=== PATIENT | male | born 1955 | race Hispanic/Latino ===

== ENCOUNTER 2018-09-09 11:41 | Emergency (ER) | payer OTHER ==
--- OUTSIDE RECORDS SUMMARY | 2018-09-09 11:53 | XMS REPORT | Summary of Care ---
:01/09/1990 Author Encounter JOCE Muniz(DARRIAN) [id number] Date(s): 01/11/14 - 01/11/14 [facility] [id number] Discharge Disposition: Non-Emergent Physician Attending: Bro Hammer MD Reason for Visit LEG PAIN Vital Signs Most recent to oldest [Reference Range]: 1 Height 165.1 cm (01/11/14 8:03 PM) Temperature Oral [96.4-99.1 DegF] 98.4 DegF (01/11/14 8:03 PM) Systolic Blood Pressure [90-140 mmHg] 144 mmHg *HI* (01/11/14 8:03 PM) Diastolic Blood Pressure [60-90 mmHg] 90 mmHg (01/11/14 8:03 PM) Respiratory Rate [14-20 BRMIN] 22 BRMIN *HI* (01/11/14 8:03 PM) Peripheral Pulse Rate [60-100 bpm] 102 bpm *HI* (01/11/14 8:03 PM) Weight 68.182 kg (01/11/14 8:03 PM) Body Mass Index 25.01 m2 (01/11/14 8:03 PM) Problem List No data available for this section Allergies, Adverse Reactions, Alerts Substance Reaction Severity Status NKDA Active Medications Sodium Chloride 0.9% (Bolus) IV 1,000 mL, 1,000 ml/hr, Infuse Over: 1 hr, Route: IV, ONCE, Priority: STAT, Dosing Weight 68.182 kg, Start date: 01/11/14 21:18:00, Duration: 1 doses or times, Stop date: 01/11/14 21:18:00 Start Date: 01/11/14 Stop Date: 01/11/14 Status: Discontinued Medications Administered During Your Visit No data available for this section Immunizations No data available for this section Procedures Procedure Type Body Site Date of Procedure Related Diagnosis section Social History Social History Type Response Alcohol Use: Current, Type: Liquor, Frequency: 1-2 times per month, Previous treatment: None, Has alcohol use interfered with work or home life? No, Do you ever drink more than intended? No, Has anyone been hurt or at risk by your drinking? No, Ready to change: No, Concerns about alcohol use in household: No
--- OUTSIDE RECORDS SUMMARY | 2018-09-09 11:53 | XMS REPORT | Summary of Care ---
:01/09/1990 Author Organization [facility] Address [address] [place] [id number]- Encounter HQ Oneilr_alejandro(FIN) [id number] Date(s): 10/15/17 - 10/25/[address] Professional Services provided by [facility] [place] [address]- Discharge Disposition: Home or Self Care Attending Physician: Leonid Bowman MD Admitting Physician: Leonid Bowman MD Vital Signs Most recent to oldest 1 2 3 [Reference Range]: Height 165.1 cm 165.1 cm (10/15/17 9:53 PM) (10/15/17 7:03 AM) Current Weight 103.273 kg 104.227 kg 103.955 kg (10/24/17 7:25 AM) (10/23/17 7:06 AM) (10/20/17 6:01 AM) Temperature Oral [96.4-99.1 97.6 DegF 97.4 DegF 97.7 DegF DegF] (10/25/17 3:38 PM) (10/25/17 11:44 AM) (10/25/17 7:17 AM) Blood Pressure [90-140/60-90 132/88 mmHg 148/105 mmHg 139/99 mmHg mmHg] (10/25/17 3:38 PM) *HI* (10/25/17 7:17 AM) (10/25/17 11:44 AM) Respiratory Rate [14-20 BRMIN] 20 BRMIN 20 BRMIN 20 BRMIN (10/25/17 3:38 PM) (10/25/17 11:44 AM) (10/25/17 7:17 AM) Peripheral Pulse Rate [60-100 109 bpm 79 bpm 107 bpm bpm] *HI* (10/25/17 11:44 AM) *HI* (10/25/17 3:38 PM) (10/25/17 7:17 AM) Weight 108.636 kg 127.273 kg (10/15/17 9:53 PM) (10/15/17 7:03 AM) Body Mass Index 39.85 m2 46.69 m2 (10/15/17 9:53 PM) (10/15/17 7:03 AM) Problem List Condition Effective Dates Status Health Status Informant Diabetes(Confirmed)1 Resolved Hypertension(Confirmed)2 Resolved 1untreated, diagnosed at [place] 1 month ago per [id number], diagnosed at [place] 1 month ago per pt Allergies, Adverse Reactions, Alerts Substance Reaction Severity Status NKDA Active Medications acetaminophen 325 mg, 1 tab, Route: PO, Drug form: TAB, Q4H, Dosing Weight 108.636, kg, PRN Pain 4-6/Temp > 100.4 F, Start date: 10/22/17 19:18:00 CDT, Duration: 30 day , Stop date: 11/21/17 19:17:00 CDT Notes: Do not exceed 4 gm/day. (Same as: Tylenol) Start Date: 10/22/17 Stop Date: 10/25/17 Status: Discontinuedalbuterol-ipratropium 2.5-0.5 mg inhalation solution 3 mL, INHALATION, QID, # 90 mL, 0 Refill(s) Start Date: 10/22/17 Status: Orderedalbuterol-ipratropium 2.5-0.5 mg inhalation solution 3 ml, INHALATION, QID, # 30 ea, 0 Refill(s) Start Date: 10/15/17 Stop Date: 10/22/17 Status: DiscontinuedAtivan 1 mg, 1 tab, Route: PO, Drug form: TAB, ONCE, Dosing Weight 108.636, kg, PRN Anxiety, Start date: 10/24/17 1:32:00 CDT Notes: (Same as: Ativan) Start Date: 10/24/17 Stop Date: 10/24/17 Status: CompletedAtivan 1 mg, 0.5 mL, Route: IVP, Drug form: INJ, ONCE, Dosing Weight 108.636, kg, PRN Anxiety, Start date: 10/24/17 0:52:00 CDT Notes: (Same as: Ativan) Start Date: 10/24/17 Stop Date: 10/24/17 Status: Discontinuedcalcium carbonate 500 mg, 1 tab, Route: PO, Drug form: CHEWTAB, Before Meals & Bedtime, Dosing Weight 108.636, kg,Start date: 10/17/17 16:30:00 CDT, Duration: 30 day, Stop date: 11/16/17 11:30:00 CDT Notes: (Same As: Tums)Calcium Carbonate 500 km=650 mg elemental calcium Dose=_ mg calcium carbonate ( mg elemental calcium) Start Date: 10/17/17 Stop Date: 10/25/17 Status: Discontinuedcalcium carbonate 500 mg, Route: PO, Drug form: CHEWTAB, Before Meals & Bedtime, Dosing Weight 108.636, kg, Start date: 10/17/17 16:30:00 CDT, Duration: 30 day, Stop date: 11/16/17 11:30:00 CDT Start Date: 10/17/17 Stop Date: 10/17/17 Status: Canceledcalcium carbonate 1,000 mg, 2 tab, Route: PO, Drug form: CHEWTAB, ONCE, Dosing Weight 108.636, kg , Start date: 10/18/17 17:46:00 CDT, Stop date: 10/18/17 17:46:00 CDT Start Date: 10/18/17 Stop Date: 10/18/17 Status: Completedcalcium gluconate 1,000 mg, 2 tab, Route: PO, Drug form: TAB, ONCE, Dosing Weight 108.636, kg, Start date: 10/18/17 16:18:00 CDT, Stop date: 10/18/17 16:18:00 CDT Start Date: 10/18/17 Stop Date: 10/18/17 Status: Discontinuedcarvedilol 3.125 mg oral tablet 3.125 mg=1 tab, PO, BID, # 60 tab, 0 Refill(s) Start Date: 10/22/17 Stop Date: 10/25/17 Status: Discontinuedcefepime 1 gm, Route: IVPB, Drug form: INJ, ONCE, Dosing Weight 127.273, kg, Priority: STAT, Start date: 10/15/17 7:24:00 CDT, Stop date: 10/15/17 7:24:00 CDT, ABX Indication: Pneumonia Notes: (Same As: Maxipime) MEDICATION WASTE Product Size: 1000 mgProduct Wasted: ___ mg Start Date: 10/15/17 Stop Date: 10/15/17 Status: Completedcefepime 1 gm, Route: IVP, Drug form: INJ, ABXQ8H, Dosing Weight 127.273, kg, (CrCl >/ =50 ml/min), Start date: 10/15/17 16:23:00 CDT, Duration: 2 day, Stop date: 08/01 8:23:00 CDT, ABX Indication: Pneumonia Notes: (Same As: Maxipime) MEDICATION WASTE Product Size: 1000 mgProduct Wasted: ___ mg Start Date: 10/15/17 Stop Date: 10/16/17 Status: DiscontinuedDextrose 50% Syringe 25 gm, 50 mL, Route: IVP, Drug Form: INJ, Dosing Weight 127.273, kg, PRN, PRN Blood Glucose Results,Start date: 10/15/17 19:33:00 CDT, Duration: 30 day, Stop date: 11/14/17 19:32:00 CDT Start Date: 10/15/17 Stop Date: 10/25/17 Status: DiscontinuedDextrose 50% Syringe 12.5 gm, 25 mL, Route: IVP, Drug Form: INJ, Dosing Weight 127.273, kg, PRN, PRN Blood Glucose Results, Start date: 10/15/17 19:33:00 CDT, Duration: 30 day, Stop date: 11/14/17 19:32:00 CDT Start Date: 10/15/17 Stop Date: 10/25/17 Status: DiscontinuedDilaudid 1 mg, 0.5 mL, Route: IVP, Drug form: INJ, ONCE, Dosing Weight 108.636, kg, Priority: STAT, Start date: 10/21/17 23:01:00 CDT, Stop date: 10/21/17 23:01:00 CDT Notes: Same as Dilaudid Start Date: 10/21/17 Stop Date: 10/21/17 Status: CompletedDuoNeb inhalation solution 3 ml, Route: NEB, Drug Form: SOLN, Dosing Weight 127.273, kg, Q5Min, PRN Wheezing, Start date: 10/15/17 7:11:00 CDT, Duration: 3 doses or times, Stop date: 10/16/17 0:00:00 CDT Notes: (Same as: Duoneb) Start Date: 10/15/17 Stop Date: 10/15/17 Status: CompletedDuoNeb inhalation solution 3 ml, Route: NEB, Drug Form: SOLN, Dosing Weight 127.273, kg, RQ6H, PRN Respiratory Pathway, Start date: 10/15/17 17:32:00 CDT, Duration: 30 day, Stop date: 11/14/17 17:31:00 CDT Notes: (Same as: Duoneb) Start Date: 10/15/17 Stop Date: 10/17/17 Status: DiscontinuedDuoNeb inhalation solution 3 ml, Route: NEB, Drug Form: SOLN, Dosing Weight 108.636, kg, RQ4H, Start date: 10/17/17 13:32:00 CDT, Duration: 30 day, Stop date: 11/16/17 11:00:00 CDT Notes: (Same as: Duoneb) Start Date: 10/17/17 Stop Date: 10/25/17 Status: DiscontinuedDuoNeb inhalation solution 3 ml, Route: NEB, Drug Form: SOLN, Dosing Weight 127.273, kg, RQ6H, PRN Respiratory Pathway, Start date: 10/15/17 13:34:00 CDT, Duration: 30 day, Stop date: 11/14/17 13:33:00 CDT Start Date: 10/15/17 Stop Date: 10/15/17 Status: Discontinuedglucagon 1 mg, Route: IM, Drug form: PDR/INJ, PRN, Dosing Weight 127.273, kg, PRN Blood Glucose Results, Start date: 10/15/17 19:33:00 CDT, Duration: 30 day, Stop date : 11/14/17 19:32:00 CDT Start Date: 10/15/17 Stop Date: 10/25/17 Status: Discontinuedheparin 7,500 unit, Route: SUB-Q, Q8H, Dosing Weight 127.273, kg, Start date: 10/15/17 16:00:00 CDT, Duration: 30 day, Stop date: 11/14/17 8:00:00 CDT Start Date: 10/15/17 Stop Date: 10/15/17 Status: Canceledheparin 5000 units/mL injectable solution 7,500 unit, 1.5 mL, Route: SUB-Q, Drug form: INJ, Q8H, Dosing Weight 127.273, kg , Start date: 10/15/17 16:00:00 CDT, Duration: 30 day, Stop date: 11/14/17 8:00: 00 CDT Start Date: 10/15/17 Stop Date: 10/25/17 Status: Discontinuedheparin 5000 units/mL injectable solution Route: INJ, TID, Dosing Weight 127.273, kg, Start date: 10/15/17 17:00:00 CDT, Duration: 30 day, Stop date: 11/14/17 13:00:00 CDT Start Date: 10/15/17 Stop Date: 10/15/17 Status: CanceledInsulin regular 5 unit, 0.05 mL, Route: SUB-Q, Drug form: SOLN, TID-Before Meals, Dosing Weight 127.273, kg, PRN Blood Glucose Results, Start date: 10/15/17 19:33:00 CDT, Duration: 30 day, Stop date: 11/14/17 19:32:00CDT Notes: (Same as: Humulin R) Roll in palms of hands gently; Do not shake vigorously. "single patientuse only"(Restricted to patients requiring a dose &gt ; 60 units)WASTE: F/P - Black; E - Municipal Trash Bin Stable for 28 days at room temperatureExpires in days from Date Start Date: 10/15/17 Stop Date: 10/25/17 Status: DiscontinuedInsulin regular 3 unit, 0.03 mL, Route: SUB-Q, Drug form: SOLN, TID-Before Meals, Dosing Weight 127.273, kg, PRN Blood Glucose Results, Start date: 10/15/17 19:33:00 CDT, Duration: 30 day, Stop date: 11/14/17 19:32:00CDT Notes: (Same as: Humulin R) Roll in palms of hands gently; Do not shake vigorously. "single patientuse only"(Restricted to patients requiring a dose &gt ; 60 units)WASTE: F/P - Black; E - Municipal Trash Bin Stable for 28 days at room temperatureExpires in days from Date Start Date: 10/15/17 Stop Date: 10/25/17 Status: DiscontinuedInsulin regular 4 unit, 0.04 mL, Route: SUB-Q, Drug form: SOLN, TID-Before Meals, Dosing Weight 127.273, kg, PRN Blood Glucose Results, Start date: 10/15/17 19:33:00 CDT, Duration: 30 day, Stop date: 11/14/17 19:32:00CDT Notes: (Same as: Humulin R) Roll in palms of hands gently; Do not shake vigorously. "single patientuse only"(Restricted to patients requiring a dose &gt ; 60 units)WASTE: F/P - Black; E - Municipal Trash Bin Stable for 28 days at room temperatureExpires in days from Date Start Date: 10/15/17 Stop Date: 10/25/17 Status: DiscontinuedInsulin regular 1 unit, 0.01 mL, Route: SUB-Q, Drug form: SOLN, TID-Before Meals, Dosing Weight 127.273, kg, PRN Blood Glucose Results, Start date: 10/15/17 19:33:00 CDT, Duration: 30 day, Stop date: 11/14/17 19:32:00CDT Notes: (Same as: Humulin R) Roll in palms of hands gently; Do not shake vigorously. "single patientuse only"(Restricted to patients requiring a dose &gt ; 60 units)WASTE: F/P - Black; E - Municipal Trash Bin Stable for 28 days at room temperatureExpires in days from Date Start Date: 10/15/17 Stop Date: 10/25/17 Status: DiscontinuedInsulin regular 2 unit, 0.02 mL, Route: SUB-Q, Drug form: SOLN, TID-Before Meals, Dosing Weight 127.273, kg, PRN Blood Glucose Results, Start date: 10/15/17 19:33:00 CDT, Duration: 30 day, Stop date: 11/14/17 19:32:00CDT Notes: (Same as: Humulin R) Roll in palms of hands gently; Do not shake vigorously. "single patientuse only"(Restricted to patients requiring a dose &gt ; 60 units)WASTE: F/P - Black; E - Municipal Trash Bin Stable for 28 days at room temperatureExpires in days from Date Start Date: 10/15/17 Stop Date: 10/25/17 Status: DiscontinuedLactated Ringers (Bolus) IV 250 mL, 250 ml/hr, Infuse Over: 1 hr, Route: IV, 250, Drug form: INJ, ONCE, Priority: STAT, Dosing Weight 108.636 kg, Start date: 10/16/17 0:33:00 CDT, Stop date: 10/16/17 0:33:00 CDT Start Date: 10/16/17 Stop Date: 10/16/17 Status: DeletedLactated Ringers (Bolus) IV 250 mL, 250 ml/hr, Infuse Over: 1 hr, Route: IV, 250, Drug form: INJ, ONCE, Priority: STAT, Dosing Weight 108.636 kg, Start date: 10/16/17 1:10:00 CDT, Stop date: 10/16/17 1:10:00 CDT Start Date: 10/16/17 Stop Date: 10/16/17 Status: CompletedLasix 40 mg, Route: IVP, Drug form: INJ, Daily, Dosing Weight 108.636, kg, Start date : 10/19/17 12:30:00 CDT, Duration: 30 day, Stop date: 11/18/17 9:00:00 CDT Start Date: 10/19/17 Stop Date: 10/19/17 Status: DeletedLasix 40 mg, 4 mL, Route: IVP, Drug form: INJ, BID Diuretic, Dosing Weight 108.636, kg , Start date: 10/17/17 19:00:00 CDT, Duration: 30 day, Stop date: 11/16/17 14:00 :00 CDT Notes: (Same as: Lasix) MEDICATION WASTE Product Size: 40 mgProduct Wasted: ___ mg Start Date: 10/17/17 Stop Date: 10/21/17 Status: DiscontinuedLasix 20 mg, 2 mL, Route: IV, Drug form: INJ, ONCE, Dosing Weight 108.636, kg, Start date: 10/17/17 12:16:00 CDT, Stop date: 10/17/17 12:16:00 CDT Notes: (Same as: Lasix) Start Date: 10/17/17 Stop Date: 10/17/17 Status: CompletedLasix 20 mg, 2 mL, Route: IVP, Drug form: INJ, ONCE, Dosing Weight 127.273, kg, Priority: STAT, Start date: 10/15/17 8:01:00 CDT, Stop date: 10/15/17 8:01:00 CDT Notes: (Same as: Lasix) Start Date: 10/15/17 Stop Date: 10/15/17 Status: CompletedLasix 40 mg, Route: PO, Drug form: TAB, BID Diuretic, Dosing Weight 108.636, kg, Start date: 10/17/17 6:00:00 CDT, Duration: 30 day, Stop date: 11/15/17 14:00: 00 CDT Start Date: 10/17/17 Stop Date: 10/16/17 Status: CanceledLasix 40 mg, 1 tab, Route: PO, Drug form: TAB, BID Diuretic, Dosing Weight 108.636, kg , Start date: 10/16/17 15:05:00 CDT, Duration: 30 day, Stop date: 11/15/17 14:00 :00 CDT Notes: (Same as: Lasix) May cause GI upset. Give with food or milk. Start Date: 10/16/17 Stop Date: 10/17/17 Status: DiscontinuedLasix 40 mg oral tablet 40 mg=1 tab, PO, BID, # 30 tab, 0 Refill(s) Start Date: 10/22/17 Status: OrderedLasix 40 mg oral tablet 40 mg, 1 tab, Route: PO, Drug form: TAB, BID Diuretic, Dosing Weight 108.636, kg , Start date: 10/20/17 14:00:00 CDT, Duration: 30 day, Stop date: 11/19/17 6:00: 00 CDT Notes: (Same as: Lasix) May cause GI upset. Give with food or milk. Start Date: 10/20/17 Stop Date: 10/25/17 Status: DiscontinuedLevaquin 750 mg, 1 tab, Route: PO, Drug form: TAB, [id number], Dosing Weight 108.636, kg, Start date: 10/21/17 13:00:00 CDT, Duration: 7 day, Stop date: 10/27/17 13:00: 00 CDT, ABX Indication: Pneumonia Notes: Do not give w/antacids, dairy pdt & mineralsTake 1 hr before or 2 hr after dairy products Start Date: 10/21/17 Stop Date: 10/22/17 Status: Discontinuedlidocaine 1% 5 mL, Route: INTRADERM, Drug Form: INJ, Dosing Weight 108.636, kg, ONCALL, Start date: 10/18/17 11:00:00 CDT, Duration: 30 day, Stop date: 11/17/17 10:59: 00 CDT Notes: Preservative free. (Same as: Xylocaine MPF) Start Date: 10/18/17 Stop Date: 10/25/17 Status: Discontinuedlisinopril 20 mg, 1 tab, Route: PO, Drug form: TAB, Daily, Dosing Weight 108.636, kg, Start date: 10/19/17 8:26:00 CDT, Duration: 30 day, Stop date: 11/17/17 9:00:00 CDT Notes: (Same as: Prinivil, Zestril) Start Date: 10/19/17 Stop Date: 10/25/17 Status: Discontinuedlisinopril 2.5 mg, Route: PO, Drug form: TAB, Daily, Dosing Weight 108.636, kg, Start date : 10/17/17 9:00:00 CDT, Duration: 30 day, Stop date: 11/15/17 9:00:00 CDT Start Date: 10/17/17 Stop Date: 10/16/17 Status: Canceledlisinopril 2.5 mg, 1 tab, Route: PO, Drug form: TAB, Daily, Dosing Weight 108.636, kg, Start date: 10/16/17 15:06:00 CDT, Duration: 30 day, Stop date: 11/15/17 9:00: 00 CDT Notes: (Same as: ivil) Start Date: 10/16/17 Stop Date: 10/17/17 Status: Discontinuedlisinopril 5 mg, 1 tab, Route: PO, Drug form: TAB, ONCE, Dosing Weight 108.636, kg, Start date: 10/17/17 12:19:00 CDT, Stop date: 10/17/17 12:19:00 CDT Notes: (Same as: Bennett Kamarastril) Start Date: 10/17/17 Stop Date: 10/17/17 Status: Completedlisinopril 10 mg, 1 tab, Route: PO, Drug form: TAB, Daily, Dosing Weight 108.636, kg, Start date: 10/18/17 9:00:00 CDT, Duration: 30 day, Stop date: 11/16/17 9:00:00 CDT Notes: (Same as: Bennett Kamarastril) Start Date: 10/18/17 Stop Date: 10/19/17 Status: Discontinuedlisinopril 20 mg oral tablet 20 mg=1 tab, PO, Daily, # 30 tab, 1 Refill(s) Start Date: 10/22/17 Status: OrderedLopressor 25 mg, 1 tab, Route: PO, Drug form: TAB, ONCE, Start date: 10/24/17 21:00:00 CDT , Stop date: 10/24/17 21:00:00 CDT Notes: (Same as: Lopressor) Start Date: 10/24/17 Stop Date: 10/24/17 Status: Completedmagnesium sulfate 2 gm, Route: IVPB, Drug form: INJ, ONCE, Dosing Weight 127.273, kg, Total dose= 2 gm, Start date: 10/15/17 16:29:00 CDT, Stop date: 10/15/17 16:29:00 CDT Start Date: 10/15/17 Stop Date: 10/15/17 Status: Completedmagnesium sulfate 2 gm in Water 50 ml 2 gm, 50 mL, Route: IVPB, Drug form: INJ, ONCE, Dosing Weight 108.636, kg, Start date: 10/17/17 10:30:00 CDT, Stop date: 10/17/17 10:30:00 CDT Notes: WASTE: F/P - Sink; E - Municipal Trash Bin Start Date: 10/17/17 Stop Date: 10/17/17 Status: Completedmagnesium sulfate 2 gm in Water 50 ml 2 gm, 50 mL, Route: IVPB, Drug form: INJ, ONCE, Dosing Weight 108.636, kg, Start date: 10/18/17 8:24:00 CDT, Stop date: 10/18/17 8:24:00 CDT Notes: WASTE: F/P - Sink; E - Municipal Trash Bin Start Date: 10/18/17 Stop Date: 10/18/17 Status: Completedmeropenem 1,000 mg, Route: IVPB, Drug form: PDR/INJ, ABXQ8H, Dosing Weight 108.636, kg, CrCL >=50ml/min, Extended infusion, infuse over 3 hours, Start date: 19:00:00 CDT, Duration: 10 day, Stop date:10/26/17 11:00:00 CDT, ABX Indication: Bacteremia Start Date: 10/16/17 Stop Date: 10/16/17 Status: Deletedmeropenem 500 mg, Route: IVPB, Drug form: PDR/INJ, ABXQ6H, Start date: 10/16/17 20:00:00 CDT, Duration: 10 day, Stop date: 10/26/17 14:00:00 CDT, ABX Indication: Bacteremia Notes: Same as Merrem MEDICATION WASTE Product Size: 500 mgProduct Wasted: ___ mg Start Date: 10/16/17 Stop Date: 10/21/17 Status: DiscontinuedmetFORMIN 500 mg oral tablet 500 mg=1 tab, PO, BID, # 60 tab, 1 Refill(s) Start Date: 10/22/17 Stop Date: 10/25/17 Status: DiscontinuedmetFORMIN 500 mg oral tablet 500 mg=1 tab, PO, BID, # 60 tab, 1 Refill(s) Start Date: 10/25/17 Stop Date: 10/25/17 Status: Discontinuedmetoprolol 50 mg, 1 tab, Route: PO, Drug form: ERTAB, Daily, Start date: 10/25/17 9:00:00 CDT, Duration: 30 day, Stop date: 11/23/17 9:00:00 CDT Notes: (Same as: Toprol XL) May split tab, but do not crush. Start Date: 10/25/17 Stop Date: 10/25/17 Status: Discontinuedmetoprolol 50 mg oral tablet, extended release 50 mg=1 tab, PO, Daily, # 30 tab, 2 Refill(s) Start Date: 10/25/17 Status: Orderedmetoprolol tartrate 50 mg, Route: PO, Drug form: TAB, Daily, Dosing Weight 108.636, kg, Start date: 10/25/17 9:00:00 CDT, Duration: 30 day, Stop date: 11/23/17 9:00:00 CDT Start Date: 10/25/17 Stop Date: 10/24/17 Status: Deletedmetoprolol tartrate 12.5 mg, 0.5 tab, Route: PO, Drug form: TAB, Q12H, Dosing Weight 108.636, kg, Start date: 10/23/17 9:00:00 CDT, Duration: 30 day, Stop date: 11/21/17 21:00: 00 CDT Notes: (Same as: Lopressor) 12.5 mg=1/2 X 25 mg TAB Start Date: 10/23/17 Stop Date: 10/24/17 Status: Discontinuedmetoprolol tartrate See Instructions, BID, 0 Refill(s) Start Date: 10/15/17 Stop Date: 10/22/17 Status: DiscontinuedMiraLax 17 gm, 1 pkt, Route: PO, Drug form: PWDR, BID, Dosing Weight 108.636, kg, Start date: 10/17/17 9:50:00 CDT, Duration: 30 day, Stop date: 11/16/17 9:00:00 CDT Notes: Dissolve in 8 oz of water or juice.(Same as: Miralax) Start Date: 10/17/17 Stop Date: 10/25/17 Status: DiscontinuedNIFEdipine 30 mg oral tablet, extended release 30 mg, 1 tab, Route: PO, Drug form: ERTAB, Daily, Dosing Weight 127.273, kg, Start date: 10/15/17 15:36:00 CDT, Duration: 30 day, Stop date: 11/14/17 9:00: 00 CDT Start Date: 10/15/17 Stop Date: 10/16/17 Status: Discontinuednitroglycerin 100 mg in D5W 250 mL (Titrate.) IV 100 mg 100 mg, 250 mL, Rate: Titrate, Start Dose: 0.25 microgram/kg/min, Titration: 0.2 microgram/kg/min every 5 minutes, Goal(s): Chest pain and SBP between 100 - 150 mmHg, Max Dose: 3 microgram/kg/min, Route: IV, Dosing Weight 127.273 kg, Total Volume: 250... Notes: (Same as:Tridil) Final conc=0.4 mg/ml. Premix bottle. Start Date: 10/15/17 Stop Date: 10/15/17 Status: DiscontinuedNorco 10/325 oral tablet 1 tab, Route: PO, Drug Form: TAB, Dosing Weight 108.636, kg, Q6H, PRN Pain Score 7-10, Start date: 10/16/17 11:23:00 CDT, Stop date: 11/15/17 11:22:00 CDT , Q6H Notes: Do not exceed 4gm/day of acetaminophen. (Same as: [place] 325/10) Start Date: 10/16/17 Stop Date: 10/25/17 Status: DiscontinuedNS (Bolus) IV 2,000 mL, 1000 ml/hr, Infuse Over: 2 hr, Route: IV, 2,000, Drug form: INJ, ONCE , Priority: STAT, Dosing Weight 127.273 kg, Start date: 10/15/17 7:28:00 CDT, Stop date: 10/15/17 7:28:00 CDT Start Date: 10/15/17 Stop Date: 10/15/17 Status: Completedpotassium chloride 40 mEq, 2 tab, Route: PO, Drug form: ERTAB, ONCE, Dosing Weight 127.273, kg, Start date: 10/15/17 16:01:00 CDT, Stop date: 10/15/17 16:01:00 CDT Notes: (Same as: K-Dur 20)"Do Not Crush"For patients unable to swallow tablet, dissolve in one half glass of water. Allow about 2 minutes for the tablets to disintegrate. Stir before giving to prepare slurry and administer.Please exclude Patients with feeding tube less than 14 [place] (Dobhoff, J-tube etc) and pediatric and patients. With food and full glass of water Start Date: 10/15/17 Stop Date: 10/15/17 Status: Completedpotassium chloride 20 mEq oral tablet, extended release 40 mEq, 2 tab, Route: PO, Drug form: ERTAB, ONCE, Dosing Weight 108.636, kg, Start date: 10/19/17 6:25:00 CDT, Stop date: 10/19/17 6:25:00 CDT Notes: (Same as: K-Dur 20)"Do Not Crush"For patients unable to swallow tablet, dissolve in one half glass of water. Allow about 2 minutes for the tablets to disintegrate. Stir before giving to prepare slurry and administer.Please exclude Patients with feeding tube less than 14 [place] (Dobhoff, J-tube etc) and pediatric and patients. With food and full glass of water Start Date: 10/19/17 Stop Date: 10/19/17 Status: Completedpotassium chloride 20 mEq oral tablet, extended release 40 mEq, 2 tab, Route: PO, Drug form: ERTAB, ONCE, Dosing Weight 108.636, kg, Start date: 10/20/17 6:25:00 CDT, Stop date: 10/20/17 6:25:00 CDT Notes: (Same as: K-Dur 20)"Do Not Crush"For patients unable to swallow tablet, dissolve in one half glass of water. Allow about 2 minutes for the tablets to disintegrate. Stir before giving to prepare slurry and administer.Please exclude Patients with feeding tube less than 14 [place] (Dobhoff, J-tube etc) and pediatric and patients. With food and full glass of water Start Date: 10/20/17 Stop Date: 10/20/17 Status: Completedpotassium chloride 20 mEq oral tablet, extended release 40 mEq, 2 tab, Route: PO, Drug form: ERTAB, ONCE, Dosing Weight 108.636, kg, Start date: 10/16/17 10:42:00 CDT, Stop date: 10/16/17 10:42:00 CDT Notes: (Same as: K-Dur 20)"Do Not Crush"For patients unable to swallow tablet, dissolve in one half glass of water. Allow about 2 minutes for the tablets to disintegrate. Stir before giving to prepare slurry and administer.Please exclude Patients with feeding tube less than 14 [place] (Dobhoff, J-tube etc) and pediatric and patients. With food and full glass of water Start Date: 10/16/17 Stop Date: 10/16/17 Status: Completedpotassium chloride 20 mEq oral tablet, extended release 40 mEq, 2 tab, Route: PO, Drug form: ERTAB, ONCE, Dosing Weight 108.636, kg, Start date: 10/18/17 8:23:00 CDT, Stop date: 10/18/17 8:23:00 CDT Notes: (Same as: K-Dur 20)"Do Not Crush"For patients unable to swallow tablet, dissolve in one half glass of water. Allow about 2 minutes for the tablets to disintegrate. Stir before giving to prepare slurry and administer.Please exclude Patients with feeding tube less than 14 [place] (Dobhoff, J-tube etc) and pediatric and patients. With food and full glass of water Start Date: 10/18/17 Stop Date: 10/18/17 Status: CompletedpredniSONE 40 mg, 2 tab, Route: PO, Drug form: TAB, Daily, Dosing Weight 108.636, kg, Start date: 10/20/17 9:00:00 CDT, Duration: 5 day, Stop date: 10/24/17 9:00:00 CDT Notes: Take with food. Start Date: 10/20/17 Stop Date: 10/24/17 Status: CompletedpredniSONE 20 mg oral tablet 40 mg=2 tab, PO, Daily, # 2 tab, 0 Refill(s) Start Date: 10/22/17 Stop Date: 10/24/17 Status: CompletedSaline Flush 0.9% 10 mL, Route: IVP, Drug Form: INJ, Dosing Weight 108.636, kg, PRN, PRN Line Flush, Start date: 10/18/17 10:05:00 CDT, Duration: 30 day, Stop date: 11/17/17 10:04:00 CDT Notes: Same as: BD Posiflush Sterile Start Date: 10/18/17 Stop Date: 10/25/17 Status: DiscontinuedSaline Flush 0.9% 10 mL, Route: IVP, Drug Form: INJ, Dosing Weight 108.636, kg, Q8H, Start date: 10/18/17 16:00:00 CDT, Duration: 30 day, Stop date: 11/17/17 8:00:00 CDT Notes: Same as: BD Posiflush Sterile Start Date: 10/18/17 Stop Date: 10/25/17 Status: DiscontinuedSolu-MEDROL 125 mg, 2 mL, Route: IVP, Drug form: INJ, ONCE, Dosing Weight 127.273, kg, Priority: STAT, Start date: 10/15/17 7:11:00 CDT, Stop date: 10/15/17 7:11:00 CDT Notes: (Same as:Solu-MEDROL, A-Methapred) Start Date: 10/15/17 Stop Date: 10/15/17 Status: Completedspironolactone 12.5 mg, 0.5 tab, Route: PO, Drug form: TAB, Daily, Dosing Weight 108.636, kg, Start date: 10/23/17 10:55:00 CDT, Duration: 30 day, Stop date: 11/22/17 9:00: 00 CDT Notes: (Same as: Aldactone)12.5 mg=1/2 x 25 mg tab Start Date: 10/23/17 Stop Date: 10/25/17 Status: Discontinuedspironolactone 25 mg oral tablet 12.5 mg=0.5 tab, PO, Daily, # 30 tab, 2 Refill(s) Start Date: 10/25/17 Status: OrderedTessalon Perles 100 mg, 1 cap, Route: PO, Drug form: CAP, TID, Dosing Weight 108.636, kg, PRN Cough, Start date: 10/17/17 9:55:00 CDT, Duration: 30 day, Stop date: 11/16/17 9 :54:00 CDT Notes: (Same As: Tessalon Perles) Start Date: 10/17/17 Stop Date: 10/19/17 Status: DiscontinuedTessalon Perles 200 mg, 2 cap, Route: PO, Drug form: CAP, TID, Dosing Weight 108.636, kg, Start date: 10/19/17 13:00:00 CDT, Duration: 30 day, Stop date: 11/18/17 9:00:00 CDT Notes: (Same As: Tessalon Perles)"Do Not Crush" Start Date: 10/19/17 Stop Date: 10/25/17 Status: DiscontinuedTylenol 325 mg, 1 tab, Route: PO, Drug form: TAB, Q6H, Dosing Weight 108.636, kg, PRN Pain Score 1-3, Start date: 10/15/17 22:41:00 CDT, Duration: 30 day, Stop date: 11/14/17 22:40:00 CDT Notes: Do not exceed 4 gm/day. (Same as: Tylenol) Start Date: 10/15/17 Stop Date: 10/16/17 Status: DiscontinuedTylenol 1,000 mg, 2 tab, Route: PO, Drug form: TAB, ONCE, Dosing Weight 108.636, kg, Start date: 10/18/17 3:00:00 CDT, Stop date: 10/18/17 3:00:00 CDT Notes: Max acetaminophen 4000 mg/day (4 gm/day). (Same as: Tylenol Extra Strength) Start Date: 10/18/17 Stop Date: 10/18/17 Status: CompletedTylenol 1,000 mg, 2 tab, Route: PO, Drug form: TAB, Q6H, Dosing Weight 108.636, kg, PRN Pain 1-3/Temp > 100.4 F, Start date: 10/16/17 19:46:00 CDT, Duration: 30 day , Stop date: 11/15/17 19:45:00 CDT Start Date: 10/16/17 Stop Date: 10/17/17 Status: DiscontinuedTylenol 1,000 mg, Route: PO, Q6H, Dosing Weight 108.636, kg, Start date: 10/16/17 19:46: 00 CDT, Duration: 30day, Stop date: 11/15/17 18:00:00 CDT Start Date: 10/16/17 Stop Date: 10/16/17 Status: Discontinuedvancomycin + Sodium Chloride 0.9% IV 250 mL 1.5 gm, Route: IVPB, ABXQ8H, Start date: 10/18/17 22:00:00 CDT, Stop date: 11/17 14:00:00 CDT, ABX Indication: Pneumonia Notes: TIME CRITICAL MEDICATION(Same As: Vancocin)Infusion rate< 1000 mg: infuse over 1 [id number] - 1500 mg: infuse over 1.5 hoursVancomycin FOR IV SET [id number] - 2000 mg: infuse over 2 hours>2001 mg: infuse over 2.5 hoursFor adult patients only: Round to nearest 250 mg per Medical Staff approval MEDICATION WASTE Product Size: 1000 mgProduct Wasted: ___ mg Start Date: 10/18/17 Stop Date: 10/19/17 Status: Discontinuedvancomycin + Sodium Chloride 0.9% IV 250 mL 1.25 gm, Route: IV, ABXQ8H, Dosing Weight 108.636, kg, Start date: 10/20/17 6:00 :00 CDT, Duration: 30 day, Stop date: 11/18/17 22:00:00 CDT, ABX Indication: Other (specify in Comments) Notes: TIME CRITICAL MEDICATION(Same As: Vancocin)Infusion rate< 1000 mg: infuse over 1 [id number] - 1500 mg: infuse over 1.5 hoursVancomycin FOR IV SET ONLY1501 - 2000 mg: infuse over 2 hours>2001 mg: infuse over 2.5 hoursFor adult patients only: Round to nearest 250 mg per Medical Staff approval MEDICATION WASTE Product Size: 1000 mgProduct Wasted: ___ mg Start Date: 10/20/17 Stop Date: 10/21/17 Status: Discontinuedvancomycin + Sodium Chloride 0.9% IV 250 mL 1.75 gm, Route: IVPB, ABXQ8H, Dosing Weight 108.636, kg, Start date: 10/17/17 3: 00:00 CDT, Duration:30 day, Stop date: 11/15/17 22:00:00 CDT, ABX Indication: Bacteremia Notes: TIME CRITICAL MEDICATION(Same As: Vancocin)Infusion rate< 1000 mg: infuse over 1 [id number] - 1500 mg: infuse over 1.5 hoursVancomycin FOR IV SET ONLY1501 - 2000 mg: infuse over 2 hours>2001 mg: infuse over 2.5 hoursFor adult patients only: Round to nearest 250 mg per Medical Staff approval MEDICATION WASTE Product Size: 1000 mgProduct Wasted: ___ mg Start Date: 10/17/17 Stop Date: 10/18/17 Status: Discontinuedvancomycin + Sodium Chloride 0.9% IV 500 mL 2,000 mg, Route: IVPB, ABXQ8H, Dosing Weight 127.273, kg, Start date: 10/16/17 10:00:00 CDT, Duration: 2 day, Stop date: 10/18/17 2:00:00 CDT, ABX Indication: Pneumonia Notes: TIME CRITICAL MEDICATION(Same As: Vancocin)Infusion rate< 1000 mg: infuse over 1 [id number] - 1500 mg: infuse over 1.5 [id number] - 2000 mg: infuse over 2 hoursFor adult patients only: Round to nearest 250 mg per Medical Staff approval MEDICATION WASTE Product Size: 1000 mgProduct Wasted: ___ mg Start Date: 10/16/17 Stop Date: 10/16/17 Status: Discontinuedvancomycin + Sodium Chloride 0.9% IV 500 mL 2,000 mg, Route: IVPB, ABXQ8H, Dosing Weight 127.273, kg, Start date: 10/15/17 17:00:00 CDT, Duration: 2 day, Stop date: 10/17/17 17:00:00 CDT, ABX Indication : Pneumonia Notes: TIME CRITICAL MEDICATION(Same As: Vancocin)Infusion rate< 1000 mg: infuse over 1 [id number] - 1500 mg: infuse over 1.5 [id number] - 2000 mg: infuse over 2 hoursFor adult patients only: Round to nearest 250 mg per Medical Staff approval MEDICATION WASTE Product Size: 1000 mgProduct Wasted: ___ mg Start Date: 10/15/17 Stop Date: 10/16/17 Status: Discontinuedvancomycin + Sodium Chloride 0.9% IV 500 mL 2,000 mg, Route: IVPB, ONCE, Dosing Weight 127.273, kg, Priority: STAT, Start date: 10/15/17 7:24:00CDT, Stop date: 10/15/17 7:24:00 CDT, ABX Indication: Pneumonia Notes: TIME CRITICAL MEDICATION(Same As: Vancocin)Infusion rate< 1000 mg: infuse over 1 [id number] - 1500 mg: infuse over 1.5 hoursVancomycin FOR IV SET ONLY1501 - 2000 mg: infuse over 2 hours>2001 mg: infuse over 2.5 hoursFor adult patients only: Round to nearest 250 mg per Medical Staff approval MEDICATION WASTE Product Size: 1000 mgProduct Wasted: ___ mg Start Date: 10/15/17 Stop Date: 10/15/17 Status: CompletedVasotec 1.25 mg, 1 mL, Route: IV, Drug form: INJ, ONCE, Dosing Weight 127.273, kg, Start date: 10/15/17 10:27:00 CDT, Stop date: 10/15/17 10:27:00 CDT Notes: (Same as: Vasotec-IV) Start Date: 10/15/17 Stop Date: 10/15/17 Status: CompletedVisipaque 320mg/ml 100 mL, Route: IVP, Drug Form: SOLN, Dosing Weight 127.273, kg, ONCALL, STAT, Start date: 10/15/17 9:26:00 CDT, Duration: 1 doses or times, Dose=2.2ml/kg, Max [id number] -- "To be infused by RadiologyStaff ONLY" Start Date: 10/15/17 Stop Date: 10/15/17 Status: CompletedZosyn 3.375 gm, Route: IVPB, Drug form: PDR/INJ, ABXQ8H, Dosing Weight 108.636, kg, Start date: 10/16/17 18:00:00 CDT, Duration: 30 day, Stop date: 11/15/17 10:00: 00 CDT, ABX Indication: Other (specify in Comments) Notes: Dosing based on Piperacillin component MEDICATION WASTE Product Size: 3375 mgProductWasted: ___ mg Start Date: 10/16/17 Stop Date: 10/16/17 Status: Discontinued Results ELECTROLYTES Most recent to oldest 1 2 3 [Reference Range]: Sodium Lvl [135-145 mEq/L] 143 mEq/L 140 mEq/L 140 mEq/L (10/22/17 1:01 AM) (10/21/17 5:02 AM) (10/20/17 2:48 AM) Potassium Lvl [3.5-5.1 mEq/L] 4.0 mEq/L 4.7 mEq/L 3.5 mEq/L (10/22/17 1:01 AM) (10/21/17 5:02 AM) (10/20/17 2:48 AM) Chloride Lvl [95-109 mEq/L] 102 mEq/L 102 mEq/L 97 mEq/L (10/22/17 1:01 AM) (10/21/17 5:02 AM) (10/20/17 2:48 AM) CO2 [24-32 mEq/L] 30 mEq/L 30 mEq/L 33 mEq/L (10/22/17 1:01 AM) (10/21/17 5:02 AM) *HI* (10/20/17 2:48 AM) AGAP [10.0-20.0 mEq/L] 15.0 mEq/L 12.7 mEq/L 13.5 mEq/L (10/22/17 1:01 AM) (10/21/17 5:02 AM) (10/20/17 2:48 AM) CHEM PANEL Most recent to oldest 1 2 3 [Reference Range]: Creatinine Lvl [0.50-1.40 0.91 mg/dL 0.74 mg/dL 0.76 mg/dL mg/dL] (10/22/17 1:01 AM) (10/21/17 5:02 AM) (10/20/17 2:48 AM) eGFR 98 mL/min/1.73m2 1 126 mL/min/1.73m2 2 123 mL/min/1.73m2 3 *NA* *NA* *NA* (10/22/17 1:01 AM) (10/21/17 5:02 AM) (10/20/17 2:48 AM) BUN [7-22 mg/dL] 15 mg/dL 17 mg/dL 10 mg/dL (10/22/17 1:01 AM) (10/21/17 5:02 AM) (10/20/17 2:48 AM) B/C Ratio [6-25] 16 14 16 (10/22/17 1:01 AM) (10/19/17 1:35 AM) (10/18/17 5:44 AM) Glucose Lvl [70-99 mg/dL] 84 mg/dL 107 mg/dL 91 mg/dL (10/22/17 1:01 AM) *HI* (10/20/17 2:48 AM) (10/21/17 5:02 AM) Total Protein [6.4-8.4 g/dL] 6.4 g/dL 6.1 g/dL 6.2 g/dL (10/22/17 1:01 AM) *LOW* *LOW* (10/19/17 1:35 AM) (10/18/17 5:44 AM) Albumin Lvl [3.5-5.0 g/dL] 2.5 g/dL 2.3 g/dL 2.5 g/dL *LOW* *LOW* *LOW* (10/22/17 1:01 AM) (10/19/17 1:35 AM) (10/18/17 5:44 AM) Globulin [2.7-4.2 g/dL] 3.9 g/dL 3.8 g/dL 3.7 g/dL (10/22/17 1:01 AM) (10/19/17 1:35 AM) (10/18/17 5:44 AM) A/G Ratio [0.7-1.6] 0.6 0.6 0.7 *LOW* *LOW* (10/18/17 5:44 AM) (10/22/17 1:01 AM) (10/19/17 1:35 AM) Calcium Lvl [8.5-10.5 mg/dL] 9.2 mg/dL 9.0 mg/dL 8.8 mg/dL (10/22/17 1:01 AM) (10/21/17 5:02 AM) (10/20/17 2:48 AM) Phosphorus [2.5-4.5 mg/dL] 4.6 mg/dL 5.1 mg/dL 4.9 mg/dL *HI* *HI* *HI* (10/22/17 1:01 AM) (10/21/17 5:02 AM) (10/20/17 2:48 AM) Magnesium Lvl [1.8-2.4 mg/dL] 1.9 mg/dL 2.1 mg/dL 1.8 mg/dL (10/22/17 1:01 AM) (10/21/17 5:02 AM) (10/20/17 2:48 AM) ALT [0-65 unit/L] 26 unit/L 38 unit/L 50 unit/L (10/22/17 1:01 AM) (10/19/17 1:35 AM) (10/18/17 5:44 AM) AST [0-37 unit/L] 16 unit/L 19 unit/L 31 unit/L (10/22/17 1:01 AM) (10/19/17 1:35 AM) (10/18/17 5:44 AM) Alk Phos [39-136 unit/L] 50 unit/L 54 unit/L 53 unit/L (10/22/17 1:01 AM) (10/19/17 1:35 AM) (10/18/17 5:44 AM) Bili Total [0.2-1.3 mg/dL] 0.3 mg/dL 0.4 mg/dL 0.5 mg/dL (10/22/17 1:01 AM) (10/19/17 1:35 AM) (10/18/17 5:44 AM) Lactic Acid Lvl [0.5-2.2 0.9 mMol/L 0.8 mMol/L 1.7 mMol/L mMol/L] (10/19/17 1:35 AM) (10/18/17 5:44 AM) (10/17/17 8:22 AM) Lactic Acid WB [0.5-2.2 2.0 mmol/L mmol/L] (10/15/17 7:15 AM) Procalcitonin Lvl [0.00-0.10 0.10 ng/mL 0.15 ng/mL 0.34 ng/mL ng/mL] (10/22/17 1:01 AM) *HI* *HI* (10/21/17 11:05 AM) (10/18/17 5:44 AM) 1Result Comment: The eGFR is calculated using the CKD-EPI formula. In most young , healthy individualsthe eGFR will be >90 mL/min/1.73m2. The eGFR declines with age. An eGFR of 60-89 may be normal insome populations, particularly the elderly, for whom the CKD-EPI formula has not been extensively validated. Use of the eGFR is not recommended in the following populations: Individuals with unstable creatinine concentrations, including patients and those with serious co-morbid conditions. Patients with extremes in muscle mass or diet. The data above are obtained from the National Kidney Disease Education Program ( [employer]) which additionally recommends that when the eGFR is used in patients with extremes of body mass index for purposesof drug dosing, the eGFR should be multiplied by the estimated BMI.2Result Comment: The eGFR is calculated using the CKD-EPI formula. In most young, healthy individualsthe eGFR will be >90 mL/min/1.73m2. The eGFR declines with age. An eGFR of 60-89 may be normal insome populations, particularly the elderly, for whom the CKD-EPI formula has not been extensively validated. Use of the eGFR is not recommended in the following populations: Individuals with unstable creatinine concentrations, including patients and those with serious co-morbid conditions. Patients with extremes in muscle mass or diet. The data above are obtained from the National Kid[employer] Disease Education Program ( [employer]) which additionally recommends that when the eGFR is used in patients with extremes of body mass index for purposesof drug dosing, the eGFR should be multiplied by the estimated BMI.3Result Comment: The eGFR is calculated using the CKD-EPI formula. In most young, healthy individualsthe eGFR will be >90 mL/min/1.73m2. The eGFR declines with age. An eGFR of 60-89 may be normal insome populations, particularly the elderly, for whom the CKD-EPI formula has not been extensively validated. Use of the eGFR is not recommended in the following populations: Individuals with unstable creatinine concentrations, including patients and those with serious co-morbid conditions. Patients with extremes in muscle mass or diet. The data above are obtained from the National Kidney Disease Education Program ( [employer]) which additionally recommends that when the eGFR is used in patients with extremes of body mass index for purposesof drug dosing, the eGFR should be multiplied by the estimated BMI.CARDIAC ENZYMES Most recent to oldest 1 2 3 [Reference Range]: Total CK [12-191 unit/L] 340 unit/L 417 unit/L *HI* *HI* (10/15/17 8:17 PM) (10/15/17 2:45 PM) CK MB [0.5-3.6 ng/mL] 2.5 ng/mL 2.6 ng/mL (10/15/17 8:17 PM) (10/15/17 2:45 PM) CK MB Index [0.0-2.5] 0.7 0.6 (10/15/17 8:17 PM) (10/15/17 2:45 PM) Troponin-T [0.000-0.100 ng/mL] <0.010 ng/mL (10/15/17 8:17 PM) Troponin-I [0.00-0.40 ng/mL] 0.02 ng/mL 0.03 ng/mL 0.03 ng/mL (10/15/17 8:17 PM) (10/15/17 2:45 PM) (10/15/17 10:16 AM) BNP [<=100 pg/mL] 550 pg/mL *HI* (10/15/17 2:47 PM) proBNP [0-125 pg/mL] 4157 pg/mL *HI* (10/15/17 2:47 PM) LIPIDS Most recent to oldest [Reference Range]: 1 2 3 CHD Risk [3.90-5.80] 3.55 *LOW* (10/15/17 2:47 PM) Chol [<=199 mg/dL] 103 mg/dL (10/15/17 2:47 PM) Trig [<=149 mg/dL] 59 mg/dL (10/15/17 2:47 PM) HDL [>=61 mg/dL] 29 mg/dL *LOW* (10/15/17 2:47 PM) LDL (Calculated) [<=99 mg/dL] 62 mg/dL (10/15/17 2:47 PM) VLDL 12 *NA* (10/15/17 2:47 PM) SPECIAL CHEMISTRY Most recent to oldest [Reference Range]: 1 2 3 Hgb A1C [<=5.6 %] 6.5 % *HI* (10/15/17 2:47 PM) ANEMIA STUDY Most recent to oldest [Reference Range]: 1 2 3 Iron [30-160 ug/dl] 32 ug/dl (10/15/17 2:47 PM) Ferritin Lvl [5-204 ng/mL] 77 ng/mL (10/15/17 2:47 PM) % Satur Fe [12-57 %] 8 % *LOW* (10/15/17 2:47 PM) UIBC [110-370 ug/dl] 370 ug/dl (10/15/17 2:47 PM) TIBC [228-428 ug/dl] 402 ug/dl (10/15/17 2:47 PM) PARATHYROID PROFILE Most recent to oldest [Reference Range]: 1 2 3 Ca Ion WB [1.05-1.25 mMol/L] 0.94 mMol/L 0.94 mMol/L *LOW* *LOW* (10/18/17 5:44 AM) (10/17/17 4:22 AM) Ca Norm WB [1.05-1.25 mMol/L] 0.98 mMol/L 0.96 mMol/L *LOW* *LOW* (10/18/17 5:44 AM) (10/17/17 4:22 AM) TOXICOLOGY Most recent to oldest 1 2 3 [Reference Range]: Carlos Wall TND 0538 2130 0530 *NA* *NA* *NA* (10/21/17 5:02 AM) (10/19/17 9:41 PM) (10/18/17 5:43 AM) Collino Duke 14.1 ug/ml 23.3 ug/ml 23.5 ug/ml *NA* *NA* *NA* (10/21/17 5:02 AM) (10/19/17 9:41 PM) (10/18/17 5:43 AM) ENDOCRINOLOGY Most recent to oldest [Reference Range]: 1 2 3 hCG Tot <1 mIU/mL *NA* (10/15/17 7:50 AM) URINE CHEM Most recent to oldest [Reference Range]: 1 2 3 U Preg [Negative] Negative Negative (10/23/17 1:54 PM) (10/15/17 9:24 AM) URINE AND STOOL Most recent to oldest [Reference Range]: 1 2 3 UA Turbidity [Clear] Clear (10/15/17 2:47 PM) UA Color [Yellow] Light Yellow *NA* (10/15/17 2:47 PM) UA pH [5.0-8.0] 5.5 (10/15/17 2:47 PM) UA Spec Grav [<=1.030] 1.007 (10/15/17 2:47 PM) UA Glucose [Negative mg/dL] Negative mg/dL *NA* (10/15/17 2:47 PM) UA Blood [Negative] Negative (10/15/17 2:47 PM) UA Ketones [Negative mg/dL] Negative mg/dL *NA* (10/15/17 2:47 PM) UA Protein [Negative mg/dL] Negative mg/dL (10/15/17 2:47 PM) UA Urobilinogen [0.1-1.0 mg/dL] <=1.0 mg/dL *NA* (10/15/17 2:47 PM) UA Bili [Negative] Negative *NA* (10/15/17 2:47 PM) UA Leuk Est [Negative] Negative (10/15/17 2:47 PM) UA Nitrite [Negative] Negative (10/15/17 2:47 PM) UA WBC [0-5 /HPF] <1 /HPF (10/15/17 2:47 PM) UA Sq Epi [Few /LPF] Occasional /LPF *NA* (10/15/17 2:47 PM) UA Mucus [None Seen /LPF] Few /LPF *NA* (10/15/17 2:47 PM) Micro? Not Indicated *NA* (10/15/17 2:47 PM) IMMUNOLOGY Most recent to oldest [Reference Range]: 1 2 3 CDC HIV 4th GEN [Negative] Negative *NA* (10/15/17 8:41 AM) HEMATOLOGY Most recent to oldest 1 2 3 [Reference Range]: WBC [3.7-10.4 K/CMM] 11.3 K/CMM 10.6 K/CMM 9.7 K/CMM *HI* *HI* (10/20/17 2:48 AM) (10/22/17 1:01 AM) (10/21/17 5:02 AM) RBC [4.20-5.40 M/CMM] 3.67 M/CMM 3.78 M/CMM 3.73 M/CMM *LOW* *LOW* *LOW* (10/22/17 1:01 AM) (10/21/17 5:02 AM) (10/20/17 2:48 AM) Hgb [12.0-16.0 g/dL] 9.0 g/dL 9.4 g/dL 9.1 g/dL *LOW* *LOW* *LOW* (10/22/17 1:01 AM) (10/21/17 5:02 AM) (10/20/17 2:48 AM) Hct [36.0-48.0 %] 27.7 % 28.8 % 28.5 % *LOW* *LOW* *LOW* (10/22/17 1:01 AM) (10/21/17 5:02 AM) (10/20/17 2:48 AM) MCV [80.0-98.0 fL] 75.5 fL 76.2 fL 76.3 fL *LOW* *LOW* *LOW* (10/22/17 1:01 AM) (10/21/17 5:02 AM) (10/20/17 2:48 AM) MCH [27.0-31.0 pg] 24.4 pg 24.8 pg 24.5 pg *LOW* *LOW* *LOW* (10/22/17 1:01 AM) (10/21/17 5:02 AM) (10/20/17 2:48 AM) MCHC [32.0-36.0 g/dL] 32.3 g/dL 32.5 g/dL 32.1 g/dL (10/22/17 1:01 AM) (10/21/17 5:02 AM) (10/20/17 2:48 AM) RDW [11.5-14.5 %] 20.1 % 20.2 % 19.9 % *HI* *HI* *HI* (10/22/17 1:01 AM) (10/21/17 5:02 AM) (10/20/17 2:48 AM) MPV [7.4-10.4 fL] 8.8 fL 8.2 fL 8.4 fL (10/22/17 1:01 AM) (10/21/17 5:02 AM) (10/20/17 2:48 AM) Platelet [133-450 K/CMM] 509 K/CMM 535 K/CMM 493 K/CMM *HI* *HI* *HI* (10/22/17 1:01 AM) (10/21/17 5:02 AM) (10/20/17 2:48 AM) Segs [45.0-75.0 %] 79.4 % 83.3 % 69.9 % *HI* *HI* (10/20/17 2:48 AM) (10/22/17 1:01 AM) (10/21/17 5:02 AM) Lymphocytes [20.0-40.0 %] 12.3 % 10.0 % 17.6 % *LOW* *LOW* *LOW* (10/22/17 1:01 AM) (10/21/17 5:02 AM) (10/20/17 2:48 AM) Monocytes [2.0-12.0 %] 7.5 % 6.1 % 7.7 % (10/22/17 1:01 AM) (10/21/17 5:02 AM) (10/20/17 2:48 AM) Eosinophils [0.0-4.0 %] 0.3 % 0.2 % 4.1 % (10/22/17 1:01 AM) (10/21/17 5:02 AM) *HI* (10/20/17 2:48 AM) Basophils [0.0-1.0 %] 0.5 % 0.4 % 0.7 % (10/22/17 1:01 AM) (10/21/17 5:02 AM) (10/20/17 2:48 AM) Segs-Bands # [1.5-8.1 K/CMM] 8.9 K/CMM 8.8 K/CMM 6.8 K/CMM *HI* *HI* (10/20/17 2:48 AM) (10/22/17 1:01 AM) (10/21/17 5:02 AM) Lymphocytes # [1.0-5.5 K/CMM] 1.4 K/CMM 1.1 K/CMM 1.7 K/CMM (10/22/17 1:01 AM) (10/21/17 5:02 AM) (10/20/17 2:48 AM) Monocytes # [0.0-0.8 K/CMM] 0.8 K/CMM 0.6 K/CMM 0.8 K/CMM (10/22/17 1:01 AM) (10/21/17 5:02 AM) (10/20/17 2:48 AM) Eosinophils # [0.0-0.5 K/CMM] 0.4 K/CMM 0.3 K/CMM 0.2 K/CMM (10/20/17 2:48 AM) (10/19/17 1:35 AM) (10/18/17 5:44 AM) Basophils # [0.0-0.2 K/CMM] 0.1 K/CMM 0.1 K/CMM 0.1 K/CMM (10/22/17 1:01 AM) (10/20/17 2:48 AM) (10/18/17 5:44 AM) Microcyte [None Seen] 1+ 1+ 1+ *ABN* *ABN* *ABN* (10/22/17 1:01 AM) (10/21/17 5:02 AM) (10/20/17 2:48 AM) PT [12.0-14.7 seconds] 14.5 seconds (10/18/17 5:56 AM) INR [0.85-1.17] 1.13 (10/18/17 5:56 AM) MOLECULAR DIAGNOSTIC Most recent to oldest [Reference Range]: 1 2 3 Source Adenovirus PCR [employer] Swab (10/16/17 2:50 PM) Source Parainfluenza Virus PCR [employer] Swab (10/16/17 2:50 PM) Parainfluenza 1 PCR [Negative] Negative (10/16/17 2:50 PM) Parainfluenza 2 PCR [Negative] Negative (10/16/17 2:50 PM) Parainfluenza 3 PCR [Negative] Negative (10/16/17 2:50 PM) Source Respiratory Panel PCR [employer] Swab (10/16/17 2:50 PM) Influenza A PCR [Negative] Negative (10/16/17 2:50 PM) Influenza B PCR [Negative] Negative (10/16/17 2:50 PM) RSV PCR [Negative] Negative (10/16/17 2:50 PM) Adenovirus PCR [Negative] Negative (10/16/17 2:50 PM) Microbiology Reports TEST:Culture: Respiratory w/Gram Stain STATUS:Auth (Verified) BODY SITE: SOURCE:Sputum COLLECTED DATE/TIME:10/18/17 5:12 PMFINAL REPORTModerate Yeast Normal Respiratory Emelia IsolatedSTAIN REPORTGram Stain [facility]Culture: Urine STATUS:Auth (Verified) BODY SITE: SOURCE:Urine, Clean Catch COLLECTED DATE/TIME:10/15/17 2:47 PMFINAL REPORTNo Growth Immunizations No data available for this section Procedures Procedure Date Related Diagnosis Body Site Status section Completed Social History Social History Type Response Alcohol Current, Type Liquor. Frequency: 1-2 times per month. Previous treatment: None. Alcohol use interferes with work or home: No. Drinks more than intended: No. Others hurt by drinking: No. Ready to change: No. Household alcohol concerns: No. Smoking Status Never smoker; Exposure to Tobacco Smoke None; Cigarette Smoking Last 365 Days No; Reg Smoking Cessation Counseling No entered on: 10/15/17 Assessment and Plan Extracted from: Title: Hospital Course Author: Diana Goss Date: 10/25/17 Ms. Hernandez is a 27 yo F with PMH of HTN, DM, asthma, 'borderline CHF' and two recent admissions for pneumonia (06/2017, 09/2017) that presented with acute respiratory distress and sepsis, initially admit candie to [facility]. During previous admission for PNA, patient had been told she had ' borderline PNA.' At time of admission, unclear whether respiratory distress due to CHF exacerbation vs. infectious etiology given unclear PMH, lactic acid 3.0 and WBC 11.3. Initial CXR and CTA on 10/15 showed blt pulmonary airspace opacities (R>L) suggestive of blt pulmonary edema v. infectious process. TTE on 10/15 showed r EF 30-35%. Broad spectrum abx started 10/15, lasix initially held for concern of lactic acidosis, later started on 40 mg IV BID on 10/17. Worsened CXR on 10/18 suggestive of hospital acquired pneumonia. Abx course: cefepime & vanc 10/15 -10/16, escalated to meropenam & vancomycin for high fevers on 10/16-10/18, de-escalated to cefepime & vancomycin 10/19-10/20, then to levofloxacin on 10/21 for total abx course of 7 days. Blood cx negative, respiratory cx grew gram negative rods. Respiratory function improved with abx, scheduled duonebs, lasix, prednisone x 5 days. SUNDEEP on 10/17 showed rEF 20-25% and mitral annular dilatation. Nuclear stress test done on 10/22 by cardiology, followed by [facility] 10/23 which did not find CAD. Cardiac MRI attempted 10/24 but unable to complete due to patient's claustrophobia. Per cardiology recs, started on spironlactone 12.5 mg PO qd, metoprolol 12.5 po BID. Metoprolol increased to 50 mg PO BID for continuing hypertension. HbA1C noted to be 6.5% during admission. Patient discharged on lasix 40 mg PO BID, lisinopril 20 mg qd, metoprolol 50 mg BID, and spironolactone 12.5 mg qd. Discharged with life vest defibrillator. Follow up with cardiology in 2-3 wks for furt her workup and outpatient cardiac MRI. Follow up with PCP for management of T2DM. Extracted from: Title: Cardiology Consult Note Author: Jackie Pitt MD Date: 10/16/17 Ms. Hernandez is a 27yo female with a hx of DM, asthma and borderline CHF who presented with diffuse pressure-like chest pain, SOB, PURCELL, cough, and leg swelling and was found to be hypertensive (200/100s) , tachycardic,with O2 sat low 80s with correction to 100 on 4L NC.She was given Enalapril (1.25mg IV), started on nitro drip, given lasix 20mg IV, methylprednisone, Duonebs x3, Vancomycin and cefepime. #CHF exacerbation - Acute decompensation 2/2 to infection vs. alcohol vs. drugs vs. ischemia. - TTE shows EF 30-35%. LV inferior, inferolateral manriquez are hypokinetic. Mod to severe Mitral regurg. Mod tricuspid regurg, mild pulm HTN (38mmHg). Patient was told echo 1month ago showed borderline CHF in [place], [place]. - CXR- showing enlarge cardiac sillouhette and bilateral pulm infiltrates could suggest chronic HF. -Possibly from infectious etiology given WBC elevated at 11.9, lactic acid 2.1 (downtrending, peak 4.4), blood cx pending. - troponin series neg, EKGwith Sinus Tachand no ischemic changes. -Mitral regurgitation: Recommend SUNDEEP to help find cause of mod to severe mitral regurgitation in setting of acute decompensation - Recommend Starting ACEI, Lasix, and Aldactone for mgt of heart failure. Lactate trending down, would monitor potassium while on aldactone. - Would avoid beta bala at this time until patient is Euvolemic. - Recommend patient get a stress test after acute symptoms have been resolved to rule out ischemic etiology given patient'scomorbities, possibly aim for . # Hypertension - On admission BP elevated at 192/111. Has been stable throughout the day ( 100s-120s/60-80s), goal systolic < 130. - Was initially givenenalapril once, nitroglycerin drip, and nifedipine 30mg once. - Not currently on BP meds and BP is stable. - Continueto monitor. #Leukocytosis with left shift - WBC 11.9,patient is afebrile. - CXR show bilateral infiltrates that can possiblyindicate infection vs. pulmonary edema. - Blood cultures currently neg day1. #Lactic Acidosis - lactic acid 2.1 (downtrending from 4.4). - Continue to monitor. #Diabetes Melllitus Type 2 -as per primary team #Asthma -on nebs -as per primary team Addendum by Jackie Pitt MD on 10/16/2017 21:20 CDT Attending Attestation: I have seen and evaluated patient on 10/16/17. I have independently reviewed the history, imaging/diagnostic testings, lab results and examined the patient. I also have seen the patient in collaboration a nd discussed the management with the housestaff (Dr. Mackenzie). I agree with findings and plans outlined in the note by the resident/fellow with any exceptions noted in my note. #Shortness of breathy/hypoxia/pulmonary edema/ PNA #Acute decompensated systolic heart failure #Hypertension #Obesity #Type 2 diabetes mellitus #Asthma #Mitral regurgitation Patient's symptoms of shortness of breath/hypoxia/pulmonary edema could be multifactorial with DDx includes decompensated systolic heart failure/ significant mitral regurgitation/infection. TTE shows L VEF 30-35% with wall motion abnormalities, and at least moderate to severe mitral regurgitation. Patient does appear to volume overload with crackles on bilateral lung brantley on exam. Would recommend to start diurese with lasix, start acei/arb as BP tolerates. Once patient becomes more euvolemic and asthma is controlled, can consider to start bb if BP tolerates. Would avoid usingCCBs to treat HTN in patient since her EF is 30-35%. Additionally, it is unclear etiology of patient's MR--would recommend SUNDEEP to further visualize the mitral valve. Although patient isquite young to have CAD,it's difficult to ignorepatient's risk factors and presence of wall motion abnormalities on echo; hence, will need to further evaluate the etiology of systolic heart failure, including CAD, once patient's breathing status improvesif the SUNDEEP is unrevealing. Thank you for the opportunity to participate in the care of the patient. We will continue to follow patient with you. Please call us if any questions. Jackie Pitt MD Manager Strategic Marketing Division of Cardiovascular Medicine Department of Internal Medicine Extracted from: Title: History and Physical Author: Sandra Kingsley MD Date: 10/15/17 Ms. Jenny Hernandez is a 27 yo F with PMH of HTN, DM, asthma, possible CHF and two recent admissions for pneumonia (06/2017, 09/2017) presenting with SOB , PURCELL, nonproductive cough and chest pain. #Dyspnea #Pneumonia #Leukocytosis with left shift - CXR shows bilateral infiltrates that can not rule out infections - CTA shows no sign of PE, no assymetrical swelling of LE - Legionella and strep pneumo urine antigens - Duonebs q8H PRN - 10/15 - continue with cefepime and vancomycin - F/u cultures #CHF? (EF 30-35%) #Pulmonary Edema - BNP - 550 - TTE showed EF of 30-35%, recommended SUNDEEP for further evaluation of mitral regurgitation - Consult Cardiology in the AM - Pending lactic acidosis - start Lasix 20mg IV #Hypertension - BP to 190s/110s in ED, started on enalapril and nitroglycerin drip in ED with improvement in BP - nifedipine 30 mg qd - continue to monitor for subsequent hypertensive episodes - use hydralazine PRN #Lactic Acidosis - lactic acid 3.2 - send repeat lactic acid and monitor #Microcytic Anemia - likely 2/2 iron deficiency -Ferritin and Iron panel pending #Hyperglycemia #Diabetes Mellitus, Likely Type II - HbA1c 6.5 - Initiate SSI Code: Full DVT: SQH 7500 u Diet: Heart healthy Heparin 7500u TID Pending Addendum by Leonid Bowman MD on 10/17/2017 19:58 CDT I have personally seen and examined the patient on 10/15/2017, performed the yanez portions of the history and physical examination and was directly involved in the patient'scare. I reviewed the past medical records, nursing notes and resident's note and agree with the findings as documented in the resident's note.I also reviewed laboratory results, radiology results, radiolo gy images, EKG tracings and pathology results related to medical decision making for today's encounter. I discussed the case with the resident(s) and agree with the diagnoses and plan as documented in the resident's note, with the following addendums if applicable: Acuteon chronic systolic heart failure Pneumonia Lactic acidosis Hypertension Hyperglycemia due to type 2 DM Microcytic anemia Start diuresis Broad spectrum ABx Watch for cardiogenic shock Insulin for hyperglycemia Leonid Bowman MD Manager Strategic Marketing Internal Medicine [employer]
--- OUTSIDE RECORDS SUMMARY | 2018-09-09 11:53 | XMS REPORT | Summary of Care ---
:01/09/1990 Author Encounter JOCE Muniz(DARRIAN) [id number] Date(s): 10/01/14 - 10/01/14 [facility] [address] [place] [address]- Discharge Diagnosis: Facial swelling Discharge Diagnosis: Facial cellulitis Discharge Disposition: Home Physician Attending: Cathie Bernard MD Vital Signs Most recent to oldest 1 2 3 [Reference Range]: Temperature Oral [96.4-99.1 99 DegF 98.5 DegF DegF] (10/01/14 11:59 AM) (10/01/14 10:40 AM) Blood Pressure [90-140/60-90 156/93 mmHg 149/99 mmHg 150/113 mmHg mmHg] *HI* *HI* *HI* (10/01/14 1:02 PM) (10/01/14 11:59 AM) (10/01/14 10:40 AM) Respiratory Rate [14-20 18 BRMIN 18 BRMIN 16 BRMIN BRMIN] (10/01/14 1:02 PM) (10/01/14 11:59 AM) (10/01/14 10:40 AM) Peripheral Pulse Rate 108 bpm 103 bpm 119 bpm [60-100 bpm] *HI* *HI* *HI* (10/01/14 1:02 PM) (10/01/14 11:59 AM) (10/01/14 10:40 AM) Weight 90.909 kg (10/01/14 10:40 AM) Problem List No data available for this section Allergies, Adverse Reactions, Alerts Substance Reaction Severity Status NKDA Active Medications Bactrim DS 800 mg- 160 mg oral tablet 1 tab, PO, BID, X 10 day, # 20 tab, 0 Refill(s) Start Date: 10/01/14 Stop Date: 10/11/14 Status: OrderedKeflex 500 mg oral capsule 500 mg=1 cap, PO, QID, X 10 day, # 40 cap, 0 Refill(s) Start Date: 10/01/14 Stop Date: 10/11/14 Status: OrderedNS (Bolus) IV 1,000 mL, 1,000 ml/hr, Infuse Over: 1 hr, Route: IV, ONCE, Priority: STAT, Dosing Weight 90.909 kg, Start date: 10/01/14 10:53:00, Duration: 1 doses or times, Stop date: 10/01/14 10:53:00 Start Date: 10/01/14 Stop Date: 10/01/14 Status: CompletedUltram 50 mg oral tablet 50 mg=1 tab, PO, Q4H, PRN pain, X 5 day, # 30 tab, 0 Refill(s) Start Date: 10/01/14 Stop Date: 10/06/14 Status: Ordered Results ELECTROLYTES Most recent to oldest [Reference Range]: 1 Sodium Lvl [135-145 mEq/L] 139 mEq/L (10/01/14 11:22 AM) Potassium Lvl [3.5-5.1 mEq/L] 3.5 mEq/L (10/01/14 11:22 AM) Chloride Lvl [95-109 mEq/L] 102 mEq/L (10/01/14 11:22 AM) CO2 [24-32 mEq/L] 31 mEq/L (10/01/14 11:22 AM) AGAP [10.0-20.0 mEq/L] 9.5 mEq/L *LOW* (10/01/14 11:22 AM) CHEM PANEL Most recent to oldest [Reference Range]: 1 Creatinine Lvl [0.5-1.4 mg/dL] 1.0 mg/dL (10/01/14 11:22 AM) eGFR 90 mL/min/1.73m2 1 *NA* (10/01/14 11:22 AM) BUN [7-22 mg/dL] 10 mg/dL (10/01/14 11:22 AM) B/C Ratio [6-25] 10 (10/01/14 11:22 AM) Glucose Lvl [70-99 mg/dL] 122 mg/dL 2 *HI* (10/01/14 11:22 AM) Total Protein [6.4-8.4 g/dL] 7.7 g/dL (10/01/14 11:22 AM) Albumin Lvl [3.5-5.0 g/dL] 3.5 g/dL (10/01/14 11:22 AM) Globulin [2.0-4.0 g/dL] 4.2 g/dL *HI* (10/01/14 11: AM) A/G Ratio [0.7-1.6] 0.8 (10/01/14: AM) Calcium Lvl [8.5-10.5 mg/dL] 8.7 mg/dL (10/01/14 11:22 AM) ALT [0-65 unit/L] 51 unit/L (10/01/14 AM) AST [0-37 unit/L] 29 unit/L (10/01/14 11:22 AM) Alk Phos [39-136 unit/L] 72 unit/L (10/01/14: AM) Bili Total [0.2-1.3 mg/dL] 0.2 mg/dL (10/01/14 11:22 AM) Lactic Acid Lvl [0.5-2.2 mMol/L] 1.4 mMol/L (10/01/14 11:22 AM) 1Result Comment: The eGFR is calculated using the CKD-EPI formula. In most young , healthy individualsthe eGFR will be >90 mL/min/1.73m2. The eGFR declines with age. An eGFR of 60-89 may be normal in some populations, particularly the elderly, for whom the [...] eGFR should be multiplied by the estimated BMI.2Interpretive Data: Adult reference range values reflect the clinical guidelines of the [place] [employer].URINE CHEM Most recent to oldest [Reference Range]: 1 U Preg [Negative] Negative (10/01/14 11:22 AM) URINE AND STOOL Most recent to oldest [Reference Range]: 1 UA Turbidity [Clear] Slight *ABN* (10/01/14 AM) UA Color Ltyellow *NA* (10/01/14 AM) UA pH [5.0-8.0] 6.0 (10/01/14 AM) UA Spec Grav [<=1.030] 1.010 (10/01/14 AM) UA Glucose [Negative mg/dL] Negative mg/dL *NA* (10/01/14 AM) UA Blood [Negative] Negative (10/01/14 AM) UA Ketones [Negative mg/dL] Negative mg/dL *NA* (10/01/14 AM) UA Protein [Negative mg/dL] Negative mg/dL (10/01/14 AM) UA Urobilinogen [0.1-1.0 mg/dL] <=1.0 mg/dL *NA* (10/01/14 AM) UA Bili [Negative] Negative *NA* (10/01/14 AM) UA Leuk Est [Negative] Trace *ABN* (10/01/14 AM) UA Nitrite [Negative] Negative (10/01/14 AM) UA WBC [0-5 /HPF] 4 /HPF (10/01/14 AM) UA RBC [0-2 /HPF] 2 /HPF (10/01/14 AM) UA Sq Epi [Few /LPF] Many /LPF *ABN* (10/01/14 AM) HEMATOLOGY Most recent to oldest [Reference Range]: 1 WBC [3.7-10.4 K/CMM] 7.1 K/CMM (10/01/14:22 AM) RBC [4.20-5.40 M/CMM] 4.21 M/CMM (10/01/14: AM) Hgb [12.0-16.0 g/dL] 12.4 g/dL (10/01/14: AM) Hct [36.0-48.0 %] 36.3 % (10/01/14: AM) MCV [80.0-98.0 fL] 86.2 fL (10/01/14:22 AM) MCH [27.0-31.0 pg] 29.5 pg (10/01/14 AM) MCHC [32.0-36.0 g/dL] 34.2 g/dL (10/01/14 AM) RDW [11.5-14.5 %] 14.7 % *HI* (10/01/14 AM) Platelet [133-450 K/CMM] 283 K/CMM (10/01/14:22 AM) MPV [7.4-10.4 fL] 9.2 fL (10/01/14: AM) Segs [45.0-75.0 %] 62.6 % (10/01/14: AM) Lymphocytes [20.0-40.0 %] 26.7 % (10/01/14: AM) Monocytes [2.0-12.0 %] 6.4 % (10/01/14: AM) Eosinophils [0.0-4.0 %] 2.9 % (10/01/14 11: AM) Basophils [0.0-1.0 %] 1.4 % *HI* (10/01/14 AM) Segs-Bands # [1.5-8.1 K/CMM] 4.5 K/CMM (10/01/14 11:22 AM) Lymphocytes # [1.0-5.5 K/CMM] 1.9 K/CMM (10/01/14: AM) Monocytes # [0.0-0.8 K/CMM] 0.5 K/CMM (10/01/14 11:22 AM) Eosinophils # [0.0-0.5 K/CMM] 0.2 K/CMM (10/01/14 11: AM) Basophils # [0.0-0.2 K/CMM] 0.1 K/CMM (10/01/14 11:22 AM) Immunizations No data available for this section Procedures Procedure Date Related Diagnosis Body Site section Social History Social History Type Response [...] Days No; Reg Smoking Cessation Counseling No Assessment and Plan No data available for this section
--- OUTSIDE RECORDS SUMMARY | 2018-09-09 11:53 | XMS REPORT | Summary of Care ---
:01/09/1990 Author Encounter JOCE Muniz(DARRIAN) [id number] Date(s): 01/12/14 - 01/13/[address] Discharge Diagnosis: Carpal tunnel syndrome Discharge Diagnosis: Lipoma Discharge Disposition: Home Physician Attending: Bita Guerra MD Reason for Visit ARMS NUMBESS/TROUBLE BREATHING Vital Signs Most recent to oldest [Reference Range]: 1 2 Height 165.1 cm (01/12/14 8:26 PM) Temperature Oral [96.4-99.1 DegF] 97.1 DegF 98.1 DegF (01/12/14 11:26 PM) (01/12/14 8:26 PM) Systolic Blood Pressure [90-140 mmHg] 121 mmHg 147 mmHg (01/12/14 11:26 PM) *HI* (01/12/14 8:26 PM) Diastolic Blood Pressure [60-90 mmHg] 72 mmHg 88 mmHg (01/12/14 11:26 PM) (01/12/14 8:26 PM) Respiratory Rate [14-20 BRMIN] 16 BRMIN 16 BRMIN (01/12/14 11:26 PM) (01/12/14 8:26 PM) Peripheral Pulse Rate [60-100 bpm] 69 bpm 96 bpm (01/12/14 11:26 PM) (01/12/14 8:26 PM) Weight 75 kg (01/12/14 8:26 PM) Body Mass Index 27.51 m2 (01/12/14 8:26 PM) Problem List No data available for this section Allergies, Adverse Reactions, Alerts Substance Reaction Severity Status NKDA Active Medications ketorolac 30 mg, 1 mL, Route: IVP, Drug form: INJ, ONCE, Dosing Weight 75, kg, Priority: STAT, Start date: 01/12/14 22:27:00, Stop date: 01/12/14 22:27:00 Notes: (Same as:Toradol) IV bolus must be given >15 seconds. Give IM administration slowly and deeply into the muscle. Not for use > 4 days Start Date: 01/12/14 Stop Date: 01/12/14 Status: Completednaproxen 500 mg oral tablet 500 mg=1 tab, PO, Q12H, Pain, # 20 tab, 0 Refill(s) Start Date: 01/13/14 Stop Date: 01/23/14 Status: Ordered Results ELECTROLYTES Most recent to oldest [Reference Range]: 1 2 Sodium Lvl [135-145 mEq/L] 139 mEq/L 139 mEq/L (01/12/14 10:27 PM) (01/12/14 10:27 PM) Potassium Lvl [3.5-5.1 mEq/L] 3.8 mEq/L 4.0 mEq/L (01/12/14 10:27 PM) (01/12/14 10:27 PM) Chloride Lvl [95-109 mEq/L] 106 mEq/L 106 mEq/L (01/12/14 10:27 PM) (01/12/14 10:27 PM) CO2 [24-32 mEq/L] 29 mEq/L 29 mEq/L (01/12/14 10:27 PM) (01/12/14 10:27 PM) AGAP [10.0-20.0 mEq/L] 7.8 mEq/L 8.0 mEq/L *LOW* *LOW* (01/12/14 10:27 PM) (01/12/14 10:27 PM) CHEM PANEL Most recent to oldest [Reference Range]: 1 2 Creatinine Lvl [0.5-1.4 mg/dL] 0.8 mg/dL 0.9 mg/dL (01/12/14 10:27 PM) (01/12/14 10:27 PM) eGFR 118 mL/min/1.73m2 1 102 mL/min/1.73m2 2 *NA* *NA* (01/12/14 10:27 PM) (01/12/14 10:27 PM) BUN [7-22 mg/dL] 11 mg/dL 11 mg/dL (01/12/14 10:27 PM) (01/12/14 10:27 PM) B/C Ratio [6-25] 14 (01/12/14 10:27 PM) Glucose Lvl [70-99 mg/dL] 112 mg/dL 3 111 mg/dL 4 *HI* *HI* (01/12/14 10:27 PM) (01/12/14 10:27 PM) Total Protein [6.4-8.4 g/dL] 7.1 g/dL (01/12/14 10:27 PM) Albumin Lvl [3.5-5.0 g/dL] 3.5 g/dL (01/12/14 10:27 PM) Globulin [2.0-4.0 g/dL] 3.6 g/dL (01/12/14 10:27 PM) A/G Ratio [0.7-1.6] 1.0 (01/12/14 10:27 PM) Calcium Lvl [8.5-10.5 mg/dL] 8.7 mg/dL 8.8 mg/dL (01/12/14 10:27 PM) (01/12/14 10:27 PM) Phosphorus [2.5-4.5 mg/dL] 3.0 mg/dL (01/12/14 10:27 PM) Magnesium Lvl [1.8-2.4 mg/dL] 1.5 mg/dL *LOW* (01/12/14 10:27 PM) ALT [0-65 unit/L] 57 unit/L (01/12/14 10:27 PM) AST [0-37 unit/L] 27 unit/L (01/12/14 10:27 PM) Alk Phos [39-136 unit/L] 65 unit/L (01/12/14 10:27 PM) Bili Total [0.2-1.3 mg/dL] 0.1 mg/dL *LOW* (01/12/14 10:27 PM) 1Result Comment: The eGFR is calculated using [...] young, healthy individualsthe eGFR will be >90 mL/ min/1.73m2. The eGFR declines with age. An eGFR [...] eGFR should be multiplied by the estimated BMI.3Interpretive Data: Adult reference range values reflect the clinical guidelines of the [place] [employer].4Interpretive Data: Adult reference range values reflect the clinical guidelines of the [place] [employer].CARDIAC ENZYMES Most recent to oldest [Reference Range]: 1 2 Total CK [12-191 unit/L] 520 unit/L 519 unit/L *HI* *HI* (01/12/14 10:27 PM) (01/12/14 10:27 PM) CK MB [0.5-3.6 ng/mL] 3.1 ng/mL (01/12/14 10:27 PM) CK MB Index [0.0-2.5] 0.6 (01/12/14 10:27 PM) Troponin-I [0.00-0.40 ng/mL] 0.03 ng/mL (01/12/14 10:27 PM) THYROID PANEL Most recent to oldest [Reference Range]: 1 2 TSH [0.360-3.740 uIU/mL] 1.810 uIU/mL (01/12/14 10:27 PM) URINE CHEM Most recent to oldest [Reference Range]: 1 2 U Preg [Negative] Negative (01/12/14 10:10 PM) URINE AND STOOL Most recent to oldest [Reference Range]: 1 2 UA Turbidity [Clear] Clear (01/12/14 10:10 PM) UA Color STRAW *NA* (01/12/14 10:10 PM) UA pH [5.0-8.0] 6.0 (01/12/14 10:10 PM) UA Spec Grav [<=1.030] 1.020 (01/12/14 10:10 PM) UA Glucose [Negative] Negative (01/12/14 10:10 PM) UA Blood [Negative] Trace *ABN* (01/12/14 10:10 PM) UA Ketones [Negative] Negative *NA* (01/12/14 10:10 PM) UA Protein [Negative] Negative (01/12/14 10:10 PM) UA Urobilinogen [0.1-1.0 EU/dL] 0.2 EU/dL (01/12/14 10:10 PM) UA Bili [Negative] Negative *NA* (01/12/14 10:10 PM) UA Leuk Est [Negative] Trace *ABN* (01/12/14 10:10 PM) UA Nitrite [Negative] Negative (01/12/14 10:10 PM) UA WBC [None Seen /HPF] 0-2 /HPF (01/12/14 10:10 PM) UA RBC [0-2 /HPF] 0-2 /HPF (01/12/14 10:10 PM) UA Bacteria [None Seen] None Seen (01/12/14 10:10 PM) UA Sq Epi [Few /LPF] Rare /LPF (01/12/14 10:10 PM) UA Mucus [None Seen] None Seen (01/12/14 10:10 PM) Micro? Performed (01/12/14 10:10 PM) HEMATOLOGY Most recent to oldest [Reference Range]: 1 2 WBC [3.7-10.4 K/CMM] 6.8 K/CMM (01/12/14 10:27 PM) RBC [4.20-5.40 M/CMM] 3.92 M/CMM *LOW* (01/12/14 10:27 PM) Hgb [12.0-16.0 g/dL] 11.5 g/dL *LOW* (01/12/14 10:27 PM) Hct [36.0-48.0 %] 34.3 % *LOW* (01/12/14 10:27 PM) MCV [80.0-98.0 fL] 87.4 fL (01/12/14 10:27 PM) MCH [27.0-31.0 pg] 29.4 pg (01/12/14 10:27 PM) MCHC [32.0-36.0 g/dL] 33.6 g/dL (01/12/14 10:27 PM) RDW [11.5-14.5 %] 14.9 % *HI* (01/12/14 10:27 PM) Platelet [133-450 K/CMM] 285 K/CMM (01/12/14 10:27 PM) MPV [7.4-10.4 fL] 9.2 fL (01/12/14 10:27 PM) Segs [45.0-75.0 %] 53.6 % (01/12/14 10:27 PM) Lymphocytes [20.0-40.0 %] 35.8 % (01/12/14 10:27 PM) Monocytes [2.0-12.0 %] 8.3 % (01/12/14 10:27 PM) Eosinophils [0.0-4.0 %] 1.9 % (01/12/14 10:27 PM) Basophils [0.0-1.0 %] 0.4 % (01/12/14 10:27 PM) Segs-Bands # [1.5-8.1 K/CMM] 3.6 K/CMM (01/12/14 10:27 PM) Lymphocytes # [1.0-5.5 K/CMM] 2.4 K/CMM (01/12/14 10:27 PM) Monocytes # [0.0-0.8 K/CMM] 0.6 K/CMM (01/12/14 10:27 PM) Eosinophils # [0.0-0.5 K/CMM] 0.1 K/CMM (01/12/14 10:27 PM) Basophils # [0.0-0.2 K/CMM] 0.0 K/CMM (01/12/14 10:27 PM) Medications Administered During Your Visit No data available for this section Immunizations No data available for this section Social History Social History Type Response [...]
--- OUTSIDE RECORDS SUMMARY | 2018-09-09 11:53 | XMS REPORT | Summary of Care ---
:01/09/1990 Author Organization [facility] Address [address] [place] [address]- Encounter HQ Cristy(DARRIAN) [id number] Date(s): 11/10/16 - 11/10/16 [facility] [address] [place] [address]- Discharge Diagnosis: Hypokalemia Discharge Diagnosis: Paresthesia of hand, bilateral Discharge Disposition: Home or Self Care Attending Physician: Regis Grimm DO Vital Signs Most recent to oldest 1 2 3 [Reference Range]: Height 165.1 cm (11/10/16 2:04 PM) Temperature Oral [96.4-99.1 97.5 DegF 97.9 DegF 97.8 DegF DegF] (11/10/16 8:05 PM) (11/10/16 5:48 PM) (11/10/16 2:04 PM) Blood Pressure [90-140/60-90 149/86 mmHg 159/111 mmHg mmHg] *HI* *HI* (11/10/16 8:05 PM) (11/10/16 2:04 PM) Systolic Blood Pressure [90-140 148 mmHg mmHg] *HI* (11/10/16 5:48 PM) Diastolic Blood Pressure [60-90 88 mmHg mmHg] (11/10/16 5:48 PM) Respiratory Rate [14-20 BRMIN] 18 BRMIN 18 BRMIN 20 BRMIN (11/10/16 8:05 PM) (11/10/16 5:48 PM) (11/10/16 2:04 PM) Peripheral Pulse Rate [60-100 86 bpm 80 bpm 103 bpm bpm] (11/10/16 8:05 PM) (11/10/16 5:48 PM) *HI* (11/10/16 2:04 PM) Weight 95.455 kg (11/10/16 2:04 PM) Body Mass Index 35.02 m2 (11/10/16 2:04 PM) Problem List Condition Effective Dates Status Health Status Informant Diabetes(Confirmed)1 Resolved Hypertension(Confirmed)2 Resolved 1untreated, diagnosed at [facility] 1 month ago per [id number], diagnosed at [facility] 1 month ago per pt Allergies, Adverse Reactions, Alerts Substance Reaction Severity Status NKDA Active Medications potassium chloride 20 mEq oral tablet, extended release 20 mEq=1 tab, PO, BID, # 10 tab, 0 Refill(s) Start Date: 11/10/16 Status: Orderedpotassium chloride 20 mEq oral tablet, extended release 40 mEq, 2 tab, Route: PO, Drug form: ERTAB, ONCE, Dosing Weight 95.455, kg, Priority: STAT, Start date: 11/10/16 19:26:00 CDT, Stop date: 11/10/16 19:26:00 CDT Notes: (Same as: K-Dur 20)"Do Not Crush" With food and full glass of water Start Date: 11/10/16 Stop Date: 11/10/16 Status: Completed Results ELECTROLYTES Most recent to oldest [Reference Range]: 1 Sodium Lvl [135-145 mEq/L] 138 mEq/L (11/10/16 6:16 PM) Potassium Lvl [3.5-5.1 mEq/L] 3.0 mEq/L 1 *CRIT* (11/10/16 6:16 PM) Chloride Lvl [95-109 mEq/L] 102 mEq/L (11/10/16 6:16 PM) CO2 [24-32 mEq/L] 32 mEq/L (11/10/16 6:16 PM) AGAP [10.0-20.0 mEq/L] 7.0 mEq/L *LOW* (11/10/16 6:16 PM) 1Result Comment: called ER...Kierra, charge nurse in a code..will call for critical after few mins Critical Result(s) called to Dominique Ruby at 11/10/2016 19:24 by sheryl. Read back OK.CHEM PANEL Most recent to oldest [Reference Range]: 1 Creatinine Lvl [0.50-1.40 mg/dL] 0.87 mg/dL (11/10/16 6:16 PM) eGFR 105 mL/min/1.73m2 1 *NA* (11/10/16 6:16 PM) BUN [7-22 mg/dL] 8 mg/dL (11/10/16 6:16 PM) B/C Ratio [6-25] 9 (11/10/16 6:16 PM) Glucose Lvl [70-99 mg/dL] 99 mg/dL (11/10/16 6:16 PM) Total Protein [6.4-8.4 g/dL] 7.5 g/dL (11/10/16 6:16 PM) Albumin Lvl [3.5-5.0 g/dL] 3.6 g/dL (11/10/16 6:16 PM) Globulin [2.7-4.2 g/dL] 3.9 g/dL (11/10/16 6:16 PM) A/G Ratio [0.7-1.6] 0.9 (11/10/16 6:16 PM) Calcium Lvl [8.5-10.5 mg/dL] 8.6 mg/dL (11/10/16 6:16 PM) Magnesium Lvl [1.8-2.4 mg/dL] 2.1 mg/dL (11/10/16 6:16 PM) ALT [0-65 unit/L] 26 unit/L (11/10/16 6:16 PM) AST [0-37 unit/L] 16 unit/L (11/10/16 6:16 PM) Alk Phos [39-136 unit/L] 52 unit/L (11/10/16 6:16 PM) Bili Total [0.2-1.3 mg/dL] 0.7 mg/dL (11/10/16 6:16 PM) 1Result Comment: The eGFR is calculated [...] eGFR should be multiplied by the estimated BMI.URINE CHEM Most recent to oldest [Reference Range]: 1 U Preg [Negative] Negative (11/10/16 5:53 PM) URINE AND STOOL Most recent to oldest [Reference Range]: 1 UA Turbidity [Clear] Clear (11/10/16 5:53 PM) UA Color [Yellow] Yellow *NA* (11/10/16 5:53 PM) UA pH [5.0-8.0] 6.0 (11/10/16 5:53 PM) UA Spec Grav [<=1.030] 1.016 (11/10/16 5:53 PM) UA Glucose [Negative mg/dL] Negative mg/dL *NA* (11/10/16 5:53 PM) UA Blood [Negative] Negative (11/10/16 5:53 PM) UA Ketones [Negative mg/dL] Negative mg/dL *NA* (11/10/16 5:53 PM) UA Protein [Negative mg/dL] Negative mg/dL (11/10/16 5:53 PM) UA Urobilinogen [0.1-1.0 mg/dL] <=1.0 mg/dL *NA* (11/10/16 5:53 PM) UA Bili [Negative] Negative *NA* (11/10/16 5:53 PM) UA Leuk Est [Negative] Moderate *ABN* (11/10/16 5:53 PM) UA Nitrite [Negative] Negative (11/10/16 5:53 PM) UA WBC [0-5 /HPF] 15 /HPF *HI* (11/10/16 5:53 PM) UA RBC [0-2 /HPF] 4 /HPF *HI* (11/10/16 5:53 PM) UA Sq Epi [Few /LPF] Few /LPF *NA* (11/10/16 5:53 PM) UA Mucus [None Seen /LPF] Few /LPF *NA* (11/10/16 5:53 PM) HEMATOLOGY Most recent to oldest [Reference Range]: 1 WBC [3.7-10.4 K/CMM] 8.5 K/CMM (11/10/16 6:16 PM) RBC [4.20-5.40 M/CMM] 4.14 M/CMM *LOW* (11/10/16 6:16 PM) Hgb [12.0-16.0 g/dL] 11.7 g/dL *LOW* (11/10/16 6:16 PM) Hct [36.0-48.0 %] 35.0 % *LOW* (11/10/16 6:16 PM) MCV [80.0-98.0 fL] 84.6 fL (11/10/16 6:16 PM) MCH [27.0-31.0 pg] 28.2 pg (11/10/16 6:16 PM) MCHC [32.0-36.0 g/dL] 33.4 g/dL (11/10/16 6:16 PM) RDW [11.5-14.5 %] 15.0 % *HI* (11/10/16 6:16 PM) Platelet [133-450 K/CMM] 284 K/CMM (11/10/16 6:16 PM) MPV [7.4-10.4 fL] 9.0 fL (11/10/16 6:16 PM) Segs [45.0-75.0 %] 62.3 % (11/10/16 6:16 PM) Lymphocytes [20.0-40.0 %] 28.6 % (11/10/16 6:16 PM) Monocytes [2.0-12.0 %] 6.2 % (11/10/16 6:16 PM) Eosinophils [0.0-4.0 %] 1.9 % (11/10/16 6:16 PM) Basophils [0.0-1.0 %] 1.0 % (11/10/16 6:16 PM) Segs-Bands # [1.5-8.1 K/CMM] 5.3 K/CMM (11/10/16 6:16 PM) Lymphocytes # [1.0-5.5 K/CMM] 2.4 K/CMM (11/10/16 6:16 PM) Monocytes # [0.0-0.8 K/CMM] 0.5 K/CMM (11/10/16 6:16 PM) Eosinophils # [0.0-0.5 K/CMM] 0.2 K/CMM (11/10/16 6:16 PM) Basophils # [0.0-0.2 K/CMM] 0.1 K/CMM (11/10/16 6:16 PM) Immunizations No data available for this section Procedures Procedure Date Related Diagnosis Body Site section Social History Social History Type Response Alcohol Current, Type Liquor. Frequency: 1-2 times per month. Previous treatment: None. Alcohol use interferes with work or home: No. Drinks more than intended: No. Others hurt by drinking: No. Ready to change: No. Household alcohol concerns: No. Smoking Status Never smoker; Type: Cigarettes; Exposure to Tobacco Smoke None; Cigarette Smoking Last 365 Days No; Reg Smoking Cessation Counseling No Assessment and Plan No data available for this section
--- OUTSIDE RECORDS SUMMARY | 2018-09-09 11:53 | XMS REPORT | Summary of Care ---
:[birth year]1988 Author Encounter JOCE Muniz(DARRIAN) [id number] Date(s): 07/31/14 - 07/31/14 [facility] [address] [employer] Services provided by [facility] [place] [address]- Discharge Diagnosis: No disease found Discharge Disposition: Home Physician Attending: Amy Suarez MD Vital Signs Most recent to oldest 1 2 3 [Reference Range]: Height 165.1 cm (07/31/14 1:24 PM) Temperature Oral [96.4-99.1 98.3 DegF 98.4 DegF 98.4 DegF DegF] (07/31/14 4:04 PM) (07/31/14 2:56 PM) (07/31/14 1:24 PM) Blood Pressure [90-140/60-90 147/95 mmHg 157/96 mmHg mmHg] *HI* *HI* (07/31/14 4:04 PM) (07/31/14 1:24 PM) Systolic Blood Pressure [90-140 150 mmHg mmHg] *HI* (07/31/14 2:56 PM) Diastolic Blood Pressure [60-90 94 mmHg mmHg] *HI* (07/31/14 2:56 PM) Respiratory Rate [14-20 BRMIN] 20 BRMIN 18 BRMIN 18 BRMIN (07/31/14 4:04 PM) (07/31/14 2:56 PM) (07/31/14 1:24 PM) Peripheral Pulse Rate [60-100 91 bpm 96 bpm 100 bpm bpm] (07/31/14 4:04 PM) (07/31/14 2:56 PM) (07/31/14 1:24 PM) Weight 110 kg (07/31/14 1:24 PM) Body Mass Index 40.36 m2 (07/31/14 1:24 PM) Problem List No data available for this section Allergies, Adverse Reactions, Alerts Substance Reaction Severity Status NKDA Active Medications No data available for this section Results URINE CHEM Most recent to oldest [Reference Range]: 1 U Preg [Negative] Negative (07/31/14 3:29 PM) URINE AND STOOL Most recent to oldest [Reference Range]: 1 UA Turbidity [Clear] Clear (07/31/14 3:29 PM) UA Color [Yellow] Yellow *NA* (07/31/14 3:29 PM) UA pH [5.0-8.0] 6.0 (07/31/14 3:29 PM) UA Spec Grav [<=1.030] 1.015 (07/31/14 3:29 PM) UA Glucose [Negative] Negative (07/31/14 3:29 PM) UA Blood [Negative] Negative (07/31/14 3:29 PM) UA Ketones [Negative] Negative *NA* (07/31/14 3:29 PM) UA Protein [Negative] Negative (07/31/14 3:29 PM) UA Urobilinogen [0.1-1.0 EU/dL] 0.2 EU/dL (07/31/14 3:29 PM) UA Bili [Negative] Negative *NA* (07/31/14 3:29 PM) UA Leuk Est [Negative] Small *ABN* (07/31/14 3:29 PM) UA Nitrite [Negative] Negative (07/31/14 3:29 PM) UA WBC [None Seen /HPF] 0-2 /HPF (07/31/14 3:29 PM) UA RBC [0-2] None Seen (07/31/14 3:29 PM) UA Bacteria [None Seen /HPF] Occasional /HPF (07/31/14 3:29 PM) UA Sq Epi [Few /LPF] Moderate /LPF *ABN* (07/31/14 3:29 PM) UA Mucus [None Seen /LPF] Few /LPF (07/31/14 3:29 PM) Immunizations No data available for this [...]
--- OUTSIDE RECORDS SUMMARY | 2018-09-09 11:54 | XMS REPORT | Summary of Care ---
:[birth year]1988 Author Organization [facility] Address [address] [place], [place] [address]- Encounter HQ Cristy(DARRIAN) [id number] Date(s): 06/11/16 - 06/11/16 [facility] [address] [place] [address]- Discharge Diagnosis: Cutaneous abscess of right foot Discharge Diagnosis: Cutaneous abscess of left lower extremity Discharge Disposition: Home or Self Care Attending Physician: Joshua Giron DO Vital Signs Most recent to oldest [Reference Range]: 1 2 Height 165.1 cm (06/11/16 2:47 PM) Temperature Oral [96.4-99.1 DegF] 98.2 DegF 98.2 DegF (06/11/16 3:35 PM) (06/11/16 2:47 PM) Blood Pressure [90-140/60-90 mmHg] 123/72 mmHg 118/70 mmHg (06/11/16 3:35 PM) (06/11/16 2:47 PM) Respiratory Rate [14-20 BRMIN] 18 BRMIN 20 BRMIN (06/11/16 3:35 PM) (06/11/16 2:47 PM) Peripheral Pulse Rate [60-100 bpm] 110 bpm 126 bpm *HI* *HI* (06/11/16 3:35 PM) (06/11/16 2:47 PM) Weight 100 kg (06/11/16 2:47 PM) Body Mass Index 36.69 m2 (06/11/16 2:47 PM) Problem List No data available for this section Allergies, Adverse Reactions, Alerts Substance Reaction Severity Status NKDA Active Medications Bactrim DS 800 mg- 160 mg oral tablet 1 tab, PO, BID, X 10 day, # 20 tab, 0 Refill(s) Start Date: 06/11/16 Stop Date: 06/21/16 Status: OrderedNorco 10/325 oral tablet 1 tab, Route: PO, Drug Form: TAB, Dosing Weight 100, kg, ONCE, STAT, Start date : 06/11/16 15:07:00 [employer], Stop date: 06/11/16 15:07:00 [employer] Notes: Do not exceed 4gm/day of acetaminophen. (Same as: [place] 325/10) Start Date: 06/11/16 Stop Date: 06/11/16 Status: CompletedUltram 50 mg oral tablet 50 mg=1 tab, PO, Q6H, PRN pain, No driving while under the influence of this medication, X 3 day, # 12 tab, 0 Refill(s) Start Date: 06/11/16 Stop Date: 06/14/16 Status: Ordered Results No data available for this section Immunizations [...]
--- OUTSIDE RECORDS SUMMARY | 2018-09-09 11:54 | XMS REPORT | Summary of Care ---
:[birth year]1988 Author Organization [facility] Address [address] [place], [place] [address]- Encounter HQ Cristy(DARRIAN) [id number] Date(s): 09/04/15 - 09/04/15 [facility] [address] [place] [address]- Discharge Diagnosis: Acute right otitis media Discharge Diagnosis: Acute upper respiratory infection Discharge Diagnosis: Acute pharyngitis Discharge Disposition: Home Attending Physician: Dereje Vizcaino MD Vital Signs Most recent to oldest [Reference Range]: 1 2 Height 165.1 cm (09/04/15 1:24 PM) Temperature Oral [96.4-99.1 DegF] 98.1 DegF 98.2 DegF (09/04/15 5:00 PM) (09/04/15 1:24 PM) Blood Pressure [90-140/60-90 mmHg] 144/53 mmHg 162/94 mmHg *HI* *HI* (09/04/15 5:00 PM) (09/04/15 1:24 PM) Respiratory Rate [14-20 BRMIN] 18 BRMIN 18 BRMIN (09/04/15 5:00 PM) (09/04/15 1:24 PM) Peripheral Pulse Rate [60-100 bpm] 83 bpm 88 bpm (09/04/15 5:00 PM) (09/04/15 1:24 PM) Weight 75 kg (09/04/15 1:24 PM) Body Mass Index 27.51 m2 (09/04/15 1:24 PM) Problem List No data available for this section Allergies, Adverse Reactions, Alerts Substance Reaction Severity Status NKDA Active Medications amoxicillin 500 mg oral tablet 500 mg=1 tab, PO, BID, X 10 day, # 20 tab, 0 Refill(s) Start Date: 09/04/15 Stop Date: 09/14/15 Status: OrderedMotrin 600 mg, 3 tab, Route: PO, Drug form: TAB, ONCE, Dosing Weight 75, kg, Priority: STAT, Start date: 09/04/15 15:59:00 CDT, Stop date: 09/04/15 15:59:00 CDT Notes: (Same as: Advil) Give with food. Start Date: 09/04/15 Stop Date: 09/04/15 Status: Completed Results VIRAL - SEROLOGY Most recent to oldest [Reference Range]: 1 Influ A [Negative] Negative (09/04/15 2:30 PM) Influ B [Negative] Negative (09/04/15 2:30 PM) Immunizations No data available for this [...]
--- OUTSIDE RECORDS SUMMARY | 2018-09-09 11:54 | XMS REPORT | Summary of Care ---
:01/[birth year]1988 Author Organization [facility] [place] Address [address] [place], [place] [address]- Encounter HQ Cristy(DARRIAN) [id number] Date(s): 06/21/15 - 06/21/15 [facility] [place] [address] [place] [address]- [phone] Discharge Diagnosis: Low back pain Discharge Diagnosis: Contusion of left shoulder, initial encounter Discharge Diagnosis: Strain of muscle, fascia and tendon at neck level, initial encounter Discharge Disposition: Home Attending Physician: Regis Grimm DO Vital Signs Most recent to oldest [Reference Range]: 1 2 Height 165.1 cm (06/21/15 12:24 PM) Temperature Oral [96.4-99.1 DegF] 98.2 DegF 98.2 DegF (06/21/15 4:56 PM) (06/21/15 12:24 PM) Blood Pressure [90-140/60-90 mmHg] 131/83 mmHg 162/109 mmHg (06/21/15 4:56 PM) *HI* (06/21/15 12:24 PM) Respiratory Rate [14-20 BRMIN] 18 BRMIN 17 BRMIN (06/21/15 4:56 PM) (06/21/15 12:24 PM) Peripheral Pulse Rate [60-100 bpm] 75 bpm 103 bpm (06/21/15 4:56 PM) *HI* (06/21/15 12:24 PM) Weight 100 kg (06/21/15 12:24 PM) Body Mass Index 36.69 m2 (06/21/15 12:24 PM) Problem List No data available for this section Allergies, Adverse Reactions, Alerts Substance Reaction Severity Status NKDA Active Medications Flexeril 10 mg oral tablet 10 mg, PO, TID, PRN Muscle Spasm, X 10 day, # 30 tab, 0 Refill(s) Start Date: 06/21/15 Stop Date: 07/01/15 Status: Orderedibuprofen 800 mg, Route: PO, Drug form: TAB, ONCE, Dosing Weight 100, kg, Priority: STAT, Start date: 06/20/1613:14:00, Stop date: 06/21/15 14:14:00 Start Date: 06/21/15 Stop Date: 06/21/15 Status: Completedibuprofen 800 mg oral tablet 800 mg=1 tab, PO, Q8H, PRN Fever or Pain, Take with food, # 30 tab, 0 Refill(s) Start Date: 06/21/15 Stop Date: 07/01/15 Status: OrderedValium 10 mg, Route: PO, ONCE, Dosing Weight 100, kg, Priority: STAT, Start date: 06/20 14:14:00, Stop date: 06/21/15 14:14:00 Start Date: 06/21/15 Stop Date: 06/21/15 Status: Completed Results URINE CHEM Most recent to oldest [Reference Range]: 1 U Preg [Negative] Negative (06/21/15 2:26 PM) Immunizations No data available for this [...]
[2018-09-09] MEDS ORDERED: LIDOCAINE 1% W/EPI 1:100,000 MDV 50 ML VIAL ONE (13:05)
--- NOTE | 2018-09-09 13:20 | EDPHYS ---
Physician Documentation [facility] Name: Blake Kemp Age: 63 yrs Sex: Male : 1955 Arrival Date: 09/09/2018 Time: 11:43 Bed 6 Private MD: Unknown, Unknown ED Physician Floyd Banks HPI: 09/09 13:16 This 63 yrs old Male presents to ER via Ambulatory with complaints of ma2 Laceration. 13:16 The complaints affect the left eye. Onset: The symptoms/episode began/occurred ma2 suddenly, 1 hour(s) ago. Associated signs and symptoms: Pertinent negatives: dazed, incontinence, nausea. Severity of symptoms: At their worst the symptoms were mild, in the emergency department the symptoms are unchanged. no vomiting or loc . Historical: - Allergies: :53 No Known Drug Allergies; sv - PMHx: :53 Diabetes - IDDM; Dialysis; Hyperlipidemia; Hypertension; Renal Disease; sv - PSHx: :53 cataract surgery; A/V shunt in left arm; sv - Immunization history:: Adult Immunizations up to date. - Social history:: Smoking status: Patient/guardian denies using tobacco, Patient/guardian denies using alcohol, street drugs, The patient lives with family. - Ebola Screening: : No symptoms or risks identified at this time. - Family history:: not pertinent. ROS: 13:16 Constitutional: Negative for fever, chills, and weight loss. ma2 13:16 All other systems are negative. Exam: 13:16 Constitutional: This is a well developed, well nourished patient who is awake, alert, ma2 and in no acute distress. Cardiovascular: Regular rate and rhythm with a normal S1 and S2. No gallops, murmurs, or rubs. Normal PMI, no JVD. No pulse deficits. Respiratory: Lungs have equal breath sounds bilaterally, clear to auscultation and percussion. No rales, rhonchi or wheezes noted. No increased work of breathing, no retractions or nasal flaring. MS/ Extremity: Pulses equal, no cyanosis. Neurovascular intact. Full, normal range of motion. Neuro: Awake and alert, GCS 15, oriented to person, place, time, and situation. Cranial nerves II-XII grossly intact. Motor strength 5/5 in all extremities. Sensory grossly intact. Cerebellar exam normal. Normal gait. 13:16 Head/Face: Normocephalic, atraumatic. Eyes: Pupils equal round and reactive to light, extra-ocular motions intact. Lids and lashes normal. Conjunctiva and sclera are non-icteric and not injected. Cornea within normal limits. Periorbital areas with no swelling, redness, or edema. ENT: Nares patent. No nasal discharge, no septal abnormalities noted. Tympanic membranes are normal and external auditory canals are clear. Oropharynx with no redness, swelling, or masses, exudates, or evidence of obstruction, uvula midline. Mucous membranes moist. Neck: Trachea midline, no thyromegaly or masses palpated, and no cervical lymphadenopathy. Supple, full range of motion without nuchal rigidity, or vertebral point tenderness. No Meningismus. Chest/axilla: Normal chest wall appearance and motion. Nontender with no deformity. No lesions are appreciated. 13:16 Skin: laceration left eye brow 1 cm . Vital Signs: 11:53 BP 117 / 64; Pulse 58; Resp 16; Temp 97; Pulse Ox 100% ; Weight 62.6 kg; Height 5 ft. 6 sv in. (167.64 cm); Pain 0/10; 13:00 BP 124 / 72; Pulse 60; Resp 15; Pulse Ox 99% on R/A; hb 11:53 Body Mass Index 22.27 (62.60 kg, 167.64 cm) sv Laceration: 13:17 Wound Repair of 1cm ( 0.4in ) subcutaneous laceration to face and left eye. Linear ma2 shaped.. Distal neuro/vascular/tendon intact. Anesthesia: Local anesthetic administered with 5 mls of 1% lidocaine. Wound prep: Simple cleansing. Skin closed with 2 6-0 Prolene using simple sutures and sterile technique. Dressed with Bacitracin. Patient tolerated well. MDM: 11:58 Patient medically screened. ma2 13:17 Differential diagnosis: Laceration of. Data reviewed: vital signs, nurses notes. ma2 Counseling: I had a detailed discussion with the patient and/or guardian regarding: the historical points, exam findings, and any diagnostic results supporting the discharge/admit diagnosis, the presence of at least one elevated blood pressure reading (>120/80) during this emergency department visit, the need for outpatient follow up. Response to treatment: the patient's symptoms have resolved after treatment. Administered Medications: No medications were administered Disposition: 09/09/18 13:20 Discharged to Home. Impression: Laceration without foreign body of other part of head - left eyebrow. - Condition is Stable. - Discharge Instructions: Facial Laceration. - Medication Reconciliation Form, Thank You Letter, Antibiotic Education, Prescription Opioid Use form. - Follow up: Private Physician; When: Tomorrow; Reason: Continuance of care. - Notes: remove sutures in 5 days Signatures: Jen Leroy RN RN sv Kierra Harrison RN RN Floyd Bansk MD MD ma2 Corrections: (The following items were deleted from the chart) 13:43 13:20 09/09/2018 13:20 Discharged to Home. Impression: Laceration without foreign body hb of other part of head - left eyebrow. Condition is Stable. Forms are Medication Reconciliation Form, Thank You Letter, Antibiotic Education, Prescription Opioid Use. Follow up: Private Physician; When: Tomorrow; Reason: Continuance of care. ma2
--- NOTE | 2018-09-09 13:20 | ER ---
Nurse's Notes [facility] Name: Blake Kemp Age: 63 yrs Sex: Male : 1955 Arrival Date: 09/09/2018 Time: 11:43 Bed 6 Private MD: Unknown, Unknown Diagnosis: Laceration without foreign body of other part of head-left eyebrow Presentation: 09/09 11:52 Presenting complaint: Patient states: left eye laceration after hitting the corner of something at his house. Cream placed on eye by pt. Transition of care: patient was not received from another setting of care. Complicating Factors: There are no complicating factors for this patient. Onset of symptoms was September 09, 2018. Initial Sepsis Screen: Does the patient meet any 2 criteria? No. Patient's initial sepsis screen is negative. Does the patient have a suspected source of infection? No. Patient's initial sepsis screen is negative. Care prior to arrival: None. 11:52 Method Of Arrival: Ambulatory sv 11:52 Acuity: BEATRIZ 3 sv Triage Assessment: 11:52 General: Appears in no apparent distress. comfortable, Behavior is calm, cooperative, sv appropriate for age. Pain: Denies pain. Neuro: Level of Consciousness is awake, alert, obeys commands, Oriented to person, place, time, situation, Gait is steady. Respiratory: Respiratory effort is even, unlabored, Respiratory pattern is regular, symmetrical. Injury Description: Laceration sustained to lateral canthus of left eye is 0.5 to 2.5 cm long, not bleeding, is bleeding no active bleeding noted. Historical: - Allergies: 11:53 No Known Drug Allergies; sv - PMHx: 11:53 Diabetes - IDDM; Dialysis; Hyperlipidemia; Hypertension; Renal Disease; sv - PSHx: 11:53 cataract surgery; A/V shunt in left arm; sv - Immunization history:: Adult Immunizations up to date. - Social history:: Smoking status: Patient/guardian denies using tobacco, Patient/guardian denies using alcohol, street drugs, The patient lives with family. - Ebola Screening: : No symptoms or risks identified at this time. - Family history:: not pertinent. Screenin:15 Abuse screen: Denies threats or abuse. Denies injuries from another. Nutritional hb screening: No deficits noted. Tuberculosis screening: No symptoms or risk factors identified. Fall Risk None identified. Assessment: 12:05 General: Appears in no apparent distress. Behavior is calm, cooperative. Pain: Denies hb pain. Neuro: Level of Consciousness is awake, alert, obeys commands, Oriented to person, place, time, situation. Cardiovascular: Capillary refill < 3 seconds Patient's skin is warm and dry. Respiratory: Airway is patent Respiratory effort is even, unlabored, Respiratory pattern is regular, symmetrical. GI: No signs and/or symptoms were reported involving the gastrointestinal system. : No signs and/or symptoms were reported regarding the genitourinary system. EENT: No signs and/or symptoms were reported regarding the EENT system. Derm: Skin is intact, is healthy with good turgor. Musculoskeletal: No signs and/or symptoms reported regarding the musculoskeletal system. Injury Description: Laceration sustained to lateral canthus of left eye is clean, jagged, 2.6 to 7.5 cm long, not bleeding, was sustained 30-60 minutes ago. 13:00 Reassessment: Patient appears in no apparent distress at this time. No changes from hb previously documented assessment. Patient and/or family updated on plan of care and expected duration. Pain level reassessed. Patient is alert, oriented x 3, equal unlabored respirations, skin warm/dry/pink. Vital Signs: 11:53 BP 117 / 64; Pulse 58; Resp 16; Temp 97; Pulse Ox 100% ; Weight 62.6 kg; Height 5 ft. 6 sv in. (167.64 cm); Pain 0/10; 13:00 BP 124 / 72; Pulse 60; Resp 15; Pulse Ox 99% on R/A; hb 11:53 Body Mass Index 22.27 (62.60 kg, 167.64 cm) sv ED Course: 11:43 Patient arrived in ED. ag5 11:44 Unknown, Unknown is Private Physician. ag5 11:53 Triage completed. sv 11:54 Arm band placed on. sv 11:58 Floyd Banks MD is Attending Physician. ma2 12:15 Patient has correct armband on for positive identification. Bed in low position. Call hb light in reach. Side rails up X 1. 13:08 Kierra Harrison, MICA is Primary Nurse. hb 13:42 No provider procedures requiring assistance completed. Patient did not have IV access hb during this emergency room visit. Administered Medications: No medications were administered Outcome: 13:20 Discharge ordered by . fouzia 13:42 Discharged to home ambulatory, with family. 13:42 Condition: stable 13:42 Discharge instructions given to patient, family, Instructed on discharge instructions, follow up and referral plans. medication usage, wound care, Demonstrated understanding of instructions, follow-up care, medications, wound care. 13:43 Patient left the ED. hb Signatures: Jen Leroy RN RN sv Baxter, Heather, RN RN hb Alzahri, Mohammad, MD MD ma2 Rodrick Varela ag5
[2018-09-09 14:26] VITALS: TEMP 97
[2018-09-09 14:27] VITALS: BP 124/72; O2SAT 99
== END 2018-09-09 13:43 | disposition home or self-care (01) ==
LOC: ER 11:41
PROC: 0JQ10ZZ Repair Face Subcutaneous Tissue and Fascia, Open Approach (ICD-10-PCS; principal; 2018-09-09)
DX: S01.112A Laceration without foreign body of left eyelid and periocular area, initial encounter (principal); I12.0 Hypertensive chronic kidney disease with stage 5 chronic kidney disease or end stage renal disease; E11.22 Type 2 diabetes mellitus with diabetic chronic kidney disease; N18.6 End stage renal disease; Z99.2 Dependence on renal dialysis
CPT/HCPCS: 99281

== ENCOUNTER 2019-08-15 11:46 | Emergency (ER) | payer OTHER ==
--- OUTSIDE RECORDS SUMMARY | 2019-08-15 11:49 | XMS REPORT | Summary of Care ---
:1955 Author Organization [facility] - [facility] Address [address] [place] [id number] Care Team Providers Name Role Phone Genaro Canchola MD Primary Care Provider Reason for Visit Reason Comments DIZZY today Nausea today Chills X 3 days Other patient passed out this morn ing Other kidney transplant X 2 year a go Dehydration HYPOTENSION Encounter Details Date Type Department Care Team Description 08/14/2019 Urgent Care [facility] Rony Canchola MD [address] [place] [address] [address] [place] [address] Diarrhea, unspecified type (Primary Dx); [place] [address], Acute Care Clinic Fever, unspecified fever cause; [address] [place] [address] Yadi ferguson Suspected Covid-19 Virus Inf ection; [place], [place] Chills; [id number] Exposure to SARS-associated coronavirus; [phone] Dizzy; Mild dehydratio n; Orthostatic hyp otension Allergies No Known Allergiesdocumented as of this encounter (statuses as of 08/14/2019) Medications Medication Sig Dispensed Refills Start Date End Date Status carvediloL 6.25 mg TAKE 1 TABLET BY 0 06/12/2019 Active tablet MOUTH TWICE DAILY FOR 30 DAYS cycloSPORINE 25 mg TAKE 5 CAPSULES 0 08/11/2019 Active capsule BY MOUTH EVERY MORNING and FOUR CAPSULES IN THE EVENING famotidine 20 mg tablet TAKE 1 TABLET BY 0 0 Active MOUTH TWICE DAILY FOR 30 DAYS LANTUS SOLOSTAR U-100 INJECT SUB 18 0 07/09/2019 Active INSULIN 100 unit/mL (3 UNITS EVERY DAY mL) injection escitalopram oxalate 10 TAKE 2 TABLETS BY 0 06/12/19 20 Active mg tablet MOUTH ONCE DAILY D3-2000 50 mcg (2,000 Take 1 capsule by 0 07/14/2019 Active unit) capsule mouth daily. losartan 25 mg tablet Take 25 mg by 0 07/14/2019 Active mouth every evening. pravastatin 40 mg TAKE 1 TABLET BY 0 06/12/2019 Active tablet MOUTH AT BEDTIME FOR 90 DAYS Bismuth Subsalicylate Take 1 tablet by 30 tablet 1 08/14/2019 Active (PEPTO-BISMOL) 262 mg mouth 4 (four) tabletIndications: times daily as Diarrhea, unspecified needed type (diarrhea). acetaminophen 650 mg CR Take 1 tablet by 20 tablet 0 0 Active tabletIndications: mouth every 8 Fever, unspecified (eight) hours as fever cause, Chills needed for Pain or Fever. documented as of this encounter (statuses as of 08/14/2019) Active Problems Problem Noted Date Exposure to SARS-associated coronavirus 08/14/2019 Chills 08/14/2019 Suspected Covid-19 Virus Infection 08/14/2019 Fever, unspecified fever cause 08/14/2019 Diarrhea, unspecified type 08/14/2019 Mild dehydration 08/14/2019 Dizzy 08/14/2019 Orthostatic hypotension 08/14/2019 documented as of this encounter (statuses as of 08/14/2019) Social History Tobacco Use Types Packs/Day Years Used Date Never Smoker Smokeless Tobacco: Current User Sex Assigned at Date Recorded Not on file Job Start Date Occupation Industry Not on file Not on file Not on file Travel History Travel Start Travel End No recent travel history available. documented as of this encounter Last Filed Vital Signs Vital Sign Reading Time Taken Comments Blood Pressure 96/61 08/14/2019 12:23 PM CDT Pulse 65 08/14/2019 12:23 PM CDT Temperature 36.6 C (97.9 F) 08/14/2019 12:23 PM CDT Respiratory Rate 18 08/14/2019 12:23 PM CDT Oxygen Saturation - - Inhaled Oxygen Concentration - - Weight 61.2 kg (135 lb) 08/14/2019 12:23 PM CDT Height 167.6 cm (5' 6") 08/14/2019 12:23 PM CDT Body Mass Index 21.79 08/14/2019 12:23 PM CDT documented in this encounter Patient Instructions Patient InstructionsGenaro Canchola MD - 08/14/2019 12:00 PM CDTSelf Care Guidelines pending COVID-19 Screen Result - Increase fluid intake - Self quarantine until otherwise instructed - Call clinic/911 or go to ER should symptoms worsen or fail to improve - Sipping on warm water with lemon juice is effective at helping clear post nasal drip from back of throat -Turn on hot shower water, close the bathroom door, sit down, and inhale the steam -Use a vaporizer/humidifier to increase humidity in rooms -Use Tylenol as directed on bottle for pain/fever. - Patricia [place] Day/Night Cold and Flu Severe is a good multi symptom cold medication, however do nottake extra Tylenol in addition to these. -Sipping hot water or warm drinks may be more soothing to the nasal passages than ice cold drinks. -Avoid extremely cool and dry air. -Nasal saline rinses may provide temporary relief of congestion and help remove post nasal drip fromback of throat (use distilled water only) -Drinking 8 or more 8-oz glasses of water, juice, or noncaffeinated beverages daily may help to thinmucous secretions and replace fluid losses. -Home-care measures to relieve throat symptoms include warm saline gargles, which may reduce associated edema; lozenges; popsicles; and cold and slushy beverages. -An upright or semiupright posture, such as sleeping with the head and shoulders raised, may decrease cough related to pharyngeal secretions. Patient Education Diarrea, Causa desconocida (adulto) La diarrea se produce cuando las heces son sueltas y acuosas. Puede deberse a lo siguiente: Infecciones virales Infecciones bacterianas Intoxicacin con alimentos Parsitos Sndrome del intestino irritable Enfermedades inflamatorias de los intestinos, tales thu la colitis ulcerosa, la enfermedad de Crohn y la enfermedad celaca Intolerancia a algunos alimentos, tales thu la lactosa, el azcar que se encuentra en la leche y otros productos lcteos Reaccin a algunos medicamentos, tales thu los antibiticos, los laxantes, los medicamentos usados para tratar el cncer y los anticidos Junto con la diarrea, tambin puede que tenga: Dolor y clicos abdominales Nuseas y vmito Prdida del control de los intestinos Fiebre y escalofros Heces con chidi En algunos casos, pueden usarse antibiticos para tratar la diarrea. Puede que le conner un anlisis de heces. [place] se hace para corbin cul es la causa de tubbs diarrea y si es necesario darle antibiticos para tratarla. Los resultados del anlisis de heces pueden tardar hasta dos rahman. Puede que el proveedor de atencin mdica no le d antibiticos hasta tanto no tenga los resultados del anlisis de heces. La diarrea puede deberse a la deshidratacin. [place] es la prdida de demasiada agua y minerales de tubbs cuerpo. Cuando esto sucede, se deben recuperar los lquidos del cuerpo. Para recuperarlos, puede sal soluciones de rehidratacin oral. Las soluciones de rehidratacin oral se venden en farmaciasy tiendas de comestibles, sin receta mdica. Cuidados en la casa Siga todas las instrucciones que le haya dado tubbs proveedor de atencin mdica. Descanse en tubbs casalas 24 horas siguientes o hasta que se sienta mejor. Evite la cafena, el alcohol y el tabaco. Estas cosas pueden empeorar la diarrea, los clicos y el dolor. Si mechelle medicamentos: No tome medicamentos de venta anders para las nuseas o la diarrea a menos que tubbs proveedor de atencin mdica le indique hacerlo. Puede usar acetaminofn o ibuprofeno para reducir el dolor y la fiebre. No use estos medicamentos si tiene estrada enfermedad crnica del hgado o los riones, o si alguna vez tuvo estrada lcera estomacal o sangrado gastrointestinal. Hable con tubbs proveedor de atencin mdica nunu. Si le recetaron antibiticos, asegrese de tomarlos hasta terminarlos. No deje de tomarlos, incluso aunque se sienta mejor. Debe tomarlos todos para que el tratamiento est completo. Utilization Reviewer prevenir la propagacin de la enfermedad? Recuerde que lavarse las ari con agua y jabn es la mejor manera de evitar que se propague la infeccin. Limpie el inodoro despus de cada uso. Lvese las ari antes de comer. Lvese las ari antes y despus de preparar la comida. Tenga en cuenta que las personas con diarrea o vmito no deberan prepararles comida a los dems. Lvese las ari despus de usar tablas de cortar, encimeras y cuchillos que hayan estado en contacto con alimentos crudos. Lave las frutas y los vegetales antes de pelarlos. Mantenga las carlos crudas alejadas de los alimentos cocidos y listos para comer. Use un termmetro para comida cuando cocine. Cocine el felicia al menos hasta los 165 F (74 C). Cocine la carne molida (de res o vacuna, de ternera, cerdo, pina) hasta los 160 F (71 C) thu mnimo. Cocine la carne fresca de res o vacuna, de ternera, cerdo, pina) hasta los 145 F (63 C) thu mnimo. No coma huevos crudos o poco cocidos (escalfados o huevos fritos con la yema algo cruda), ni carne de res o de ave cruda o poco cocida, ni leche o jugos si pasteurizar. Bebidas y alimentos El principal objetivo del tratamiento para el vmito o la diarrea es evitar la deshidratacin. [place] se hace tomando frecuentemente pequeas cantidades de lquidos. Tenga en cuenta que en shyann momento los lquidos son ms importantes que los alimentos. Rita solo pequeas cantidades de lquidos cada vez. No se fuerce a comer, especialmente si tiene dolor de estmago, clicos estomacales, vmito o diarrea.No coma grandes cantidades de comida cada vez, aunque tenga hambre. Si come, evite los alimentos grasos, aceitosos, muy condimentados o fritos. No rita leche ni coma productos lcteos si tiene diarrea, ya que pueden empeorarla. Raegan las primeras 24 horas, puede intentar con lo siguiente: Bebidas deportivas Bebidas gaseosas sin cafena Graciela keon Agua (regular o saborizada) T o caf descafeinados Consom y caldos (naturales o de cubos) transparentes Gelatina, helados de jugo o barras de jugo de frutas congeladas En las 24 horas siguientes, si se siente mejor, puede agregar: Cereales calientes, santiago jeanette solo, santiago, bolillos (pancitos) o galletas Fideos solos, arroz, pur de leana, sopa de felicia con fideos o sopa de arroz Frutas enlatadas sin endulzantes (que no sea soniya) Bananas (pltanos) A medida que vaya recuperndose: Limite el consumo de grasas a menos de 15 gramos al da. No coma margarina, mantequilla, aceites, mayonesa, salsas, jugos de carne, alimentos fritos, mantequilla de man (cacahuate), carne de res,carne de ave ni pescados. Coma poca fibra. No coma vegetales crudos o cocidos, frutas frescas excepto bananas ni cereales con salvado. Limite la cafena y el chocolate. No use especias ni aderezos, excepto oleksandr. Con el tiempo, vuelva a tubbs dieta normal, a medida que vaya sintindose mejor y donna sntomas se alivien. Si tiene sntomas otra vez, vuelva a seguir estrada dieta simple o lquidos transparentes. Visita de control Programe estrada visita de control con tubbs proveedor de atencin mdica o segn le hayan indicado. Si le tomaron estrada muestra de heces o le hicieron un cultivo, llame al proveedor de atencin mdica para conocer los resultados, segn le hayan indicado. Llame al 911 Llame al 911 si tiene cualquiera de estos sntomas: Dificultades para respirar Confusin Somnolencia (adormecimiento) extrema o dificultad para caminar Prdida del conocimiento (desmayo) Ritmo cardaco acelerado Katty rgido Convulsin Cundo debe buscar atencin mdica? Llame a tubbs proveedor de atencin mdica de inmediato si tiene cualquiera de los siguientes sntomas: Dolor abdominal que empeora Dolor dony en la parte inferior derecha del abdomen Vmito continuo y no puede mantener los lquidos en el estmago Diarrea ms de devin veces al da Chidi en el vmito o las heces Orina oscura o no de dios orinado en ocho horas. Boca y lengua secas, cansancio, debilidad o mareo Salpullido nuevo No se siente mejor en dos o osito rahman Fiebre de 101.4 F (38.5 C) o ms que no se reduce con los medicamentos [phone] [facility] [employer]. [address] [place] [address], [place] [address]. Todos los derechos reservados. Esta informacin no pretende sustituir la atencin mdica profesional. Slo tubbs mdico puede diagnosticar y tratar un problema de chapin. documented in this encounter Progress Notes Genaro Canchola MD - 08/14/2019 12:00 PM CDT Cc: Chief Complaint Patient presents with DIZZY today Nausea today Chills X 3 days Other patient passed out this morning Other kidney transplant X 2 year ago Dehydration HYPOTENSION Blake Metzger is a 63 year old male c/o diarrhea with chills and nausea x 1 day, has hx renal transplant, denies Sx rejection. Patient reports he felt fatigued this morning after coming back from his regular morning walk. Patient's BP is 91/61 on arrival, on losartan and coreg, denies loss or consciousness or falls. Patient's spouse was potentially exposed to a coworker who tested positive for COVID-19. Allergies Blake has No Known Allergies. Medications Outpatient Medications Prior to Visit Medication Sig Dispense Refill carvediloL 6.25 mg tablet TAKE 1 TABLET BY MOUTH TWICE DAILY FOR 30 DAYS cycloSPORINE 25 mg capsule TAKE 5 CAPSULES BY MOUTH EVERY MORNING and FOUR CAPSULES IN THE EVENING D3-2000 50 mcg (2,000 unit) capsule Take 1 capsule by mouth daily. escitalopram oxalate 10 mg tablet TAKE 2 TABLETS BY MOUTH ONCE DAILY famotidine 20 mg tablet TAKE 1 TABLET BY MOUTH TWICE DAILY FOR 30 DAYS LANTUS SOLOSTAR U-100 INSULIN 100 unit/mL (3 mL) injection INJECT SUB 18 UNITS EVERY DAY losartan 25 mg tablet Take 25 mg by mouth every evening. pravastatin 40 mg tablet TAKE 1 TABLET BY MOUTH AT BEDTIME FOR 90 DAYS No facility-administered medications prior to visit. Histories Past Medical History: Diagnosis Date Diabetes mellitus Past Surgical History: Procedure Laterality Date TRANSPLANT KIDNEY (SHX) 06/2017 Social History Socioeconomic History Marital status: Spouse name: Not on file Number of children: Not on file Years of education: Not on file Highest education level: Not on file Occupational History Not on file Social Needs Financial resource strain: Not on file Food insecurity: Worry: Not on file Inability: Not on file Transportation needs: Medical: Not on file Non-medical: Not on file Tobacco Use Smoking status: Never Smoker Smokeless tobacco: Current User Substance and Sexual Activity Alcohol use: Not on file Drug use: Not on file Sexual activity: Not on file Lifestyle Physical activity: Days per week: Not on file Minutes per session: Not on file Stress: Not on file Relationships Social connections: Talks on phone: Not on file Gets together: Not on file Attends jain service: Not on file Active member of club or organization: Not on file Attends meetings of clubs or organizations: Not on file Relationship status: Not on file Intimate partner violence: Fear of current or ex partner: Not on file Emotionally abused: Not on file Physically abused: Not on file Forced sexual activity: Not on file Other Topics Concern Not on file Social History Narrative Not on file History reviewed. No pertinent family history. Review of Systems Constitutional: Positive for chills and fatigue. Negative for fever and weight loss. Respiratory: Negative for chest tightness and shortness of breath. Gastrointestinal: Negative for diarrhea, nausea and vomiting. Musculoskeletal: Negative for arthralgias and myalgias. Neurological: Positive for dizziness and weakness. Negative for syncope. Endocrine: Negative for weight loss. Vital Signs BP 96/61 | Pulse 65 | Temp 36.6 C (97.9 F) (Oral) | Resp 18 | Ht 5' 6" (1.676 m) | Wt 135 lb (61.2 kg) | BMI 21.79 kg/m Physical Exam Constitutional: He is oriented to person, place, and time. He appears well- developed and well-nourished. No distress. HENT: Head: Normocephalic and atraumatic. Right Ear: External ear normal. Left Ear: External ear normal. Nose: Nose normal. Mouth/Throat: Oropharynx is clear and moist. No oropharyngeal exudate. Eyes: Pupils are equal, round, and reactive to light. EOM are normal. Neck: Normal range of motion. Neck supple. Cardiovascular: Normal rate and regular rhythm. Pulmonary/Chest: Effort normal and breath sounds normal. Abdominal: Soft. Bowel sounds are normal. He exhibits no distension. There is no tenderness. There is no guarding. Musculoskeletal: Normal range of motion. He exhibits no tenderness. Neurological: He is alert and oriented to person, place, and time. Skin: Skin is warm and dry. Capillary refill takes less than 2 seconds. Psychiatric: He has a normal mood and affect. His behavior is normal. Nursing note and vitals reviewed. Assessment/Plan Diarrhea, unspecified type - Conservative management. Encouraged to maintain good hydration. Anticipatory guidance discussed. - Bismuth Subsalicylate (PEPTO-BISMOL) 262 mg tablet; Take 1 tablet by mouth 4 (four) times daily asneeded (diarrhea). Dispense: 30 tablet; Refill: 1 Fever, unspecified fever cause - Patient also reports chills at home, possible exposure to COVID-19 - CORONAVIRUS COVID-19 TESTING; Future - CORONAVIRUS COVID-19 TESTING - acetaminophen 650 mg CR tablet; Take 1 tablet by mouth every 8 (eight) hours as needed for Pain orFever. Dispense: 20 tablet; Refill: 0 Exposure to SARS-associated coronavirus - Patient's had possible exposure to a coworker who tested positive for COVID-19 - CORONAVIRUS COVID-19 TESTING; Future - CORONAVIRUS COVID-19 TESTING Orthostatic hypotension - Patient is clinical stable and asymptomatic at this time. Complicated by diarrhea, mild dehydration and dizziness. Advised to hold coreg and losartan and monitor home BP, restart medications when BP stable. BP goal >110/60 and < 140/90. - Encouraged to maintain good hydration Preventive Care: Medication reconciliation, patient education and anticipatory guidance completed. All questions and concerns addressed. AVS given, handout on Diarrhea, and Self Care Guidelines pending COVID-19 Screen Result provided. Return if symptoms worsen or fail to improve. Genaro Canchola MD, MPH, [facility] Occupational [employer], Department of Family Medicine [facility] [address] [place] [address] [address] [place] [address] Office: 08/14/2019 1:02 PM documented in this encounter Plan of Treatment Name Type Priority Associated Diagnoses Date/Ti me CORONAVIRUS COVID-19 LAB Routine Fever, unspecified f ever 08/14/2019 12:10 PM TESTING cause CDT Suspected Covid-19 Virus Infection Name Type Priority Associated Diagnoses Order S chedule CORONAVIRUS COVID-19 LAB Routine Fever, unspecified f ever Expected: 08/14/2019, TESTING cause Expires: 08/13/2020 Suspected Covid-19 Virus Infection Health Maintenance Due Date Last Done Comments HEPATITIS C (HCV) SCREEN 1955 DTaP,Tdap,and Td Vaccines (1 - Tdap) 1966 COLONOSCOPY 08/29/2003 Zoster Recombinant Vaccine (SHINGRIX) (1 of 2) 08/29/2003 PNEUMOCOCCAL VACCINES 65+ (1 of 2 - PCV13) 2018 INFLUENZA VACCINE (#1) 2018 documented as of this encounter Results Not on filedocumented in this encounter Visit Diagnoses Diagnosis Diarrhea, unspecified type - Primary Fever, unspecified fever cause Suspected Covid-19 Virus Infection Chills Chills (without fever) Exposure to SARS-associated coronavirus Dizzy Dizziness and giddiness Mild dehydration Dehydration Orthostatic hypotension documented in this encounter Insurance Payer Benefit Plan Subscriber ID Effective Dates Phone Address Type / Group HUMANA - HUMANA CHOICE [id number] 2019-[facility] Medicare Adv MANAGED t PPO MEDICARE documented as of this encounter
--- OUTSIDE RECORDS SUMMARY | 2019-08-15 11:49 | XMS REPORT ---
:1955 Author Organization [facility] t Address [address] [place] [address] Care Team Providers Name Role Phone Unavailable Unavailable Unavailable Problems This patient has no known problems. Allergies, Adverse Reactions, Alerts This patient has no known allergies or adverse reactions. Medications This patient has no known medications. Encounters Start End Encounter Admission Attending Care Care Encounter Date/Time Date/Time Type Type Clinicians Facility Department ID 2019-04-14 Outpatient [facility] [id number] 07:56:24 2018-10-18 Inpatient [facility] MED [id number] 09:22:00 2019-04-03 2019-04-03 Outpatient [facility] [id number] 07:47:00 07:47:00 2019-01-09 2019-01-09 Outpatient [facility] [id number] 08:12:00 08:12:00 2019-01-09 2019-01-09 Outpatient [facility] [id number] 07:30:00 07:30:00 2018-10-24 2018-10-24 Outpatient [facility] [id number] 08:50:00 08:50:00 2018-10-24 2018-10-24 Outpatient [facility] [id number] 07:40:00 07:40:00 2018-10-09 2018-10-09 Outpatient [facility] [id number] 06:06:00 06:06:00 2018-09-23 2018-09-23 Outpatient [facility] [id number] 08:13:00 08:13:00 2018-09-23 2018-09-23 Outpatient [facility] [id number] 07:17:00 07:17:00
--- NOTE | 2019-08-15 12:59 | RAD REPORT ---
EXAM DESCRIPTION: RAD - Foot Left 3 View - 08/15/2019 12:50 pm CLINICAL HISTORY: injury Fall, trauma, pain COMPARISON: None FINDINGS: Left ankle and left foot- multiple projections are submitted Prominent vascular calcification is seen. Diffuse osteopenia is present. No evidence of acute fractur e or dislocation.
[2019-08-15] MEDS ORDERED: NA CHLORIDE 0.9% 500 ML ONE (14:39)
[2019-08-15 14:45] LABS: ALT/SGPT 31 U/L (12-78); AST/SGOT 18 U/L (15-37); Albumin 3.7 g/dL (3.4-5.0); Alkaline Phosphatase 136 U/L (45-117); BUN Blood Urea Nitrogen 57 mg/dL (7-18); Bicarbonate 24 mmol/L (21-32); Bilirubin Total 0.7 mg/dL (0.2-1.0); Glucose Level 242 mg/dL (74-106); Protein, Total 7.4 g/dL (6.4-8.2); Sodium Level 137 mmol/L (136-145); Troponin (Emerg Dept Use Only) < 0.02 ng/mL (0.0-0.045)
[2019-08-15 14:46] LABS: Absolute Lymphocytes (CBC) 1.3 K/uL (0.7-4.9); Basophils % 0.4 % (0-1.3); Hematocrit 34.8 % (39.6-49.0); Lymphocytes % 17.8 % (15.3-44.8); MPV 9.5 fL (7.6-11.3); RBC Red Blood Cell Count 3.78 M/uL (4.33-5.43)
--- NOTE | 2019-08-15 15:11 | EDPHYS ---
Physician Documentation [facility] Name: Blake Kemp Age: 63 yrs Sex: Male : 1955 Arrival Date: 08/15/2019 Time: 11:48 Bed 6 Private MD: Bishop Wade R ED Physician New Orell[place] HPI: 08/14 13:51 This 63 yrs old Male presents to ER via Wheelchair with complaints of jane Dizziness, Foot Injury - yest. 13:51 The patient presents with dizziness, feeling faint. Onset: The symptoms/episode jane began/occurred 1 day(s) ago. Context: occurred at home. Modifying factors: The symptoms are alleviated by nothing, the symptoms are aggravated by nothing. Associated signs and symptoms: The patient has no apparent associated signs or symptoms. Severity of symptoms: At their worst the symptoms were mild in the emergency department the symptoms are unchanged. Patient's baseline: Neuro: alert and fully oriented. The patient has not experienced similar symptoms in the past. Historical: - Allergies: 11:58 No Known Drug Allergies; sv - PMHx: 11:58 Diabetes - IDDM; Dialysis; Hyperlipidemia; Hypertension; Renal Disease; sv - PSHx: 11:58 cataract surgery; kidney transplant; sv 12:00 AV shunt in L arm-not currently on HD; sv - Immunization history:: Flu vaccine is up to date. - Social history:: Smoking status: Patient denies any tobacco usage or history of. - Family history:: not pertinent. ROS: 13:51 Constitutional: Negative for fever, chills, and weight loss, Eyes: Negative for injury, jane pain, redness, and discharge, ENT: Negative for injury, pain, and discharge, Neck: Negative for injury, pain, and swelling, Cardiovascular: Negative for chest pain, palpitations, and edema, Respiratory: Negative for shortness of breath, cough, wheezing, and pleuritic chest pain, Abdomen/GI: Negative for abdominal pain, nausea, vomiting, diarrhea, and constipation, : Negative for injury, bleeding, discharge, and swelling, Skin: Negative for injury, rash, and discoloration, Neuro: Negative for headache, weakness, numbness, tingling, and seizure, Psych: Negative for depression, anxiety, suicide ideation, homicidal ideation, and hallucinations, Allergy/Immunology: Negative for hives, rash, and allergies, Endocrine: Negative for neck swelling, polydipsia, polyuria, polyphagia, and marked weight changes, Hematologic/Lymphatic: Negative for swollen nodes, abnormal bleeding, and unusual bruising. 13:51 Back: Positive for pain at rest, of the left trapezius and right trapezius. 13:51 MS/extremity: Positive for decreased range of motion, pain, swelling, of the left foot. Exam: 13:51 Constitutional: This is a well developed, well nourished patient who is awake, alert, jane and in no acute distress. Head/Face: Normocephalic, atraumatic. Eyes: Pupils equal round and reactive to light, extra-ocular motions intact. Lids and lashes normal. Conjunctiva and sclera are non-icteric and not injected. Cornea within normal limits. Periorbital areas with no swelling, redness, or edema. ENT: Nares patent. No nasal discharge, no septal abnormalities noted. Tympanic membranes are normal and external auditory canals are clear. Oropharynx with no redness, swelling, or masses, exudates, or evidence of obstruction, uvula midline. Mucous membranes moist. Neck: Trachea midline, no thyromegaly or masses palpated, and no cervical lymphadenopathy. Supple, full range of motion without nuchal rigidity, or vertebral point tenderness. No Meningismus. Chest/axilla: Normal chest wall appearance and motion. Nontender with no deformity. No lesions are appreciated. Cardiovascular: Regular rate and rhythm with a normal S1 and S2. No gallops, murmurs, or rubs. Normal PMI, no JVD. No pulse deficits. Respiratory: Lungs have equal breath sounds bilaterally, clear to auscultation and percussion. No rales, rhonchi or wheezes noted. No increased work of breathing, no retractions or nasal flaring. Abdomen/GI: Soft, non-tender, with normal bowel sounds. No distension or tympany. No guarding or rebound. No evidence of tenderness throughout. Back: No spinal tenderness. No costovertebral tenderness. Full range of motion. Male : Normal genitalia with no discharge or lesions. Skin: Warm, dry with normal turgor. Normal color with no rashes, no lesions, and no evidence of cellulitis. Neuro: Awake and alert, GCS 15, oriented to person, place, time, and situation. Cranial nerves II-XII grossly intact. Motor strength 5/5 in all extremities. Sensory grossly intact. Cerebellar exam normal. Normal gait. Psych: Awake, alert, with orientation to person, place and time. Behavior, mood, and affect are within normal limits. 13:51 Musculoskeletal/extremity: Extremities: grossly normal except: noted in the dorsum of left foot: decreased ROM, pain. 14:50 ECG was reviewed by the Attending Physician. [facility] Vital Signs: 11:58 BP 143 / 59; Pulse 78; Resp 16; Temp 98; Pulse Ox 100% ; Weight 63.5 kg; Height 5 ft. 6 sv in. (167.64 cm); 14:10 BP 149 / 57 Supine; Pulse 65; em 14:10 BP 131 / 75 Sitting; Pulse 77; em 14:10 BP 106 / 60 Standing; Pulse 69; em 11:58 Body Mass Index 22.60 (63.50 kg, 167.64 cm) sv 14:10 denies dizziness em MDM: 13:28 Patient medically screened. [facility] 13:54 Data reviewed: vital signs, nurses notes, lab test result(s), radiologic studies, plain jane films. 14:12 Differential diagnosis: cardiac arrhythmia, generalized weakness, hypovolemia, jane idiopathic dizziness, near-syncope, vertigo. Data interpreted: head still operator: rate is 78 beats/min, Pulse oximetry: on room air is 100 %. Test interpretation: by ED physician or midlevel provider: ECG, plain radiologic studies. Counseling: I had a detailed discussion with the patient and/or guardian regarding: the historical points, exam findings, and any diagnostic results supporting the discharge/admit diagnosis, the presence of at least one elevated blood pressure reading (>120/80) during this emergency department visit, lab results, radiology results. 14:48 ED course: improved, fluids, foot sprain no fx. jane 15:07 Special discussion: [facility] transplant service at [place] 07/16/19 creat 2.41 bun 70. [facility] 08/14 13:50 Order name: CBC with Diff; Complete Time: 14:55 jane 08/14 13:50 Order name: Troponin (emerg Dept Use Only); Complete Time: 14:51 jane 08/14 12:03 Order name: Foot Left 3 View XRAY; Complete Time: 14:43 sv 08/14 12:03 Order name: Ankle Left 3 View XRAY 08/14 13:50 Order name: Comprehensive Metabolic Panel; Complete Time: 14:51 [facility] 08/14 13:50 Order name: EKG; Complete Time: 13:51 [facility] 08/14 13:50 Order name: EKG - Nurse/Tech; Complete Time: 14:20 [facility] 08/14 13:50 Order name: Orthostatics; Complete Time: 14:20 [facility] 08/14 13:50 Order name: Ice pack; Complete Time: 13:58 [facility] 08/14 14:43 Order name: Post-op shoe; Complete Time: 15:25 jane EC:50 Rate is 63 beats/min. Rhythm is regular. QRS Cucumber is Normal. SD interval is normal. QRS jane interval is normal. QT interval is normal. No Q waves. T waves are Normal. No ST changes noted. Clinical impression: NSR w/ Non-specific ST/T Changes. Interpreted by me. Reviewed by me. Administered Medications: 14:40 Drug: NS 0.9% 500 ml Route: IV; Rate: bolus; Site: right antecubital; em 15:33 Follow up: IV Status: Completed infusion; IV Intake: 500ml em 15:33 Not Given (Patient Refused): [place] (7.5 mg-325 mg) 1 tabs PO once; RASS on ADMIN: em Combtv4, Very Agttd3, Agttd2, Rstlss1, AlertClm0, Drwsy-1, Lt Sdtn-2, Mod Sdtn-3, Dp Sdtn-4, UnArsble-5 Disposition: 08/15/19 15:10 Discharged to Home. Impression: Sprain of foot, Syncope and collapse - near, Kidney transplant status, Volume depletion - mild, Dizziness and giddiness, Unspecified kidney failure - chronic renal failure. - Condition is Stable. - Discharge Instructions: Type 1 Diabetes Mellitus, Diagnosis, Adult, Near-Syncope, Syncope, Weakness, Near-Syncope, Jvxk-dp-Dndq, Syncope, Xiwx-fj-Auev, Weakness, Wkcl-ef-Yhyb, Chronic Kidney Disease, Adult, Hftw-kp-Jwts, Type 1 Diabetes Mellitus, Self Care, Adult, Type 1 Diabetes Mellitus, Diagnosis, Adult, Ykks-ai-Cuzy, Type 1 Diabetes Mellitus, Self Care, Adult, Eyxq-ta-Gslv. - Prescriptions for Tylenol- Codeine #3 300-30 mg Oral Tablet - take 2 tablets by ORAL route every 6 hours As needed; 20 tablet. - Medication Reconciliation Form, Thank You Letter, Antibiotic Education, Prescription Opioid Use form. - Follow up: Bishop Wade; When: 2 - 3 days; Reason: Recheck today's complaints, Continuance of care, Re-evaluation by your physician. Follow up: Caryl Branch; When: 2 - 3 days; Reason: Recheck today's complaints, Re-evaluation by your physician. Follow up: Jesús Anderson; When: 2 - 3 days; Reason: Recheck today's complaints, Re-evaluation by your physician. - Problem is new. - Symptoms have improved. Signatures: Dispatcher [employer] Jen Berkowitz, RN RN New [place] MD MD cha Munoz, Edgar, RN RN em Corrections: (The following items were deleted from the chart) 12:00 11:58 PSHx: A/V shunt in left arm-removed; sv sv 15:35 15:10 08/15/2019 15:10 Discharged to Home. Impression: Sprain of foot; Syncope and em collapse - near; Kidney transplant status; Volume depletion - mild; Dizziness and giddiness; Unspecified kidney failure - chronic renal failure. Condition is Stable. Discharge Instructions: Type 1 Diabetes Mellitus, Diagnosis, Adult, Near-Syncope, Syncope, Weakness, Near-Syncope, Hmot-ac-Nfgb, Syncope, Crus-xj-Gban, Weakness, Amrk-tk-Yqfm, Type 1 Diabetes Mellitus, Self Care, Adult, Type 1 Diabetes Mellitus, Diagnosis, Adult, Xhfo-ck-Ogvb, Type 1 Diabetes Mellitus, Self Care, Adult, Lngl-ns-Svgx. Prescriptions for Tylenol-Codeine #3 300-30 mg Oral Tablet - take 2 tablets by ORAL route every 6 hours As needed; 20 tablet. and Forms are Medication Reconciliation Form, Thank You Letter, Antibiotic Education, Prescription Opioid Use. Follow up: Bishop Wade; When: 2 - 3 days; Reason: Recheck today's complaints, Continuance of care, Re-evaluation by your physician. Follow up: Caryl Branch; When: 2 - 3 days; Reason: Recheck today's complaints, Re-evaluation by your physician. Follow up: Jesús Anderson; When: 2 - 3 days; Reason: Recheck today's complaints, Re-evaluation by your physician. Problem is new. Symptoms have improved. jane
--- NOTE | 2019-08-15 15:11 | ER ---
Nurse's Notes [facility] Name: Blake Kemp Age: 63 yrs Sex: Male : 1955 Arrival Date: 08/15/2019 Time: 11:48 Bed 6 Private MD: Bishop Wade R Diagnosis: Sprain of foot;Syncope and collapse-near;Kidney transplant status;Volume depletion-mild;Dizziness and giddiness;Unspecified kidney failure-chronic renal failure Presentation: 08/14 11:55 Chief complaint: Patient states: yesterday he thinks he passed out and injured his left sv ankle/foot. "I just need to get an xray of it." Reports he thinks his BP might have dropped. Coronavirus screen: Proceed with normal triage. Patient denies a cough. Patient denies shortness of breath or difficulty breathing. Patient denies measured and/or subjective temperature greater than 100.4F prior to today's visit. Patient denies travel on a cruise ship or to a country the [facility] currently lists as an affected area. Patient denies contact with known and/or suspected case of COVID-19. Ebola Screen: No symptoms or risks identified at this time. Risk Assessment: Do you want to hurt yourself or someone else? Patient reports no desire to harm self or others. Onset of symptoms was August 14, 2019. 11:55 Method Of Arrival: Wheelchair 11:55 Acuity: BEATRIZ 3 sv 11:58 Initial Sepsis Screen: Does the patient meet any 2 criteria? No. Patient's initial sv sepsis screen is negative. Does the patient have a suspected source of infection? No. Patient's initial sepsis screen is negative. Triage Assessment: 11:55 General: Appears in no apparent distress. comfortable, well developed, Behavior is sv calm, cooperative, appropriate for age. Pain: Denies pain. Neuro: Level of Consciousness is awake, alert, obeys commands, Oriented to person, place, time, situation, Moves all extremities. Respiratory: Respiratory effort is even, unlabored. Derm: Skin is normal. Musculoskeletal: Range of motion: intact in all extremities. Historical: - Allergies: 11:58 No Known Drug Allergies; sv - PMHx: 11:58 Diabetes - IDDM; Dialysis; Hyperlipidemia; Hypertension; Renal Disease; sv - PSHx: 11:58 cataract surgery; kidney transplant; sv 12:00 AV shunt in L arm-not currently on HD; sv - Immunization history:: Flu vaccine is up to date. - Social history:: Smoking status: Patient denies any tobacco usage or history of. - Family history:: not pertinent. Screenin:24 Abuse screen: Denies threats or abuse. Denies injuries from another. Nutritional sv screening: No deficits noted. Tuberculosis screening: No symptoms or risk factors identified. Fall Risk None identified. Assessment: 13:50 General: Appears in no apparent distress. comfortable, Behavior is calm, cooperative, em Denies fever. Pain: Complains of pain in left foot. Neuro: Level of Consciousness is awake, alert, obeys commands, Oriented to person, place, time, situation, Appropriate for age Denies weakness dizziness. Cardiovascular: Capillary refill < 3 seconds Patient's skin is warm and dry. Respiratory: Airway is patent Respiratory effort is even, unlabored, Respiratory pattern is regular, symmetrical. Derm: Skin is intact, is healthy with good turgor, Skin is pink, warm \\T\\ dry. Bruising that is red bruise noted to the left foot. Musculoskeletal: Capillary refill < 3 seconds, Range of motion: intact in all extremities. 14:10 Reassessment: currently does not want any medication at this time. em 15:00 Reassessment: Patient appears in no apparent distress at this time. Patient and/or em family updated on plan of care and expected duration. Pain level reassessed. Patient is alert, oriented x 3, equal unlabored respirations, skin warm/dry/pink. Patient denies pain at this time. Vital Signs: 11:58 BP 143 / 59; Pulse 78; Resp 16; Temp 98; Pulse Ox 100% ; Weight 63.5 kg; Height 5 ft. 6 sv in. (167.64 cm); 14:10 BP 149 / 57 Supine; Pulse 65; em 14:10 BP 131 / 75 Sitting; Pulse 77; em 14:10 BP 106 / 60 Standing; Pulse 69; em 11:58 Body Mass Index 22.60 (63.50 kg, 167.64 cm) sv 14:10 denies dizziness em ED Course: 11:48 Patient arrived in ED. as 11:49 Bishop Wade MD is Private Physician. as 11:57 Triage completed. sv 12:00 Arm band placed on. sv 12:50 Foot Left 3 View XRAY In Process Unspecified. EDMS 12:50 Ankle Left 3 View XRAY In Process Unspecified. EDMS 13:20 Viraj Beavers, RN is Primary Nurse. em 13:24 Patient has correct armband on for positive identification. Bed in low position. Call sv light in reach. Door closed. Head of bed elevated. 13:28 New Orellana MD is Attending Physician. jane 14:15 Initial lab(s) drawn, by ak, sent to lab. Inserted saline lock: 20 gauge in right 3 antecubital area, using aseptic technique. Blood collected. 15:09 Bishop Wade MD is Referral Physician. jane 15:09 Caryl Branch MD is Referral Physician. jane 15:09 Jesús Anderson MD is Referral Physician. jane 15:33 No provider procedures requiring assistance completed. IV discontinued, intact, em bleeding controlled, No redness/swelling at site. Pressure dressing applied. Administered Medications: 14:40 Drug: NS 0.9% 500 ml Route: IV; Rate: bolus; Site: right antecubital; em 15:33 Follow up: IV Status: Completed infusion; IV Intake: 500ml em 15:33 Not Given (Patient Refused): [place] (7.5 mg-325 mg) 1 tabs PO once; RASS on ADMIN: em Combtv4, Very Agttd3, Agttd2, Rstlss1, AlertClm0, Drwsy-1, Lt Sdtn-2, Mod Sdtn-3, Dp Sdtn-4, UnArsble-5 Intake: 15:33 IV: 500ml; Total: 500ml. em Outcome: 15:10 Discharge ordered by . jane 15:33 Discharged to home ambulatory. em 15:33 Condition: good 15:33 Discharge instructions given to patient, Instructed on discharge instructions, follow up and referral plans. medication usage, Demonstrated understanding of instructions, follow-up care, medications, Prescriptions given X 1. 15:35 Patient left the ED. em Signatures: Dispatcher [employer] Jen Berkowitz RN RN New Orellana MD MD cha Munoz, Edgar, RN RN Rosalind García Lori dh3 Corrections: (The following items were deleted from the chart) 12:00 11:58 PSHx: A/V shunt in left arm-removed; sv sv 12:01 11:58 Pulse 78bpm; Resp 16bpm; Pulse Ox 100%; Temp 98F; 63.5 kg; Height 5 ft. 6 in.; sv BMI: 22.6; sv 14:34 14:10 BP 106 / 60 Standing; Pulse 69bpm; em em
[2019-08-15 15:47] VITALS: TEMP 98; O2SAT 100
[2019-08-15 15:48] VITALS: BP 106/60
--- NOTE | 2019-08-17 10:56 | RAD REPORT ---
EXAM DESCRIPTION: RAD - Ankle Left 3 View - 08/15/2019 12:50 pm CLINICAL HISTORY: Injury Fall, trauma, pain COMPARISON: None FINDINGS: Left ankle and left foot- multiple projections are submitted Prominent vascular calcification is seen. Diffuse osteopenia is present. No evidence of acute fractur e or dislocation.
--- NOTE | 2019-08-17 13:13 | EKG ---
Test Date: 2019-08-15 Test Time: 14:18:20 Computer Systems Manager: MARTA MEASUREMENT RESULTS: Intervals: Rate: 63 AK: 184 QRSD: 84 QT: 406 QTc: 415 [place]: P: 37 AK: 184 QRS: 54 T: 66 INTERPRETIVE STATEMENTS: Sinus rhythm with premature atrial complexes Early repolarization Otherwise normal ECG Compared to ECG 07/20/2014 23:15:52 Atrial premature complex(es) now present Early repolarization now present Electronically Signed On 08-17-19 13:13:22 CDT by Giovanny Whalen
== END 2019-08-15 15:35 | disposition home or self-care (01) ==
LOC: ER 11:46
DX: S93.602A Unspecified sprain of left foot, initial encounter (principal); E86.9 Volume depletion, unspecified; E11.22 Type 2 diabetes mellitus with diabetic chronic kidney disease; I12.0 Hypertensive chronic kidney disease with stage 5 chronic kidney disease or end stage renal disease; N18.6 End stage renal disease; R55 Syncope and collapse; Z99.2 Dependence on renal dialysis; Z94.0 Kidney transplant status
CPT/HCPCS: 93005; 85025; 36415; 84484; 80053; 73630; 73610; 96360; 99284; J7040

== ENCOUNTER 2019-11-07 14:51 | Emergency (ER) | payer OTHER ==
--- OUTSIDE RECORDS SUMMARY | 2019-11-07 14:53 | XMS REPORT | Summary of Care ---
:1955 Author Organization [facility] Address [address] [place] [id number] Care Team Providers Name Role Phone Genaro Canchola MD Primary Care Provider Reason for Visit Reason Comments Results Encounter Details Date Type Department Care Team Description 08/15/2019 Telephone [facility] Genaro Barney MD Results - [address] [facility] [address] [place] [address] [address] [place] [address] [phone] Allergies No Known Allergiesdocumented as of this encounter (statuses as of 08/15/2019) Medications Medication Sig Dispensed Refills Start Date [...] as of this encounter (statuses as of 08/15/2019) Active Problems Problem Noted Date Exposure to SARS-associated coronavirus 08/14/2019 Chills 08/14/2019 Suspected Covid-19 Virus Infection 08/14/2019 Fever, unspecified fever cause 08/14/2019 Diarrhea, unspecified type 08/14/2019 Mild dehydration 08/14/2019 Dizzy 08/14/2019 Orthostatic hypotension 08/14/2019 documented as of this encounter (statuses as of 08/15/2019) Social History Tobacco Use Types Packs/Day Years Used Date Never Smoker Smokeless Tobacco: Current User Sex Assigned at Date Recorded Not on file Job Start Date Occupation Industry Not on file Not on file Not on file Travel History Travel Start Travel End No recent travel history available. documented as of this encounter Last Filed Vital Signs Not on filedocumented in this encounter Plan of Treatment Health Maintenance Due Date Last Done Comments HEPATITIS C (HCV) SCREEN 1955 DTaP,Tdap,and Td Vaccines (1 - Tdap) 1966 COLONOSCOPY 08/29/2003 Zoster Recombinant Vaccine (SHINGRIX) (1 of 2) 08/29/2003 PNEUMOCOCCAL VACCINES 65+ (1 of 2 - PCV13) 2018 INFLUENZA VACCINE (Season Ended) 2019 documented as of this encounter Results Not on filedocumented in this encounter Insurance Payer Benefit Plan Subscriber ID Effective Phone Address Typ e / Group Dates MEDICARE MEDICARE PART xxxxxxxxxxx 2019-Pre [phone] Medicare A & B sent [id number] JACQUELINE GAMA [id number] HUMANA - HUMANA CHOICE [id number] 2019-Pres Me dicare Adv MANAGED ent PPO MEDICARE documented as of this encounter
--- OUTSIDE RECORDS SUMMARY | 2019-11-07 14:53 | XMS REPORT | Continuity of Care Document ---
:1955 Author Organization [facility] t Address [address] [place] [address] Care Team Providers Name Role Phone ORGANTRANSPLANT Attending Clinician Unavailable DEIRDRE Attending Clinician Unavailable Jesika MORTENSEN Attending Clinician Pob[facility], [facility] Clinic Attending Clinician Unavailable MANAN Attending Clinician Unavailable Problems Condition Condition Condition Status Onset Resolution Last Treating Co mments Source Name Details Category Date Date Treatment Clinician Date History of History of Problem Resolve Univers essential essential d ity of hypertensi [place] Physici ans History of History of Problem Resolve Univers Postoperat Postoperat d it y of corn[place] cornell [place] examinatio examinatio Ph ysici n n ans 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 [place] Physici ans 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 y of is is [place] Phys[facility] ans 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 [place] stenosis stenosis Physic i ans Diabetes Diabetes Problem Active Unive rs mellitus mellitus ity of [place] Physici ans Other Other Problem Active Univers hyperlipid hyperlipid it y of emia emia [place] Physici ans End stage End stage Problem Active Uni vers renal renal ity of disease disease [place] [facility] ans 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 [place] fistula fistula Physici ans Rash Rash Problem Active Univers ity of [place] Physici ans Benign Benign Problem Active Univers prostatic prostatic ity of hyperplasi hyperplasi [place] a (BPH) a (BPH) Physici with with ans urinary urinary urgency urgency Urinary Urinary Problem Active Univers frequency frequency ity of [place] Physici ans Voiding Voiding Problem Active Univers dysfunctio dysfunctio it y of n n [place] Physici ans Device Device Problem Active Univers fitting or fitting or it y of adjustment adjustment [place] Phys[facility] ans Diabetic Diabetic Problem Active Unive rs neuropathy neuropathy it y of [place] Physici ans Foreign Foreign Problem Active Univers body body ity of tract tract [place] [facility] ans Kidney Kidney Problem Active Univers transplant transplant it y of status status [place] Phys[facility] ans Hypertensi Hypertensi Problem Active U nivers ve ve ity of nephroscle nephroscle [place] rosis rosis Physici ans HTN HTN Problem Active Univers (hypertens (hypertens it y of ion), ion), [place] benign benign Physici ans Erectile Erectile Problem Active Unive rs dysfunctio dysfunctio it y of n n [place] Physici ans BPH BPH Problem Active Univers (benign (benign ity of prostatic prostatic [place] hyperplasi hyperplasi Ph ysici a) a) ans Prostate Prostate Problem Active Unive rs cancer cancer ity of [place] Allergies, Adverse Reactions, Alerts This patient has no known allergies or adverse reactions. Family History Family Member Diagnosis Comments Start Date Stop Date Source Unknown Family Family history of Family History University of Member Lung Cancer [place] Physici ans Social History Smoking Status Start Date Stop Date Source Ex-smoker (finding) University o [facility] Physicians Medications Ordered Filled Start Stop Current Ordering Indication Dosage Frequency Signature Comments Components Source Medication Medication Date Date Medication? Clinician (SIG) Name Name Fluocinonid Fluocinonid Yes SUMAYA Q0.5D APPLY Univers e 0.05 % e 0.05 % 5-12 HASBUN SPARINGLY ity of External External 00:00: M.D. TO [place] Cream Cream 00 AFFECTED Physici AREA(S) ans TWICE DAILY Ketoconazol Ketoconazol Yes SUMAYA Q0.5D APPLY A Univers e 2 % e 2 % 5-12 HASBUN THIN LAYER ity o f External External 00:00: M.D. TO [place] Cream Cream 00 AFFECTED Physici AREA(S) ans TWICE DAILY. Isoniazid Isoniazid Yes EITAN 1 QD TAKE 1 Univers 300 MG Oral 300 MG Oral 09-15 ERICSSON TABLET ity of Tablet Tablet 00:00: M.D. DAILY [place] 00 Physici ans Stromectol Stromectol 2013- Yes EITAN 4 TAKE 4 Univers 3 MG Oral 3 MG Oral 6-02 ERICSSON TABLET ity of Tablet Tablet 00:00: M.D. Once Repeat Physici dose in 24 ans hours Pyridoxine Pyridoxine Yes EITAN 1 QD TAKE 1 Univers HCl - 50 MG HCl - 50 MG 6-02 ERICSSON TABLET ity of Oral Tablet Oral Tablet 00:00: M.D. DAILY 00 Physici ans Bystolic Bystolic Yes M.D. QD TAKE 2 Unive rs TABS TABS TABLETS ity of DAILY. [place] Physici ans Vitamin D2 Vitamin D2 Yes M.D. 1 QD TAKE 1 U nivers TABS TABS TABLET ity of DAILY [place] Physici ans cloNIDine cloNIDine Yes M.D. 1 QD TAKE 1 Uni vers HCl - 0.2 HCl - 0.2 TABLET ity of MG Oral MG Oral DAILY. [place] Tablet Tablet Physici ans Minoxidil Minoxidil Yes M.D. 1 QD TAKE 1 Uni vers 2.5 MG Oral 2.5 MG Oral TABLET ity of Tablet Tablet DAILY. [place] Physici ans Paxil 10 MG Paxil 10 MG Yes M.D. 1 QD TAKE 1 Univers Oral Tablet Oral Tablet TABLET ity of DAILY. [place] Physici ans Simvastatin Simvastatin Yes M.D. 1 QD TAKE 1 Univers 20 MG Oral 20 MG Oral TABLET i ty of Tablet Tablet DAILY. [place] Physici ans Procedures Procedure Date / Time Performing Clinician Source Performed [QL] CULTURE, FUNGUS, 2019-08-26 00:00:00 [facility] W/SMEAR HAIR, SKIN, NAIL Physici ans . [facility] 2019-08-26 00:00:00 [facility] Biopsy Physicians CPL - Culture, AFB w/ 2019-08-26 00:00:00 [facility] Smear Physicians History of Central IV With [facility] Catheters Through Two Physicians Tunneled Access Sites History of Direct [facility] Arteriovenous Anastomosis Physic ians History of SOLUTIONS SPECIALIST Venous [facility] Physicians History of Dialysis University o f [place] Physicians History of Kidney [facility] transplantation Physicians Plan of Care Planned Activity Planned Date Details Comments Source Future Appointment 2020-01-26 08:00:00 Josh MCCARTNEY, [facility] Physicians Encounters Start End Encounter Admission Attending Care Care Encounter Source Date/Time Date/Time Type Type Clinicians Facility Department ID 2019-04-14 Outpatient [facility] [id number] MH HH 07:56:24 2018-10-18 Inpatient [facility] MED [id number] MHH H 09:22:00 2019-10-16 2019-10-16 Emergency E [facility] [id number] [facility] 15:28:00 15:28:00 2019-09-11 2019-09-11 Outpatient [facility] [id number] [facility] 14:07:00 14:07:00 2019-09-11 2019-09-11 Appointmen ORGANTRANSP UTP UTP [id number] Univers 08:30:00 08:30:00 t; CROFT ity o f ORGANTRANS [place], OP Physic i ans 2019-08-26 2019-08-26 Appointmen KIAH GILMORE Multispecia [id number] Univers 11:40:00 11:40:00 t; SUMAYA GILMORE lty - it y camila SHELL M.D. [place] M.D. Physici ans 2019-08-15 2019-08-15 Telephone [place], [facility] [id number] 00:00:00 00:00:00 [facility] [id number] [place] [id number] Professio [phone] [place] [address] [address] 2019-08-14 2019-08-14 Urgent Pob1, Acute [facility] [id number] 12:07:22 13:05:37 [facility] [id number] [place] [id number] Professio [phone] nal [facility] Office [address] 2019-07-03 2019-07-03 Appointmen ORGANTRANSP UTP UTP [id number] Univers 08:30:00 08:30:00 t; Haley o f [facility]GANTRANS [place], OP Physic i ans 2019-04-03 2019-04-03 Appointmen KIAH HINKLE UTP [id number] Univers 13:00:00 13:00:00 t; Josh MARTINEZ [place] MISHA, Physici M.D. ans 2019-04-03 2019-04-03 Outpatient [facility] [id number] [facility] 07:47:00 07:47:00 2019-01-09 2019[facility] [id number] Univers 08:30:00 08:30:00 t; ILEANA, OP ity o f ORGANTRANS [place] PLANT, OP Physic i ans 2019-01-09 2019-01-09 Outpatient [facility] [id number] MH 08:12:00 08:12:00 2019-01-09 2019-01-09 Outpatient [facility] [id number] MH 07:30:00 07:30:00 2018-10-24 2018-10-24 Outpatient [facility] [id number] [facility] 08:50:00 08:50:00 2018-10-24 2018-10-24 Outpatient [facility] [id number] [facility] 07:40:00 07:40:00 2018-10-09 2018-10-09 Outpatient [facility] [id number] [facility] 06:06:00 06:06:00 2018-09-23 2018-09-23 Outpatient [facility] [id number] [facility] 08:13:00 08:13:00 2018-09-23 2018-09-23 Outpatient [facility] [id number] [facility] 07:17:00 07:17:00 Results Test Description Test Time Test Comments Results Result Comments Source [Q] CULTURE, MYCOBACTERIA W/FLUOROCHROME SMEAR 2019-10-09 16 :00:00 Test Item Value Reference Range Interpretation Comme nts SMEAR: (test code = SMEAR:) See Comment MYCOBACTERIA, CULTURE, WITH FLUOROCHROME SMEAR Micro Number: [id number] Test Status: Final Specimen Source: NOT G IVEN Specimen Quality: Adequate Smear : No acid fast bacilli seen. Result: No Mycobacterium s pecies isolated after 6 weeks incubation.NO COLLECTION DATE RECEIVED. WE HAVE USEDTHE DATE THE SPECIM EN WAS RECEIVED [facility] THE COLLECTION DATE. IF THISIS INCORREC T, PLEASE CONTACT CLIENT SERVICES.PHONE NUMBER: [phone] [facility] PhysiciansUT Pathology [id number] 00:00:00 Test Item Value Reference Range Interpretation Comments OPIC2 (test code = OPIC2) See Comment [facility] Physicians[QL] CULTURE, FUNGUS, W/SMEAR HAIR, SKIN, NAIL 2019-08-26 00:00:00 Test Item Value Reference Range Interpretation Comments SMEAR (test code See Comment CULTURE,FUN NANCY,SKIN,HAIR, = SMEAR) NAIL W/DIRECT F LUOR/CORRINA Micro Number: [id number] Test Status: Final Speci men Source: NOT G IVEN Specimen Qualit y: Adequate Smear : No fungal el ements seen. Result: No fungal growt h at 4 WeeksSPECIMEN R ECEIVED DATE AND TIME: [id number] [facility] Physicians
--- OUTSIDE RECORDS SUMMARY | 2019-11-07 14:54 | XMS REPORT | Summary of Care ---
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 Refills: 0 Active Vitamin D2 TABS TAKE 1 TABLET DAILY Refills: 0 Active cloNIDine HCl - 0.2 MG Oral Tablet TAKE 1 TABLET DAILY. Refills: 0 Active Minoxidil 2.5 MG Oral Tablet TAKE 1 TABLET DAILY. Refills: 0 Active Paxil 10 MG Oral Tablet TAKE 1 TABLET DAILY. Refills: 0 Active Simvastatin 20 MG Oral Tablet TAKE 1 TABLET DAILY. Refills: 0 Active Isoniazid 300 MG Oral Tablet TAKE 1 TABLET DAILY Quantity: 90 Refills: 1 EITAN NOLAN M.D. Start : 15-Sep-2013 Active Stromectol 3 MG Oral Tablet TAKE 4 TABLET Once Repeat dose in 24 hours Quantity: 8 Refills: 0 EITAN NOLAN M.D. Start : 15-Sep-2013 Active Pyridoxine HCl - 50 MG Oral Tablet TAKE 1 TABLET DAILY Quantity: 90 Refills: 1 EITAN NOLAN M.D. Start : 15-Sep-2013 Active Fluocinonide 0.05 % External Cream APPLY SPARINGLY TO AFFECTED AREA(S) TWICE DAILY Quantity: 60 Refills: 1 SUMAYA GILMORE M.D. Start : 26-Aug-2019 Active Ketoconazole 2 % External Cream APPLY A THIN LAYER TO AFFECTED AREA(S) TWICE DAILY. Quantity: 2 Refills: 2 SUMAYA GILMORE M.D. Start : 26-Aug-2019 Active 30 GM Tube Allergies and Adverse Reactions Name Dates Details No Known Drug Allergies (Allergy) Status : Active Past Medical History Name Dates Details History of essential hypertension (V12.59, Z86.79) Status: Resolved History of essential hypertension (V12.59, Z86.79) Status: Resolved History of Postoperative examination (V67.00, Z09) Status: Resolved History of Postoperative examination (V67.00, Z09) Status: Resolved Procedures Procedure Dates Details [QL] CULTURE, FUNGUS, W/SMEAR HAIR, SKIN, NAIL Date: 2019 . 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 Completed History of Dialysis Completed Immunization Name Dates Details Immunizations not documented Family History Name Dates Details Family history of Lung Cancer (V16.1) Co mments: Family History Status: Active Social History Name Dates Details - Status: Name Dates Details Ex-smoker (finding) Vital Signs Date Test Result Details No Known Vitals to report Results Date Description Value Details Results not documented Plan of Care Name Dates Details Planned Observations Planned Goals not documented Interventions Provided Medication ChangesFluocinonide 0.05 % External Cream - StartKetoconazole 2 % External Cream - StartLabs/Procedures/Imaging. 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 Hestates that the rash is itchy. Started about 1 yr ago on lower back and right hip and comes and goes. He has tried topical OTC [place] w some improvement. The rash could be psoriasis but also need tor/o infectious etiology in this immunosuppressed pt including fungal infections.DiagnosisSkin rash; ? psoriasis; r/o infections/p DDRT 06/2017Hx CMV colitis 10/2017Hx LTBI s/p treatment w INH 2013Hx Strongyloidiasis s/p treatment w ivermectin 2013 Recommendations:Punch biopsy of the skin was performed in the clinic and the specimen was sent for culture and [place] derm pathTrial of topical Lidex and ketoconazoleWill call the patient for f/u appointment once the result of path/culture is available.Discussed with Dr. Swetha Farris, PGY-6Transplant ID Fellow. Instructions Name Dates Details Instructions not documented Encounters Appointment; ORGANTRANSPLANT, OP On: 09-Jan-2019 8:30 Encounter Diagnosis: Problem not documented Appointment; MICHELLE HINKLE M.D. On: 03-Apr-2019 13: 00 Encounter Diagnosis: Problem not documented Appointment; ORGANTRANSPLANT, OP On: 03-Jul-2019 8:30 Encounter Diagnosis: Problem not documented Appointment; SUMAYA GILMORE M.D. On: 26-Aug-2019 11: 40 Encounter Diagnosis: Problem not documented
--- OUTSIDE RECORDS SUMMARY | 2019-11-07 14:54 | XMS REPORT | Summary of Care ---
:1955 Author Name ReynoldHarooninés Address Unavailable Unavailable , Care Team Providers Name Role Phone AN Moreno, EITAN Unavailable Unavailable ANKUSH Moreno, SUMAYA Unavailable Unavailable Clarice Flaherty Unavailable Unavailable MICHAEL MORTENSEN, SHILPA [place]ITE Unavailable Unavailable JD MORTENSEN [place], [place] Bae Unavailable Unavailable Ankush MORTENSEN, Sumaya Unavailable Unavailable EMIL MORTENSEN, SHERRILL Unavailable Unavailable MILLER MD, JOSE Madrigal Unavailable Unavailable Unavailable Unavailable Unavailable Functional Status [...] Status: Active Rash (782.1, R21) Status: Active Benign prostatic hyperplasia (BPH) with urinary urgency (600 .01, N40.1) Status: Active Urinary frequency (788.41, R35.0) Status : Active Voiding dysfunction (599.9, N39.8) Statu s: Active Device fitting or adjustment (V53.90, Z46.9) Status: Active Diabetic neuropathy (250.60, E11.40) Sta tus: Active Foreign body tract (939.9, T19.9XXA) Status: Active Renal transplant recipient (V42.0, Z94.0) Status: Active 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 Start : 26-Aug-2019 Active Ketoconazole 2 % External Cream APPLY A THIN LAYER TO AFFECTED AREA(S) TWICE DAILY. Quantity: 2 Refills: 2 SUMAYA LECHUGA M.D. 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 Venous Completed History of Dialysis Completed History of Kidney transplantation Comple candie Immunization Name Dates Details Immunizations not documented Family History Name Dates Details Family history of Lung Cancer (V16.1) Co mments: Family History Status: Active Social History Name Dates Details - Status: Name Dates Details Ex-smoker (finding) Vital Signs Date Test Result Details No Known Vitals to report Results Date Description Value Details [id number] [place] Comments: [facility] [place] For: Dermatopathology Laboratory Sumaya Lechuga MD [address], [address] [facility], [address] Pathology [place], [place] [address] CLIA #[id number] [phone] [place] [address] [email or web address]/ DERMATOPATHOLOGY REPORT Report Diagnosis:Tinea corporis, skin, L. posterior thigh Jeannette Gurmeetrich Electronically Signed ([id number]) _ Clinical Data:Skin lesion. Clinical Diagnosis Rash b0 Gross Description:Received in formalin labeled wit h the patient's name is a 3 x 3 x 2 mm shave. In toto. Microscopic Description:Sections of the punch show numerous fungal hyphae in the stratum corneum along withsubcorneal neutrophils. There is f ocal spongiosis, how ever, the epidermis is otherwiseunremarkable. In the dermis, there is a superficial perivascular mixed inflammatoryinfiltrate comprised of lymphocytes and neutrophils with occasiona l mast cells. Inters titial neutrophils and some leukocytoclasia are also present, as well. Deeperinflammation is absent. Special stains for micro- organisms were performed, withappropriately reactive c ontrols. A PAS high lighted the fungi in the stratum corneum. AFB was negative. Teaching Physician StatementI have personally reviewed the resident's preliminary and all specimen preparation andhave personally issued this report. OPIC2 Plan of Care Name Dates Details Planned Observations Planned Goals not documented Planned Encounters Appointment; ORGANTRANSPLANT, OP On: 11-Sep-2019 8:30 Appointment; SHERRILL STEIN M.D. On: 25-Sep-2019 8:30 Instructions Name Dates Details Instructions not documented Encounters Appointment; ORGANTRANSPLANT, OP On: 09-Jan-2019 8:30 Encounter Diagnosis: Problem not documented Appointment; MICHELLE HINKLE M.D. On: 03-Apr-2019 13: 00 Encounter Diagnosis: Problem not documented Appointment; ORGANTRANSPLANT, OP On: 03-Jul-2019 8:30 Encounter Diagnosis: Problem not documented Appointment; SUMAYA LECHUGA M.D. On: 26-Aug-2019 11: 40 Encounter Diagnosis: Problem not documented
--- OUTSIDE RECORDS SUMMARY | 2019-11-07 14:54 | XMS REPORT | Summary of Care ---
:1955 Author Name ANKUSH Moreno Address [facility] Unavailable , Care Team Providers Name Role Phone AN Moreno Unavailable Unavailable ANKUSH Moreno Unavailable Unavailable MICHAEL MORTENSEN Unavailable Ayan MILES MD [place] Unavailable Unavailable Ankush MORTENSEN Unavailable Unavailable MILLER [...] TABS TAKE 2 TABLETS DAILY. Refills: 0 M.A.Active Vitamin D2 TABS TAKE 1 TABLET DAILY Refills: 0 M.A.Active cloNIDine HCl - 0.2 MG Oral Tablet TAKE 1 TABLET DAILY. Refills: 0 M.A.Active Minoxidil 2.5 MG Oral Tablet TAKE 1 TABLET DAILY. Refills: 0 M.A.Active Paxil 10 MG Oral Tablet TAKE 1 TABLET DAILY. Refills: 0 M.A.Active Simvastatin 20 MG Oral Tablet TAKE 1 TABLET DAILY. Refills: 0 M.A.Active Isoniazid 300 MG Oral Tablet TAKE 1 TABLET DAILY Quantity: 90 Refills: 1 EITAN NOLAN M.D. Start : 15-Sep-2013 Active Stromectol 3 MG Oral Tablet TAKE 4 TABLET Once Repeat dose in 24 hours Quantity: 8 Refills: 0 EITAN NOLAN M.D. Start : 15-Sep-2013 Active Pyridoxine HCl - 50 MG Oral Tablet TAKE 1 TABLET DAILY Quantity: 90 Refills: 1 AN MorenoEITAN Start : 15-Sep-2013 Active Fluocinonide 0.05 % External Cream APPLY SPARINGLY TO AFFECTED AREA(S) TWICE DAILY Quantity: 60 Refills: 1 SANCHEZ LECHUGA M.D. Start : 26-Aug-2019 Active Ketoconazole 2 % External Cream APPLY A THIN LAYER TO AFFECTED AREA(S) TWICE DAILY. Quantity: 2 Refills: 2 SANCHEZ LECHUGA M.D. 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 Completed History of Dialysis Completed Immunization Name Dates Details Immunizations not documented Family History Name Dates Details Family history of Lung Cancer (V16.1) Co mments: Family History Status: Active Social History Name Dates Details - Status: Name Dates Details Ex-smoker (finding) Vital Signs Date Test Result Details No Known Vitals to report Results Date Description Value Details [id number] [place] Comments: [facility] [place] For: Dermatopathology Laboratory Sanchez Lechuga MD [address], [address] [facility] [place], [address] Pathology [place], [place] [address] CLIA #[id number] [phone] [place] [address] [email or web address]/ DERMATOPATHOLOGY REPORT Report Diagnosis:Tinea corporis, skin, L. posterior thigh Jeannette Verma Electronically Signed ([id number]) _ Clinical Data:Skin lesion. Clinical Diagnosis Rash [...] Observations Planned Goals not documented Interventions Provided Discussion/SummaryMe Viridiana The biopsy show s fungal infection, just continue with ketoconazole cream until the rash disappers Rodriigo Instructions Name Dates Details Instructions not documented Encounters Appointment; ORGANTRANSPLANT, OP On: 09-Jan-2019 8:30 Encounter Diagnosis: Problem not documented Appointment; MICHELLE HINKLE M.D. On: 03-Apr-2019 13: 00 Encounter Diagnosis: Problem not documented Appointment; ORGANTRANSPLANT, OP On: 03-Jul-2019 8:30 Encounter Diagnosis: Problem not documented Appointment; SANCHEZ LECHUGA M.D. On: 26-Aug-2019 11: 40 Encounter Diagnosis: Problem not documented
--- OUTSIDE RECORDS SUMMARY | 2019-11-07 14:54 | XMS REPORT | Summary of Care ---
:1955 Author Name DEIRDRE Moreno, SUMAYA Address [place] [facility] Unavailable , Care Team Providers Name Role Phone AN Moreno, EITAN Unavailable Unavailable DEIRDRE Moreno, SUMAYA Unavailable Unavailable MICHAEL MORTENSEN, SHILPA WAITE Unavailable Unavailable JD MORTENSEN [place], DAKOTA Bae Unavailable Unavailable DEIRDRE MORTENSEN, SUMAYA Unavailable Unavailable EMIL MORTENSEN, SHERRILL Unavailable Unavailable [...] Status: Active Rash (782.1, R21) Status: Active Essential hypertension (401.9, I10) Stat us: Active Benign prostatic hyperplasia (BPH) with urinary urgency (600 .01, N40.1) Status: Active Voiding dysfunction (599.9, N39.8) Statu s: Active Device fitting or adjustment (V53.90, Z46.9) Status: Active Diabetic neuropathy (250.60, E11.40) Sta tus: Active Foreign body tract (939.9, T19.9XXA) Status: Active Renal transplant recipient (V42.0, Z94.0) Status: Active Hypertensive nephrosclerosis (403.90, I12.9) Status: Active HTN (hypertension), benign (401.1, I10) Status: Active Erectile dysfunction (607.84, N52.9) Sta tus: Active BPH (benign prostatic hyperplasia) (600.00, N40.0) Status: Active Urinary frequency (788.41, R35.0) Status : Active Kidney transplant status (V42.0, Z94.0) Status: Active Prostate cancer screening (V76.44, Z12.5) Status: Active Medications Name Dates Details Bystolic TABS TAKE 2 TABLETS DAILY. Refills: 0 M.D.Active Vitamin D2 TABS TAKE 1 TABLET DAILY Refills: 0 M.D.Active cloNIDine HCl - 0.2 MG Oral Tablet TAKE 1 TABLET DAILY. Refills: 0 M.D.Active Minoxidil 2.5 MG Oral Tablet TAKE 1 TABLET DAILY. Refills: 0 M.D.Active Paxil 10 MG Oral Tablet TAKE 1 TABLET DAILY. Refills: 0 M.D.Active Simvastatin 20 MG Oral Tablet TAKE 1 TABLET DAILY. Refills: 0 M.D.Active Isoniazid 300 MG Oral Tablet TAKE 1 [...] Z09) Status: Resolved Procedures Procedure Dates Details . 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 Resul t: No fungal growth at 4 WeeksSPECIMEN RECEIVED DATE AND TIME: 09-Oct-201916:00 [Q] CULTURE, MYCOBACTERIA W/FLUOROCHROME SMEAR SMEAR: Comments: MYCOBA CTERIA, CULTURE, WITH FLUOROCHROME SMEAR Micro Number: [id number] Test Status: Final Specimen Source: NOT GIVEN Specimen Quality: Adequate Smear: No acid fast bacil li seen. Result : No Mycobacterium species isolated after 6 weeks incubation.NO COLLECTION DATE RECEIVED. WE HAVE USEDTHE DATE THE SPECIMEN WAS RECEIVED [facility] COLLECTIO N DATE. IF THISIS INCORRECT, PLEASE CONTACT CLIENT SERVICES.PHONE NUMBER: [phone] Plan of Care Name Dates Details Planned Observations Planned Goals not documented Planned Encounters Appointment; SHERRILL STEIN M.D. On: 26-Jan-2020 8:00 Instructions Name Dates Details Instructions not documented Encounters Appointment; ORGANTRANSPLANT, OP On: 09-Jan-2019 8:30 Encounter Diagnosis: Problem not documented Appointment; MICHELLE HINKLE M.D. On: 03-Apr-2019 13: 00 Encounter Diagnosis: Problem not documented Appointment; ORGANTRANSPLANT, OP On: 03-Jul-2019 8:30 Encounter Diagnosis: Problem not documented Appointment; SUMAYA GILMORE M.D. On: 26-Aug-2019 11: 40 Encounter Diagnosis: Problem not documented Appointment; ORGANTRANSPLANT, OP On: 11-Sep-2019 8:30 Encounter Diagnosis: Problem not documented
--- OUTSIDE RECORDS SUMMARY | 2019-11-07 14:54 | XMS REPORT | Summary of Care ---
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 [email or web address] REPORT Report Diagnosis:Tinea corporis, skin, L. posterior thigh Jeannette Verma Electronically Signed ([id number]) _ Clinical Data:Skin lesion. Clinical Diagnosis Rash [...] preparation andhave personally issued this report. OPIC2 [id number] [QL] CULTURE, FUNGUS, W/SMEAR HAIR, SKIN , NAIL SMEAR Comments: CULTUR E,FUNGUS,SKIN,HAIR, NAIL W/DIRECT FLUOR/CORRINA Micro Number: [id number] Test Status: Final Specimen Source: NOT GIVEN Specimen Quality: Adequate Smear: No fungal eleme nts seen. Resul t: No fungal growth at 4 WeeksSPECIMEN RECEIVED DATE AND TIME: Plan of Care Name Dates Details Planned Observations Planned Goals not documented Planned Encounters Appointment; SHERRILL STEIN M.D. On: 25-Sep-2019 8:30 [...]
[2019-11-07] MEDS ORDERED: ACETAMINOPHEN 500 MG TAB ONE (15:34)
--- NOTE | 2019-11-07 16:20 | ER ---
Nurse's Notes [facility] Name: Blake Kemp Age: 64 yrs Sex: Male : 1955 Arrival Date: 11/07/2019 Time: 14:52 Bed 6 Private MD: Diagnosis: SARS-associated coronavirus as the cause of diseases classified elsewhere;Fever presenting with conditions classified elsewhere Presentation: 11/06 14:53 Chief complaint: Patient states: Pt presents via EMS with reports of low O2 at home. Pt stevie was diagnosed COVID positive in [place] on September 26. is also COVID positive. Reports sob with ambulation and exertion only. Denies any cp. Febrile upon arrival. Coronavirus screen: Patient reports a cough. Patient reports shortness of breath or difficulty breathing. Patient reports a measured and/or subjective temperature greater than 100.4F. Patient denies travel on a cruise ship or to a country the [facility] currently lists as an affected area. Patient reports contact with known and/or suspected case of COVID-19. Ebola Screen: No symptoms or risks identified at this time. Initial Sepsis Screen: Does the patient meet any 2 criteria?. Initial Sepsis Screen: Does the patient meet any 2 criteria? Temp <36.0*C (96.8*F)) or > 38.3*C (100.9*F). No. Patient's initial sepsis screen is negative. Does the patient have a suspected source of infection? Yes: Other: COVID positive. Risk Assessment: Do you want to hurt yourself or someone else? Patient reports no desire to harm self or others. Onset of symptoms. 14:53 Method Of Arrival: EMS: [facility] jr10 14:53 Acuity: BEATRIZ 3 10 Historical: - Allergies: 16:53 No Known Allergies; jr10 - Home Meds: 14:59 Bystolic Oral [Active]; Clonidine Oral [Active]; Lantus Sub-Q [Active]; Lasix Oral jr10 [Active]; lisinopril Oral [Active]; Nifedipine Oral [Active]; Novolog Sub-Q [Active]; Simvastatin Oral [Active]; - PMHx: 14:59 Diabetes - IDDM; Dialysis; Hyperlipidemia; Hypertension; Renal Disease; jr10 - Immunization history:: Adult Immunizations up to date. - Social history:: Smoking status: unknown. Screenin:53 Abuse screen: Denies threats or abuse. Denies injuries from another. Nutritional jr10 screening: No deficits noted. Tuberculosis screening: No symptoms or risk factors identified. Fall Risk None identified. Assessment: 14:53 General: Appears in no apparent distress. Behavior is calm, cooperative. Pain: Denies jr10 pain. Neuro: No deficits noted. Cardiovascular: No deficits noted. Rhythm is regular. Respiratory: No deficits noted. Reports shortness of breath on exertion pt was diagnosed positive covid on September 26, is also confirmed positive cough that is Airway is patent Respiratory effort is even, unlabored, Respiratory pattern is regular, symmetrical, Breath sounds are clear bilaterally. GI: No deficits noted. Patient currently denies diarrhea, intolerance of fluids, intolerance of food, nausea, vomiting. : No deficits noted. EENT: No deficits noted. Derm: No deficits noted. Musculoskeletal: No deficits noted. 16:51 Reassessment: CHERYLE Mckeon notified and aware of pt repeat temp. Ok to d/c home. jr10 Encouraged pt to continue to take OTC antipyretics at home. Vital Signs: 14:53 BP 120 / 64; Pulse 90; Resp 16; Temp 101.4(O); Pulse Ox 94% on R/A; Pain 0/10; jr10 16:40 BP 131 / 99; Pulse 74; Resp 20; Temp 101.4; Pulse Ox 100% on R/A; jr10 ED Course: 14:52 Patient arrived in ED. jr10 14:52 Precious Garvin, RN is Primary Nurse. jr10 14:53 Patient has correct armband on for positive identification. Bed in low position. Call jr10 light in reach. Side rails up X2. Pulse ox on. NIBP on. 14:53 No provider procedures requiring assistance completed. Patient did not have IV access jr10 during this emergency room visit. 14:58 Triage completed. jr10 14:59 Arm band placed on. jr10 15:15 Linda Vivas FNP-C is PHCP. snw 15:16 Jan Wilson MD is Attending Physician. snw 15:45 Chest Single View XRAY In Process Unspecified. EDMS Administered Medications: 15:47 Drug: Tylenol 1000 mg Route: PO; jr10 16:43 Follow up: Response: No adverse reaction; Temperature is unchanged jr10 Outcome: 16:19 Discharge ordered by MD. castillo 16:40 Discharged to home ambulatory. jr10 16:40 Condition: good 16:40 Discharge instructions given to patient, Instructed on discharge instructions, follow up and referral plans. Demonstrated understanding of instructions, follow-up care. 16:53 Patient left the ED. jr10 Signatures: Dispatcher [employer] EDLinda New, HEMALATHA-C MOTORCYCLE FABRICATOR-[place] Precious Garvin, RN RN jr10
--- NOTE | 2019-11-07 16:20 | EDPHYS ---
Physician Documentation [facility] Name: lBake Kemp Age: 64 yrs Sex: Male : 1955 Arrival Date: 11/07/2019 Time: 14:52 Bed 6 Private MD: ED Physician Jan Wilson HPI: 11/06 15:59 This 64 yrs old Male presents to ER via EMS with complaints of Shortness Of snw Breath. 15:59 The patient has shortness of breath with light activity. Onset: The symptoms/episode snw began/occurred gradually. Duration: The symptoms are intermittent. Associated signs and symptoms: Pertinent positives: non-productive cough, fever. Severity of symptoms: At their worst the symptoms were moderate. It is unknown whether or not the patient has had similar symptoms in the past. The patient has [facility] getting [facility] in [place] at [facility] Mon, Wed, Fri. Pt did not go today. Has not taken any of his scheduled meds. Temp in ED 101.4. Tylenol given, FSBS 76mg/dl. Snack given. Historical: - Allergies: 16:53 No Known Allergies; jr10 - Home Meds: 14:59 Bystolic Oral [Active]; Clonidine Oral [Active]; Lantus Sub-Q [Active]; Lasix Oral jr10 [Active]; lisinopril Oral [Active]; Nifedipine Oral [Active]; Novolog Sub-Q [Active]; Simvastatin Oral [Active]; - PMHx: 14:59 Diabetes - IDDM; Dialysis; Hyperlipidemia; Hypertension; Renal Disease; jr10 - Immunization history:: Adult Immunizations up to date. - Social history:: Smoking status: unknown. ROS: 15:58 Eyes: Negative for injury, pain, redness, and discharge. snw 15:58 ENT: Negative for injury, pain, and discharge, Neck: Negative for injury, pain, and swelling, Cardiovascular: Negative for chest pain, palpitations, and edema. 15:58 Abdomen/GI: Negative for abdominal pain, nausea, vomiting, diarrhea, and constipation, Back: Negative for injury and pain, : Negative for injury, bleeding, discharge, and swelling, MS/Extremity: Negative for injury and deformity, Skin: Negative for injury, rash, and discoloration, Neuro: Negative for headache, weakness, numbness, tingling, and seizure. 15:58 Constitutional: Positive for body aches, chills, fever, malaise. 15:58 Respiratory: Positive for shortness of breath, on exertion. Exam: 15:57 Head/Face: Normocephalic, atraumatic. Eyes: Pupils equal round and reactive to light, snw extra-ocular motions intact. Lids and lashes normal. Conjunctiva and sclera are non-icteric and not injected. Cornea within normal limits. Periorbital areas with no swelling, redness, or edema. ENT: Nares patent. No nasal discharge, no septal abnormalities noted. Tympanic membranes are normal and external auditory canals are clear. Oropharynx with no redness, swelling, or masses, exudates, or evidence of obstruction, uvula midline. Mucous membranes moist. Neck: Trachea midline, no thyromegaly or masses palpated, and no cervical lymphadenopathy. Supple, full range of motion without nuchal rigidity, or vertebral point tenderness. No Meningismus. Chest/axilla: Normal chest wall appearance and motion. Nontender with no deformity. No lesions are appreciated. Cardiovascular: Regular rate and rhythm with a normal S1 and S2. No gallops, murmurs, or rubs. Normal PMI, no JVD. No pulse deficits. Respiratory: Lungs have equal breath sounds bilaterally, clear to auscultation and percussion. No rales, rhonchi or wheezes noted. No increased work of breathing, no retractions or nasal flaring. Abdomen/GI: Soft, non-tender, with normal bowel sounds. No distension or tympany. No guarding or rebound. No evidence of tenderness throughout. Back: No spinal tenderness. No costovertebral tenderness. Full range of motion. Neuro: Awake and alert, GCS 15, oriented to person, place, time, and situation. Cranial nerves II-XII grossly intact. Motor strength 5/5 in all extremities. Sensory grossly intact. Cerebellar exam normal. Normal gait. Psych: Awake, alert, with orientation to person, place and time. Behavior, mood, and affect are within normal limits. 15:57 Constitutional: The patient appears alert, awake, febrile, obviously ill, uncomfortable. 15:57 Musculoskeletal/extremity: av graft to left upper arm. 15:57 Skin: Appearance: normal except for affected area, Temperature: hot. Vital Signs: 14:53 BP 120 / 64; Pulse 90; Resp 16; Temp 101.4(O); Pulse Ox 94% on R/A; Pain 0/10; jr10 16:40 BP 131 / 99; Pulse 74; Resp 20; Temp 101.4; Pulse Ox 100% on R/A; jr10 MDM: 15:20 Patient medically screened. snw 16:21 Data reviewed: vital signs, nurses notes, EKG, radiologic studies. Special discussion: snw Based on the history and exam findings, there is no indication for further emergent testing or inpatient evaluation. I discussed with the patient/guardian the need to see the primary care provider for further evaluation of the symptoms. 11/06 15:43 Order name: Glucose, Ancillary Testing; Complete Time: 15:51 EDMS 11/06 15:17 Order name: Chest Single View XRAY; Complete Time: 16:37 snw 11/06 15:17 Order name: EKG - Nurse/Tech; Complete Time: 15:47 snw 11/06 15:17 Order name: FSBS; Complete Time: 15:47 snw Administered Medications: 15:47 Drug: Tylenol 1000 mg Route: PO; 10 16:43 Follow up: Response: No adverse reaction; Temperature is unchanged jr10 Disposition: 16:55 Co-signature as Attending Physician, Jan Wilson MD I agree with the assessment and kdr plan of care. Disposition: 11/07/19 16:19 Discharged to Home. Impression: SARS-associated coronavirus as the cause of diseases classified elsewhere, Fever presenting with conditions classified elsewhere. - Condition is Stable. - Discharge Instructions: Fever, Adult, Severe Acute Respiratory Syndrome (SARS), COVID-19. - Medication Reconciliation Form, Thank You Letter, Antibiotic Education, Prescription Opioid Use form. - Follow up: Emergency Department; When: As needed; Reason: Worsening of condition. Follow up: Private Physician; When: 2 - 3 days; Reason: Recheck today's complaints, Continuance of care. - Problem is new. - Symptoms are unchanged. Signatures: Dispatcher [employer] [facility] Jan Wilson MD MD kdr Waters, Shelly, PHYSICAL THERAPY ASSISTANT-C PHYSICAL THERAPY ASSISTANT-[place] Precious Garvin RN RN jr10 Corrections: (The following items were deleted from the chart) 16:53 16:19 11/07/2019 16:19 Discharged to Home. Impression: SARS-associated coronavirus as jr10 the cause of diseases classified elsewhere; Fever presenting with conditions classified elsewhere. Condition is Stable. Forms are Medication Reconciliation Form, Thank You Letter, Antibiotic Education, Prescription Opioid Use. Follow up: Emergency Department; When: As needed; Reason: Worsening of condition. Follow up: Private Physician; When: 2 - 3 days; Reason: Recheck today's complaints, Continuance of care. Problem is new. Symptoms are unchanged. snw
--- NOTE | 2019-11-07 16:35 | RAD REPORT ---
EXAM DESCRIPTION: Yany Single View11/07/2019 3:44 pm CLINICAL HISTORY: sob COMPARISON: 2014 FINDINGS: The lungs appear clear of acute infiltrate. The heart is normal size IMPRESSION: No acute abnormalities displayed
[2019-11-07 16:59] VITALS: TEMP 101.4
[2019-11-07 17:00] VITALS: BP 131/99; O2SAT 100
== END 2019-11-07 16:53 | disposition home or self-care (01) ==
LOC: ER 14:51
DX: U07.1 COVID-19 (principal); R50.9 Fever, unspecified; E11.22 Type 2 diabetes mellitus with diabetic chronic kidney disease; N18.6 End stage renal disease; Z99.2 Dependence on renal dialysis; E78.5 Hyperlipidemia, unspecified
CPT/HCPCS: 71045; 82947; 93005; 99284

== ENCOUNTER 2020-10-18 17:22 | Emergency (ER) | payer OTHER ==
--- OUTSIDE RECORDS SUMMARY | 2020-10-18 17:41 | XMS REPORT | Continuity of Care Document ---
:[address] [facility] t Address [address] [place]. [address] [place] [id number] Care Team Providers Name Role Phone GEOVANNA Attending Clinician Unavailable EMIL Attending Clinician Unavailable [place] NINO Attending Clinician Unavailable Iman AGUIAR Attending Clinician Unavailable EMIL Attending Clinician Unavailable ORGANTRANSPLANT Attending Clinician Unavailable CORINE Attending Clinician Unavailable GEOVANNA Attending Clinician Unavailable Doctor Unassigned, Name Attending Clinician Unavailable BILLY Attending Clinician Unavailable DEIRDRE Attending Clinician Unavailable Jesika MORTENSEN Attending Clinician [facility] Attending Clinician Unavailable MANAN Attending Clinician Unavailable Payers Payer Name Policy Type Policy Number Effective Date Expiration Date S presley WELLCARE/WELLCARE [id number] 2020 [place] 00:00:00 Problems Condition Condition Condition Status Onset Resolution Last Treating Co mments Source Name Details Category Date Date Treatment Clinician Date History of History of Problem Resolve Univers essential essential d ity of hypertens[place] Physici ans History of History of Problem Resolve Univers Postoperat Postoperat d it y of cornell cornell [place] examinatio examinatio Ph ysici n n ans 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 [place] Physici ans 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 y of is is [place] Physici ans 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 [place] stenosis stenosis Physic i ans Diabetes Diabetes Problem Active Unive rs mellitus mellitus ity of [place] Physici ans Other Other Problem Active Univers hyperlipid hyperlipid it y of emia emia [place] Physici ans End stage End stage Problem Active Uni vers renal renal ity of disease disease [place] Physici ans 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 [place] fistula fistula Physici ans Rash Rash Problem [...] nephroscle [place] rosis rosis Physici ans Essential Essential Problem Active Uni vers hypertensi hypertensi it y of on on [place] Physici ans Erectile Erectile Problem Active Unive rs dysfunctio dysfunctio it y of n n [place] Physici ans BPH BPH Problem Active Univers (benign (benign [place] of prostatic prostatic [place] hyperplasi hyperplasi Ph ysici a) a) ans Prostate Prostate Problem Active Unive rs cancer cancer [place] COVID-19 COVID-19 Problem Active Unive rs virus virus [place] of infection [place] Pneumomedi Pneumomedi Problem Active U nivers astinum astinum ity of [place] Physici ans Acute Acute Problem Active Univers respirator respirator it [place] of [place] failure [place] failure [place] with with Physici hypoxia hypoxia ans Abnormal Abnormal Problem Active Unive rs finding of finding of it y of blood blood [place] chemistry, chemistry, Ph ysici unspecifie unspecifie an s d d 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 Family History Family Member Diagnosis Comments Start Date Stop Date Source Unknown Family Family history of Family History University of Member Lung Cancer [place] Physici ans Social History Smoking Status Start Date Stop Date Source Ex-smoker (finding) University o f [place] Physicians Medications Ordered Filled Start Stop Current Ordering Indication Dosage Frequency Signature Comments Components Source Medication Medication Date Date Medication? Clinician (SIG) Name Name Tadalafil Tadalafil 2019-04- No SHERRILL STEIN TAKE 1 Univers 20 MG Oral 20 MG Oral 0-12 10-07 M.D. TABLET 1 ity of Tablet Tablet 00:00: 23:59 HOUR [place] 00 :00 BEFORE Physici ACTIVITY ans NEEDED. Fluocinonid Fluocinonid 2019- Yes SUMAYA Q0.5D APPLY Univers e 0.05 % e 0.05 % 5-12 HASBUN SPARINGLY ity of External External 00:00: M.D. TO [place] Cream Cream 00 AFFECTED Physici AREA(S) ans TWICE DAILY Ketoconazol Ketoconazol 2019-0 Yes SUMAYA Q0.5D APPLY A Univers e 2 % e 2 % 5-12 HASBUN THIN LAYER ity o f External External 00:00: M.D. TO [place] Cream Cream 00 AFFECTED Physici AREA(S) ans TWICE DAILY. Isoniazid Isoniazid Yes EITAN QD TAKE 1 Univers 300 MG Oral 300 MG Oral 6-02 ERICSSON TABLET ity of Tablet Tablet 00:00: M.D. DAILY [place] 00 Physici ans Stromectol Stromectol Yes EITAN 4 TAKE 4 Univers 3 MG Oral 3 MG Oral 6-02 ERICSSON TABLET ity of Tablet Tablet 00:00: M.D. Once [place] 00 Repeat Physici dose in 24 ans hours Pyridoxine Pyridoxine Yes EITAN QD TAKE 1 Univers HCl - 50 MG HCl - 50 MG 6-02 ERICSSON TABLET ity of Oral Tablet Oral Tablet 00:00: M.D. DAILY [place] 00 Physici ans Bystolic Bystolic Yes QD TAKE 2 Unive rs TABS TABS TABLETS ity of DAILY. [place] Physici ans Vitamin D2 Vitamin D2 Yes QD TAKE 1 U nivers TABS TABS TABLET ity of DAILY [place] Physici ans cloNIDine cloNIDine Yes 1 QD TAKE 1 Uni vers HCl - 0.2 HCl - 0.2 TABLET ity of MG Oral MG Oral DAILY. [place] Tablet Tablet Physici ans Minoxidil Minoxidil Yes 1 QD TAKE 1 Uni vers 2.5 MG Oral 2.5 MG Oral TABLET ity of Tablet Tablet DAILY. [place] Physici ans Paxil 10 MG Paxil 10 MG Yes 1 QD TAKE 1 Univers Oral Tablet Oral Tablet TABLET ity of DAILY. [place] Physici ans Simvastatin Simvastatin Yes 1 QD TAKE 1 Univers 20 MG Oral 20 MG Oral TABLET i ty of Tablet Tablet DAILY. [place] Physici ans Vital Signs Vital Name Observation Time Observation Value Comments Source Weight 2020-01-26 135 [lb_av] [facility] 16:06:00 [place] Physician s Body mass index 2020-01-26 21.79 kg/m2 [facility] (BMI) [Ratio] 16:06:00 [place] Sreekanth ns Heart Rate 2020-01-26 74 /min Location: [facility] 16:06: Brachial [place] Physician s Artery; Body temperature 2020-01-26 97.4 [degF] Method: [facility] 16:06:00 Temporal [place] Physician s Systolic blood 2020-01-26 122 mm[Hg] Location: [facility] pressure 16:06:00 Position: [place] Physician s Sitting Diastolic blood 2020-01-26 66 mm[Hg] [facility] 16:06:00 Position: [place] Physician s Sitting Body height 2020-01-26 66 [in_us] [facility] 16:06:00 [place] Physician s Procedures Procedure Date / Time Performing Clinician Source Performed [QL] TESTOSTERONE, FREE 2020-07-18 00:00:00 [facility] AND TOTAL, LC/MS/MS Physicians [QL] ESTRADIOL 2020-07-18 00:00:00 [facility] Physicians [QL] PROLACTIN 2020-07-18 00:00:00 [facility] Physicians [QL] TSH, 3RD GENERATION 2020-07-18 00:00:00 [facility] W/REFLEX TO FT4 Physicians [QL] FSH AND LH 2020-07-18 00:00:00 [facility] Physicians [QL] HEPATIC FUNCTION 2020-07-18 00:00:00 [facility] PANEL Physicians [QL] CULTURE, URINE, 2020-07-18 00:00:00 [facility] [QL] PSA (FREE AND TOTAL) 2020-07-18 [facility]:00[id number] 2020-01-26 [facility] [QL] CULTURE, FUNGUS, 2019-08-26 00:00:00 [facility] W/SMEAR HAIR, SKIN, NAIL Physici ans . 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 [facility] Physicians History of Dialysis [place] [facility] [place] [facility] History of Kidney [facility] transplantation Physicians Encounters Start End Encounter Admission Attending Care Care Encounter Source Date/Time Date/Time Type Type Clinicians Facility Department ID 2020-08-21 Outpatient [facility] [id number] [place] 03:36:[facility] 2020-08-21 Out[facility] [id number] [place] 03:36:59 Health 2020-03-05 Outpatient [facility] PUL [id number] HH 16:35:38 2019-04-14 Outpatient [facility] [id number] HH 07:56:24 2018-10-18 Inpatient [facility] MED [id number] [facility] H 09:22:00 2020-10-06 2020-10-06 Abstract KIAH Hough 6400 [id number] 00:00:00 00:00:[address] [id number] 2020-10-04 2020-10-04 Outpatient [facility] CAR [id number] [facility] 11:06:00 11:06:00 2020-10-04 2020-10-04 Outpatient [facility] [id number] [facility] 09:42:00 09:42:00 2020-10-01 2020-10-01 Abstract KIAH [place] [facility] [id number] 00:00:00 00:00:00 Moises SUGAR [id number] [facility] [id number] PLAZA 1 [id number] AND 1 WOMENS 2020-09-22 2020-09-22 Telephone KIAH [place] 6400 [id number] 00:00:00 00:00:[address] [id number] 2020-09-20 2020-09-20 Abstract ValerioKIAH robbins [id number] 00:00:00 00:00:00 Tawanna JONES [id number] [place] [id number] 2020-07-19 2020-07-19 Appointmen SHERRILL STEIN UTP Urology - [id number] [facility] 13:15:00 13:15:00 t; Josh STEIN M.D. [facility] Physici ans 2020-06-07 2020-06-07 Appointmen ORGANTRANSP UTP UTP [id number] [facility] 08:30:00 08:30:00 t; Poe ORGANTRANS [place] PLANT, SANDI Physic i ans 2020-06-07 2020-06-07 [facility] [id number] [facility] 07:08:00 07:08:00 2020-04-05 2020-04-05 Outpatient [facility] PUL [id number] [facility] 12:05:00 12:05:00 2020-03-22 2020-03-22 Appointmen CORINE UTP UTP [id number] [facility] 13:30:00 13:30:00 t; , dede ENGEL M.D., JAMES, Physic i M.D. ans 2020-03-09 2020-03-09 Outpatient [facility] MED [id number] [facility] 17:50:00 17:50:00 2020-03-08 2020-03-08 Appointmen ORGANTRANSP [facility] UTP [id number] Univers 09:30:00 09:30:00 t; CROFT ity o f ORGANTRANS [place] PLANT, OP Physic i ans 2020-03-08 2020-03-08 [id number] 07:24:00 07:24:00 2020-02-16 2020-02-16 Appointmen KIAH AUSTIN UTP [id number] Univers 10:15:00 10:15:00 t; Lalito WILHELM M.D. [place] Kirstie WILHELM M.D. ans 2020-01-29 2020-01-29 Outpatient [facility] [id number] [facility] 07:02:00 07:02:00 2020-01-29 2020-01-29 Outpatient [facility] [id number] [facility] 06:51:00 06:51:00 2020-01-26 2020-01-26 [id number] 18:28:00 18:28:00 2020-01-26 2020-01-26 Outpatient [facility] CAR [id number] [facility] 16:07:00 16:07:00 2020-01-26 2020-01-26 Appointmen SHERRILL STEIN UTP Urology - [id number] [facility] 15:15:00 15:15:00 t; Josh STEIN M.D. [facility] Physici ans 2019-12-30 2019-12-30 Orders Doctor BATRES [id number] 00:00:00 00:00:00 Only Unassigned, PAVEL [id number] [place] [facility] [id number] 2019-12-25 2019-12-25 Appointmen ORGANTRANSP UTP UTP [id number] Univers 08:00:00 08:00:00 t; Muñozy o f ORGANTRANS [employer] PLANT, OP Physic i ans 2019-12-25 2019-12-25 Outpatient MH CAR [id number] [facility] 07:37:00 07:37:00 2019-12-11 2019-12-11 Appointmen KIAH CERVANTES UTP [id number] Univers 14:30:00 14:30:00 t; KATHARINA CERVANTES M.D. [place] Josh Physici ans 2019-12-11 2019-12-11 Appointmen KIAH CERVANTES UTP [id number] Univers 14:30:00 14:30:00 t; KATHARINA CERVANTES M.D. [place] Josh Physici ans 2019-12-09 2019-12-09 Orders Doctor MEDARDO [id number] 00:00:00 00:00:00 Only Unassigned, PAVEL [id number] [place] [facility] [id number] 2019-12-08 2019-12-08 Outpatient [facility] CAR [id number] [facility] 13:29:00 13:29:00 2019-12-02 2019-12-02 Outpatient [facility] MHH [id number] MH 09:35:00 09:35:00 2019-12-01 2019-12-01 Appointmen ORGANTRANSP [facility] UTP [id number] Univers 12:00:00 12:00:00 t; LANT, OP ity o f ORGANTRANS [place] PLANT, OP Physic i ans 2019-11-27 2019-11-27 Appointmen BILLY, [facility] UTP [id number] Univers 15:30:00 15:30:00 t; KATHARINA CERVANTES M.D. [place] Josh Physici ans 2019-11-25 2019-11-25 Outpatient E [facility] MED [id number] MHH 18:45:00 18:45:00 2019-11-24 2019-11-24 Emergency E MHBL MHBL [id number] MHBL 18:29:00 18:29:00 2019-11-11 2019-11-11 Inpatient U [facility] MED [id number] [facility] 22:33:00 19:39:00 2019-10-16 2019-10-16 Emergency E [facility] M[facility]H [id number] [facility] 15:28:00 15:28:00 2019-09-11 2019-09-11 Outpatient M[facility] MHH [id number] MHH 14:07:00 14:07:00 2019-09-11 2019-09-11 Appointmen ORGANTRANSP UTP UTP [id number] Univers 08:30:00 08:30:00 t; LANT, OP ity o f ORGANTRANS [place] PLANT, OP Physic i ans 2019-08-26 2019-08-26 Appointmen KIAH GILMORE Multispecia [id number] Univers 11:40:00 11:40:00 t; SUMAYA GILMORE lty Master harrell y of Josh SHELL M.D. Physici ans 2019-08-15 2019-08-[address] [facility] [id number] 00:00:00 00:00:00 [facility] [id number] [place] [id number] Professio [id number] nal [facility] Office [address] 2019-08-14 2019-08-14 Urgent Pob1, Acute [facility] [id number] 12:07:22 13:05:37 [facility] [id number] [place] [id number] Professio [id number] nal 044 Office [address] One 2019-07-03 2019-07-03 Appointmen ORGANTRANSP UTP UTP [id number] Univers 08:30:00 08:30:00 t; CROFT ity o f ORGANTRANS [place] PLANT, OP Physic i ans 2019-04-03 2019-04-03 Appointmen KIAH HINKLE UTP [id number] Univers 13:00:00 13:00:00 t; Josh MARTINEZ of Raquel HINKLE Physici M.D. ans 2019-04-03 2019-04-03 Outpatient [facility] [id number] [facility] 07:47:00 07:47:00 2019-01-09 2019-01-09 Appointmen ORGANTRANSP UTP UTP [id number] Univers 08:30:00 08:30:00 t; LANT, OP ity o f ORGANTRANS [place] PLANT, OP Physic i ans 2019-01-09 2019-01-09 Outpatient [facility] [id number] [facility] 08:12:00 08:12:00 2019-01-09 2019-01-09 Outpatient [facility] [id number] [facility] 07:30:00 07:30:00 2018-10-24 2018-10-24 Outpatient [facility] [id number] [facility] 08:50:00 08:50:00 2018-10-24 2018-10-24 Outpatient [facility] [id number] [facility] 07:40:00 07:40:00 2018-10-09 2018-10-09 Outpatient [facility] [id number] [facility] 06:06:00 06:06:00 2018-09-23 2018-09-23 Outpatient [facility] [id number] [facility] 08:13:00 08:13:00 2018-09-23 2018-09-23 Outpatient [facility] [id number] [facility] 07:17:00 07:17:00 Results Test Description Test Time Test Comments Results Result Comments Source [Q] CULTURE, MYCOBACTERIA W/FLUOROCHROME SMEAR 2019-10-09 16 :00:00 Test Item Value Reference Range Interpretation Comme nts SMEAR: (test code = SMEAR:) See Comment MYCOBACTERIA, CULTURE, WITH FLUOROCHROME SMEAR Micro Number: [id number] Test Status: Final Specimen Source: NOT G IVEN Specimen Quality: Adequate Smear : No acid fast bacilli seen. Result: No Mycobacterium s pecies isolated after 6 weeks incubation.NO COLLECTION DATE RECEIVED. WE HAVE USEDTHE DATE THE SPECIM EN WAS RECEIVED BY [facility] THE COLLECTION DATE. IF THISIS INCORREC T, PLEASE CONTACT CLIENT SERVICES.PHONE NUMBER: [phone] [facility] PhysiciansUT Pathology [id number] 00:00:00 Test Item Value Reference Range Interpretation Comments OPIC2 (test code = OPIC2) See Comment [facility] Physicians[QL] CULTURE, FUNGUS, W/SMEAR HAIR, SKIN, NAIL 2019-08-26 00:00:00 Test Item Value Reference Range Interpretation Comments SMEAR (test code See Comment CULTURE,FUN NANCY,SKIN,HAIR, = SMEAR) NAIL W/DIRECT F LUOR/CORRINA Micro Number: [id number] Test Status: Final Speci men Source: NOT G IVEN Specimen Qualit y: Adequate Smear : No fungal el ements seen. Result: No fungal growt h at 4 WeeksSPECIMEN R ECEIVED DATE AND TIME: [facility] Physicians
--- NOTE | 2020-10-18 18:22 | RAD REPORT ---
EXAM DESCRIPTION: CT - Stone Protocol - 10/18/2020 6:04 pm CLINICAL HISTORY: Flank pain. ABDOMINAL DISTENTION COMPARISON: Chest Single View dated 10/18/2020 TECHNIQUE: Axial images were obtained without oral or IV contrast. Lack of contrast limits solid org an and vascular assessment. The [id number] spans the entirety of the system partially obscuring uppermost abdomen and lung bases. Coronal reformatted images were obtained and reviewed. All CT scans are performed using dose optimization technique as appropriate and may include automated exposure control or mA/KV adjustment according to patient size. FINDINGS: Emphysematous lung bases with small area of nodularity in inferior lingula measuring 11 mm . Small subpleural nodule in the lateral lingula measures 10 mm. Imaged portions of the liver and spleen show no suspicious findings on non-contrast imaging. The panc reas and adrenal glands are normal. No pathologic lymphadenopathy in the abdomen or pelvis. Atrophic [place] kidneys noted. 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 No bowel obstruction, free air, free fluid or abscess. Normal appendix noted. Mild lumbosacral degenerative changes. IMPRESSION: No acute abnormality is detected. 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
[2020-10-18 18:40] LABS: Urine Blood Negative (Negative); Urine Glucose 2+ (Negative); Urine Protein Negative (Negative)
[2020-10-18 18:57] LABS: Absolute Lymphocytes (CBC) 6.7 K/uL (0.7-4.9); Basophils % 0.4 % (0-1.3); Hematocrit 36.8 % (39.6-49.0); Lymphocytes % 60.4 % (15.3-44.8); MPV 9.5 fL (7.6-11.3); RBC Red Blood Cell Count 4.05 M/uL (4.33-5.43)
[2020-10-18 18:59] LABS: Protime INR 0.92
[2020-10-18 19:09] LABS: ALT/SGPT 42 U/L (12-78); AST/SGOT 37 U/L (15-37); Albumin 3.5 g/dL (3.4-5.0); Alkaline Phosphatase 143 U/L (45-117); BUN Blood Urea Nitrogen 41 mg/dL (7-18); Bicarbonate 27 mmol/L (21-32); Bilirubin Direct 0.2 mg/dL (0-0.2); Bilirubin Total 0.5 mg/dL (0.2-1.0); Glucose Level 69 mg/dL (74-106); Lipase 334 U/L (73-393); Magnesium 2.5 mg/dL (1.8-2.4); NT PRO-BNP 2026 pg/mL (<125); Protein, Total 7.5 g/dL (6.4-8.2); Sodium Level 141 mmol/L (136-145); Troponin (Emerg Dept Use Only) < 0.02 ng/mL (0.0-0.045)
--- NOTE | 2020-10-18 19:12 | RAD REPORT ---
EXAM DESCRIPTION: RAD - Chest Single View - 10/18/2020 6:33 pm CLINICAL HISTORY: COUGH Chest pain. COMPARISON: Chest Single View dated 11/07/2019; CHEST SINGLE VIEW dated 07/21/2014; CHEST SINGLE VIEW d ated 07/03/2014; CHEST PA AND LAT 2 VIEW dated 04/28/2014 FINDINGS: Portable technique limits examination quality. The lungs are grossly clear. The heart is upper limit of normal in size. No displaced fractures. IMPRESSION: No acute intrathoracic process suspected.
--- NOTE | 2020-10-18 20:28 | EDPHYS ---
Physician Documentation [facility] Name: Blake Kemp Age: 65 yrs Sex: Male : 1955 Arrival Date: 10/18/2020 Time: 17:20 Bed 4 Private MD: ED Physician New Orellana HPI: 10/18 17:45 This 65 yrs old Male presents to ER via EMS with complaints of General jane Weakness. 17:45 The patient presents with nausea. jane Historical: - Home Meds: 18:51 cyclosporine 50 mg Oral cap BID [Active]; Myfortic 180 mg oral TbEC [Active]; kg prednisone 5 mg Oral tab 1 tab once daily [Active]; nifedipine 30 mg Oral TbER 1 tab once daily [Active]; metoprolol tartrate 25 mg Oral tab 1 tab once daily [Active]; pravastatin 40 mg oral tab 1 tab once daily [Active]; Pepcid 20 mg Oral tab 1 tab once daily [Active]; cholecalciferol (vitamin D3) 2000 mg oral cap daily [Active]; Lexapro 10 mg Oral tab once daily [Active]; ferrous sulfate 325 mg (65 mg iron) Oral cpER daily [Active]; Cialis 20 mg oral tab 1 tab once daily [Active]; Lantus U-100 Insulin 100 unit/mL Sub-Q crtg [Active]; Humalog Pen 100 unit/mL Sub-Q inpn [Active]; Senokot S 50 mg Oral daily [Active]; - PMHx: 17:35 Diabetes - IDDM; Dialysis; Hyperlipidemia; Hypertension; Renal Disease; iw 18:51 Diabetes mellitus; kg - Immunization history:: Adult Immunizations up to date, . - Social history:: Smoking status: Patient denies any tobacco usage or history of. ROS: 17:45 Constitutional: Negative for fever, chills, and weight loss, Eyes: Negative for injury, jane pain, redness, and discharge, ENT: Negative for injury, pain, and discharge, Neck: Negative for injury, pain, and swelling, Cardiovascular: Negative for chest pain, palpitations, and edema, Respiratory: Negative for shortness of breath, cough, wheezing, and pleuritic chest pain, Abdomen/GI: Negative for abdominal pain, nausea, vomiting, diarrhea, and constipation, Back: Negative for injury and pain, : Negative for injury, bleeding, discharge, and swelling, MS/Extremity: Negative for injury and deformity, Skin: Negative for injury, rash, and discoloration, Psych: Negative for depression, anxiety, suicide ideation, homicidal ideation, and hallucinations, Allergy/Immunology: Negative for hives, rash, and allergies. 17:45 Neuro: Positive for weakness. 17:45 Endocrine: Positive for 17:45 Endocrine: Positive for cold intolerance. Exam: 17:45 Constitutional: This is a well developed, well nourished patient who is awake, alert, jane and in no acute distress. Head/Face: Normocephalic, atraumatic. Eyes: Pupils equal round and reactive to light, extra-ocular motions intact. Lids and lashes normal. Conjunctiva and sclera are non-icteric and not injected. Cornea within normal limits. Periorbital areas with no swelling, redness, or edema. ENT: Nares patent. No nasal discharge, no septal abnormalities noted. Tympanic membranes are normal and external auditory canals are clear. Oropharynx with no redness, swelling, or masses, exudates, or evidence of obstruction, uvula midline. Mucous membranes moist. Neck: Trachea midline, no thyromegaly or masses palpated, and no cervical lymphadenopathy. Supple, full range of motion without nuchal rigidity, or vertebral point tenderness. No Meningismus. Chest/axilla: Normal chest wall appearance and motion. Nontender with no deformity. No lesions are appreciated. Cardiovascular: Regular rate and rhythm with a normal S1 and S2. No gallops, murmurs, or rubs. Normal PMI, no JVD. No pulse deficits. Respiratory: Lungs have equal breath sounds bilaterally, clear to auscultation and percussion. No rales, rhonchi or wheezes noted. No increased work of breathing, no retractions or nasal flaring. Abdomen/GI: Soft, non-tender, with normal bowel sounds. No distension or tympany. No guarding or rebound. No evidence of tenderness throughout. Back: No spinal tenderness. No costovertebral tenderness. Full range of motion. Male : Normal genitalia with no discharge or lesions. Skin: Warm, dry with normal turgor. Normal color with no rashes, no lesions, and no evidence of cellulitis. MS/ Extremity: Pulses equal, no cyanosis. Neurovascular intact. Full, normal range of motion. Neuro: Awake and alert, GCS 15, oriented to person, place, time, and situation. Cranial nerves II-XII grossly intact. Motor strength 5/5 in all extremities. Sensory grossly intact. Cerebellar exam normal. Normal gait. Psych: Awake, alert, with orientation to person, place and time. Behavior, mood, and affect are within normal limits. Vital Signs: 17:29 BP 103 / 68; Pulse 50; Resp 16; Temp 98.2; Pulse Ox 95% on R/A; iw 18:00 BP 127 / 57; Pulse 47; Resp 20; Pulse Ox 97% on R/A; kg 18:30 BP 116 / 56; Pulse 47; Resp 20; Pulse Ox 96% on R/A; kg 19:00 BP 117 / 74; Pulse 50; Resp 20; Pulse Ox 98% ; kg 20:30 BP 132 / 53; Pulse 52; Resp 18; Pulse Ox 99% on R/A; ea 21:30 BP 142 / 52; Pulse 50; Resp 18; Pulse Ox 99% on R/A; ea 22:30 BP 136 / 54; Pulse 48; Resp 16; Pulse Ox 98% ; ea 23:00 BP 153 / 54; Pulse 48; Resp 18; Pulse Ox 98% on R/A; ea MDM: 17:39 Patient medically screened. jane 17:47 Differential Diagnosis sepsis. Differential diagnosis: hyperglycemia, hypoglycemic jane episode, hypothyroidism, non-specific abd pain, pancreatitis, Peptic Ulcer Disease, Prostatitis, Pyelonephritis, Ureterolithiasis, urinary tract infection. Data reviewed: vital signs, nurses notes, lab test result(s), EKG, radiologic studies, CT scan, plain films. Data interpreted: patient monitor: rate is 50 beats/min, rhythm is regular, Pulse oximetry: on room air is 95 %. Test interpretation: by ED physician or midlevel provider: ECG, plain radiologic studies. Counseling: I had a detailed discussion with the patient and/or guardian regarding: the historical points, exam findings, and any diagnostic results supporting the discharge/admit diagnosis, lab results, radiology results. 10/18 17:28 Order name: glucometer results - FOR PT WITH NO ID iw 10/18 17:29 Order name: Glucose, Ancillary(No Armband); Complete Time: 20:08 [facility] 10/18 17:45 Order name: Basic Metabolic Panel [facility] 10/18 17:45 Order name: CBC with Diff [facility] 10/18 17:45 Order name: LFT's [facility] 10/18 17:45 Order name: Magnesium; Complete Time: 20:08 [facility] 10/18 17:45 Order name: NT PRO-BNP; Complete Time: 20:08 [facility] 10/18 17:45 Order name: PT-INR; Complete Time: 20:08 [facility] 10/18 17:45 Order name: Troponin (emerg Dept Use Only); Complete Time: 20:08 [facility] 10/18 17:45 Order name: Urine Culture [facility] 10/18 17:45 Order name: Lipase; Complete Time: 20:08 [facility] 10/18 17:45 Order name: Basic Metabolic Panel; Complete Time: 20:08 [facility] 10/18 17:45 Order name: CBC with Automated Diff; Complete Time: 21:48 [facility] 10/18 17:45 Order name: Liver (Hepatic) Function; Complete Time: 20:08 [facility] 10/18 17:45 Order name: XRAY Chest (1 view); Complete Time: 20:08 [facility] 10/18 17:45 Order name: Cardiac monitoring; Complete Time: 23:06 [facility] 10/18 17:45 Order name: EKG - Nurse/Tech; Complete Time: 23:06 [facility] 10/18 17:45 Order name: IV Saline Lock; Complete Time: 23:06 [facility] 10/18 17:45 Order name: Labs collected and sent; Complete Time: 23:06 [facility] 10/18 17:45 Order name: CT Stone Protocol; Complete Time: 20:08 [facility] 10/18 18:40 Order name: Urine Dipstick-Ancillary; Complete Time: 20:08 [facility] 10/18 20:13 Order name: Manual Differential; Complete Time: 21:48 [facility] 10/18 21:57 Order name: Diet Ada 1800 Elias; Complete Time: 21:58 [facility] 10/18 22:33 Order name: Glucose, Ancillary Testing [facility] 10/18 17:45 Order name: O2 Per Protocol; Complete Time: 23:06 [facility] 10/18 17:45 Order name: O2 Sat Monitoring; Complete Time: 23:06 [facility] 10/18 17:45 Order name: Urine Dipstick-Ancillary (obtain specimen); Complete Time: 23:07 [facility] 10/18 21:57 Order name: Blood Glucose Level; Complete Time: 22:22 jane Administered Medications: 22:32 Drug: D50W 25 ml Route: IVP; Site: right antecubital; bs2 22:33 Drug: D5-1/2 NS 1000 ml Route: IV; Rate: 75 calculated rate; Site: right antecubital; bs2 Disposition Summary: 10/18/20 21:47 Transfer Ordered Transfer Location: [facility] jane Reason: Higher level of care jane Condition: Fair(10/18/20 21:47) jane Problem: new(10/18/20 21:47) jane Symptoms: have improved(10/18/20 21:47) jane Accepting Physician: to [facility](10/18/20 23:27) ea Diagnosis - Type 1 diabetes mellitus with hypoglycemia(10/18/20 21:47) jane - Weakness(10/18/20 21:47) jane - Acute kidney failure, unspecified - on Chronic(10/18/20 21:47) jane - Kidney transplant status(10/18/20 21:47) jane - Adverse effect of insulin and oral hypoglycemic [antidiabetic] drugs jane Forms: - Medication Reconciliation Form jane - SBAR form jane Signatures: Dispatcher [employer] EDNew Villanueva MD MD cha Williams, Irene, RN RN iw Antunez, Elena, RN RN ea Graham, Kristen, RN RN kg Smith, Bridget bs2 Corrections: (The following items were deleted from the chart) 21:44 20:27 Observation jane jane 21:44 20:27 Prezas, Raymundo jane jane 21:44 20:27 Telemetry/MedSurg (observation) jane jane 21:44 20:27 Fair jane jane 21:44 20:27 new jane jane 21:44 20:27 have improved jane jane 21:44 20:27 Standard jane jane 21:44 20:27 jane jane 21:44 20:27 Type 1 diabetes mellitus with hypoglycemia jane jane 21:44 20:27 Kidney transplant status jane jane 21:44 20:27 Acute kidney failure, unspecified - on Chronic jane jane 21:44 20:27 Weakness jane jane 23:27 21:47 to [facility] jane ea
--- NOTE | 2020-10-18 20:28 | ER ---
Nurse's Notes [facility] Name: Blake Kemp Age: 65 yrs Sex: Male : 1955 Arrival Date: 10/18/2020 Time: 17:20 Bed 4 Private MD: Diagnosis: Type 1 diabetes mellitus with hypoglycemia;Weakness;Acute kidney failure, unspecified-on Chronic;Kidney transplant status;Adverse effect of insulin and oral hypoglycemic [antidiabetic] drugs Presentation: 10/18 17:29 Chief complaint: Chief complaint: EMS states: pt has been feeling very weak and iw nauseated , gave insulin at 1300, pt took his humalog after lunch and also had lantus this morning, EMS reports [id number], then 115 SEGREGATOR, now 62 upon arrival to ER. 17:31 Coronavirus screen: At this time, the client does not indicate any symptoms associated iw with coronavirus-19. Ebola Screen: Patient negative for fever greater than or equal to 101.5 degrees Fahrenheit, and additional compatible Ebola Virus Disease symptoms Patient denies exposure to infectious person. Patient denies travel to an Ebola-affected area in the 21 days before illness onset. No symptoms or risks identified at this time. Initial Sepsis Screen: Does the patient meet any 2 criteria? No. Patient's initial sepsis screen is negative. Does the patient have a suspected source of infection? No. Patient's initial sepsis screen is negative. Risk Assessment: Do you want to hurt yourself or someone else? Patient reports no desire to harm self or others. Onset of symptoms was October 18, 2020. 17:31 Method Of Arrival: EMS: [facility] iw 17:31 Acuity: BEATRIZ 3 iw Historical: - Home Meds: 18:51 cyclosporine 50 mg Oral cap BID [Active]; Myfortic 180 mg oral TbEC [Active]; kg prednisone 5 mg Oral tab 1 tab once daily [Active]; nifedipine 30 mg Oral TbER 1 tab once daily [Active]; metoprolol tartrate 25 mg Oral tab 1 tab once daily [Active]; pravastatin 40 mg oral tab 1 tab once daily [Active]; Pepcid 20 mg Oral tab 1 tab once daily [Active]; cholecalciferol (vitamin D3) 2000 mg oral cap daily [Active]; Lexapro 10 mg Oral tab once daily [Active]; ferrous sulfate 325 mg (65 mg iron) Oral cpER daily [Active]; Cialis 20 mg oral tab 1 tab once daily [Active]; Lantus U-100 Insulin 100 unit/mL Sub-Q crtg [Active]; Humalog Pen 100 unit/mL Sub-Q inpn [Active]; Senokot S 50 mg Oral daily [Active]; - PMHx: 17:35 Diabetes - IDDM; Dialysis; Hyperlipidemia; Hypertension; Renal Disease; iw 18:51 Diabetes mellitus; kg - Immunization history:: Adult Immunizations up to date, . - Social history:: Smoking status: Patient denies any tobacco usage or history of. Screenin:50 Abuse screen: Denies threats or abuse. Denies injuries from another. Nutritional kg screening: No deficits noted. Tuberculosis screening: No symptoms or risk factors identified. Fall Risk None identified. No fall in past 12 months (0 pts). No secondary diagnosis (0 pts). IV access (20 points). Ambulatory Aid- None/Bed Rest/Nurse Assist (0 pts). Gait- Normal/Bed Rest/Wheelchair (0 pts) Mental Status- Oriented to own ability (0 pts). Assessment: 18:00 General: Appears in no apparent distress. Behavior is calm, cooperative, appropriate kg for age, quiet. Pain: Denies pain. Neuro: Level of Consciousness is awake, alert, obeys commands, Pt stated that he is very tired. . Oriented to person, place, time, situation, Appropriate for age Black Top Raker are equal bilaterally Full function Gait is steady, Speech is normal. Cardiovascular: No deficits noted. Heart tones S1 S2. Respiratory: No deficits noted. GI: No deficits noted. : No deficits noted. EENT: No deficits noted. Derm: No deficits noted. 20:00 Reassessment: Patient and/or family updated on plan of care and expected duration. Pain ea level reassessed. Patient is alert, oriented x 3, equal unlabored respirations, skin warm/dry/pink. 21:00 Reassessment: Patient and/or family updated on plan of care and expected duration. Pain ea level reassessed. Patient is alert, oriented x 3, equal unlabored respirations, skin warm/dry/pink. 23:25 Reassessment: Patient and/or family updated on plan of care and expected duration. Pain ea level reassessed. Patient is alert, oriented x 3, equal unlabored respirations, skin warm/dry/pink. Pt left ED via stretcher per EMS. Vital Signs: 17:29 BP 103 / 68; Pulse 50; Resp 16; Temp 98.2; Pulse Ox 95% on R/A; iw 18:00 BP 127 / 57; Pulse 47; Resp 20; Pulse Ox 97% on R/A; kg 18:30 BP 116 / 56; Pulse 47; Resp 20; Pulse Ox 96% on R/A; kg 19:00 BP 117 / 74; Pulse 50; Resp 20; Pulse Ox 98% ; kg 20:30 BP 132 / 53; Pulse 52; Resp 18; Pulse Ox 99% on R/A; ea 21:30 BP 142 / 52; Pulse 50; Resp 18; Pulse Ox 99% on R/A; ea 22:30 BP 136 / 54; Pulse 48; Resp 16; Pulse Ox 98% ; ea 23:00 BP 153 / 54; Pulse 48; Resp 18; Pulse Ox 98% on R/A; ea ED Course: 17:20 Patient arrived in ED. iw 17:33 Triage completed. iw 17:39 New Orellana MD is Attending Physician. jane 18:04 CT Stone Protocol In Process Unspecified. EDMS 18:30 Inserted saline lock: 20 gauge in right antecubital area, using aseptic technique. kg 18:33 XRAY Chest (1 view) In Process Unspecified. EDMS 18:43 Cindy Loomis, RN is Primary Nurse. kg 18:50 No provider procedures requiring assistance completed. kg 18:50 Arm band placed on right wrist. kg 20:00 Patient has correct armband on for positive identification. Bed in low position. Call ea light in reach. Side rails up X2. 20:19 Raymundo Joe DO is Hospitalizing Provider. jane 20:58 Primary Nurse role handed off by Cindy Loomis, RN mw2 21:00 initiated a transfer with Rosalia Clarke from [facility]. mw2 21:[address] Orellana with the Toll Mechanic from [facility]. mw2 21:58 administrative approval given by Rosalia Clarke/ patient has been accepted to [address] Jose Armando Nunes/Dr. Enriquez accepted the patient in transfer/ report to be called to [phone]. 23:06 Basic Metabolic Panel Sent. bs2 23:06 LFT's Sent. bs2 23:06 CBC with Diff Sent. bs2 23:06 glucometer results - FOR PT WITH NO ID Sent. bs2 23:24 Patient transferred, IV remains in place. ea Administered Medications: 22:32 Drug: D50W 25 ml Route: IVP; Site: right antecubital; bs2 22:33 Drug: D5-1/2 NS 1000 ml Route: IV; Rate: 75 calculated rate; Site: right antecubital; bs2 Outcome: 20:27 Decision to Hospitalize by Provider. jane 21:47 ER care complete, transfer ordered by MD. jane 23:24 Condition: stable ea 23:24 Instructed on the need for transfer, Demonstrated understanding of instructions. 23:25 Transferred by ground EMS to [facility], Transfer form completed. ea 23:27 Patient left the ED. ea Signatures: Dispatcher [employer] EDNew Villanueva MD MD cha Williams, Irene RN Bryanna Lema RN RN ea [place], [facility] Cindy Loomis RN RN kg Smith, Bridget bs2 Corrections: (The following items were deleted from the chart) 17:33 17:29 Chief complaint: [facility] 21:03 21:00 initiated a transfer with [address]
[2020-10-18 21:43] LABS: Blood Morphology Comment NOT SEEN (NOT SEEN); Platelet Estimate ADEQ
[2020-10-18] MEDS ORDERED: D5 0.45 NS 1,000 ML IV ONE (22:45)
[2020-10-18] MEDS ORDERED: D50W 25 GM/50 ML SYRINGE IV ONE (22:45)
[2020-10-18 23:34] VITALS: TEMP 98.2
[2020-10-18 23:41] VITALS: O2SAT 98
[2020-10-18 23:42] VITALS: BP 153/54
== END 2020-10-18 23:27 | disposition short-term general hospital (02) ==
LOC: ER 17:22
DX: E10.649 Type 1 diabetes mellitus with hypoglycemia without coma (principal); T38.3X5A Adverse effect of insulin and oral hypoglycemic [antidiabetic] drugs, initial encounter; N17.9 Acute kidney failure, unspecified; Z94.0 Kidney transplant status; E10.22 Type 1 diabetes mellitus with diabetic chronic kidney disease; I12.0 Hypertensive chronic kidney disease with stage 5 chronic kidney disease or end stage renal disease; N18.6 End stage renal disease; Z99.2 Dependence on renal dialysis; Z20.822 Contact with and (suspected) exposure to COVID-19
CPT/HCPCS: 87088; 85025; 87086; 80048; 36415; 83735; 85610; 82947 ×2; 80076; 81003; 84484; 83690; 83880; 76377; 74176; 71045; 96374; 99285; U0003; J7799

== ENCOUNTER 2021-04-05 12:05 | Inpatient (IN) | payer OTHER ==
--- OUTSIDE RECORDS SUMMARY | 2021-04-05 12:09 | XMS REPORT | Continuity of Care Document ---
:1955 Author Organization [facility] t Address [address] [place] [address] [place] [id number] Care Team Providers Name Role Phone Romy MORTENSEN Primary Care Physician GEOVANNA Attending Clinician Unavailable EMIL Attending Clinician Unavailable MORALES Attending Clinician Unavailable Kaitlin TAVERAS Attending Clinician Unavailable Taveras MD Attending Clinician Morales MORTENSEN Attending Clinician LINDA MOSQUEDA Attending Clinician Unavailable [place] NINO Attending Clinician Unavailable JUAN DANIEL Attending Clinician Unavailable Juan Daniel MORTENSEN Attending Clinician Iman AGUIAR Attending Clinician Unavailable EMIL Attending Clinician Unavailable ORGANTRANSPLANT Attending Clinician Unavailable CORINE Attending Clinician Unavailable MARIELLE MARAVILLA Attending Clinician Unavailable GEOVANNA Attending Clinician Unavailable DONG FOY Attending Clinician Unavailable Doctor Unassigned, Name Attending Clinician Unavailable BILLY Attending Clinician Unavailable PINEDA COLUNGA Attending Clinician Unavailable BELGICA PAYNE Attending Clinician Unavailable Parminder FARAH Attending Clinician Unavailable ARON CHINO Attending Clinician Unavailable Lin PALACIO Attending Clinician Unavailable DEIRDRE Attending Clinician Unavailable Mary MORTENSEN Attending Clinician [facility] Attending Clinician Unavailable MARY Attending Clinician Unavailable MANAN Attending Clinician Unavailable DIAMOND Admitting Clinician Unavailable MARIELLE MARAVILLA Admitting Clinician Unavailable MARTIN INIGUEZ Admitting Clinician Unavailable NAPOLEON WALKER Admitting Clinician Unavailable Payers Payer Name Policy Type Policy Number Effective Date Expiration Date S presley WELLCARE/WELLCARE [id number] 2020 2024 [place] 00:00:00 00:00:00 Problems Condition Condition Condition Status Onset Resolution Last Treating Co mments Source Name Details Category Date Date Treatment Clinician Date 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 4-04 He alth on on 00:00: 00 Abnormal Abnormal Disease Active UT finding of finding of 404 He alth blood blood 00:00: chemistry, chemistry, 00 unspecifie unspecifie d d 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 0-11 Health disease disease 00:00: 00 Erectile Erectile Disease Active 2019-04 UT dysfunctio dysfunctio 0-11 He alth n n 00:00: 00 Urinary Urinary Disease Active 2019-04 UT frequency frequency 0-11 Heal th 00:00: 00 Voiding Voiding Disease Active 2019-04 UT dysfunctio dysfunctio 0-11 He alth n n 00:00: 00 COVID-19 COVID-19 Disease Active UT virus virus 8 Health infection infection 00:00: 00 Diabetes Diabetes Disease Active UT mellitus mellitus 8 Health 00:00: 00 Hypertensi Hypertensi Disease Active U T ve ve 8 Health nephroscle nephroscle 00:00: rosis rosis 00 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 8 Health 00:00: 00 Acute Acute Disease Active UT respirator respirator 827 He alth y failure y failure 00:00: with with 00 hypoxia hypoxia Prostate Prostate Disease Active UT cancer cancer 6-10 Health screening screening 00:00: 00 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 09-09 He alth 00:00: 00 HTN HTN Disease Active UT (hypertens (hypertens 09-09 He alth ion), ion), 00:00: benign benign 00 Foreign Foreign Disease Active UT body body 09-09 Health tract tract 00:00: 00 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 00:00: 00 Benign Benign Disease Active UT prostatic prostatic 09-09 Heal th hyperplasi hyperplasi 00:00: a a 00 Rash Rash Disease Active UT 5-12 Health 00:00: 00 Dizzy Dizzy Disease Active Univers 4-30 ity of 00:00: [place] [facility] Orthostati Orthostati Disease Active U nivers c c 4-30 ity of hypotensio hypotensio [place] [facility] Exposure Exposure Disease Active Unive rs to to 4-30 ity of SARS-assoc SARS-assoc [place] 00 Medical coronaviru coronaviru Br anch s s Chills Chills Disease Active Univers 4-30 ity of 00:00: [place] 00 Medical Branch Suspected Suspected Disease Active Uni vers Covid-19 Covid-19 4-30 ity of Virus Virus 00:00: [place] Infection Infection 00 [facility] Branch Fever, Fever, Disease Active Univers unspecifie unspecifie 4-30 it y of d fever d fever 00:00: [place] cause cause 00 Medical Branch Diarrhea, Diarrhea, Disease Active Uni vers unspecifie unspecifie 4-30 it y of d type d type 00:00: Medical Branch Mild Mild Disease Active Univers dehydratio dehydratio 4-30 it y of n n 00:00: [place] 00 Medical Branch 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 228 Health dialysis dialysis 00:00: fistula fistula 00 Other Other Disease Active UT hyperlipid hyperlipid 1-31 He alth emia emia 00:00: 00 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 07-10 Health 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 00 Nonspecifi Nonspecifi Disease Active U T c reaction c reaction 09-15 He alth to to 00:00: tuberculin tuberculin 00 skin test skin test without without active active tuberculos tuberculos is 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 Health 00:00: 00 Foreign Foreign Problem Active Univers body body [...] finding of it y of blood blood [place] chemistry, chemistry, Ph ysici unspecifie unspecifie an s d d Testicular Testicular Problem Active U nivers hypofuncti hypofuncti it y of on on [place] [facility] ans History of History of Problem Resolve Univers essential essential d ity of hypertens[place] [facility] ans History of History of Problem Resolve Univers Postoperat Postoperat d it y of cornell cornell [place] examinatio examinatio Ph ysici n n ans 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 [place] [facility] ans 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 y of is is [place] [facility] ans 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 [place] stenosis stenosis Physic i ans Diabetes Diabetes Problem Active Unive rs mellitus mellitus ity of [place] Phys[facility] ans Other Other Problem Active Univers hyperlipid hyperlipid it y of emia emia [place] [facility] ans End stage End stage Problem Active Uni vers renal renal ity of disease disease [place] [facility] ans 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 [place] fistula fistula Physici ans Rash Rash Problem [...] neuropathy it y of [place] [facility] ans Allergies, Adverse Reactions, Alerts Allergy Allergy Status Severity Reaction(s) Onset Inactive Treating Comm ents Source Name Type Date Date Clinician NO KNOWN Drug Active Univers ALLERGIE Class ity of S [facility] Family History Family Member Diagnosis Comments Start Date Stop Date Source Unknown Family Family history of Family History [facility] Social History Social Habit Start Date Stop Date Quantity Comments Source Tobacco use and 2020-10-28 2020-10-28 Smokeless tobacco [place] [facility] exposure 00:00:00 00:00:00 non-user Sex [birth year] [facility] 00:00:00 00:00:00 Smoking Status Start Date Stop Date Source Ex-smoker 2020-10-28 00:00:00 2020-10-28 [place] [facility] 00:00:00 Tobacco smoking [facility] consumption unknown Never smoker [facility] Medications Ordered Filled Start Stop Current Ordering Indication Dosage Frequency Signature Comments Components Source Medication Medication Date Date Medication? Clinician (SIG) Name Name metoprolol Yes 50mg QD Take 50 mg U T succinate 5-29 by mouth 1 Heal th XL 00:00: (one) time (Toprol-XL) 00 each day. 50 MG 24 hr tablet metoprolol Yes 50mg QD Take 50 mg U T succinate 5-29 by mouth 1 Heal th XL 00:00: (one) time (Toprol-XL) 00 each day. 50 MG 24 hr tablet metoprolol 2021-0 Yes 50mg QD Take 50 mg U T succinate 5-29 by mouth 1 Heal th XL 00:00: (one) time (Toprol-XL) 00 each day. 50 MG 24 hr tablet metoprolol 2021-0 Yes 50mg QD Take 50 mg U T succinate 5-29 by mouth 1 Heal th XL 00:00: (one) time (Toprol-XL) 00 each day. 50 MG 24 hr tablet metoprolol 2021-0 Yes 50mg QD Take 50 mg U T succinate 5-29 by mouth 1 Heal th XL 00:00: (one) time (Toprol-XL) 00 each day. 50 MG 24 hr tablet metoprolol 2021-0 Yes 50mg QD Take 50 mg U T succinate 5-29 by mouth 1 Heal th XL 00:00: (one) time (Toprol-XL) 00 each day. 50 MG 24 hr tablet metoprolol 2021-0 Yes 50mg QD Take 50 mg U T succinate 5-29 by mouth 1 Heal th XL 00:00: (one) time (Toprol-XL) 00 each day. 50 MG 24 hr tablet metoprolol 2021-0 Yes 50mg QD Take 50 mg U T succinate 5-29 by mouth 1 Heal th XL 00:00: (one) time (Toprol-XL) 00 each day. 50 MG 24 hr tablet metoprolol 2021-0 Yes 50mg QD Take 50 mg U T succinate 5-29 by mouth 1 Heal th XL 00:00: (one) time (Toprol-XL) 00 each day. 50 MG 24 hr tablet metoprolol 2021-0 Yes 50mg QD Take 50 mg U T succinate 5-29 by mouth 1 Heal th XL 00:00: (one) time (Toprol-XL) 00 each day. 50 MG 24 hr tablet metoprolol 2021-0 Yes 50mg QD Take 50 mg U T succinate 5-29 by mouth 1 Heal th XL 00:00: (one) time (Toprol-XL) 00 each day. 50 MG 24 hr tablet metoprolol 2021-0 Yes 50mg QD Take 50 mg U T succinate 5-29 by mouth 1 Heal th XL 00:00: (one) time (Toprol-XL) 00 each day. 50 MG 24 hr tablet NIFEdipine 2021-0 Yes 30mg Q.5D Take 30 mg U T XL 3-24 by mouth 2 Health (Procardia 00:00: (two) XL) 30 MG 00 times a 24 hr day. tablet NIFEdipine 2021-0 Yes 30mg Q.5D Take 30 mg U T XL 3-24 by mouth 2 Health (Procardia 00:00: (two) XL) 30 MG 00 times a 24 hr day. tablet NIFEdipine 2021-0 Yes 30mg Q.5D Take 30 mg U T XL 3-24 by mouth 2 Health (Procardia 00:00: (two) XL) 30 MG 00 times a 24 hr day. tablet NIFEdipine 2021-0 Yes 30mg Q.5D Take 30 mg U T XL 3-24 by mouth 2 Health (Procardia 00:00: (two) XL) 30 MG 00 times a 24 hr day. tablet NIFEdipine 2021-0 Yes 30mg Q.5D Take 30 mg U T XL 3-24 by mouth 2 Health (Procardia 00:00: (two) XL) 30 MG 00 times a 24 hr day. tablet NIFEdipine 2021-0 Yes 30mg Q.5D Take 30 mg U T XL 3-24 by mouth 2 Health (Procardia 00:00: (two) XL) 30 MG 00 times a 24 hr day. tablet NIFEdipine 2021-0 Yes 30mg Q.5D Take 30 mg U T XL 3-24 by mouth 2 Health (Procardia 00:00: (two) XL) 30 MG 00 times a 24 hr day. tablet NIFEdipine 2021-0 Yes 30mg Q.5D Take 30 mg U T XL 3-24 by mouth 2 Health (Procardia 00:00: (two) XL) 30 MG 00 times a 24 hr day. tablet NIFEdipine 2021-0 Yes 30mg Q.5D Take 30 mg U T XL 3-24 by mouth 2 Health (Procardia 00:00: (two) XL) 30 MG 00 times a 24 hr day. tablet NIFEdipine 2021-0 Yes 30mg Q.5D Take 30 mg U T XL 3-24 by mouth 2 Health (Procardia 00:00: (two) XL) 30 MG 00 times a 24 hr day. tablet NIFEdipine 2021-0 Yes 30mg Q.5D Take 30 mg U T XL 3-24 by mouth 2 Health (Procardia 00:00: (two) XL) 30 MG 00 times a 24 hr day. tablet NIFEdipine 2020-0 Yes 30mg Q.5D Take 30 mg U T XL 3-24 by mouth 2 Health (Procardia 00:00: (two) XL) 30 MG 00 times a 24 hr day. tablet pravastatin 2020-0 Yes 40mg Take 40 mg UT (Pravachol) 3-22 by mouth Heal th 40 MG 00:00: every tablet 00 night. predniSONE 2020-0 Yes TAKE 1 UT (Deltasone) 3-22 TABLET BY Hea lth 5 MG tablet 00:00: MOUTH 00 EVERY DAY FOR 30 DAYS pravastatin 2020-0 Yes 40mg Take 40 mg UT (Pravachol) 3-22 by mouth Heal th 40 MG 00:00: every tablet 00 night. predniSONE 2020-0 Yes TAKE 1 UT (Deltasone) 3-22 TABLET BY Hea lth 5 MG tablet 00:00: MOUTH 00 EVERY DAY FOR 30 DAYS pravastatin 2020-0 Yes 40mg Take 40 mg UT (Pravachol) 3-22 by mouth Heal th 40 MG 00:00: every tablet 00 night. predniSONE 2020-0 Yes TAKE 1 UT (Deltasone) 3-22 TABLET BY Hea lth 5 MG tablet 00:00: MOUTH 00 EVERY DAY FOR 30 DAYS pravastatin 2020-0 Yes 40mg Take 40 mg UT (Pravachol) 3-22 by mouth Heal th 40 MG 00:00: every tablet 00 night. predniSONE 2020-0 Yes TAKE 1 UT (Deltasone) 3-22 TABLET BY Hea lth 5 MG tablet 00:00: MOUTH 00 EVERY DAY FOR 30 DAYS pravastatin 2020-0 Yes 40mg Take 40 mg UT (Pravachol) 3-22 by mouth Heal th 40 MG 00:00: every tablet 00 night. predniSONE 2020-0 Yes TAKE 1 UT (Deltasone) 3-22 TABLET BY Hea lth 5 MG tablet 00:00: MOUTH 00 EVERY DAY FOR 30 DAYS pravastatin 1-0 Yes 40mg Take 40 mg UT (Pravachol) 3-22 by mouth Heal th 40 MG 00:00: every tablet 00 night. predniSONE 2020-0 Yes TAKE 1 UT (Deltasone) 3-22 TABLET BY Hea lth 5 MG tablet 00:00: MOUTH 00 EVERY DAY FOR 30 DAYS pravastatin 2020-0 Yes 40mg Take 40 mg UT (Pravachol) 3-22 by mouth Heal th 40 MG 00:00: every tablet 00 night. predniSONE 0 Yes TAKE 1 UT (Deltasone) 3-22 TABLET BY Hea lt 5 MG tablet 00:00: MOUTH 00 EVERY DAY FOR 30 DAYS pravastatin 2020-0 Yes 40mg Take 40 mg UT (Pravachol) 3-22 by mouth Heal th 40 MG 00:00: every tablet 00 night. predniSONE 0 Yes TAKE 1 UT (Deltasone) 3-22 TABLET BY a lt 5 MG tablet 00:00: MOUTH 00 EVERY DAY FOR 30 DAYS pravastatin 2020-0 Yes 40mg Take 40 mg UT (Pravachol) 3-22 by mouth Heal th 40 MG 00:00: every tablet 00 night. predniSONE Yes TAKE 1 UT (Deltasone) 3-22 TABLET BY [facility] lt 5 MG tablet 00:00: MOUTH 00 EVERY DAY FOR 30 DAYS pravastatin 2020-0 Yes 40mg Take 40 mg UT (Pravachol) 3-22 by mouth Heal th 40 MG 00:00: every tablet 00 night. predniSONE Yes TAKE 1 UT (Deltasone) 3-22 TABLET BY a lt 5 MG tablet 00:00: MOUTH 00 EVERY DAY FOR 30 DAYS pravastatin 2020-0 Yes 40mg Take 40 mg UT (Pravachol) 3-22 by mouth Heal th 40 MG 00:00: every tablet 00 night. predniSONE 0 Yes TAKE 1 UT (Deltasone) 3-22 TABLET BY a lt 5 MG tablet 00:00: MOUTH 00 EVERY DAY FOR 30 DAYS pravastatin 0 Yes 40mg Take 40 mg UT (Pravachol) 3-22 by mouth Heal th 40 MG 00:00: every tablet 00 night. predniSONE 0 Yes TAKE 1 UT (Deltasone) 3-22 TABLET BY a lt 5 MG tablet 00:00: MOUTH 00 EVERY DAY FOR 30 DAYS NovoLOG 2019-04 Yes INJECT SUB UT FLEXPEN 100 2-31 10 UN 3 Healt h UNIT/ML 00:00: TIMES ADAY injection 00 BEFORE MEALS AT BEGINNING OF MEAL OR WITHIN 20 MIN OF STARTING MEAL NovoLOG 2019-04 Yes INJECT SUB UT FLEXPEN 100 2-31 10 UN 3 Healt h UNIT/ML 00:00: TIMES ADAY injection 00 BEFORE MEALS AT BEGINNING OF MEAL OR WITHIN 20 MIN OF STARTING MEAL NovoLOG 2019-04 Yes INJECT SUB UT FLEXPEN 100 2-31 10 UN 3 Healt h UNIT/ML 00:00: TIMES ADAY injection 00 BEFORE MEALS AT BEGINNING OF MEAL OR WITHIN 20 MIN OF STARTING MEAL NovoLOG 2019-04 Yes INJECT SUB UT FLEXPEN 100 2-31 10 UN 3 Healt h UNIT/ML 00:00: TIMES ADAY injection 00 BEFORE MEALS AT BEGINNING OF MEAL OR WITHIN 20 MIN OF STARTING MEAL NovoLOG 2019-04 Yes INJECT SUB UT FLEXPEN 100 2-31 10 UN 3 Healt h UNIT/ML 00:00: TIMES ADAY injection 00 BEFORE MEALS AT BEGINNING OF MEAL OR WITHIN 20 MIN OF STARTING MEAL NovoLOG 2019-04 Yes INJECT SUB UT FLEXPEN 100 2-31 10 UN 3 Healt h UNIT/ML 00:00: TIMES ADAY injection 00 BEFORE MEALS AT BEGINNING OF MEAL OR WITHIN 20 MIN OF STARTING MEAL NovoLOG 2019-04 Yes INJECT SUB UT FLEXPEN 100 2-31 10 UN 3 Healt h UNIT/ML 00:00: TIMES ADAY injection 00 BEFORE MEALS AT BEGINNING OF MEAL OR WITHIN 20 MIN OF STARTING MEAL NovoLOG 2019-04 Yes INJECT SUB UT FLEXPEN 100 2-31 10 UN 3 Healt h UNIT/ML 00:00: TIMES ADAY injection 00 BEFORE MEALS AT BEGINNING OF MEAL OR WITHIN 20 MIN OF STARTING MEAL NovoLOG 2019-04 Yes INJECT SUB UT FLEXPEN 100 2-31 10 UN 3 Healt h UNIT/ML 00:00: TIMES ADAY injection 00 BEFORE MEALS AT BEGINNING OF MEAL OR WITHIN 20 MIN OF STARTING MEAL NovoLOG 2019-04 Yes INJECT SUB UT FLEXPEN 100 2-31 10 UN 3 Healt h UNIT/ML 00:00: TIMES ADAY injection 00 BEFORE MEALS AT BEGINNING OF MEAL OR WITHIN 20 MIN OF STARTING MEAL NovoLOG 2019-04 Yes INJECT SUB UT FLEXPEN 100 2-31 10 UN 3 Healt h UNIT/ML 00:00: TIMES ADAY injection 00 BEFORE MEALS AT BEGINNING OF MEAL OR WITHIN 20 MIN OF STARTING MEAL NovoLOG 2019-04 Yes INJECT SUB UT FLEXPEN 100 2-31 10 UN 3 Healt h UNIT/ML 00:00: TIMES ADAY injection 00 BEFORE MEALS AT BEGINNING OF MEAL OR WITHIN 20 MIN OF STARTING MEAL tadalafil 2020-1 Yes 20mg 20 mg. UT (Cialis) 20 0-12 Health MG tablet 00:00: 00 tadalafil 2020- Yes 20mg 20 mg. UT (Cialis) 20 0-12 Health MG tablet 00:00: 00 tadalafil 2020- Yes 20mg 20 mg. UT (Cialis) 20 0-12 Health MG tablet 00:00: 00 tadalafil 2020- Yes 20mg 20 mg. UT (Cialis) 20 0-12 Health MG tablet 00:00: 00 tadalafil 2020- Yes 20mg 20 mg. UT (Cialis) 20 0-12 Health MG tablet 00:00: 00 tadalafil 2020- Yes 20mg 20 mg. UT (Cialis) 20 0-12 Health MG tablet 00:00: 00 tadalafil 2019-2020- No 20mg 20 mg. UT (Cialis) 20 0-12 10-08 Health MG tablet 00:00: 04:59 00 :00 tadalafil 2019-2020- No 20mg 20 mg. UT (Cialis) 20 0-12 10-08 Health MG tablet 00:00: 04:59 00 :00 Tadalafil Tadalafil 2019-2020- No TUNG EMIL TAKE 1 Univers 20 MG Oral 20 MG Oral 0-12 10-07 M.D. TABLET 1 ity of Tablet Tablet 00:00: 23:59 HOUR [place] 00 :00 BEFORE Physici ACTIVITY ans NEEDED. Lantus 2020-0 Yes INJECT UT [facility] 9-10 UNDER THE Health 100 UNIT/ML 00:00: SKIN 20 injection 00 UINITS DAILY Lantus 2020-0 Yes INJECT UT [employer] 9-10 UNDER THE Health 100 UNIT/ML 00:00: SKIN 20 injection 00 UINITS DAILY Lantus 2020-0 Yes INJECT UT [employer] 9-10 UNDER THE Health 100 UNIT/ML 00:00: SKIN 20 injection 00 UINITS DAILY Lantus 2020-0 Yes INJECT UT [employer] 9-10 UNDER THE Health 100 UNIT/ML 00:00: SKIN 20 injection 00 UINITS DAILY Lantus 2020-0 Yes INJECT UT [employer] 9-10 UNDER THE Health 100 UNIT/ML 00:00: SKIN 20 injection 00 UINITS DAILY Lantus 2020-0 Yes INJECT UT [employer] 9-10 UNDER THE Health 100 UNIT/ML 00:00: SKIN 20 injection 00 UINITS DAILY Lantus 2020-0 Yes INJECT UT [employer] 9-10 UNDER THE Health 100 UNIT/ML 00:00: SKIN 20 injection 00 UINITS DAILY Lantus 2020-0 Yes INJECT UT [employer] 9-10 UNDER THE Health 100 UNIT/ML 00:00: SKIN 20 injection 00 UINITS DAILY Lantus 2020-0 Yes INJECT UT [employer] 9-10 UNDER THE Health 100 UNIT/ML 00:00: SKIN 20 injection 00 UINITS DAILY Lantus 2020-0 Yes INJECT UT [employer] 9-10 UNDER THE Health 100 UNIT/ML 00:00: SKIN 20 injection 00 UINITS DAILY Lantus 2020-0 Yes INJECT UT [employer] 9-10 UNDER THE Health 100 UNIT/ML 00:00: SKIN 20 injection 00 UINITS DAILY Lantus 2020-0 Yes INJECT UT [employer] 9-10 UNDER THE Health 100 UNIT/ML 00:00: SKIN 20 injection 00 UINITS DAILY Fluocinonid Fluocinonid 2020-0 Yes SUMAYA Q0.5D APPLY Univers e 0.05 % e 0.05 % 5-12 HASBUN SPARINGLY ity of External External 00:00: M.D. TO [place] Cream Cream 00 AFFECTED Physici AREA(S) ans TWICE DAILY Ketoconazol Ketoconazol 2019-0 Yes SUMAYA Q0.5D APPLY A Univers e 2 % e 2 % 5-12 HASBUN THIN LAYER ity o f External External 00:00: M.D. TO [place] Cream Cream 00 AFFECTED Physici AREA(S) ans TWICE DAILY. Bismuth 2020-0 Yes [id number] 262mg Take 1 Uni vers Subsalicyla 4-30 tablet by ity of te 00:00: mouth 4 [place] (PEPTO-BISM 00 (four) Medica l OL) 262 mg times Branch tablet daily as needed (diarrhea) . acetaminoph 2020-0 Yes [id number] 650mg Take 1 Univers en 650 mg 4-30 tablet by ity o f CR tablet 00:00: mouth [place] 00 every 8 Medical (eight) Branch hours as needed for Pain or Fever. Bismuth 2020-0 Yes [id number] 262mg Take 1 Uni vers Subsalicyla 4-30 tablet by ity of te 00:00: mouth 4 [place] (PEPTO-BISM 00 (four) Medica l OL) 262 mg times Branch tablet daily as needed (diarrhea) . acetaminoph 2020-0 Yes [id number] 650mg Take 1 Univers en 650 mg 4-30 tablet by ity o f CR tablet 00:00: mouth [place] 00 every 8 Medical (eight) Branch hours as needed for Pain or Fever. Bismuth 2020-0 Yes [id number] 262mg Take 1 Uni vers Subsalicyla 4-30 tablet by ity of te 00:00: mouth 4 [place] (PEPTO-BISM 00 (four) Medica l OL) 262 mg times Branch tablet daily as needed (diarrhea) . acetaminoph 2020-0 Yes [id number] 650mg Take 1 Univers en 650 mg 4-30 tablet by ity o f CR tablet 00:00: mouth [place] 00 every 8 Medical (eight) Branch hours as needed for Pain or Fever. Bismuth 2020-0 Yes [id number] 262mg Take 1 Uni vers Subsalicyla 4-30 tablet by ity of te 00:00: mouth 4 [place] (PEPTO-BISM 00 (four) Medica l OL) 262 mg times Branch tablet daily as needed (diarrhea) . acetaminoph 2020-0 Yes [id number] 650mg Take 1 Univers en 650 mg 4-30 tablet by ity o f CR tablet 00:00: mouth [place] 00 every 8 Medical (eight) Branch hours as needed for Pain or Fever. cycloSPORIN 2020-0 Yes TAKE 5 Univ ers E 25 mg 4-27 CAPSULES ity of capsule 00:00: BY MOUTH [place] 00 EVERY Medical MORNING Branch and FOUR CAPSULES IN THE EVENING cycloSPORIN 2020-0 Yes TAKE 5 Univ ers E 25 mg 4-27 CAPSULES ity of capsule 00:00: BY MOUTH [place] 00 EVERY Medical MORNING Branch and FOUR CAPSULES IN THE EVENING cycloSPORIN 2020-0 Yes TAKE 5 Univ ers E 25 mg 4-27 CAPSULES ity of capsule 00:00: BY MOUTH [place] 00 EVERY Medical MORNING Branch and FOUR CAPSULES IN THE EVENING cycloSPORIN 2020-0 Yes TAKE 5 Univ ers E 25 mg 4-27 CAPSULES ity of capsule 00:00: BY MOUTH [place] 00 EVERY Medical MORNING Branch and FOUR CAPSULES IN THE EVENING famotidine 2020-0 Yes TAKE 1 Unive rs 20 mg 3-30 TABLET BY ity of tablet 00:00: MOUTH [place] 00 TWICE Medical DAILY FOR Branch 30 DAYS D3 50 2019-0 Yes 1{capsu Take 1 Un erick mcg (2,000 3-30 le} capsule by ity of unit) 00:00: mouth [place] capsule 00 daily. Medical Branch losartan 25 2019-0 Yes 25mg Take 25 mg Univers mg tablet 3-30 by mouth ity of 00:00: every [place] 00 evening. Medical Branch famotidine 0 Yes TAKE 1 Unive rs 20 mg 3-30 TABLET BY ity of tablet 00:00: MOUTH [place] 00 TWICE Medical DAILY FOR Branch 30 DAYS D3 50 2019-0 Yes 1{capsu Take 1 Un erick mcg (2,000 3-30 le} capsule by ity of unit) 00:00: mouth [place] capsule 00 daily. Medical Branch losartan 25 0 Yes 25mg Take 25 mg Univers mg tablet 3-30 by mouth ity of 00:00: every 00 evening. Medical Branch famotidine Yes TAKE 1 Unive rs 20 mg 3-30 TABLET BY ity of tablet 00:00: MOUTH [place] 00 TWICE Medical DAILY FOR Branch 30 DAYS D3 50 0 Yes 1{capsu Take 1 Un erick mcg (2,000 3-30 le} capsule by ity of unit) 00:00: mouth [place] capsule 00 daily. Medical Branch losartan 25 2019-0 Yes 25mg Take 25 mg Univers mg tablet 3-30 by mouth ity of 00:00: every [place] 00 evening. Medical Branch famotidine Yes TAKE 1 Unive rs 20 mg 3-30 TABLET BY ity of tablet 00:00: MOUTH [place] 00 TWICE Medical DAILY FOR Branch 30 DAYS D3 50 2019-0 Yes 1{capsu Take 1 Un erick mcg (2,000 3-30 le} capsule by ity of unit) 00:00: mouth [place] capsule 00 daily. Medical Branch losartan 25 2019-0 Yes 25mg Take 25 mg Univers mg tablet 3-30 by mouth ity of 00:00: every [place] 00 evening. Medical Branch LANTUS 2019-0 Yes INJECT SUB Unive rs SOLOSTAR 3-25 18 UNITS ity of U-100 00:00: EVERY DAY [place] INSULIN 100 00 Medical unit/mL (3 Branch mL) injection LANTUS 2020-0 Yes INJECT SUB Unive rs SOLOSTAR 3-25 18 UNITS ity of U-100 00:00: EVERY DAY [place] INSULIN 100 00 Medical unit/mL (3 Branch mL) injection LANTUS 2020-0 Yes INJECT SUB Unive rs SOLOSTAR 3-25 18 UNITS ity of U-100 00:00: EVERY DAY [place] INSULIN 100 00 Medical unit/mL (3 Branch mL) injection LANTUS 2020-0 Yes INJECT SUB Unive rs SOLOSTAR 3-25 18 UNITS ity of U-100 00:00: EVERY DAY [place] INSULIN 100 00 Medical unit/mL (3 Branch mL) injection carvediloL 2020-0 Yes TAKE 1 Unive rs 6.25 mg 2-27 TABLET BY ity of tablet 00:00: MOUTH [place] 00 TWICE Medical DAILY FOR Branch 30 DAYS escitalopra 2020-0 Yes TAKE 2 Univ ers m oxalate 2-27 TABLETS BY ity of 10 mg 00:00: MOUTH ONCE [place] tablet 00 DAILY Medical Branch pravastatin 2020-0 Yes TAKE 1 Univ ers 40 mg 2-27 TABLET BY ity of tablet 00:00: MOUTH AT [place] [address] BEDTIME Medical FOR 90 Branch DAYS carvediloL 2020-0 Yes TAKE 1 Unive rs 6.25 mg 2-27 TABLET BY ity of tablet 00:00: MOUTH [place] 00 TWICE Medical DAILY FOR Branch 30 DAYS escitalopra 2020-0 Yes TAKE 2 Univ ers m oxalate 2-27 TABLETS BY ity of 10 mg 00:00: MOUTH ONCE [place] tablet 00 DAILY Medical Branch pravastatin 2020-0 Yes TAKE 1 Univ ers 40 mg 2-27 TABLET BY ity of tablet 00:00: MOUTH AT [place] [address] BEDTIME Medical FOR 90 Branch DAYS carvediloL 2020-0 Yes TAKE 1 Unive rs 6.25 mg 2-27 TABLET BY ity of tablet 00:00: MOUTH 00 TWICE Medical DAILY FOR Branch 30 DAYS escitalopra 2020-0 Yes TAKE 2 Univ ers m oxalate 2-27 TABLETS BY ity of 10 mg 00:00: MOUTH ONCE [place] tablet 00 DAILY Medical Branch pravastatin 2020-0 Yes TAKE 1 Univ ers 40 mg 2-27 TABLET BY ity of tablet 00:00: MOUTH AT [place] [address] BEDTIME Medical FOR 90 Branch DAYS carvediloL 2020-0 Yes TAKE 1 Unive rs 6.25 mg 2-27 TABLET BY ity of tablet 00:00: MOUTH [place] 00 TWICE Medical DAILY FOR Branch 30 DAYS escitalopra Yes TAKE 2 Univ ers m oxalate 2-27 TABLETS BY ity of 10 mg 00:00: MOUTH ONCE [place] tablet 00 DAILY Medical Branch pravastatin Yes TAKE 1 Univ ers 40 mg 2-27 TABLET BY ity of tablet 00:00: MOUTH AT [place] 00 BEDTIME Medical FOR 90 Branch DAYS Isoniazid Isoniazid Yes EITAN QD TAKE 1 Univers 300 MG Oral 300 MG Oral 6-02 ERICSSON TABLET ity of Tablet Tablet 00:00: M.D. DAILY Physici ans Stromectol Stromectol Yes EITAN 4 TAKE 4 Univers 3 MG Oral 3 MG Oral -02 ERICSSON TABLET ity of Tablet Tablet 00:00: M.D. Once Repeat Physici dose in 24 ans hours Pyridoxine Pyridoxine Yes EITAN QD TAKE 1 Univers HCl - 50 MG HCl - 50 MG 6-02 ERICSSON TABLET ity of Oral Tablet Oral Tablet 00:00: M.D. DAILY Physici ans Bystolic Bystolic Yes QD TAKE 2 Unive rs TABS TABS TABLETS ity of DAILY. [place] Physici ans Vitamin D2 Vitamin D2 Yes QD TAKE 1 U nivers TABS TABS TABLET ity of DAILY [place] Physici ans cloNIDine cloNIDine Yes 1 QD TAKE 1 Uni vers HCl - 0.2 HCl - 0.2 TABLET ity of MG Oral MG Oral DAILY. [place] Tablet Tablet Physici ans Minoxidil Minoxidil Yes 1 QD TAKE 1 Uni vers 2.5 MG Oral 2.5 MG Oral TABLET ity of Tablet Tablet DAILY. [place] Physici ans Paxil 10 MG Paxil 10 MG Yes 1 QD TAKE 1 Univers Oral Tablet Oral Tablet TABLET ity of DAILY. [place] Physici ans Simvastatin Simvastatin Yes 1 QD TAKE 1 Univers 20 MG Oral 20 MG Oral TABLET i ty of Tablet Tablet DAILY. [place] Physici ans Vital Signs Vital Name Observation Time Observation Value Comments Source Systolic blood 2019-08-14 96 mm[Hg] [facility] pressure 17:23:00 [facility] Diastolic blood 2019-08-14 61 mm[Hg] [place] o f pressure 17:23:00 [facility] Heart rate 2019-08-14 65 /min [facility] 17:23:00 [facility] Body temperature 2019-08-14 36.61 Tete [facility] 17:23:00 [facility] Respiratory rate 2019-08-14 18 /min University 17:23: [facility] Body height 2019-08-14 167.6 cm University 17:: [facility] Body weight 2019-08-14 61.236 kg University 17:: [facility] BMI 2019-08-14 21.79 kg/m2 University 17:: [facility] Systolic blood 2019-08-14 96 mm[Hg] [facility] 17:23: [facility] Diastolic blood 2019-08-14 61 mm[Hg] University o pressure 17:23: [facility] Heart rate 2019-08-14 65 /min [facility] 17:: [facility] Body temperature 2019-08-14 36.61 Tete [facility] 17:: [facility] Respiratory rate 2019-08-14 18 /min [facility] 17:: [facility] Body height 2019-08-14 167.6 cm University 17:: [facility] Body weight 2019-08-14 61.236 kg University 17:: [facility] BMI 2019-08-14 21.79 kg/m2 University 17:: [facility] Systolic blood 2020-01-26 122 mm[Hg] Location: [facility] 16:06:00 Position: [place] Physician s Sitting Diastolic blood 2020-01-26 66 mm[Hg] Location: [facility] 16:06:00 Position: [place] Physician s Sitting Body height 2020-01-26 66 [in_us] University 16:06:00 [place] Physician s Weight 2020-01-26 135 [lb_av] University 16::00 [place] Physician s Body mass index 2020-01-26 21.79 kg/m2 University o (BMI) [Ratio] 16:06:00 [place] Physicia ns Heart Rate 2020-01-26 74 /min Location: L [facility] 16:06: Brachial [place] Physician s Artery; Body temperature 2020-01-26 97.4 [degF] Method: [facility] 16:06:00 Temporal [place] Physician s Procedures Procedure Date / Time Performing Clinician Source Performed [QL] TESTOSTERONE, FREE 2020-07-18 00:00:00 [facility] [place] AND TOTAL, LC/MS/MS Physicians [QL] ESTRADIOL 2020-07-18 00:00:00 University o f [place] Physicians [QL] PROLACTIN 2020-07-18 00:00:00 University o f [place] Physicians [QL] TSH, 3RD GENERATION 2020-07-18 [facility]:00[facility]4 Physicians [QL] FSH AND LH 2020-07-18 00:00:00 University o [facility] Physicians [QL] HEPATIC FUNCTION 2020-07-18 00:00:00 [facility] [QL] CULTURE, URINE, 2020-07-18 00:00[facility] [QL] PSA (FREE AND TOTAL) 2020-07-18 00:00[facility]00 [facility] US Renal transplant [id number] 2020-01-26 00:00:00 [facility] DME/SUPPLY JUSTIFICATION 2019-12-30 05:01:00 Doctor Unassigned, [facility] [place] [facility] COMPREHENSIVE 2019-12-09 16:22:00 Doctor Unassigned, [facility] METABOLIC$PANEL W/EGFR-Q [place] [facility] [QL] CULTURE, FUNGUS, 2019-08-26 00:00:00 [facility] W/SMEAR HAIR, SKIN, NAIL Physici ans . 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 [facility] Physicians History of Dialysis [facility] Physicians History of Kidney [facility] transplantation Physicians Encounters Start End Encounter Admission Attending Care Care Encounter Source Date/Time Date/Time Type Type Clinicians Facility Department ID 2020-08-21 Outpatient [facility] [id number] [place] 03:36:59 MOISESGANESH [place] [facility] 2020-08-21 Outpatient SHERRILL STEIN [facility] [id number] [place] 03:36:59 Health 2020-03-05 Outpatient MORALES [facility] [id number] M [facility] 16:35:38 STAN 2019-04-14 Outpatient [facility] [id number] [facility] 07:56:24 2018-10-18 Inpatient [facility] [id number] [facility] 09:22:00 2021-02-18 2021-03-19 Outpatient DE [id number] 08:15:00 23:59:00 JOSE DINH 2021-03-14 2021-03-14 Outpatient DE [facility] [id number] [facility] 09:25:00 09:25:00 JOSE DINH 2021-02-24 2021-02-24 EXT MHH OP EXT MSRDP 1.2.840.114 1 [id number] [place] 00:00:00 00:00:00 LOCATION [id number] H ealth [id number] [id number] 2021-02-24 2021-02-24 EXT MHH OP EXT MSRDP 1.2.840.114 1 [id number] [place] 00:00:00 00:00:00 LOCATION [id number] H ealth [id number] [id number] 2021-02-23 2021-02-23 EXT MHH OP de EXT MSRDP 1.2.840.114 1 [id number] [place] 00:00:00 00:00:00 [facility], LOCATION [id number] [facility] 9.2.7.2.686 [id number] 0 2021-02-18 2021-02-18 EXT MHH OP de EXT MSRDP 1.2.840.114 1 [id number] [place] 00:00:00 00:00:00 [facility], LOCATION [id number] [facility] [id number] [id number] 2021-01-14 2021-02-12 Outpatient DE [id number] 08:36:00 23:59:00 JOSE DINH 2021-01-14 2021-01-14 EXT MHH OP de EXT MSRDP 1.2.840.114 1 [id number] [place] 00:00:00 00:00:00 [facility], LOCATION [id number] Health [facility] [id number] [id number] 2020-12-31 2020-12-31 EXT MHH OP Morales, EXT MSRDP 1.2.840.114 [id number] [place] 00:00:00 00:00:00 [facility] LOCATION [id number] H ealth [id number] [id number] 2020-12-08 2020-12-08 EXT MHH OP de EXT MSRDP 1.2.840.114 1 [id number] [place] 00:00:00 00:00:00 [facility] LOCATION [id number] Health Jose 9.2.7.2.686 [id number] 2020-11-08 2020-12-07 Outpatient DE [facility] [id number] [facility] 08:51:00 23:59:00 JOSE DINH 2020-11-08 2020-11-08 EXT MHH OP de EXT MSRDP 1.2.840.114 1 [id number] [place] 00:00:00 00:00:00 Jennifer LOCATION [id number] [facility] 9.2.7.2.686 [id number] 2020-10-04 2020-11-02 Outpatient DE [facility] [id number] MHH 09:42:00 23:59:00 CATIAELROYJOSE RAMÍREZ 2020-10-19 2020-10-20 Outpatient U PANDA, [facility] [id number] [facility] 07:57:00 15:00:00 HORTENSIA 2020-10-06 2020-10-06 Abstract Kiana Hough UTP 6400 1.2.840.1 [id number] [place] 00:00:00 00:00:00 Kiana Hough [id number] Health [id number] [id number] 2020-10-06 2020-10-06 KIAH Moralez 6400 1.2.574.704 [id number] 00:00:00 00:00:[address] [id number] [id number] [id number] 2020-10-04 2020-10-04 Outpatient JUAN DANIEL [facility] [id number] [facility] 11:06:00 23:59:00 KAYE 2020-10-04 2020-10-04 EXT [facility] OP de EXT MSRDP 1.2.840.114 1 [id number] [place] 00:00:00 00:00:00 [facility] [id number] Health [facility] [id number] [id number] 2020-10-01 2020-10-01 Abstract KIAH [place] [facility] [id number] 00:00:00 00:00:00 Moises SUG[place] [id number] [place] [facility] 9.2.7.2.686 [place] 5 [id number] AND 1 WOMENS 2020-10-01 2020-10-01 Abstract KIAH [place] [facility] [id number] [place] 00:00:00 00:00:00 Moises SUGAR [id number] Health [place] 9.2.7.2.686 [address] 4 [id number] AND 1 WOMENS 2020-10-01 2020-10-01 EXT [facility] OP Juan Daniel, EXT MSRDP 1.2.840.114 [id number] [place] 00:00:00 00:00:00 Kaye LOCATION 350.1.13.58 H ealth 9.2.7.2.686 [id number] 2020-09-22 2020-09-22 Telephone KIAH [place] 6400 1.2.840.114 12 [id number] 00:00:00 00:00:[address] [id number] 9.2.7.2.686 [id number] 1 2020-09-22 2020-09-22 Telephone KIAH [place] 6400 1.2.840.114 12 [id number] [place] 00:00:00 00:00:00 Moises TYSON [id number] [facility] 9.2.7.2.686 [id number] 1 2020-09-20 2020-09-20 Abstract KIAH Valerio 1.2.268.081 [id number] 00:00:00 00:00:00 Tawanna JONES [id number] [place] 9.2.7.2.686 [id number] 1 2020-09-20 2020-09-20 Abstract Tawanna Valerio [facility] 1.2.840 .114 [id number] [place] 00:00:00 00:00:00 Tawanna Valerio [id number] [facility] 9.2.7.2.686 [id number] 2020-07-19 2020-07-19 Appointmen SHERRILL STEIN UTP Urology - [id number] [facility] 13:15:00 13:15:00 t; Josh STEIN M.D. [facility] Physici ans 2020-06-07 2020-07-06 [id number] 07:08:00 23:59:00 JOSE DINH 2020-06-07 2020-06-07 Appointmen ORGANTRANSP UTP UTP [id number] [facility] 08:30:00 08:30:00 t; Poe [facility], OP Physic i ans 2020-03-08 2020-04-06 [id number] 07:24:00 23:59:00 KAYE 2020-04-05 2020-04-05 Outpatient MORALES, [facility] [id number] MHH 12:05:00 23:59:00 STAN 2020-03-22 2020-03-22 Appointmen CORINE [facility] UTP [id number] [facility] 13:30:00 13:30:00 t; , dede ENGEL M.D., JAMES, Physic i M.D. ans 2020-03-09 2020-03-10 Outpatient U RENITA, [facility] [id number] [facility] 17:50:00 15:35:00 ARSHA 2020-03-08 2020-03-08 Appointmen ORGANTRANSP [facility] UTP [id number] Univers 09:30:00 09:30:00 t; Haley o f [employer] [place] PLANT, OP Physic i ans 2020-01-29 2020-02-27 Outpatient DE MHH [facility] [id number] MH 07:02:00 23:59:00 JOSE DINH 2020-02-16 2020-02-16 Appointmen KIAH AUSTIN UTP [id number] [facility] 10:15:00 10:15:00 t; Lalito WILHELM M.D. [place] Kirstie WILHELM M.D. [facility] 2020-01-29 2020-01-29 Outpatient DE MHH [facility] [id number] [facility] 06:51:00 06:51:00 JOSE DINH 2020-01-26 2020-01-26 Outpatient JUAN DANIEL, [facility] [id number] [facility] 16:07:00 23:59:00 KAYE 2020-01-26 2020-01-26 Emergency E FOY, [facility] 7688 [facility] 18:28:00 23:27:00 SUMMER 2020-01-26 2020-01-26 Appointmen SHERRILL STEIN, KIAH Urology - [id number] [facility] 15:15:00 15:15:00 t; Josh STEIN M.D. [facility] Physici ans 2019-12-30 2019-12-30 Orders Doctor MEDARDO Laboy2.840.114 [id number] Univers 00:00:00 00:00:00 Only Unassigned, PAVEL [id number] ity of [place] [facility] 4.2.7.2.686 [place] [id number] [place] [address] Branch 2019-12-30 2019-12-30 Orders Doctor MEDARDO Laboy2.840.114 [id number] 00:00:00 00:00:00 Only Unassigned, PAVEL 350.1.13.10 [facility] 4.2.7.2.686 [id number] 2019-12-25 2019-12-25 Appointmen ORGANTRANSP UTP UTP [id number] Univers 08:00:00 08:00:00 t; JCARLOST, OP ity o f [employer]TR[employer] PLANT, OP Physic i ans 2019-12-25 2019-12-25 Outpatient JUAN DANIEL, [facility] [id number] [facility] 07:37:00 07:37:00 KAYE 2019-12-11 2019-12-11 Appointmen KIAH CERVANTES UTP [id number] Univers 14:30:00 14:30:00 t; KATHARINA [facility] 2019-12-11 2019-12-11 Appointmen KIAH CERVANTES UTP [id number] Univers 14:30:00 14:30:00 t; KATHARINA [facility]ES [facility]. [facility] 2019-12-09 2019-12-09 Orders Doctor MEDARDO Laboy2.840.114 [id number] Univers 00:00:00 00:00:00 Only Unassigned, PAVEL 350.1.13.10 ity of [place] [facility] 4.2.7.2.686 [place] [id number] [place] [address] Branch 2019-12-09 2019-12-09 Orders Doctor MEDARDO Barnett.2.840.114 [id number] 00:00:00 00:00:00 Only Unassigned, PAVEL 350.1.13.10 [place] [facility] 4.2.7.2.686 [id number] 2019-12-08 2019-12-08 Outpatient KEANU, [facility] [id number] [facility] 13:29:00 23:59:00 ANTHONY 2019-12-02 2019-12-02 Outpatient DE [facility] [id number] [facility] 09:35:00 09:35:00 JOSE DINH 2019-12-01 2019-12-01 Appointmen ORGANTRANSP UTP UTP [id number] Univers 12:00:00 12:00:00 t; LANT, OP ity o f [employer] PLANT, OP Physic i ans 2019-11-25 2019-11-27 Outpatient Memo PAYNE [facility] [id number] [facility] 18:45:00 16:30:00 [place] 2019-11-27 2019-11-27 Appointmen BILLY, [facility] UTP [id number] Univers 15:30:00 15:30:00 t; KATHARINA CERVANTES M.D. [facility] Physici ans 2019-11-24 2019-11-24 Emergency E GAGAN, [facility] [id number] [facility]BL 18:29:00 22:08:00 SIDRA 2019-11-11 2019-11-21 Inpatient U MATTI[id number] 22:33:00 21:15:00 FABIÁN 2019-10-16 2019-10-16 Emergency E HAKEEM, [facility] 76[facility] MH 15:28:00 19:21:00 JAY 2019-09-11 2019-09-11 Outpatient DE [facility] [id number] [facility] 14:07:00 14:07:00 JOSE DINH 2019-09-11 2019-09-11 Appointmen ORGANTRANSP [facility] UTP [id number] Univers 08:30:00 08:30:00 t; ILEANA, OP ity o f [employer] [place], OP Physic i ans 2019-08-26 2019-08-26 Appointmen KIAH GILMORE Multispecia [id number] Univers 11:40:00 11:40:00 t; SUMAYA GILMORE, lty - it y of Josh SHELL [place] García M.D. Physici ans 2019-08-15 2019-08-15 Telephone [facility] 1.2.840.114 [id number] Univers 00:00:00 00:00:00 [facility] [id number] it y of [place] 4.2.7.2.686 [place] Professio [phone] Wa dical nal [address] 2019-08-15 2019-08-15 Telephone [facility] 1.2.840.114 [id number] 00:00:00 00:00:00 [facility] 350.1.13.10 [place] 4.2.7.2.686 Professio [id number] nal [address] 2019-08-14 2019-08-14 Urgent Pob1, Acute Care [facility] 1. 2.840.114 [id number] Univers 12:07:22 13:05:37 [facility] [place] [id number] [facility] 4.2.7.2.686 [place] as Professio [phone] Me dical [address] 2019-08-14 2019-08-14 Urgent Pob1, Acute [facility] 1.2.840.114 [id number] 12:07:22 13:05:37 [facility] 350.1.13.10 [place] 4.2.7.2.686 Professio [id number] [place] [address] [address] 2019-08-14 2019-08-14 Outpatient R MARY [facility] [id number] Univers 12:00:00 12:00:00 [facility] 2019-07-03 2019-07-03 Appointmen ORGANTRANSP [facility] UTP [id number] Univers 08:30:00 08:30:00 t; CROFT ity o f [facility] [place], OP Physic i ans 2019-04-03 2019-04-15 Outpatient DE [facility]H [facility] [id number] [facility] 07:47:00 20:00:00 JOSE DINH 2019-04-03 2019-04-03 Appointmen MANAN [facility] UTP [id number] Univers 13:00:00 13:00:00 t; Josh MARTINEZ it y of Raquel HINKLE Physici M.D. ans 2019-01-09 2019-01-09 Appointmen ORGANTRANSP [facility] UTP [id number] Univers 08:30:00 08:30:00 t; ILEANA, OP ity o f [employer] [place], OP Physic i ans 2019-01-09 2019-01-09 Outpatient MHHH [facility] [id number] [facility] 08:12:00 08:12:00 2019-01-09 2019-01-09 Outpatient MHHH PUL [id number] [facility] 07:30:00 07:30:00 2018-10-24 2018-10-24 Outpatient MHHH M[facility]H [id number] [facility] 08:50:00 08:50:00 2018-10-24 2018-10-24 Outpatient [facility] [id number] [facility] 07:40:00 07:40:00 2018-10-09 2018-10-09 Outpatient [facility] [id number] [facility] 06:06:00 06:06:00 2018-09-23 2018-09-23 Outpatient [facility] [id number] [facility] 08:13:00 08:13:00 2018-09-23 2018-09-23 Outpatient [facility] 9627 [facility] 07:17:00 07:17:00 Results Test Description Test Time Test Comments Results Result Comments Source COMPREHENSIVE METABOLIC$PANEL W/EGFR-Q 2019-12-11 18:00:00 Test Item Value Reference Range Interpretation Comme nts GLUCOSE-Q (test code = 95 mg/dL 65-99 ? Fasting 2345-7) reference inter jeffrey UREA NITROGEN (BUN)-Q 32 mg/dL 7-25 H (test code = 3094-0) CREATININE-Q (test code 1.66 mg/dL 0.7-1.25 H For patients >49 years of = 2160-0) age, the refere nce limitfor Creati nine is approximately 1 3% higher for peopleident ified as -Clair n. eGFR NON-AFR. LEBANESE-Q See_Comment L [A utomated message] The (test code = 43358-0) system which generated this result tra nsmitted reference range : > OR = 60 mL/min/1.73m2. The reference range was not used to interpr et this result as jes l/abnormal. eGFR -Q See_Comment L [Au tomated message] The (test code = 71011-7) system which generated this result tra nsmitted reference range : > OR = 60 mL/min/1.73m2. The reference range was not used to interpr et this result as jes l/abnormal. BUN/CREATININE RATIO-Q See_Comment [Aut omated message] The (test code = 3097-3) system which generated this result tra nsmitted reference range : 6 - 22 (calc). The ref erence range was not u sed to interpret this result as normal/abnormal . SODIUM-Q (test code = 137 mmol/L 928-391 2283-2) POTASSIUM-Q (test code = 4.8 mmol/L 3.5-5.3 2823-3) CHLORIDE-Q (test code = 103 mmol/L 98-110 5-0) CARBON DIOXIDE-Q (test 24 mmol/L 20-32 code = 8-9) CALCIUM-Q (test code = 8.6 mg/dL 8.6-10.3 21818-3) PROTEIN, TOTAL-Q (test 5.9 g/dL 6.1-8.1 L code = 2885-2) ALBUMIN-Q (test code = 2.9 g/dL 3.6-5.1 L 1751-7) GLOBULIN-Q (test code = See_Comment [Au tomated message] The 67594-5) system which ge nerated this result tra nsmitted reference range : 1.9 - 3.7 g/dL (calc). Th e reference range was not u sed to interpret this result as normal/abnormal . ALBUMIN/GLOBULIN RATIO-Q See_Comment [A utomated message] The (test code = 1759-0) system which generated this result tra nsmitted reference range : 1.0 - 2.5 (calc). The ref erence range was not u sed to interpret this result as normal/abnormal . BILIRUBIN, TOTAL-Q (test 0.7 mg/dL 0.2-1.2 code = 1974-2) ALKALINE PHOSPHATASE-Q 156 U/L 35-144 H (test code = 6768-6) AST-Q (test code = 13 U/L 10-35 1920-8) ALT-Q (test code = 16 U/L 9-46 1742-6) ASHLYN (test code = ASHLYN) PERFORMED BY [employer] [place]; [address] [place] [address]; ARTURO QUINONES MD Lab Interpretation (test Abnormal code = 59693-0) [facility][Q] CULTURE, MYCOBACTERIA W/FLUOROCHROME SMEAR 2019-10-09 16:00:00 Test Item Value Reference Range Interpretation Comments SMEAR: (test See Comment Randall ACUÑA, code = SMEAR:) WITH FLUOROCH MARY ANN SMEAR Micro Number: [id number] Test Status: Final Specim en Source: NOT GIVEN Spe cimen Quality: Adequ ate Smear: No acid fast bacilli seen. Result: No Mycob acterium species isolate d after 6 weeks incubation.NO C OLLECTION DATE RECEIVED. WE HAVE USEDTHE DATE E SPECIMEN WAS RECEIVED BY THISLABORATORY THE COLLECTION DATE . IF THISIS INCORRECT, BEV MICHAELS CONTACT CLIENT SERVICES .PHONE NUMBER: [facility] PhysiciansUT Pathology [id number] 00:00:00 Test Item Value Reference Range Interpretation Comments OPIC2 (test code = OPIC2) See Comment [facility]icians[QL] CULTURE, FUNGUS, W/SMEAR HAIR, SKIN, NAIL 2019-08-26 00:00:00 Test Item Value Reference Range Interpretation Comments SMEAR (test code See Comment CULTURE,FUN NANCY,SKIN,HAIR, = SMEAR) NAIL W/DIRECT F LUOR/CORRINA Micro Number: [id number] Test Status: Final Speci men Source: NOT G IVEN Specimen Qualit y: Adequate Smear : No fungal el ements seen. Result: No fungal growt h at 4 WeeksSPECIMEN R ECEIVED DATE AND TIME: [facility] Physicians
[2021-04-05] MEDS ORDERED: MORPHINE 2 MG/ML SYR ONE (13:04)
[2021-04-05 13:16] LABS: Absolute Lymphocytes (CBC) 1.3 K/uL (0.7-4.9); Basophils % 0.5 % (0-1.3); Hematocrit 37.3 % (39.6-49.0); Lymphocytes % 13.9 % (15.3-44.8); MPV 7.7 fL (7.6-11.3); RBC Red Blood Cell Count 4.09 M/uL (4.33-5.43)
[2021-04-05 13:23] LABS: Protime INR 1.06
[2021-04-05 13:37] LABS: Albumin 2.9 g/dL (3.4-5.0); Bilirubin Direct 0.2 mg/dL (0-0.2); Bilirubin Total 0.8 mg/dL (0.2-1.0); Potassium 4.1 mmol/L (3.5-5.1); Protein, Total 7.1 g/dL (6.4-8.2)
--- NOTE | 2021-04-05 13:46 | RAD REPORT ---
EXAM DESCRIPTION: US - Extremity Venous [facility] Ltd - 04/05/2021 1:39 pm CLINICAL HISTORY: Pain COMPARISON: None. TECHNIQUE: Real-time sonographic evaluation of the right lower extremity deep venous system was perf ormed. FINDINGS: Normal compressibility, flow augmentation, phasic flow and spontaneous flow is identified in the right lower extremity deep venous system. No intraluminal filling defects seen. IMPRESSION: No DVT in the right lower extremity.
--- NOTE | 2021-04-05 13:57 | RAD REPORT ---
EXAM DESCRIPTION: US - Lower Extremity Artery Uni [facility] - 04/05/2021 1:39 pm CLINICAL HISTORY: Leg pain FINDINGS: The right common femoral, superficial femoral and popliteal arteries demonstrate biphasic waveforms. Prominent calcifications are right popliteal artery without significant stenosis The right posterior tibial and dorsalis pedis arteries demonstrate monophasic waveforms IMPRESSION: Mild arterial disease involving the proximal right leg Chronic calcifications right popliteal artery without significant stenosis Moderate arterial disease involving the distal right leg
[2021-04-05] MEDS ORDERED: PIPERACIL/TAZO 3.375 GM VIAL IV ONE (14:36)
[2021-04-05] MEDS ORDERED: NA CHLORIDE 0.9% 100 ML ONE ×2 (14:36→21:29)
--- NOTE | 2021-04-05 14:44 | RAD REPORT ---
EXAM DESCRIPTION: RAD - Foot Right 3 View - 04/05/2021 2:24 pm CLINICAL HISTORY: PAIN COMPARISON: Foot Right 3 View dated 05/10/2020 FINDINGS: No acute fracture. No malalignment. No significant focal degenerative changes. Peripheral vascular calcifications. IMPRESSION: No acute osseous abnormality involving the right foot.
[2021-04-05] MEDS ORDERED: VANCOMYCIN 1 GM in NA CHLORIDE 0.9% 250 ML IVPB ONE (15:00)
--- NOTE | 2021-04-05 16:05 | ER ---
Nurse's Notes [facility] Name: Blake Kemp Age: 65 yrs Sex: Male : 1955 Arrival Date: 04/05/2021 Time: 12:09 Bed 7 Private MD: Bishop Wade R Diagnosis: Cellulitis of right lower limb Presentation: 04/05 12:20 Chief complaint: Patient states: he has a wound on his third toe on his right foot. ap3 Patient reports the wound being there for a week, and he saw a DrYessenia in [place] last week who prescribed him antibiotics. Coronavirus screen: At this time, the client does not indicate any symptoms associated with coronavirus-19. Ebola Screen: No symptoms or risks identified at this time. Initial Sepsis Screen:. Risk Assessment: Do you want to hurt yourself or someone else? Patient reports no desire to harm self or others. Onset of symptoms was March 29, 2021. 12:20 Method Of Arrival: Wheelchair ap3 12:20 Acuity: BEATRIZ 3 ap3 20:26 Initial Sepsis Screen: Does the patient meet any 2 criteria? Does the patient have a tw5 suspected source of infection? No. Patient's initial sepsis screen is negative. Triage Assessment: 12:20 General: Appears in no apparent distress. comfortable, Behavior is calm, cooperative, ap3 appropriate for age. Pain: Complains of pain in right foot. Derm: Skin is black, red, Wound noted right foot. Historical: - Allergies: 12:16 No Known Drug Allergies; ll1 - Home Meds: 12:23 cholecalciferol (vitamin D3) 2000 mg Oral cap daily [Active]; Cialis 20 mg Oral tab 1 ap3 tab once daily [Active]; cyclosporine 50 mg Oral cap BID [Active]; ferrous sulfate 325 mg (65 mg iron) Oral cpER daily [Active]; Humalog Pen 100 unit/mL Sub-Q inpn [Active]; Lantus U-100 Insulin 100 unit/mL Sub-Q crtg [Active]; Lexapro 10 mg Oral tab once daily [Active]; Senokot S 50 mg Oral daily [Active]; Myfortic 180 mg Oral TbEC [Active]; pravastatin 40 mg Oral tab 1 tab once daily [Active]; nifedipine 30 mg Oral TbER 1 tab once daily [Active]; prednisone 5 mg Oral tab 1 tab once daily [Active]; Pepcid 20 mg Oral tab 1 tab once daily [Active]; - PMHx: 12:16 Hypertension; Dialysis; Hyperlipidemia; diabetes mellitus; Diabetes - IDDM; Renal ll1 Disease; 12:23 Kidney Transplant; ap3 - Immunization history:: Client reports receiving the 2nd dose of the Covid vaccine, and booster Flu vaccine is up to date. - Social history:: Smoking status: Patient denies any tobacco usage or history of. Screenin:22 Abuse screen: Denies threats or abuse. Nutritional screening: No deficits noted. ap3 Tuberculosis screening: No symptoms or risk factors identified. Fall Risk No fall in past 12 months (0 pts). Secondary diagnosis (15 points) impaired mobility, No IV (0 pts). Ambulatory Aid- Crutches/Cane/Walker (15 pts). Gait- Weak (10 pts.). Mental Status- Oriented to own ability (0 pts). Total Bashir Fall Scale indicates Low Risk Score (25-44 pts). Fall prevention measures have been instituted. Side Rails Up X 2 Frequent Obs/Assesments occuring Family Present and informed to notify staff if they need to leave bedside As available Patient and Family Educated on Fall Prevention Program and strategies. Assessment: 13:49 Reassessment: PT RETURNED FROM U/S. bp Vital Signs: 12:25 BP 125 / 58; Pulse 77; Resp 17; Temp 98; Pulse Ox 98% ; Weight 63.5 kg; Height 5 ft. 6 bp in. (167.64 cm); 13:50 BP 170 / 81; Pulse 63; Resp 16; Pulse Ox 100% ; bp 12:25 Body Mass Index 22.60 (63.50 kg, 167.64 cm) bp ED Course: 12:09 Patient arrived in ED. am2 12:09 Bishop Wade MD is Private Physician. am2 12:16 Arm band placed on Patient placed in an exam room, on a stretcher. ll1 12:21 Triage completed. ap3 12:25 Roberth Adrian, MICA is Primary Nurse. bp 12:25 New Suresh PA is PHCP. cp 12:25 New Orellana MD is Attending Physician. cp 13:02 Initial lab(s) drawn, by me, sent to lab. First set of blood cultures drawn by me. 3 Inserted saline lock: 20 gauge in right antecubital area, using aseptic technique. Blood collected. 13:05 Second set of blood cultures drawn by az. 3 13:39 US LE Artery Uni Ltd In Process Unspecified. EDMS 13:39 US Extremity Venous Unilateral Ltd In Process Unspecified. EDMS 13:50 Patient has correct armband on for positive identification. Placed in gown. Bed in low bp position. Call light in reach. Side rails up X2. 14:24 XRAY Foot RIGHT 3 View In Process Unspecified. EDMS 16:04 Trevin Olivsa MD is Hospitalizing Provider. cp 20:26 Assist provider with bone marrow aspiration. Patient admitted, IV remains in place. tw5 Administered Medications: 13:15 Drug: morphine 2 mg Route: IVP; Site: right forearm; bp 14:45 Drug: Zosyn (piperacillin-tazobactam) 3.375 grams Route: IVPB; Infused Over: 60 mins; bp Site: right forearm; 15:17 Not Given (Physician Discretion): vancoMYCIN 1 grams IVPB once over 2 hrs cp 15:45 Drug: vancoMYCIN 1 grams Route: IVPB; Infused Over: 2 hrs; Site: right forearm; bp Outcome: 16:05 Decision to Hospitalize by Provider. cp 20:26 Discharged to home ambulatory. tw5 20:26 Condition: good 20:26 Condition: good 20:26 Instructed on the need for admit. 20:27 Patient left the ED. tw5 Signatures: Dispatcher [employer] EDCA New Suresh PA PA cp Moreno, Amanda amLori Klein 3 Roberth Adrian RN RN bp Marija Trevino RN RN ap3 David Whelan RN RN ll1 Polina Montez tw5
--- NOTE | 2021-04-05 16:05 | EDPHYS ---
Physician Documentation [facility] Name: Blake Kemp Age: 65 yrs Sex: Male : 1955 Arrival Date: 04/05/2021 Time: 12:09 Bed 7 Private MD: Bishop Wade R ED Physician New Orellana HPI: 04/05 12:45 This 65 yrs old Male presents to ER via Wheelchair with complaints of toe cp infection. 12:45 The patient presents with infection. cp 12:45 The complaints affect the right foot. Context: resulted from an unknown cause, the cp patient can fully bear weight. Onset: The symptoms/episode began/occurred 1 week(s) ago. Patient reports he was referred to ED by DR Wade for worsening infection of right toe and foot. Patient reports he was prescribed Ciprofloxacin by physician in [place] 1 week ago for infection. Historical: - Allergies: 12:16 No Known Drug Allergies; ll1 - Home Meds: 12:23 cholecalciferol (vitamin D3) 2000 mg Oral cap daily [Active]; Cialis 20 mg Oral tab 1 ap3 tab once daily [Active]; cyclosporine 50 mg Oral cap BID [Active]; ferrous sulfate 325 mg (65 mg iron) Oral cpER daily [Active]; Humalog Pen 100 unit/mL Sub-Q inpn [Active]; Lantus U-100 Insulin 100 unit/mL Sub-Q crtg [Active]; Lexapro 10 mg Oral tab once daily [Active]; Senokot S 50 mg Oral daily [Active]; Myfortic 180 mg Oral TbEC [Active]; pravastatin 40 mg Oral tab 1 tab once daily [Active]; nifedipine 30 mg Oral TbER 1 tab once daily [Active]; prednisone 5 mg Oral tab 1 tab once daily [Active]; Pepcid 20 mg Oral tab 1 tab once daily [Active]; - PMHx: 12:16 Hypertension; Dialysis; Hyperlipidemia; diabetes mellitus; Diabetes - IDDM; Renal ll1 Disease; 12:23 Kidney Transplant; ap3 - Immunization history:: Client reports receiving the 2nd dose of the Covid vaccine, and booster Flu vaccine is up to date. - Social history:: Smoking status: Patient denies any tobacco usage or history of. ROS: 12:50 Constitutional: Negative for body aches, chills, fever, poor PO intake. cp 12:50 Eyes: Negative for injury, pain, redness, and discharge. cp 12:50 ENT: Negative for ear pain, sore throat, difficulty swallowing, difficulty handling secretions. 12:50 Cardiovascular: Negative for chest pain, edema, palpitations. 12:50 Respiratory: Negative for cough, shortness of breath, wheezing. 12:50 Abdomen/GI: Negative for abdominal pain, nausea, vomiting, and diarrhea. 12:50 Skin: Positive for cellulitis, of the right foot. 12:50 All other systems are negative. Exam: 12:55 Constitutional: The patient appears in no acute distress, alert, awake, non-toxic, well cp developed, well nourished. 12:55 Head/Face: Normocephalic, atraumatic. cp 12:55 Eyes: Periorbital structures: appear normal, Conjunctiva: normal, no exudate, no injection, Sclera: no appreciated abnormality, Lids and lashes: appear normal, bilaterally. 12:55 ENT: External ear(s): are unremarkable, Nose: is normal, Mouth: is normal, Posterior pharynx: Airway: no evidence of obstruction, patent. 12:55 Chest/axilla: Inspection: normal. 12:55 Cardiovascular: Rate: normal, Rhythm: regular, Edema: is not appreciated, JVD: is not appreciated. 12:55 Respiratory: the patient does not display signs of respiratory distress, Respirations: normal, no use of accessory muscles, labored breathing, is not present. 12:55 Abdomen/GI: Inspection: abdomen appears normal. 12:55 Skin: noted necrotic discoloration of skin of right fourth toe, mild erythema extending proximally onto dorsum of foot, mild swelling and pain at base of great toe plantar side. Vital Signs: 12:25 BP 125 / 58; Pulse 77; Resp 17; Temp 98; Pulse Ox 98% ; Weight 63.5 kg; Height 5 ft. 6 bp in. (167.64 cm); 13:50 BP 170 / 81; Pulse 63; Resp 16; Pulse Ox 100% ; bp 12:25 Body Mass Index 22.60 (63.50 kg, 167.64 cm) bp MDM: 12:26 Patient medically screened. jane 13:00 Differential diagnosis: cellulitis, abscess, sepsis, osteomyelitis. cp 15:15 Data reviewed: vital signs, nurses notes, lab test result(s), radiologic studies, plain cp films, ultrasound. 15:15 Test interpretation: by ED physician or midlevel provider: plain radiologic studies. cp Physician consultation: Trevin Olivas MD was contacted at 15:15, regarding admission, to the medical/surgical unit. patient's condition, and will see patient in ED, shortly, would like consultation with Dr. Almeida. 15:35 Physician consultation: Kirit Almeida MD was contacted at 15:35, regarding consult, cp patient's condition, and will see patient in inpatient room, tomorrow. 04/05 12:42 Order name: Wound Culture 04/05 12:42 Order name: CBC with Diff; Complete Time: 14:14 04/05 14:14 Interpretation: Normal except: RBC 4.09; HGB 12.5; HCT 37.3; BRISSA% 78.9; LYM% 13.9. 04/05 12:42 Order name: Procalcitonin; Complete Time: 14:14 04/05 14:14 Interpretation: Abnormal: Procalcitonin 0.30. 04/05 12:42 Order name: Lactate; Complete Time: 14:14 04/05 12:42 Order name: BMP; Complete Time: 14:14 04/05 14:15 Interpretation: Normal except: CL 108; CO2 20; GLUC 265; BUN 55; CRE 2.10; GFR 32. 04/05 12:42 Order name: Blood Culture Adult (2) 04/05 12:42 Order name: XRAY Foot RIGHT 3 View; Complete Time: 15:07 04/05 12:42 Order name: LFT's; Complete Time: 14:14 04/05 12:45 Order name: PT-INR; Complete Time: 14:14 04/05 12:45 Order name: Ptt, Activated; Complete Time: 14:14 04/05 12:45 Order name: CRP; Complete Time: 14:14 04/05 12:45 Order name: Sed Rate; Complete Time: 14:14 04/05 16:26 Order name: COVID-19 (Coronavirus) Document "Date of Onset" if Symptomatic 04/05 18:30 Order name: SARS-COV-2 RT PCR; Complete Time: 18:58 EDWA 04/05 12:45 Order name: IV; Complete Time: 13:11 cp 04/05 12:45 Order name: US LE Artery Uni Ltd; Complete Time: 14:14 cp 04/05 12:45 Order name: US Extremity Venous Unilateral Ltd; Complete Time: 14:14 cp 04/05 15:58 Order name: Foot Right Wo Cont; Complete Time: 18:58 EDMS 04/05 16:08 Order name: CONS Physician Consult EDMS Administered Medications: 13:15 Drug: morphine 2 mg Route: IVP; Site: right forearm; bp 14:45 Drug: Zosyn (piperacillin-tazobactam) 3.375 grams Route: IVPB; Infused Over: 60 mins; bp Site: right forearm; 15:17 Not Given (Physician Discretion): vancoMYCIN 1 grams IVPB once over 2 hrs cp 15:45 Drug: vancoMYCIN 1 grams Route: IVPB; Infused Over: 2 hrs; Site: right forearm; bp Disposition Summary: 04/05/21 16:05 Hospitalization Ordered Hospitalization Status: Inpatient Admission cp Provider: Trevin Olivas cp Location: Telemetry/MedSurg (Inpatient) cp Condition: Stable cp Problem: new cp Symptoms: are unchanged cp Bed/Room Type: Standard cp Room Assignment: 214(04/05/21 19:51) mw Diagnosis - Cellulitis of right lower limb cp Forms: - Medication Reconciliation Form cp - SBAR form cp Signatures: Dispatcher [employer] EDMS Chastity Byrne RN RN mw Anderson, Corey, MD MD cha Page, Corey, JACQUELINE PA cp Roberth Adrian RN RN bp Prokisch, Amanda, RN RN ap3 David Whelan RN RN ll1 Corrections: (The following items were deleted from the chart) 19:51 16:05 cp mw
--- NOTE | 2021-04-05 16:18 | P.HP ---
Certification for Inpatient Patient admitted to: Inpatient With expected LOS: >2 Midnights Practitioner: I am a practitioner with admitting privileges, knowledge of patient current condition, hospital course, and medical plan of care. Services: Services provided to patient in accordance with Admission requirements found in Title 42 Section 412.3 of the Code of Federal Regulations Patient History Date of Service: 04/05/21 Reason for admission: Right toe ulcer, cellulitis, ? Osteomyelitis History of Present Illness: 65-year-old male, PMH: IDDM 2, HTN, HLD, CKD s/p renal transplant (2018). Presents to ED with 4-5 days of progressively worsening erythema, pain, ulcer of his right fourth toe. Patient first noticed this 4-5 days ago. He has had a small chronic healing ulcer of his forefoot but this is in a different area. He denies any fever/chills. He was in [place] at the time and was prescribed clindamycin as well as a cream (does not know what cream). He has taken clind amycin for the last 3 days with no improvement. He presented to PCPs office today and was recommended to come to the ER for further management. He also reports over the last week his blood pressure has been more difficult to control and his blood glucose levels have been higher than normal. In the ED, x-ray was without any signs of osteomyelitis, venous Doppler negative for DVT, arterial Doppler noted moderate arterial disease in the distal right lower extremity. Allergies No Known Drug Allergies Allergy (Unverified 07/21/14 19:15) Unknown No Known Allergie Allergy (Uncoded 12/30/15 11:50) Unknown No Known Allergies Allergy (Uncoded 02/13/17 12:14) Unknown Home Medications: Cholecalciferol (Vitamin D3) [Vitamin D3] 1 cap PO DAILY 05/10/20 Escitalopram Oxalate [Lexapro] 2 tab PO DAILY 05/10/20 Famotidine [Pepcid] 1 tab PO BID 05/10/20 Ferrous Sulfate 1 tab PO DAILY 05/10/20 Insulin Glargine,Hum.rec.anlog [Lantus Solostar] 12 units SQ DAILY 05/10/20 Insulin Lispro [Humalog Kwikpen U-100] 6 units SQ TID 05/10/20 Metoprolol Succinate [Toprol Xl] 1 tab PO BID 05/10/20 Pravastatin Sodium 1 tab PO BEDTIME 05/10/20 Sennosides [Senokot] 1 tab PO BID PRN 05/10/20 Tadalafil [Cialis] 1 tab PO SEECOM 05/10/20 cycloSPORINE [Sandimmune] 2 tab PO BID 05/10/20 predniSONE [Prednisone] 1 tab PO DAILY 05/10/20 - Past Medical/Surgical History Diabetic: Yes -: ESRD -: High Cholesterol -: Anemia -: HTN -: ARF -: Renal transplant 2018 -: AV fistula - Family History Mother -: Hypertension - Social History Smoking Status: Never smoker (but does chew tobacco) Alcohol use: No CD- Drugs: No Caffeine use: Yes Place of Residence: Home Review of Systems 10-point ROS is otherwise unremarkable Physical Examination - Physical Exam General: Alert, In no apparent distress, Oriented x3 HEENT: Mucous membr. moist/pink, Sclerae nonicteric Neck: Supple, No LAD Respiratory: Clear to auscultation bilaterally, Normal air movement Cardiovascular: No edema, Regular rate/rhythm Gastrointestinal: Soft and benign, Non-distended, No tenderness Musculoskeletal: No contractures Integumentary: Erythema (Dorsal aspect of right foot, and overlying right fourth toe), Diabetic ulcer (Right fourth toe, lateral aspect, eschar, no active drainage) Neurological: Normal speech, Normal strength at 5/5 x4 extr, Normal affect, Abnormal sensation (Diminished sensation bilateral feet) - Studies Laboratory Data (last 24 hrs) 04/05/21 13:02: PT 12.2, INR 1.06, APTT 27.0 04/05/21 13:02: Sodium 138, Potassium 4.1, BUN 55 H, Creatinine 2.10 H, Glucose 265 H, Total Bilirubin 0.8, AST 30, ALT 44, Alkaline Phosphatase 188 H 04/05/21 13:02: WBC 9.30, Hgb 12.5 L, Hct 37.3 L, Plt Count 199 Assessment and Plan - Advance Directives Does patient have a Living Will: Yes Does patient have a Durable POA for Healthcare: No Physician Review Additional Text: Problem list Right fourth toe ulcer, with cellulitis Concern for osteomyelitis IDDM 2 CHARMAINE on CKD 3, h/o renal transplant 2017 HTN Failed outpatient therapy with p.o. clindamycin Patient given Zosyn and vancomycin in the ED, will will continue vancomycin, change Zosyn to cefepime to minimize nephrotoxicity We will give gentle IV fluids overnight Nephrology consulted General surgery consulted, concern for osteomyelitis, may benefit from debridement vs amputation Patient with palpable dorsalis pedis pulse, warm foot Insulin sliding scale Confirm home medications, restart as appropriate N.p.o. after midnight VTE: lovenox Code: full Dispo: Anticipate DC home in 2-3 days Time Spent Managing Pts Care (In Minutes): 60
--- NOTE | 2021-04-05 18:19 | RAD REPORT ---
EXAM DESCRIPTION: MRI - Foot Right Wo Cont - 04/05/2021 6:10 pm CLINICAL HISTORY: r/o osteo COMPARISON: Foot Right 3 View dated 04/05/2021 FINDINGS: No abnormal marrow signal is identified to suggest osteomyelitis. No abscess is seen. No a cute fractures or malalignment is identified involving the right foot. No significant focal degenerat cornell changes are identified. IMPRESSION: No evidence of osteomyelitis.
[2021-04-05] MEDS ORDERED: CEFEPIME 2 GM in NA CHLORIDE 0.9% 100 ML IV SCH (20:47)
[2021-04-05] MEDS ORDERED: ONDANSETRON 4 MG/2 ML VIAL IV PRN (20:47)
[2021-04-05] MEDS: INSULIN -REGULAR HUMAN 50 UNIT/0.5 ML ML SQ SCH ×2 (20:47→21:00)
[2021-04-05] MEDS ORDERED: CEFEPIME 1 GM/VIAL ONE (21:33)
[2021-04-05 21:54] VITALS: BMI 22.6
[2021-04-05] MEDS: HYDROCODONE/APAP 5/325 MG TAB PO PRN (21:56)
[2021-04-05] MEDS: NA CHLORIDE 0.9% 1,000 ML IV SCH (21:57)
[2021-04-05] MEDS ORDERED: SENOSIDES 8.6 MG TAB PO PRN (22:34)
[2021-04-05] MEDS ORDERED: HYDRALAZINE HCL 20 MG/ML VIAL IV PRN (22:37)
[2021-04-05] MEDS ORDERED: Tadalafil [Cialis] 20 MG Tablet PO SCH (22:45)
[2021-04-05] MEDS: NIFEDIPINE XL 30 MG TABLET PO SCH (23:19)
[2021-04-06 04:09] LABS: Absolute Lymphocytes (CBC) 2.2 K/uL (0.7-4.9); Basophils % 0.3 % (0-1.3); Hematocrit 36.1 % (39.6-49.0); Lymphocytes % 24.9 % (15.3-44.8); MPV 7.7 fL (7.6-11.3); RBC Red Blood Cell Count 3.95 M/uL (4.33-5.43)
[2021-04-06 04:18] LABS: Albumin 2.5 g/dL (3.4-5.0); Bilirubin Total 0.5 mg/dL (0.2-1.0); Magnesium 2.6 mg/dL (1.8-2.4); Potassium 4.4 mmol/L (3.5-5.1); Protein, Total 6.5 g/dL (6.4-8.2)
--- NOTE | 2021-04-06 06:17 | P.PN ---
Date of Service: 04/06/21 Subjective: No acute events overnight. Patient continues with some pain/discomfort of his right forefoot area Evaluated by general surgery this morning, plan for amputation ROS: 10 point ROS as noted above, otherwise negative Physical exam General: Alert, In no apparent distress, Oriented x3 HEENT: Mucous membr. moist/pink, Sclerae nonicteric Respiratory: Clear to auscultation bilaterally, Normal air movement Cardiovascular: No edema, Regular rate/rhythm Gastrointestinal: Soft and benign, Non-distended, No tenderness Integumentary: Erythema (Dorsal aspect of right foot, and overlying right fourth toe), ulcer (Right fourth toe, lateral aspect, dry eschar, no active drainage) Neurological: Normal speech, Diminished sensation bilateral feet Problem list Right fourth toe ulcer, with cellulitis IDDM 2 CHARMIANE on CKD 3, h/o renal transplant 2017 HTN Failed outpatient therapy with p.o. clindamycin Patient given Zosyn and vancomycin in the ED, will will continue vancomycin &cefepime to minimize nephrotoxicity General surgery consulted: IVF overnight, pt NPO for surgery today, plan for amputation; requesting cardiac clearance Nephrology consulted Patient with palpable dorsalis pedis pulse, warm foot, arterial Doppler with monophasic waveform Insulin sliding scale continue home meds VTE: lovenox Code: full Dispo: Anticipate DC home in ~1-2 days Time Spent Managing Pts Care (In Minutes): 35
[2021-04-06] MEDS: INSULIN -REGULAR HUMAN 50 UNIT/0.5 ML ML SQ SCH ×4 (07:30→20:48)
[2021-04-06] MEDS ORDERED: CYCLOSPORINE 25 MG PO SCH ×4 (08:00→20:00)
[2021-04-06] MEDS: INSULIN GLARGINE 100 UNIT/ML SQ SCH (08:00)
[2021-04-06] MEDS: ENOXAPARIN 40 MG/0.4 ML SQ SCH (08:35)
[2021-04-06] MEDS: VITAMIN D 1000 UNIT TAB PO SCH (08:41)
[2021-04-06] MEDS: NIFEDIPINE XL 30 MG TABLET PO SCH ×2 (08:41→20:46)
[2021-04-06] MEDS: HYDROCODONE/APAP 5/325 MG TAB PO PRN ×2 (08:41→16:33)
[2021-04-06] MEDS: ESCITALOPRAM 20 MG TAB PO SCH (08:41)
[2021-04-06] MEDS: predniSONE 5 MG TAB PO SCH (08:42)
[2021-04-06] MEDS: FAMOTIDINE 20 MG TAB PO SCH (08:43)
[2021-04-06] MEDS: FERROUS SULFATE 325 MG TAB PO SCH (08:44)
[2021-04-06] MEDS ORDERED: VANCOMYCIN 1.25 GM in NA CHLORIDE 0.9% 250 ML IVPB SCH (09:00)
[2021-04-06] MEDS ORDERED: VANCOMYCIN 1.5 GM in NA CHLORIDE 0.9% 500 ML IVPB SCH (09:00)
[2021-04-06] MEDS ORDERED: Dapagliflozin Propanediol [Farxiga] 10 MG Tablet PO SCH (09:00)
[2021-04-06] MEDS ORDERED: NA CHLORIDE 0.9% 1,000 ML ONE (10:06)
[2021-04-06] MEDS: NA CHLORIDE 0.9% 1,000 ML IV SCH ×2 (10:07→16:37)
[2021-04-06] MEDS ORDERED: BUPIVACAINE 0.25% PF 10 ML VIAL ONE (10:39)
[2021-04-06] MEDS ORDERED: FENTANYL CITR 100 MCG/2 ML ONE (11:07)
[2021-04-06] MEDS ORDERED: SODIUM HYPOCHLORITE 0.25% 473 ML ONE (11:07)
[2021-04-06] MEDS ORDERED: propofoL 200 MG/20 ML VIAL IV ONE (11:07)
[2021-04-06] MEDS ORDERED: LIDOCAINE 2% MPF 5 ML VIAL ONE (11:07)
[2021-04-06] MEDS ORDERED: NA CHLORIDE 0.9% 500 ML ONE (11:11)
[2021-04-06] MEDS ORDERED: GLYCOPYRROLATE 0.2 MG/ML SYR ONE (11:24)
[2021-04-06] MEDS ORDERED: EPHEDRINE SULF 50 MG/ML VIAL ONE (11:26)
--- NOTE | 2021-04-06 11:59 | P.OP ---
Preoperative diagnosis: Dry Gangrene of 4th toe RIGHT foot, plantar foot wound Postoperative diagnosis: Dry Gangrene of 4th toe RIGHT foot, plantar foot wound Primary procedure: Amputation of 4th toe of RIGHT foot Secondary procedure: Debridement of 3rd-4th metatarsal plantar foot wound Anesthesia: GETA + Local Estimated blood loss: <2cc Specimen: 4th toe of RIGHT foot, plantar foot debridement tissue Findings: communication of plantar foot wound with metatarsophalangeal joint Complications: None Transferred to: Recovery Room Condition: Good
[2021-04-06] MEDS: MORPHINE 4 MG/ML SYR ONE ×2 (12:33→12:35)
--- NOTE | 2021-04-06 13:33 | OP ---
Date of Procedure: 04/06/2021 Surgeon: Kirit Almeida MD, Preoperative Diagnoses: 1.Dry gangrene of the fourth toe of the right foot. 2.Plantar foot wound along the third to fourth metatarsophalangeal joint and the plantar foot. Postoperative Diagnoses: 1.Dry gangrene of the fourth toe of the right foot. 2.Plantar foot wound along the third to fourth metatarsophalangeal joint and the plantar foot. Procedures Performed: 1.Amputation of the fourth toe of the right foot to the metatarsophalangeal joint. 2.Debridement of wound of third to fourth metatarsal plantar foot wound. Anesthesia: General endotracheal plus local with 0.5% Marcaine without epinephrine. Estimated Blood Loss: Less than 2 cc. Specimen: Fourth toe of the right foot and plantar foot debridement tissue. Findings: 1.Dry gangrenous changes to the medial aspect of the fourth toe of the right foot consistent with an arterial insufficiency/diabetic foot wound. 2.Plantar foot wound consistent with a diabetic foot wound/communication with the metatarsophalangea l joint of the third and fourth web space. Complications: None. Disposition: The patient was transferred to the recovery room in good condition. Procedure In Detail: After informed consent was obtained, the patient was brought to the operating r oom, prepped and draped in the usual sterile fashion after adequate anesthesia was achieved. I bryanna cated a flap based on the medial flap of the fourth toe of the right foot as this is the only viable area without obvious necrosis and dry gangrene changes. At this point, I cut down through the tissue using a 15 blade circumferentially around the pre-drawn dissection plane. I then used a combination of sharp and blunt dissection as well as electrocautery to dissect down the metatarsophalangeal join t, the tissues at the metatarsophalangeal joint. The toe was removed at this time and sen t off for pathologic examination. The tendinous connections were pulled in the field, ligated, fulgu rated, and allowed to retract. At this point, the area was copiously irrigated and I palpated the ar ea and found communication from the metatarsophalangeal joint down to the plantar aspect of the foot wound. At this time, I then turned my attention to the plantar foot wound and made an elliptical inc ision approximately 1 cm sequentially around through subcutaneous tissues. I then used electrocauter y to dissect down into the tissue plane and found obviously infected tissue with communication of the wound to the metatarsophalangeal joint. I debrided all the necrotic tissue at this point, sent it o ff for pathologic examination as debridement tissue. The area was copiously irrigated multiple times until clear. Hemostasis was achieved with electrocautery. I then closed the toe defect with a comb ination of interrupted 2-0 nylon sutures as well as a vertical mattress suture and a sterile dressing placed over top. At this point, I packed the plantar wound with Dakin-soaked Kerlix and a sterile d ressing placed over top. The patient tolerated the procedure well without evidence of complication a nd transferred to PACU in good condition. All counts were correct at the end of the case. MACARIO/FADIA Voice ID: [id number] Report ID: [id number]
[2021-04-06] MEDS: MORPHINE 2 MG/ML SYR IV PRN ×3 (13:46→21:59)
--- NOTE | 2021-04-06 17:38 | CON ---
Date of Consultation: 04/06/2021 Reason For Consultation: Acute on chronic renal insufficiency. History Of Present Illness: Mr. Kemp is a 65-year-old male with past medical history significant fo r history of ESRD, on dialysis, underwent cadaveric kidney transplant back in 2018 at [facility]. The patient presented with 4-5 days of progressively worsening erythema, pain, and ulcer of the right fourth toe. He was noticed this about 4-5 days prior to admission, which began a s a small chronic nonhealing ulcer of his forefoot. He was in [place] to visit his family and he was wearing shoes and it got exacerbated after that. He was given oral clindamycin and some kind of crea m, but there was no improvement and hence he came back to the hospital. The patient underwent amputa tion of that toe at this time and he is doing okay. Past Medical History: Significant for history of insulin-dependent diabetes, hypertension, CKD, stat us post kidney transplant, and hyperlipidemia, ESRD, renal transplant in 2018, and AV fistula. Family History: Significant for mother with history of hypertension. Social History: No history of smoking. No history of alcohol use. Lives at home. Review of Systems: Positive for pain and swelling in the right lower extremity, but denies all other problems. All othe r review of systems are negative. Physical Examination: Vital Signs: At this time are showing temperature of 97.7, pulse rate of 81, respiratory rate of 14, and blood pressure 111/53, O2 saturation of 96% on room air. General: He appears in no acute distress. HEENT: Atraumatic head. Lungs: Auscultation of lungs revealed bilateral equal air entry. Heart: Auscultation of the heart revealed regular rate and rhythm. No JVD was noted. Abdomen: Showed right lower quadrant incision with no tenderness or guarding. Extremities: He has right foot noted to be in dressing. No swelling was noted. No erythema was not ed. Laboratory Data: At this time showing creatinine of 2, BUN of 51, sodium of 139, potassium of 4.4, a nd chloride of 111. CBC showing stable hemoglobin, hematocrit, and platelet count. Current Medications: Include atorvastatin, cefepime 2 g every 24 hours, Lexapro, famotidine, ferrous sulfate. He is on cyclosporine 300 in the morning and 200 in the evening. He is not on any ___. He is not on any steroids. He is getting normal saline at 75 cc an hour. He is on insulin per protocol and he is also getting Farxiga which has been a chronic medication. The patient i s on 5 mg of prednisone. Impression: Acute on chronic renal insufficiency with underlying renal transplant. The patient's re nal function is slightly worse than baseline. Upon review of his previous labs, his creatinine is no candie to be around 1.4 to 1.7, so this definitely seems to be over his baseline creatinine. Continue t o monitor closely. Continue gentle IV hydration. Cefepime can be continued. Culture report can be followed and adjusted as needed. His right fourth toe has already been amputated. We will follow up on the intraoperative cultures. Since the patient has amputation done on his foot, we will disconti nue the SGLT2 inhibitor, which is contraindicated with history of amputations. We can continue the c yclosporine the same and prednisone the same and monitor closely. VV/MODL Voice ID: [id number] Report ID: [id number]
[2021-04-06 20:50] VITALS: O2SAT 97
[2021-04-06] MEDS ORDERED: CEFEPIME 2 GM in NA CHLORIDE 0.9% 100 ML IV SCH (21:00)
[2021-04-06] MEDS ORDERED: ATORVASTATIN 10 MG TAB PO SCH (21:00)
[2021-04-07] MEDS: MORPHINE 2 MG/ML SYR IV PRN ×3 (02:27→15:14)
[2021-04-07 02:32] LABS: Absolute Lymphocytes (CBC) 1.3 K/uL (0.7-4.9); Basophils % 0.3 % (0-1.3); Hematocrit 33.9 % (39.6-49.0); Lymphocytes % 18.1 % (15.3-44.8); MPV 7.6 fL (7.6-11.3); RBC Red Blood Cell Count 3.69 M/uL (4.33-5.43)
[2021-04-07 02:38] LABS: Magnesium 2.3 mg/dL (1.8-2.4); Potassium 3.9 mmol/L (3.5-5.1)
--- NOTE | 2021-04-07 05:46 | P.PN ---
Date of Service: 04/07/21 Subjective: s/p amputation yesterday. Reports having moderate pain at the amputation site Requiring IV pain medication in addition to Morton Otherwise feeling well, no shortness of breath, no chest pain, no nausea/vomiting Passing flatus ROS: 10 point ROS as noted above, otherwise negative Physical exam General: Alert, In no apparent distress, Oriented x3 HEENT: Mucous membr. moist/pink, Sclerae nonicteric Respiratory: Clear to auscultation bilaterally, Normal air movement Cardiovascular: No edema, Regular rate/rhythm Gastrointestinal: Soft and benign, Non-distended, No tenderness Integumentary: surgical dressing in place: c/d/i Neurological: Normal speech, normal affect Problem list Right fourth toe ulcer, with cellulitis s/p amputation IDDM 2 CHARMAINE on CKD 3, h/o renal transplant (2018) HTN Failed outpatient therapy with p.o. clindamycin Patient given Zosyn and vancomycin in the ED, will will continue vancomycin &cefepime to minimize nephrotoxicity could possibly be discharged with augmentin/doxy, will discuss with general surgery General surgery consulted: s/p amputation on 04/06 Pain control as needed Nephrology consulted on gentle IVF overnight, with improvement of renal function Patient with palpable dorsalis pedis pulse, warm foot, arterial Doppler with monophasic waveform Will need follow-up interventional carviovascular Insulin sliding scale continue home meds VTE: lovenox Code: full Dispo: Anticipate DC home in ~1 day Time Spent Managing Pts Care (In Minutes): 35
[2021-04-07] MEDS: NA CHLORIDE 0.9% 1,000 ML IV SCH (07:21)
[2021-04-07] MEDS: INSULIN -REGULAR HUMAN 50 UNIT/0.5 ML ML SQ SCH ×3 (07:30→16:05)
[2021-04-07] MEDS ORDERED: CYCLOSPORINE 25 MG PO SCH (08:00)
[2021-04-07] MEDS ORDERED: Dapagliflozin Propanediol [Farxiga] 10 MG Tablet PO SCH (09:00)
[2021-04-07] MEDS: INSULIN GLARGINE 100 UNIT/ML SQ SCH (09:33)
[2021-04-07] MEDS: NIFEDIPINE XL 30 MG TABLET PO SCH (09:33)
[2021-04-07] MEDS: FERROUS SULFATE 325 MG TAB PO SCH (09:34)
[2021-04-07] MEDS: FAMOTIDINE 20 MG TAB PO SCH (09:34)
[2021-04-07] MEDS: ESCITALOPRAM 20 MG TAB PO SCH (09:34)
[2021-04-07] MEDS: VITAMIN D 1000 UNIT TAB PO SCH (09:34)
[2021-04-07] MEDS: predniSONE 5 MG TAB PO SCH (09:34)
[2021-04-07] MEDS: ENOXAPARIN 40 MG/0.4 ML SQ SCH (10:54)
--- NOTE | 2021-04-07 12:03 | PN ---
Date of Progress Note: 04/07/2021 Subjective: The patient was seen and examined at bedside. He is doing much better. Physical Examination: Vital Signs: Have been reviewed and are stable. General: He appears in no acute distress. Lungs: Clear. Abdomen: Soft. Heart: Auscultation of the heart revealed regular rate and rhythm. Extremities: Right foot was noted to be in dressing. Current Medications: Have been reviewed. Laboratory Data: Showing creatinine improving to 1.8. CBC showing stable hemoglobin, hematocrit, an d platelet count. Impression: 1.Osteomyelitis and possible cellulitis of the foot. The patient had a right fourth toe amputation. 2.Diabetes mellitus. 3.History of acute kidney injury on chronic kidney disease secondary to renal transplant. 4.Hypertension. Plan: The patient is overall doing better. He is okay to be discharged off the Jardiance. Resume c yclosporine and prednisone. Continue to follow up with Wound Care and surgeon to follow up on the wo und. He is okay to be discharged from Nephrology standpoint. KEYLA/FADIA Voice ID: [id number] Report ID: [id number]
[2021-04-07] MEDS: HYDROCODONE/APAP 5/325 MG TAB PO PRN (12:34)
[2021-04-07 16:07] VITALS: BP 145/65; TEMP 97.6
--- NOTE | 2021-04-07 19:47 | P.DS ---
Admission Date: 04/05/21 Discharge Date: 04/07/21 Disposition: ROUTINE DISCHARGE Discharge Condition: GOOD Reason for Admission: Right toe ulcer, cellulitis, ? Osteomyelitis Consultations: Nephrology - Dr. Bolanos General Surgery - Dr. Almeida Procedures: Foot x-ray (04/05): IMPRESSION: No acute osseous abnormality involving the right foot. Venous Doppler (04/05): IMPRESSION: No DVT in the right lower extremity. Arterial Doppler (04/05): IMPRESSION: Mild arterial disease involving the proximal right leg Chronic calcifications right popliteal artery without significant stenosis Moderate arterial disease involving the distal right leg MRI Foot (04/05): FINDINGS: No abnormal marrow signal is identified to suggest osteomyelitis. No abscess is seen. No acute fractures or malalignment is identified involving the right foot. No significant focal degenerative changes are identified. IMPRESSION: No evidence of osteomyelitis. Amputation of 4th toe of R foot. Debridement of 3rd-4th metatarsal plantar foot wound (04/06) by Dr. Almeida Problem list Dry gangrene of Right 4th toe, s/p amputation nonhealing Right 3rd-4th metatarsal plantar foot wound IDDM 2 CHARMAINE on CKD 3, h/o renal transplant (2018), resolved HTN Brief History of Present Illness: 65-year-old male, PMH: IDDM 2, HTN, HLD, CKD s/p renal transplant (2018). Presents to ED with 4-5 days of progressively worsening erythema, pain, ulcer of his right fourth toe. Patient first noticed this 4-5 days ago. He has had a small chronic healing ulcer of his forefoot but this is in a different area. He denies any fever/chills. He was in [place] at the time and was prescribed clindamycin as well as a cream (does not know what cream). He has taken clindamycin for the last 3 days with no improvement. He presented to PCPs office today and was recommended to come to the ER for further management. He also reports over the last week his blood pressure has been more difficult to control and his blood glucose levels have been higher than normal. In the ED, x-ray was without any signs of osteomyelitis, venous Doppler negative for DVT, arterial Doppler noted moderate arterial disease in the distal right lower extremity. Hospital Course: MRI was negative for osteomyelitis. General surgery was consulted, recommended 4th toe amputation and debridement of chronic non-healing plantar wound. Patient underwent these procedures on 04/06 without complication. Post-operative course was uncomplicated. Patient was requiring pain medication. He was cleared for discharge by general surgery, to continue wet-to-dry dressings on the debrided plantar wound and maintain non-weightbearing on his right foot. Source control was achieved and general surgery recommended no antibiotics needed. Follow up with Dr. Almeida in 2 weeks. He was noted to have monophasic waveform on arterial dopper, +DP pulse. Recommended to follow up with Dr. Chan regarding possible intervention of his RLE arterial blood flow. Vital Signs/Physical Exam: Physical exam General: Alert, In no apparent distress, Oriented x3 HEENT: Mucous membr. moist/pink, Sclerae nonicteric Respiratory: Clear to auscultation bilaterally, Normal air movement Cardiovascular: No edema, Regular rate/rhythm Gastrointestinal: Soft and benign, Non-distended, No tenderness Integumentary: 4th toe amputation site, no evidence of infection. plantar wound debridement: ~1cm deep, no purulent drainage, clean edges, no bleeding Neurological: Normal speech, normal affect Temp Pulse Resp BP Pulse Ox 97.6 F 98 H 16 145/65 H 95 04/07/21 16:00 04/07/21 16:00 04/07/21 16:00 04/07/21 16:00 04/07/21 16:00 Laboratory Data at Discharge: WBC 7.20 K/uL (4.3-10.9) D 04/07/21 02:00 Hgb 11.4 g/dL (13.6-17.9) L 04/07/21 02:00 Hct 33.9 % (39.6-49.0) L 04/07/21 02:00 Plt Count 175 K/uL (152-406) 04/07/21 02:00 PT 12.2 SECONDS (9.5-12.5) 04/05/21 13:02 INR 1.06 04/05/21 13:02 APTT 27.0 SECONDS (24.3-36.9) 04/05/21 13:02 Sodium 142 mmol/L (136-145) 04/07/21 02:00 Potassium 3.9 mmol/L (3.5-5.1) 04/07/21 02:00 BUN 38 mg/dL (7-18) H 04/07/21 02:00 Creatinine 1.80 mg/dL (0.55-1.3) H 04/07/21 02:00 Glucose 128 mg/dL (74-106) H 04/07/21 02:00 Magnesium 2.3 mg/dL (1.8-2.4) 04/07/21 02:00 Total Bilirubin 0.5 mg/dL (0.2-1.0) 04/06/21 03:30 AST 17 U/L (15-37) 04/06/21 03:30 ALT 34 U/L (12-78) 04/06/21 03:30 Alkaline Phosphatase 172 U/L (45-117) H 04/06/21 03:30 Home Medications: Cholecalciferol (Vitamin D3) [Vitamin D3] 1 cap PO DAILY 05/10/20 Escitalopram Oxalate [Lexapro] 2 tab PO DAILY 05/10/20 Famotidine [Pepcid] 1 tab PO BID 05/10/20 Ferrous Sulfate 1 tab PO DAILY 05/10/20 Insulin Glargine,Hum.rec.anlog [Lantus Solostar] 12 units SQ BREAKFAST 05/10/20 Insulin Lispro [Humalog Kwikpen U-100] 4 units SQ TID 05/10/20 Pravastatin Sodium 1 tab PO BEDTIME 05/10/20 Sennosides [Senokot] 1 tab PO BID PRN 05/10/20 Tadalafil [Cialis] 1 tab PO SEECOM 05/10/20 cycloSPORINE [Sandimmune] 3 tab PO DIRECTED 05/10/20 predniSONE [Prednisone] 5 mg PO DAILY 05/10/20 NIFEdipine [Nifedipine ER] 1 tab PO BEDTIME 04/05/21 NIFEdipine [Nifedipine ER] 2 tab PO DIRECTED 04/05/21 cycloSPORINE [Sandimmune] 2 cap PO DAILY AFTER SUPPER 04/05/21 Physician Discharge Instructions: PROBLEM: Toe amputation GOAL: Clear understanding of disease process INSTRUCTIONS: Ok to discharge home Follow up with Dr. Wade in 1-2 weeks Follow up with Dr. Almeida in [address] Almeida will send pain medication to pharmacy Contact physician or return to ER for any complications or concerns Call [phone] for any questions regarding hospital stay Diet: Diabetic Activity: Non-weight bearing Wound care: RIGHT foot, remove plantar foot wound dressings, irrigate with sterile saline, then repack with 0.25% dakins soaked kerlix damp to dry, then wrap, elevate daily IMMUNIZATION Influenza Vaccine Indicated: No Influenza Vaccine Given: Date Given: Pneumonia Vaccine Indicated: No Pneumonia Vaccine Given: Date Given: Activity: Non-weight bearing (RIGHT foot) Followup: Bishop Wade MD [Primary Care Provider] - 1-2 Weeks Kirit Almeida MD [ACTIVE - CAN ADMIT] - 1-2 Weeks Time spent managing pt's care (in minutes): 45
== END 2021-04-07 17:00 | disposition home or self-care (01) | DRG 256 ==
LOC: ER 12:05 → ERHOLD 16:06 → 2ND 20:13
PROVIDERS: ADMIT Hospitalist; ATTEND Hospitalist
PROC: 0Y6V0Z0 Detachment at Right 4th Toe, Complete, Open Approach (ICD-10-PCS; 2021-04-06)
PROC: 0JBQ0ZZ Excision of Right Foot Subcutaneous Tissue and Fascia, Open Approach (ICD-10-PCS; principal; 2021-04-06 11:00)
DX: E11.52 Type 2 diabetes mellitus with diabetic peripheral angiopathy with gangrene (principal); L03.115 Cellulitis of right lower limb; Z94.0 Kidney transplant status; N17.9 Acute kidney failure, unspecified; E78.5 Hyperlipidemia, unspecified; I12.9 Hypertensive chronic kidney disease with stage 1 through stage 4 chronic kidney disease, or unspecified chronic kidney disease; N18.30 Chronic kidney disease, stage 3 unspecified; E11.22 Type 2 diabetes mellitus with diabetic chronic kidney disease; E11.621 Type 2 diabetes mellitus with foot ulcer; L97.519 Non-pressure chronic ulcer of other part of right foot with unspecified severity; N28.9 Disorder of kidney and ureter, unspecified; F17.220 Nicotine dependence, chewing tobacco, uncomplicated; Z79.52 Long term (current) use of systemic steroids; Z79.4 Long term (current) use of insulin; Z79.899 Other long term (current) drug therapy; Z99.2 Dependence on renal dialysis; Z20.822 Contact with and (suspected) exposure to COVID-19
CPT/HCPCS: 36415; 80048; 80053; 80076; 80202; 82947; 83605; 83735; 84145; 85025; 85610; 85652; 85730; 86140; 87040; 87070; 87077; 87186; 87205; 88304; 88305; 88311; 93005; 93926; 93971; 96374; 96375; 99284; J0692; J1650; J2270; J2543; J2704; J3010; J3370; J7030; J7040; J7050; J7512; U0003

== ENCOUNTER 2021-05-16 07:14 | Day surgery (SDC) | payer OTHER ==
[2021-05-12 15:12] LABS: Absolute Lymphocytes (CBC) 2.2 K/uL (0.7-4.9); Hematocrit 33.8 % (39.6-49.0); Lymphocytes % 26.8 % (15.3-44.8); MPV 7.3 fL (7.6-11.3); RBC Red Blood Cell Count 3.69 M/uL (4.33-5.43)
[2021-05-12 15:23] LABS: Potassium 5.3 mmol/L (3.5-5.1)
[2021-05-16] MEDS ORDERED: NA CHLORIDE 0.9% 1,000 ML ONE (07:33)
[2021-05-16] MEDS ORDERED: CEFAZOLIN/SWI 2gm 2 GM/20 ML SYR ONE (07:34)
[2021-05-16] MEDS ORDERED: FENTANYL CITR 100 MCG/2 ML ONE (08:08)
[2021-05-16] MEDS ORDERED: propofoL 200 MG/20 ML VIAL IV ONE (08:08)
[2021-05-16] MEDS ORDERED: MIDAZOLAM HCL 2 MG/2 ML INJ ONE (08:09)
[2021-05-16] MEDS ORDERED: ONDANSETRON 4 MG/2 ML VIAL ONE (08:10)
[2021-05-16] MEDS ORDERED: LIDOCAINE 1% MPF 5 ML VIAL ONE (08:12)
[2021-05-16] MEDS ORDERED: BUPIVACAINE 0.25% PF 10 ML VIAL ONE (08:13)
[2021-05-16] MEDS ORDERED: GLYCOPYRROLATE 0.2 MG/ML SYR ONE (08:51)
[2021-05-16] MEDS ORDERED: SODIUM HYPOCHLORITE 0.25% 473 ML ONE (09:27)
--- NOTE | 2021-05-16 09:38 | P.OP ---
Preoperative diagnosis: RIGHT foot 3rd toe osteomyelitis, Peripheral Arterial Disease Postoperative diagnosis: RIGHT foot 3rd toe osteomyelitis, Peripheral Arterial Disease Primary procedure: Amputation of 3rd Toe Secondary procedure: Debridement of RIGHT foot Anesthesia: GETA + Local Estimated blood loss: <10 cc Specimen: 3rd Toe RIGHT foot, debridement tissue Findings: peripheral arterial disease Complications: None Transferred to: Recovery Room Condition: Good
[2021-05-16] MEDS: FENTANYL CITR 100 MCG/2 ML ONE ×4 (10:07→10:30)
[2021-05-16 10:58] VITALS: O2SAT 100
--- NOTE | 2021-05-16 11:07 | OP ---
Date of Procedure: 05/16/2021 Surgeon: Kirit Almeida MD, Preoperative Diagnosis: Right foot third toe osteomyelitis and severe peripheral arterial disease. Postoperative Diagnosis: Right foot third toe osteomyelitis and severe peripheral arterial disease. Procedure Performed: Amputation of the third toe of the right foot to metatarsophalangeal joint. Ad ditional procedure was debridement of right foot necrotic tissue. Findings: Peripheral arterial disease. Complications: None. Disposition: The patient was transferred to recovery room in good condition. Procedure In Detail: After informed consent was obtained, the patient was brought to the operating r oom, prepped and draped in the usual sterile fashion. After adequate anesthesia achieved, I made a c urvilinear incision down through subcutaneous tissues in the previous amputation site, which was the fourth toe to expose necrotic tissue. This was evident for peripheral arterial disease. I circumfer entially dissected and debrided all this necrotic tissue. It, however, extended medially based on MR I findings and I was able to track this to the metatarsophalangeal joint at the third toe. Because o f the significant infection and necrosis evident in this area, I felt that the toe was nonviable. As such, I opted to remove the third toe and perform an amputation of the metatarsophalangeal joint. I then demarcated the area based on a dorsal flap down to subcutaneous tissues with a 15 blade. I the n circumferentially dissected down and removed all the tendinous attachments to the metatarsophalange al joint, pulled them down and then removed them. I then removed the toe at the metatarsophalangeal joint and sent off for pathologic examination. All necrotic tissue was debrided at this point. I ac hieved hemostasis at the skin level with electrocautery. There was oozing at the deep tissue plane a t this point indicating a perfusion in this area; however, it was not as robust as I would like that appeared to present and perfusion appeared to be adequate at this time. As such, I performed a pulse lavage irrigation of the wound thoroughly and inspected the area of hemostasis, which was achieved a t this point. I then imbricated the tissue over the top of the amputation site on the third toe ambrocio leigh a U-stitch of 2-0 nylon suture with good apposition tissues. The wound was then packed with 0.25% Dakin solution and a sterile dressing placed on top. The patient tolerated the procedure well withou t evidence of complication and transferred to PACU in good condition. All counts were correct at the end of the case. MACARIO/FADIA Voice ID: [id number] Report ID: [id number]
[2021-05-16] MEDS ORDERED: HYDROCODONE/APAP 10/325 TAB ONE (11:30)
[2021-05-16 11:37] VITALS: TEMP 97.3
[2021-05-16 12:56] VITALS: BP 139/85
[2021-05-16] MEDS ORDERED: SOD POLYSTYREN SUL 15 GM/60 ML UCUP PO ONE (13:00)
--- NOTE | 2021-05-16 13:46 | CON ---
Date of Consultation: 05/16/2021 Reason For Consultation: Rhythm abnormality. History Of Present Illness: This is a 65-year-old male with history of diabetes, hypertension, came in for a foot wound debridement after surgery and during surgery. While under anesthesia, had some p auses that raised concern, so I was asked to see and evaluate the patient. I saw him postoperatively . He was completely asymptomatic, does not have any history of dizziness or known coronary artery di sease or chest pain or any shortness of breath. However, he does have what appears to be sinus arrhy thmia with very short pauses, completely asymptomatic. Past Medical History: As outlined above. Medications: Refer to reconciliation sheet for detailed sheet. Allergies: NO KNOWN DRUG ALLERGIES. Family History: No premature coronary artery disease or cancer. Social History: Does not smoke or drink. Does not use any drugs. Review of Systems: All systems reviewed and they were negative except for what mentioned in HPI. Physical Examination: Vital Signs: Reviewed. Head and Neck: Pupils are equal, reactive to light. Intact eye movements. No JVD. No cervical lym phadenopathy. Neck is supple. Thyroid is not enlarged. Lungs: Clear to auscultation bilaterally. No rhonchi, rales, or crackles. No accessory muscle use. Heart: Irregular. No extra sounds. Abdomen: Soft, nontender. Bowel sounds positive. No organomegaly. No masses or hernia. No rigidi ty or rebound. Extremities: No edema, clubbing, or cyanosis. Intact pulses. Skin: No rash. Neurologic: Alert, awake, and oriented x3. No acute focal deficits appreciated. Investigations: Labs were reviewed. Assessment And Recommendations: Sinus arrhythmia. On the EKG, it seems like PACs with compensation. There are no pauses that are longer than 3 seconds and the patient is asymptomatic at this point. Potassium was slightly elevated at 5.3. Recommended to give 1 dose of Kayexalate. The patient is kn own to have end-stage renal disease, status post kidney transplant and we will evaluate the patient o n outpatient arena. We will schedule him to have a stress test and echo and 1-week Holter monitor an d further plan accordingly. Thank you for the consult. /FADIA Voice ID: [id number] Report ID: [id number]
--- NOTE | 2021-05-17 17:42 | EKG ---
Test Date: 2021-05-16 Test Time: 11:12:22 Mold Closer: KENNETH MEASUREMENT RESULTS: Intervals: Rate: 55 GA: 184 QRSD: 76 QT: 426 QTc: 407 [place]: P: 36 GA: 184 QRS: 33 T: 34 INTERPRETIVE STATEMENTS: Sinus bradycardia with marked sinus arrhythmia Otherwise normal ECG Compared to ECG 04/06/2021 23:39:10 Sinus rhythm no longer present Atrial premature complex(es) no longer present Electronically Signed On 05-17-21 17:41:37 [employer]ER by Giovanny Whalen
== END 2021-05-16 12:58 | disposition home or self-care (01) ==
LOC: OR 07:14
PROVIDERS: ATTEND Surgery
PROC: 0Y6T0Z0 Detachment at Right 3rd Toe, Complete, Open Approach (ICD-10-PCS; principal; 2021-05-16 08:30)
DX: M86.9 Osteomyelitis, unspecified (principal); I73.9 Peripheral vascular disease, unspecified; Z20.822 Contact with and (suspected) exposure to COVID-19
CPT/HCPCS: 93005; 85025; 80048; 36415; 82947; 88304; 28820; U0003; J2704; J2250; J3010 ×2; J0690; J7030; J2405

== ENCOUNTER 2021-06-15 07:37 | Day surgery (SDC) | payer OTHER ==
[2021-06-14 11:19] LABS: Potassium 4.5 mmol/L (3.5-5.1)
[2021-06-15] MEDS ORDERED: CEFAZOLIN SODIUM 1 GM/VIAL ONE (07:47)
[2021-06-15] MEDS ORDERED: NA CHLORIDE 0.9% 50 ML ONE (07:47)
[2021-06-15] MEDS ORDERED: NA CHLORIDE 0.9% 500 ML ONE (07:47)
[2021-06-15] MEDS ORDERED: BUPIVACAINE 0.25% PF 10 ML VIAL ONE ×2 (08:47→09:44)
[2021-06-15] MEDS ORDERED: propofoL 200 MG/20 ML VIAL IV ONE (08:50)
[2021-06-15] MEDS ORDERED: ONDANSETRON 4 MG/2 ML VIAL ONE (08:51)
[2021-06-15] MEDS ORDERED: FENTANYL CITR 100 MCG/2 ML ONE ×2 (08:51→10:41)
[2021-06-15] MEDS ORDERED: MIDAZOLAM HCL 2 MG/2 ML INJ ONE (08:51)
[2021-06-15] MEDS ORDERED: LIDOCAINE 2% MPF 5 ML VIAL ONE (08:51)
[2021-06-15] MEDS ORDERED: BUPIVACAINE 0.5% PF 10 ML VIAL ONE (09:44)
[2021-06-15] MEDS ORDERED: dexAMETHasone 4 MG/ML VIAL ONE (09:44)
[2021-06-15] MEDS ORDERED: SODIUM HYPOCHLORITE 0.25% 473 ML ONE ×2 (09:51→09:52)
--- NOTE | 2021-06-15 09:56 | P.OP ---
Preoperative diagnosis: RIGHT foot infection with osteomeylitis Postoperative diagnosis: RIGHT foot infection with osteomeylitis Primary procedure: RIGHT Partial Transmetatarsal amputation of 3rd/4th Metatarsals Secondary procedure: Debridement of Necrotic tissue Anesthesia: GETA + Local Estimated blood loss: <5cc Specimen: metatarsal heads of 3rd/4th, debridement tissue Findings: necrosis and exposed metatarsal heads Complications: None Transferred to: Recovery Room Condition: Good
[2021-06-15] MEDS ORDERED: HYDROCODONE/APAP 10/325 TAB ONE (11:17)
[2021-06-15 11:56] VITALS: BP 167/55; TEMP 97.4; O2SAT 100
--- NOTE | 2021-06-15 21:14 | OP ---
Date of Procedure: 06/15/2021 Surgeon: Kirit Almeida MD, Preoperative Diagnosis: Right foot infection with osteomyelitis. Postoperative Diagnosis: Right foot infection with osteomyelitis. Procedure Performed: Right partial transmetatarsal amputation of third and fourth metatarsals. Seco ndary procedure was debridement of necrotic tissue of the right foot. Anesthesia: General endotracheal plus local with 0.25% Marcaine. Estimated Blood Loss: Less than 5 cc. Specimen: Right foot third and fourth metatarsal heads and debridement tissue. Findings: Necrosis and exposure of the metatarsal heads. Complications: None. Disposition: The patient transferred to recovery room in good condition. Procedure In Detail: After informed consent was obtained, the patient was brought to the operating r oom, prepped and draped in the usual sterile fashion after adequate anesthesia was achieved. I debri ded the necrotic tissue around the rim of an open wound of the third and fourth metatarsal of the rig ht foot. After all necrotic tissue was debrided using a combination of sharp dissection and electroc autery, it was sent off for pathologic specimen. I then examined the metatarsal heads of the third a nd fourth metatarsals. These were found to have ischemic changes and possible osteomyelitis and as s [facility], I opted to bring the bone saw up. I cleared the tissue and the periosteum from the metatarsal h ingris on the third and fourth metatarsals. I then used a bone saw to cut through these and sent these off for pathologic examination. I then used a rasp to smooth out and double the edges of the tissue . Electrocautery was used to achieve hemostasis as well as interrupted 2-0 Vicryl sutures for perfor ating vessels at the distal aspect. The wound was then copiously irrigated and had good perfusion at the end of the procedure. I then packed the wound with Dakin soaked Kerlix and a sterile dressing p laced over top. The patient tolerated the procedure well without evidence of complication and transf erred to PACU in good condition. All counts were correct at the end of the case. TK/MODL Voice ID: [id number] Report ID: [id number]
== END 2021-06-15 11:40 | disposition home or self-care (01) ==
LOC: OR 07:37
PROVIDERS: ATTEND Surgery
PROC: 0Y6M0ZD Detachment at Right Foot, Partial 4th Ray, Open Approach (ICD-10-PCS; 2021-06-15)
PROC: 0QBN0ZZ Excision of Right Metatarsal, Open Approach (ICD-10-PCS; 2021-06-15)
PROC: 0Y6M0ZC Detachment at Right Foot, Partial 3rd Ray, Open Approach (ICD-10-PCS; principal; 2021-06-15 08:45)
DX: M86.9 Osteomyelitis, unspecified (principal); Z20.822 Contact with and (suspected) exposure to COVID-19
CPT/HCPCS: 28805; 11044; 80048; 36415; 82947; 88304; 88311; U0003; J2704; J1100; J2250; J3010 ×2; J7040; J2405; J0690

== ENCOUNTER 2021-07-22 11:16 | Day surgery (SDC) | payer OTHER ==
[2021-07-20 14:47] LABS: Hematocrit 26.2 % (39.6-49.0); Lymphocytes % 13.1 % (15.3-44.8); MPV 7.4 fL (7.6-11.3); RBC Red Blood Cell Count 2.75 M/uL (4.33-5.43)
[2021-07-20 15:00] LABS: Potassium 5.3 mmol/L (3.5-5.1)
[2021-07-22] MEDS ORDERED: CEFAZOLIN/SWI 2gm 2 GM/20 ML SYR ONE (11:40)
[2021-07-22] MEDS ORDERED: NA CHLORIDE 0.9% 500 ML ONE (11:52)
[2021-07-22] MEDS ORDERED: LIDOCAINE 2% MPF 5 ML VIAL ONE (16:15)
[2021-07-22] MEDS ORDERED: propofoL 200 MG/20 ML VIAL IV ONE (16:15)
[2021-07-22] MEDS ORDERED: FENTANYL CITR 100 MCG/2 ML ONE (16:17)
[2021-07-22] MEDS ORDERED: BUPIVACAINE 0.25% PF 10 ML VIAL ONE (16:30)
[2021-07-22] MEDS ORDERED: ONDANSETRON 4 MG/2 ML VIAL ONE (16:56)
[2021-07-22] MEDS ORDERED: dexAMETHasone 10 MG/ML VIAL ONE (16:56)
[2021-07-22] MEDS ORDERED: SODIUM HYPOCHLORITE 0.25% 473 ML ONE (17:08)
--- NOTE | 2021-07-22 17:13 | P.OP ---
Preoperative diagnosis: 2nd toe infection / osteomyelitis Postoperative diagnosis: 2nd toe infection / osteomyelitis Primary procedure: Amputation of 2nd phalanx and head of metatarsal Secondary procedure: debridment of foot wound Anesthesia: GETA + Local Estimated blood loss: <10cc Specimen: toe and debridement tissue Findings: ischemia, infection of 2nd toe, osteoporotc bone including mt head Complications: None Transferred to: Recovery Room Condition: Good
[2021-07-22 18:09] VITALS: BP 150/60; TEMP 99.4
[2021-07-22] MEDS ORDERED: HYDROCODONE/APAP 5/325 MG TAB ONE (18:26)
[2021-07-22 18:46] VITALS: O2SAT 95
--- NOTE | 2021-07-22 22:38 | OP ---
Date of Procedure: 07/22/2021 Surgeon: Kirit Almeida MD, Preoperative Diagnosis: Second toe infection/osteomyelitis. Postoperative Diagnosis: Second toe infection/osteomyelitis. Procedures: 1.Amputation of the second phalanx up to and including the metatarsal head. 2.Debridement of residual foot wound along the third and fourth digits. Anesthesia: General endotracheal plus local with 0.25% Marcaine. Estimated Blood Loss: Less than 10 cc. Specimen: Debridement tissue and second toe. Findings: Ischemia and infection of second toe, osteoporotic bone including the metatarsal head. Complications: None. Disposition: The patient was transferred to recovery room in good condition. Procedure In Detail: After informed consent was obtained, the patient was brought to the operating r oom and prepped and draped in the usual sterile fashion. After adequate anesthesia was achieved , I made a dorsal flap type incision over the second phalanx down to the metatarsophalangeal joint. I us ed electrocautery to dissect circumferentially and removed the toe up to the metatarsophalangeal join t, however, the metatarsal head was noted to be quite osteoporotic and necrotic and as such I removed this using a bone cutter. I then smoothed the edges using a rasp and smoothed the edges. At this p oint, hemostasis was achieved with electrocautery. The area was copiously irrigated multiple times u ntil completely clear. I then debrided the residual wound including the third and fourth metatarsal wounds with a curette down to good bleeding tissue. I then irrigated the area once again and cleanse d it. Hemostasis was achieved with electrocautery. The wound was then packed with sterile dressing on top and it was then wrapped and elevated. The patient tolerated the procedure without evidence of any complication and transferred to PACU in good condition. All counts were correct at the end of t he case. TK/MODL Voice ID: [id number] Report ID: [id number]
== END 2021-07-22 18:38 | disposition home or self-care (01) ==
LOC: OR 11:16
PROVIDERS: ATTEND Surgery
PROC: 0JDQ0ZZ Extraction of Right Foot Subcutaneous Tissue and Fascia, Open Approach (ICD-10-PCS; 2021-07-22)
PROC: 0Y6R0Z0 Detachment at Right 2nd Toe, Complete, Open Approach (ICD-10-PCS; principal; 2021-07-22 15:45)
DX: M86.171 Other acute osteomyelitis, right ankle and foot (principal); S91.104A Unspecified open wound of right lesser toe(s) without damage to nail, initial encounter; M81.0 Age-related osteoporosis without current pathological fracture; L08.9 Local infection of the skin and subcutaneous tissue, unspecified; Z20.822 Contact with and (suspected) exposure to COVID-19
CPT/HCPCS: 28810; 11042; 85025; 80048; 36415; 88305; 88311; U0003; J2704; J3010; J1100; J0690; J7040; J2405

== ENCOUNTER 2022-06-22 23:10 | Emergency (ER) | payer OTHER ==
--- OUTSIDE RECORDS SUMMARY | 2022-06-22 23:16 | XMS REPORT | Continuity of Care Document ---
:1955 Author Organization [facility] t Address [address] [place] [address] Care Team Providers Name Role Phone Romy MORTENSEN, Bishop Primary Care Physician [phone] KAYE FRANCES Attending Clinician Unavailable MOISES AUSTIN Attending Clinician Unavailable SHERRILL STEIN Attending Clinician Unavailable SAMEER NIELSEN Attending Clinician Unavailable VIOLETA LARKIN Attending Clinician Unavailable Violeta Larkin MD Attending Clinician Doctor Unassigned, Fernando Salinas Attending Clinician Unavailable JOSE TAVERAS Attending Clinician Unavailable Jose Taveras MD Attending Clinician Sameer Nielsen MD Attending Clinician HORTENSIA MOSQUEDA Attending Clinician Unavailable Kiana Hough RN Attending Clinician Unavailable Juan Daniel MORTENSEN, Kaye Attending Clinician Tawanna Valerio MA Attending Clinician Unavailable SHERRILL STEIN M.D. Attending Clinician Unavailable ORGANTRANSPLANT, OP Attending Clinician Unavailable MAREN POOL M.D. Attending Clinician Unavailable NARGIS MARAVILLA Attending Clinician Unavailable MOISES AUSTIN M.D. Attending Clinician Unavailable CHITO FOY Attending Clinician Unavailable KATHARINA CERVANTES M.D. Attending Clinician Unavailable ANTHONY COLUNGA Attending Clinician Unavailable KULWINDER PAYNE Attending Clinician Unavailable SIDRA FARAH Attending Clinician Unavailable FABIÁN CHINO Attending Clinician Unavailable JAY PALACIO Attending Clinician Unavailable SUMAYA GILMORE M.D. Attending Clinician Unavailable Eduardo Canchola MD Attending Clinician [facility] Attending Clinician Unavailable EDUARDO CANCHOLA Attending Clinician Unavailable MICHELLE HINKLE M.D. Attending Clinician Unavailable VIOLETA LARKIN Admitting Clinician Unavailable TANVIR FIELDS Admitting Clinician Unavailable NARGIS MARAVILLA Admitting Clinician Unavailable FRANK INIGUEZ Admitting Clinician Unavailable VAN WALKER Admitting Clinician Unavailable Payers Payer Name Policy Type Policy Number Effective Date Expiration Date S [place] WELLCARE/WELLCARE [id number] 2020 2024 [facility] 00:[facility]:00 00:00:00 cube19 [id number] 2021spring 00:00:00 Problems Condition Condition Condition Status Onset Resolution Last Treating Co mments Source Name Details Category Date Date Treatment Clinician Date 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 4-04 He alth on on 00:00: 00 Abnormal Abnormal Disease Active UT finding of finding of 04 He alth blood blood 00:00: chemistry, chemistry, 00 unspecifie unspecifie d d 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 011 Health disease disease 00:00: 00 Erectile Erectile [...] Hypertensi Disease Active U T ve ve 12-10 Health nephroscle nephroscle 00:00: rosis rosis 00 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 12-10 Health 00:00: 00 Acute Acute Disease Active UT respirator respirator 12-10 He alth y failure y failure 00:00: with with 00 hypoxia hypoxia Prostate Prostate Disease Active UT cancer cancer 6-10 Health screening screening 00:00: 00 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 5-27 He alth 00:00: 00 HTN HTN Disease Active UT (hypertens (hypertens 5-27 He alth ion), ion), 00:00: benign benign 00 Foreign Foreign Disease Active UT body body 527 Health tract tract 00:00: 00 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 00:00: 00 Benign Benign Disease Active UT prostatic prostatic 527 Heal th hyperplasi hyperplasi 00:00: a a 00 Rash Rash Disease Active UT 5-12 Health 00:00: 00 Dizzy Dizzy Disease Active Univers 4-30 ity of 00:00: [place] 00 Medical Branch Orthostati Orthostati Disease Active U nivers c c 4-30 ity of [place] [facility] Exposure Exposure Disease Active Unive rs to to 4-30 ity of SARS-assoc SARS-assoc [place] Medical coronaviru coronaviru Br anch s s Chills Chills Disease Active Univers 4-30 ity of 00:00: [place] 00 Medical Branch Suspected Suspected Disease Active Uni vers COVID-19 COVID-19 4-30 ity of virus virus 00:00: [place] infection infection [facility] Branch Fever, Fever, Disease Active Univers unspecifie unspecifie 430 it y of d fever d fever 00:00: [place] cause cause Medical Branch Diarrhea, Diarrhea, Disease Active Uni vers unspecifie unspecifie 30 it y of d type d type 00:00: Medical Branch Mild Mild Disease Active Univers dehydratio dehydratio 08-13 it y of n n 00:00: Medical Branch 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 06-13 Health dialysis dialysis 00:00: fistula fistula 00 Other Other Disease Active UT hyperlipid hyperlipid 05-16 He alth emia emia 00:00: 00 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 07-10 Health 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 00 Nonspecifi Nonspecifi Disease Active U T c reaction c reaction 09-15 He alth to to 00:00: tuberculin tuberculin 00 skin test skin test without without active active tuberculos tuberculos is 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 Health 00:00: 00 History of History of Problem Resolve UT essential essential d Phys ici hypertensi hypertensi an s on on History of History of Problem Resolve UT Postoperat Postoperat d Ph ysici cornell cornell ans examinatio examinatio n n 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 U T ous ous Physici fistula fistula ans stenosis stenosis Diabetes Diabetes Problem Active UT mellitus mellitus Physic i ans Other Other Problem Active UT hyperlipid hyperlipid Ph ysici emia emia ans End stage End stage Problem Active UT renal renal Physici disease disease ans Complicati Complicati Problem Active U T on of AV on of AV Physic i dialysis dialysis ans fistula fistula Rash Rash Problem Active UT Physici ans Benign Benign Problem Active UT prostatic prostatic Phys ici hyperplasi hyperplasi an s a (BPH) a (BPH) with with urinary urinary urgency urgency Urinary Urinary Problem Active UT frequency frequency Phys ici ans Voiding Voiding Problem Active UT dysfunctio dysfunctio Ph ysici n n ans Device Device Problem Active UT fitting or fitting or Ph ysici adjustment adjustment an s Diabetic Diabetic Problem Active UT neuropathy neuropathy Ph ysici ans Foreign Foreign Problem Active UT body body Physici tract tract ans Kidney Kidney Problem Active UT transplant transplant Ph ysici status status ans Hypertensi Hypertensi Problem Active U T ve ve Physici nephroscle nephroscle an s rosis rosis Essential Essential Problem Active UT hypertensi hypertensi Ph ysici on on ans Erectile Erectile Problem Active UT dysfunctio dysfunctio Ph ysici n n ans BPH BPH Problem Active UT (benign (benign Physici prostatic prostatic ans hyperplasi hyperplasi a) a) Prostate Prostate Problem Active UT cancer cancer Physici screening screening ans COVID-19 COVID-19 Problem Active UT virus virus Physici infection infection ans 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 Physici ans Acute Acute Problem Active UT respirator respirator Ph ysici y failure y failure ans with with hypoxia hypoxia Abnormal Abnormal Problem Active UT finding of finding of Ph ysici blood blood ans chemistry, chemistry, unspecifie unspecifie d d Testicular Testicular Problem Active U T hypofuncti hypofuncti Ph ysici on on ans Allergies, Adverse Reactions, Alerts Allergy Allergy Status Severity Reaction(s) Onset Inactive Treating Comm ents Source Name Type Date Date Clinician NO KNOWN Drug Active Univers ALLERGIE Class ity of S [facility] Family History Family Member Diagnosis Comments Start Date Stop Date Source Unknown Family Family history of Family History [facility] Physicians Member Lung Cancer Social History Social Habit Start Date Stop Date Quantity Comments Source Tobacco use and 2020-10-28 2020-10-28 Smokeless tobacco [facility] exposure 00:00:00 00:00:00 non-user Sex Ass[birth year] [facility] 00:00:00 00:00:00 Smoking Status Start Date Stop Date Source Tobacco smoking [facility] consumption unknown Ex-smoker 2020-10-28 00:00:00 2020-10-28 [facility] 00:00:00 Never smoked tobacco [facility] Medications Ordered Filled Start Stop Current Ordering Indication Dosage Frequency Signature Comments Components Source Medication Medication Date Date Medication? Clinician (SIG) Name Name metoprolol 2021-0 Yes 50mg QD Take 50 [...] times a 24 hr day. tablet NIFEdipine 1-0 Yes 30mg Q.5D Take 30 mg U T XL 3-24 by mouth 2 Health (Procardia 00:00: (two) XL) 30 MG 00 times a 24 hr day. tablet NIFEdipine 1-0 Yes 30mg Q.5D Take 30 mg U T XL 3-24 by mouth 2 Health (Procardia 00:00: (two) XL) 30 MG 00 times a 24 hr day. tablet NIFEdipine 1-0 Yes 30mg Q.5D Take 30 mg U T XL 3-24 by mouth 2 Health (Procardia 00:00: (two) XL) 30 MG 00 times a 24 hr day. tablet NIFEdipine 1-0 Yes 30mg Q.5D Take 30 mg U [...] 00 EVERY DAY FOR 30 DAYS pravastatin 2021-0 Yes 40mg Take 40 mg UT (Pravachol) 3-22 by mouth Heal th 40 MG 00:00: every tablet 00 night. predniSONE 2021-0 Yes TAKE 1 UT (Deltasone) 3-22 TABLET BY Hea lth 5 MG tablet 00:00: MOUTH 00 EVERY DAY FOR 30 DAYS pravastatin 2021-0 Yes 40mg Take 40 mg UT (Pravachol) 3-22 by mouth Heal th 40 MG 00:00: every tablet 00 night. predniSONE 2021-0 Yes TAKE 1 UT (Deltasone) 3-22 TABLET BY Hea lth 5 MG tablet 00:00: MOUTH 00 EVERY DAY FOR 30 DAYS pravastatin 2021-0 Yes 40mg Take 40 mg UT (Pravachol) [...] TAKE 1 UT (Deltasone) 3-22 TABLET BY [facility] lt 5 MG tablet 00:00: MOUTH 00 EVERY DAY FOR 30 DAYS pravastatin 2020-0 Yes 40mg Take 40 mg UT (Pravachol) 3-22 by mouth Heal th 40 MG 00:00: every tablet 00 night. predniSONE 2020-0 Yes TAKE 1 UT (Deltasone) 3-22 TABLET BY [facility] 5 MG tablet 00:00: MOUTH 00 EVERY DAY FOR 30 DAYS pravastatin 2020-0 Yes 40mg Take 40 mg UT (Pravachol) 3-22 by mouth Heal th 40 MG 00:00: every tablet 00 night. predniSONE 2020-0 Yes TAKE 1 UT (Deltasone) 3-22 TABLET BY [facility] 5 MG tablet 00:00: MOUTH 00 EVERY DAY FOR 30 DAYS pravastatin 2020-0 Yes 40mg Take 40 mg UT (Pravachol) 3-22 by mouth Heal th 40 MG 00:00: every tablet 00 night. predniSONE 2020-0 Yes TAKE 1 UT (Deltasone) 3-22 TABLET BY [facility] 5 MG tablet 00:00: MOUTH 00 EVERY DAY FOR 30 DAYS pravastatin 2020-0 Yes 40mg Take 40 mg UT (Pravachol) 3-22 by mouth Heal th 40 MG 00:00: every tablet 00 night. predniSONE 2020-0 Yes TAKE 1 UT (Deltasone) 3-22 TABLET BY [facility] 5 MG tablet 00:00: MOUTH 00 EVERY DAY FOR 30 DAYS pravastatin 2020-0 Yes 40mg Take 40 mg UT (Pravachol) 3-22 by mouth Heal th 40 MG 00:00: every tablet 00 night. predniSONE 2020-0 Yes TAKE 1 UT (Deltasone) 3-22 TABLET BY [facility] 5 MG tablet 00:00: MOUTH 00 EVERY DAY FOR 30 DAYS pravastatin 2020-0 Yes 40mg Take 40 mg UT (Pravachol) 3-22 by mouth Heal th 40 MG 00:00: every tablet 00 night. predniSONE 2020-0 Yes TAKE 1 UT (Deltasone) 3-22 TABLET BY [facility] 5 MG tablet 00:00: MOUTH 00 EVERY [...] TAKE 1 UT (Deltasone) 3-22 TABLET BY [facility] lt 5 MG tablet 00:00: MOUTH 00 [...] 00 EVERY DAY FOR 30 DAYS NovoLOG 2019- Yes INJECT SUB UT FLEXPEN 100 2-31 [...] WITHIN 20 MIN OF STARTING MEAL NovoLOG 2020 Yes INJECT SUB UT FLEXPEN 100 2-31 [...] WITHIN 20 MIN OF STARTING MEAL NovoLOG 2019- Yes INJECT SUB UT FLEXPEN 100 2-31 10 UN 3 Healt h UNIT/ML 00:00: TIMES ADAY injection 00 BEFORE MEALS AT BEGINNING OF MEAL OR WITHIN 20 MIN OF STARTING MEAL NovoLOG 2019- Yes INJECT SUB UT FLEXPEN 100 2-31 10 UN 3 Healt h UNIT/ML 00:00: TIMES ADAY injection 00 BEFORE MEALS AT BEGINNING OF MEAL OR WITHIN 20 MIN OF STARTING MEAL NovoLOG 2019- Yes INJECT SUB UT FLEXPEN 100 2-31 10 UN 3 Healt h UNIT/ML 00:00: TIMES ADAY injection 00 BEFORE MEALS AT BEGINNING OF MEAL OR WITHIN 20 MIN OF STARTING MEAL NovoLOG 2019- Yes INJECT SUB UT FLEXPEN 100 2-31 10 UN 3 Healt h UNIT/ML 00:00: TIMES ADAY injection 00 BEFORE MEALS AT BEGINNING OF MEAL OR WITHIN 20 MIN OF STARTING MEAL NovoLOG 2019- Yes INJECT SUB UT FLEXPEN 100 2-31 [...] WITHIN 20 MIN OF STARTING MEAL tadalafil 2019- Yes 20mg 20 mg. UT (Cialis) 20 0-12 Health MG tablet 00:00: 00 tadalafil 2020-1 Yes 20mg 20 mg. UT (Cialis) 20 0-12 Health MG tablet 00:00: 00 tadalafil 2020-1 Yes 20mg 20 mg. UT (Cialis) 20 0-12 Health MG tablet 00:00: 00 tadalafil 2020-1 Yes 20mg 20 mg. UT (Cialis) 20 0-12 Health MG tablet 00:00: 00 tadalafil 2020-1 Yes 20mg 20 mg. UT (Cialis) 20 0-12 Health MG tablet 00:00: 00 tadalafil 2020-1 Yes 20mg 20 mg. UT (Cialis) 20 0-12 Health MG tablet 00:00: 00 tadalafil 2020-1 Yes 20mg 20 mg. UT (Cialis) 20 0-12 Health MG tablet 00:00: 00 tadalafil 2020-1 Yes 20mg 20 mg. UT (Cialis) 20 0-12 Health MG tablet 00:00: 00 tadalafil 2020-1 Yes 20mg 20 mg. UT (Cialis) 20 0-12 Health MG tablet 00:00: 00 tadalafil 2020-1 Yes 20mg 20 mg. UT [...] MG tablet 00:00: 04:59 00 :00 tadalafil 2020-2020- No 20mg 20 mg. UT (Cialis) 20 0-12 10-08 Health MG tablet 00:00: 04:59 00 :00 Tadalafil Tadalafil 2020-2020- No TUNG EMIL TAKE 1 UT 20 MG Oral 20 MG Oral 0-12 10-07 M.D. TABLET 1 Physici Tablet Tablet 00:00: 23:59 HOUR ans 00 :00 BEFORE ACTIVITY NEEDED. Lantus 2020-0 Yes INJECT UT SoloStar [...] Fluocinonid Fluocinonid 2020-0 Yes SUMAYA Q0.5D APPLY UT e 0.05 % e 0.05 % 5-12 HASBUN SPARINGLY Physici External External 00:00: M.D. TO ans Cream Cream 00 AFFECTED AREA(S) TWICE DAILY Ketoconazol Ketoconazol 2020-0 Yes SUMAYA Q0.5D APPLY A UT e 2 % e 2 % 5-12 HASBUN THIN LAYER Physi ci External External 00:00: M.D. TO ans Cream Cream 00 AFFECTED AREA(S) TWICE DAILY. Bismuth 2020-0 Yes [id number] 262mg Take 1 Uni vers Subsalicyla 4-30 tablet by ity of te 00:00: mouth 4 [place] (PEPTO-BISM 00 (four) Medica l OL) 262 mg times Branch tablet daily as needed (diarrhea) . acetaminoph 2020-0 Yes [id number] 650mg Take 1 Univers en 650 mg 4-30 tablet by ity o f CR tablet 00:00: mouth [place] 00 every 8 Medical (eight) Branch hours as needed for Pain or Fever. Bismuth 2020-0 Yes [id number] 262mg Take 1 Uni vers Subsalicyla 4-30 tablet by ity of te 00:00: mouth 4 [place] (PEPTO-BISM 00 (four) Medica l OL) 262 mg times Branch tablet daily as needed (diarrhea) . acetaminoph 2020-0 Yes [id number] 650mg Take 1 Univers en 650 mg 4-30 tablet by ity o f CR tablet 00:00: mouth [place] 00 every 8 Medical (eight) Branch hours as needed for Pain or Fever. Bismuth 2020-0 Yes [id number] 262mg Take 1 Uni vers Subsalicyla 4-30 tablet by ity of te 00:00: mouth 4 [place] (PEPTO-BISM 00 (four) Medica l OL) 262 mg times Branch tablet daily as needed (diarrhea) . acetaminoph 2020-0 Yes [id number] 650mg Take 1 Univers en 650 mg 4-30 tablet by ity o f CR tablet 00:00: mouth [place] 00 every 8 Medical (eight) Branch hours as needed for Pain or Fever. Bismuth 2020-0 Yes [id number] 262mg Take 1 Uni vers Subsalicyla 4-30 tablet by ity of te 00:00: mouth 4 [place] (PEPTO-BISM 00 (four) Medica l OL) 262 mg times Branch tablet daily as needed (diarrhea) . acetaminoph 2020-0 Yes [id number] 650mg Take 1 Univers en 650 mg 4-30 tablet by ity o f CR tablet 00:00: mouth [place] 00 every 8 Medical (eight) Branch hours as needed for Pain or Fever. Bismuth 2020-0 Yes [id number] 262mg Take 1 Uni vers Subsalicyla 4-30 tablet by ity of te 00:00: mouth 4 [place] (PEPTO-BISM 00 (four) Medica l OL) 262 mg times Branch tablet daily as needed (diarrhea) . acetaminoph 2020-0 Yes [id number] 650mg Take 1 Univers en 650 mg 4-30 tablet by ity o f CR tablet 00:00: mouth [place] 00 every 8 Medical (eight) Branch hours as needed for Pain or Fever. Bismuth 2020-0 Yes [id number] 262mg Take 1 Uni vers Subsalicyla 4-30 tablet by ity of te 00:00: mouth 4 [place] (PEPTO-BISM 00 (four) Medica l OL) 262 mg times Branch tablet daily as needed (diarrhea) . acetaminoph 2020-0 Yes [id number] 650mg Take 1 Univers en 650 mg 4-30 tablet by ity o f CR tablet 00:00: mouth [place] 00 every 8 Medical (eight) Branch hours as needed for Pain or Fever. Bismuth 2020-0 Yes [id number] 262mg Take 1 Uni vers Subsalicyla 4-30 tablet by ity of te 00:00: mouth 4 [place] (PEPTO-BISM 00 (four) Medica l OL) 262 mg times Branch tablet daily as needed (diarrhea) . acetaminoph 2020-0 Yes [id number] 650mg Take 1 Univers en 650 mg 4-30 tablet by ity o f CR tablet 00:00: mouth [place] 00 every 8 Medical (eight) Branch hours as needed for Pain or Fever. Bismuth 2020-0 Yes [id number] 262mg Take 1 Uni vers Subsalicyla 4-30 tablet by ity of te 00:00: mouth 4 [place] (PEPTO-BISM 00 (four) Medica l OL) 262 mg times Branch tablet daily as needed (diarrhea) . acetaminoph 2020-0 Yes [id number] 650mg Take 1 Univers en 650 mg [...] TWICE Medical DAILY FOR Branch 30 DAYS D3-1999 50 2020-0 Yes 1{capsu Take 1 Un erick mcg (2,000 3-30 le} capsule by ity of unit) 00:00: mouth [place] capsule 00 daily. Medical Branch losartan 25 2020-0 Yes 25mg Take 25 mg Univers mg tablet 3-30 by mouth ity of 00:00: every [place] 00 evening. Medical Branch famotidine 2020-0 Yes TAKE 1 Unive rs 20 mg 3-30 TABLET BY ity of tablet 00:00: MOUTH [place] 00 TWICE Medical DAILY FOR Branch 30 DAYS D3-1999 50 2020-0 Yes 1{capsu Take 1 Un erick mcg (2,000 3-30 le} capsule by ity of unit) 00:00: mouth [place] capsule 00 daily. Medical Branch losartan 25 2020-0 Yes 25mg Take 25 mg Univers mg tablet 3-30 by mouth ity of 00:00: every [place] 00 evening. Medical Branch famotidine 2020-0 Yes TAKE 1 Unive rs 20 mg 3-30 TABLET BY ity of tablet 00:00: MOUTH [place] 00 TWICE Medical DAILY FOR Branch 30 DAYS D3 50 2019-0 Yes 1{capsu Take 1 Un erick mcg (2,000 3-30 le} capsule by ity of unit) 00:00: mouth [place] capsule 00 daily. Medical Branch losartan 25 2020-0 Yes 25mg Take 25 mg Univers mg tablet 3-30 by mouth ity of 00:00: every [place] 00 evening. Medical Branch famotidine 2020-0 Yes TAKE 1 Unive rs 20 mg 3-30 TABLET BY ity of tablet 00:00: MOUTH [place] 00 TWICE Medical DAILY FOR Branch 30 DAYS 50 2019-0 Yes 1{capsu Take 1 Un erick mcg (2,000 3-30 le} capsule by ity of unit) 00:00: mouth [place] capsule 00 daily. Medical Branch losartan 25 2019-0 Yes 25mg Take 25 mg Univers mg tablet 3-30 by mouth ity of 00:00: every [place] 00 evening. Medical Branch famotidine 2020-0 Yes TAKE 1 Unive rs 20 mg 3-30 TABLET BY ity of tablet 00:00: MOUTH [place] 00 TWICE Medical DAILY FOR Branch 30 DAYS 50 2019-0 Yes 1{capsu Take 1 Un erick mcg (2,000 3-30 le} capsule by ity of unit) 00:00: mouth [place] capsule 00 daily. Medical Branch losartan 25 2020-0 Yes 25mg Take 25 mg Univers mg tablet 3-30 by mouth ity of 00:00: every [place] 00 evening. Medical Branch famotidine 2020-0 Yes TAKE 1 Unive rs 20 mg 3-30 TABLET BY ity of tablet 00:00: MOUTH [place] 00 TWICE Medical DAILY FOR Branch 30 DAYS D3 50 2020-0 Yes 1{capsu Take 1 Un erick mcg (2,000 3-30 le} capsule by ity of unit) 00:00: mouth [place] capsule 00 daily. Medical Branch losartan 25 2020-0 Yes 25mg Take 25 mg Univers mg tablet 3-30 by mouth ity of 00:00: every [place] 00 evening. Medical Branch famotidine 2020-0 Yes TAKE 1 Unive rs 20 mg 3-30 TABLET BY ity of tablet 00:00: MOUTH [place] 00 TWICE Medical DAILY FOR Branch 30 DAYS D3-1999 50 2019-0 Yes 1{capsu Take 1 Un erick mcg (2,000 3-30 le} capsule by ity of unit) 00:00: mouth [place] capsule 00 daily. Medical Branch losartan 25 2020-0 Yes 25mg Take 25 mg Univers mg tablet 3-30 by mouth ity of 00:00: every [place] 00 evening. Medical Branch famotidine 2019-0 Yes TAKE 1 Unive rs 20 mg 3-30 TABLET BY ity of tablet 00:00: MOUTH [place] 00 TWICE Medical DAILY FOR Branch 30 DAYS D3-1999 50 2019-0 Yes 1{capsu Take 1 Un erick mcg (2,000 3-30 le} capsule by ity of unit) 00:00: mouth [place] capsule 00 daily. Medical Branch losartan 25 2019-0 Yes 25mg Take 25 mg Univers mg tablet 3-30 by mouth ity of 00:00: every [place] 00 evening. Medical Branch LANTUS 2020-0 Yes INJECT SUB Unive rs [...] TABLET BY ity of tablet 00:00: MOUTH [place] 00 TWICE Medical DAILY FOR Branch 30 DAYS escitalopra 2020-0 Yes TAKE 2 Univ ers m oxalate 2-27 TABLETS BY ity of 10 mg 00:00: MOUTH ONCE [place] tablet 00 DAILY Medical Branch pravastatin 2019-0 Yes TAKE 1 Univ ers 40 mg 2-27 TABLET BY ity of tablet 00:00: MOUTH AT [place] [address] BEDTIME Medical FOR 90 Branch DAYS carvediloL 2019-0 Yes TAKE 1 Unive rs 6.25 mg 2-27 TABLET BY ity of tablet 00:00: MOUTH [place] TWICE Medical DAILY FOR Branch 30 DAYS escitalopra 2020-0 Yes TAKE 2 Univ ers m oxalate 2-27 TABLETS BY ity of 10 mg 00:00: MOUTH ONCE [place] tablet 00 DAILY Medical Branch pravastatin 2020-0 Yes TAKE 1 Univ ers 40 mg 2-27 TABLET BY ity of tablet 00:00: MOUTH AT [place] [address] BEDTIME Medical FOR 90 Branch DAYS carvediloL 2019-0 Yes TAKE 1 Unive rs 6.25 mg 2-27 TABLET BY ity of tablet 00:00: MOUTH [place] 00 TWICE Medical DAILY FOR Branch 30 DAYS escitalopra 2020-0 Yes TAKE 2 Univ ers m oxalate 2-27 TABLETS BY ity of 10 mg 00:00: MOUTH ONCE [place] tablet 00 DAILY Medical Branch pravastatin 2020-0 Yes TAKE 1 Univ ers 40 mg 2-27 TABLET BY ity of tablet 00:00: MOUTH AT [place] [address] BEDTIME Medical FOR 90 Branch DAYS carvediloL 2020-0 Yes TAKE 1 Unive rs 6.25 mg 2-27 TABLET BY ity of tablet 00:00: MOUTH [place] 00 TWICE Medical DAILY FOR Branch 30 DAYS escitalopra 2020-0 Yes TAKE 2 Univ ers m oxalate 2-27 TABLETS BY ity of 10 mg 00:00: MOUTH ONCE [place] tablet 00 DAILY Medical Branch pravastatin 2019-0 Yes TAKE 1 Univ ers 40 mg 2-27 TABLET BY ity of tablet 00:00: MOUTH AT [place] BEDTIME Medical FOR 90 Branch DAYS carvediloL 2019-0 Yes TAKE 1 Unive rs 6.25 mg 2-27 TABLET BY ity of tablet 00:00: MOUTH [place] TWICE Medical DAILY FOR Branch 30 DAYS escitalopra 2019-0 Yes TAKE 2 Univ ers m oxalate 2-27 TABLETS BY ity of 10 mg 00:00: MOUTH ONCE [place] tablet 00 DAILY Medical Branch pravastatin 0 Yes TAKE 1 Univ ers 40 mg 2-27 TABLET BY ity of tablet 00:00: MOUTH AT [place] BEDTIME Medical FOR 90 Branch DAYS carvediloL Yes TAKE 1 Unive rs 6.25 mg 2-27 TABLET BY ity of tablet 00:00: MOUTH [place] TWICE Medical DAILY FOR Branch 30 DAYS escitalopra 2019- Yes TAKE 2 Univ ers m oxalate 2-27 TABLETS BY ity of 10 mg 00:00: MOUTH ONCE [place] tablet 00 DAILY Medical Branch pravastatin 0 Yes TAKE 1 Univ ers 40 mg 2-27 TABLET BY ity of tablet 00:00: MOUTH AT [place] [facility] Medical FOR 90 Branch DAYS carvediloL Yes TAKE 1 Unive rs 6.25 mg 2-27 TABLET BY ity of tablet 00:00: MOUTH [place] TWICE Medical DAILY FOR Branch 30 DAYS escitalopra 2019-0 Yes TAKE 2 Univ ers m oxalate 2-27 TABLETS BY ity of 10 mg 00:00: MOUTH ONCE [place] tablet 00 DAILY Medical Branch pravastatin 2019-0 Yes TAKE 1 Univ ers 40 mg 2-27 TABLET BY ity of tablet 00:00: MOUTH AT [place] BEDTIME Medical FOR 90 Branch DAYS carvediloL 0 Yes TAKE 1 Unive rs 6.25 mg 2-27 TABLET BY ity of tablet 00:00: MOUTH [place] TWICE Medical DAILY FOR Branch 30 DAYS escitalopra Yes TAKE 2 Univ ers m oxalate 2-27 TABLETS BY ity of 10 mg 00:00: MOUTH ONCE [place] tablet 00 DAILY Medical Branch pravastatin 0 Yes TAKE 1 Univ ers 40 mg 2-27 TABLET BY ity of tablet 00:00: MOUTH AT [place] [address] BEDTIME Medical FOR 90 Branch DAYS Isoniazid Isoniazid 2013- Yes EITAN QD TAKE 1 UT 300 MG Oral 300 MG Oral 6-02 ERICSSON TABLET Physici Tablet Tablet 00:00: M.D. DAILY ans 00 Stromectol Stromectol 2013- Yes EITAN 4 TAKE 4 UT 3 MG Oral 3 MG Oral 6-02 ERICSSON TABLET Physici Tablet Tablet 00:00: M.D. Once ans 00 Repeat dose in 24 hours Pyridoxine Pyridoxine Yes EITAN QD TAKE 1 UT HCl - 50 MG HCl - 50 MG 6-02 ERICSSON TABLET Physici Oral Tablet Oral Tablet 00:00: M.D. DAILY ans 00 Bystolic Bystolic Yes QD TAKE 2 UT TABS TABS TABLETS Physici DAILY. ans Vitamin D2 Vitamin D2 Yes QD TAKE 1 U T TABS TABS TABLET Physici DAILY ans cloNIDine cloNIDine Yes 1 QD TAKE 1 UT HCl - 0.2 HCl - 0.2 TABLET Phy sici MG Oral MG Oral DAILY. ans Tablet Tablet Minoxidil Minoxidil Yes 1 QD TAKE 1 UT 2.5 MG Oral 2.5 MG Oral TABLET Physici Tablet Tablet DAILY. ans Paxil 10 MG Paxil 10 MG Yes 1 QD TAKE 1 UT Oral Tablet Oral Tablet TABLET Physici DAILY. ans Simvastatin Simvastatin Yes 1 QD TAKE 1 UT 20 MG Oral 20 MG Oral TABLET P hysici Tablet Tablet DAILY. ans Vital Signs Vital Name Observation Time Observation Value Comments Source Systolic blood 2019-08-14 96 mm[Hg] University of pressure 17:23: [facility] Diastolic blood 2019-08-14 61 mm[Hg] University o f pressure 17:23:00 [facility] Heart rate 2019-08-14 65 /min University of 17:: [facility] Body temperature 2019-08-14 36.61 Tete University of 17:23: [facility] Respiratory rate 2019-08-14 18 /min University of 17:23:00 [facility] Body height 2019-08-14 167.6 cm University of 17:23:00 [facility] Body weight 2019-08-14 61.236 kg University of 17:23:00 [facility] BMI 2019-08-14 21.79 kg/m2 University of 17:23:00 [facility] Systolic blood 2019-08-14 96 mm[Hg] University of pressure 17:23:00 [facility] Diastolic blood 2019-08-14 61 mm[Hg] University o f pressure 17:23:00 [facility] Heart rate 2019-08-14 65 /min [facility] :23:00 [facility] Body temperature 2019-08-14 36.61 Tete [facility] ::00 [facility] Respiratory rate 2019-08-14 18 /min [facility] ::00 [facility] Body height 2019-08-14 167.6 cm [facility] 17:: [facility] Body weight 2019-08-14 61.236 kg [facility] :: [facility] BMI 2019-08-14 21.79 kg/m2 [facility] 17:23: [facility] Body mass index 2020-01-26 21.79 kg/m2 [facility] (BMI) [Ratio] 16:06:00 Heart Rate 2020-01-26 74 /min Location: L [facility] 16:06:00 Brachial Artery; Body temperature 2020-01-26 97.4 [degF] Method: [facility] 16:06:00 Temporal Systolic blood 2020-01-26 122 mm[Hg] Location: LUE; [facility] pressure 16:06:00 Position: Sitting Diastolic blood 2020-01-26 66 mm[Hg] Location: LUE; [facility] pressure 16:06:00 Position: Sitting Body height 2020-01-26 66 [in_us] [facility] 16:06:00 Weight 2020-01-26 135 [lb_av] [facility] 16:06:00 Procedures Procedure Date / Time Performing Clinician Source Performed XR FOOT 3+ VW RIGHT 2022-03-31 15:54:00 Violeta Larkin [facility] ASSIGNMENT OF BENEFITS 2022-03-31 15:39:23 Doctor Unassigned, [facility] CONSENT/REFUSAL FOR 2022-03-31 15:39:00 Doctor Unassigned, [facility]AT[facility] REFERRAL- REQUEST/RESPONSE 2021-08-09 05:01:00 Doctor Marcelassigned , [facility] [QL] TESTOSTERONE, FREE 2020-07-18 00:00:00 [facility] AND TOTAL, LC/MS/MS [QL] ESTRADIOL 2020-07-18 00:00:00 [facility] [QL] PROLACTIN 2020-07-18 00:00:00 [facility] [QL] TSH, 3RD GENERATION 2020-07-18 00:00:00 [facility] W/REFLEX TO FT4 [QL] FSH AND LH 2020-07-18 00:00:00 [facility] [QL] HEPATIC FUNCTION 2020-07-18 00:00:00 [facility] PANEL [QL] CULTURE, URINE, 2020-07-18 00:00:00 [facility] ROUTINE [QL] PSA (FREE AND TOTAL) 2020-07-18 00:00:00 [facility] US Renal transplant [id number] 2020-01-26 00:00:00 [facility] DME/SUPPLY JUSTIFICATION 2019-12-30 05:01:00 Doctor Unassigned, [facility] COMPREHENSIVE 2019-12-09 16:22:00 Doctor Unassigned, [facility] METABOLIC$PANEL W/EGFR-Q [facility] [QL] CULTURE, FUNGUS, 2019-08-26 00:00:00 [facility] W/SMEAR HAIR, SKIN, NAIL . 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 [facility] History of Dialysis [facility] History of Kidney [facility] transplantation Encounters Start End Encounter Admission Attending Care Care Encounter Source Date/Time Date/Time Type Type Clinicians Facility Department ID 2021-10-21 Outpatient JUAN DANIEL [facility] CAR [id number] [facility] 13:28:44 KAYE 2020-08-21 Outpatient ROSSI [facility] [id number] [place] 03:36:59 [facility] 2020-08-21 Outpatient SHERRILL STEIN [facility] [id number] [place] 03:36:59 Health 2020-03-05 Outpatient MORALES [facility] PUL [id number] M [facility] 16:35:38 SAMEER 2019-04-14 Outpatient [facility] [id number] MH 07:56:24 2018-10-18 Inpatient [facility] MED [id number] [facility] H 09:22:00 2022-03-31 2022-03-31 [facility] [id number] Univers 09:41:28 23:59:[address] [facility] 2022-03-31 2022-03-31 [facility] [id number] Univers 09:00:00 23:59:00 Encounter Violeta VIDES [id number] ity of [place] 4.2.7.2.[address] [place] [facility] [id number] [facility] [address] [place] 2022-03-31 2022-03-31 Orders Doctor MEDARDO 1.2.840.114 [id number] Univers 00:00:00 00:00:00 Only Unassigned, PAVEL [id number] ity of [facility] 4.2.7.2.686 [place] [phone] [address] 2022-03-30 2022-03-30 [facility] [id number] Univers 00:00:00 00:00:[address] [facility] 2022-03-29 2022-03-29 Outpatient [facility] [id number] Univers 00:00:00 00:00:[address] [facility] 2021-11-29 2021-11-29 MEDARDO Ann 1.2.840.114 [id number] Univers 00:00:00 00:00:00 (Out) Violeta Dominique PAVEL 350.1.13.10 it y of HOSPITAL 4.2.7.2.686 [place] [phone] [facility] [address] [place] 2021-08-09 2021-08-09 Orders Doctor MEDARDO 1.2.840.114 [id number] Univers 00:00:00 00:00:00 Only Unassigned, PAVEL 350.1.13.10 ity of [place] 4.2.7.2.686 [place] [phone] [facility] [address] [place] 2021-03-14 2021-04-12 Outpatient DE [facility] [id number] [facility] 09:25:00 23:59:00 JOSE DINH 2021-02-18 2021-03-19 Outpatient DE [facility] [id number] [facility] 08:15:00 23:59:00 [facility] 2021-02-24 2021-02-24 EXT MHH OP EXT MSRDP 1.2.840.114 1 [id number] [place] 00:00:00 00:00:00 LOCATION 350.1.13.58 H ealth 9.2.7.2.686 [id number] 2021-02-24 2021-02-24 EXT MHH OP EXT MSRDP 1.2.840.114 1 [id number] [place] 00:00:00 00:00:00 LOCATION 350.1.13.58 H ealth 9.2.7.2.686 [id number] 0 2021-02-24 2021-02-24 EXT MHH OP EXT MSRDP 1.2.840.114 1 [id number] [place] 00:00:00 00:00:00 LOCATION 350.1.13.58 H ealth 9.2.7.2.686 [id number] 0 2021-02-24 2021-02-24 EXT MHH OP EXT MSRDP 1.2.840.114 1 [id number] [place] 00:00:00 00:00:00 LOCATION 350.1.13.58 H ealth 9.2.7.2.686 [id number] 0 2021-02-23 2021-02-23 EXT MHH OP de EXT MSRDP 1.2.840.114 1 [id number] [place] 00:00:00 00:00:00 [facility], LOCATION 350.1.13.58 [facility] 9.2.7.2.686 [id number] 0 2021-02-23 2021-02-23 EXT MHH OP de EXT MSRDP 1.2.840.114 1 [id number] [place] 00:00:00 00:00:00 [facility], LOCATION 350.1.13.58 [facility] 9.2.7.2.686 [id number] 0 2021-02-18 2021-02-18 EXT MHH OP de EXT MSRDP 1.2.840.114 1 [id number] [place] 00:00:00 00:00:00 Luar, LOCATION 350.1.13.58 Health Jose 9.2.7.2.686 [id number] 2021-01-14 2021-02-12 Outpatient DE MHHH [facility] [id number] [facility] 08:36:00 23:59:00 JOSE DINH 2021-01-14 2021-01-14 EXT MHH OP de EXT MSRDP 1.2.840.114 1 [id number] [place] 00:00:00 00:00:00 Luar, LOCATION 350.1.13.58 Health Jose 9.2.7.2.686 [id number] 0 2021-01-14 2021-01-14 EXT MHH OP de EXT MSRDP 1.2.840.114 1 [id number] [place] 00:00:00 00:00:00 Luar, LOCATION 350.1.13.58 Health Jose 9.2.7.2.686 [id number] 0 2020-12-31 2020-12-31 EXT MHH OP Morales, EXT MSRDP 1.2.840.114 [id number] [place] 00:00:00 00:00:00 Sameer LOCATION 350.1.13.58 H ealth 9.2.7.2.686 [id number] 0 2020-12-31 2020-12-31 EXT MHH OP Morales, EXT MSRDP 1.2.840.114 [id number] [place] 00:00:00 00:00:00 Sameer LOCATION 350.1.13.58 H ealth 9.2.7.2.686 [id number] 0 2020-12-08 2020-12-08 EXT MHH OP de EXT MSRDP 1.2.840.114 1 [id number] [place] 00:00:00 00:00:00 Golovine, LOCATION 350.1.13.58 Health Jose 9.2.7.2.686 [id number] 0 2020-12-08 2020-12-08 EXT MHH OP de EXT MSRDP 1.2.840.114 1 [id number] [place] 00:00:00 00:00:00 [facility], LOCATION 350.1.13.58 [facility] 9.2.7.2.686 [id number] 0 2020-11-08 2020-12-07 Outpatient DE MHHH [facility] [id number] [facility] 08:51:00 23:59:00 [facility] 2020-11-08 2020-11-08 EXT MHH OP de EXT MSRDP 1.2.840.114 1 [id number] [place] 00:00:00 00:00:00 [facility], LOCATION 350.1.13.58 [facility] 9.2.7.2.686 [id number] 0 2020-11-08 2020-11-08 EXT MHH OP de EXT MSRDP 1.2.840.114 1 [id number] [place] 00:00:00 00:00:00 [facility], LOCATION 350.1.13.58 [facility] 9.2.7.2.686 [id number] 0 2020-10-04 2020-11-02 Outpatient DE MHH [facility] [id number] [facility] 09:42:00 23:59:00 [facility] 2020-10-19 2020-10-20 Outpatient U [facility] MED [id number] [facility] 07:57:00 15:00:00 HORTENSIA 2020-10-20 2020-10-20 EXT MHH OP EXT MSRDP 1.2.840.114 1 [id number] [place] 00:00:00 00:00:00 LOCATION 350.1.13.58 H ealth 9.2.7.2.686 [id number] 0 2020-10-20 2020-10-20 EXT MHH OP EXT MSRDP 1.2.840.114 1 [id number] [place] 00:00:00 00:00:00 LOCATION 350.1.13.58 H ealth 9.2.7.2.686 [id number] 0 2020-10-20 2020-10-20 EXT MHH OP EXT MSRDP 1.2.840.114 1 [id number] [place] 00:00:00 00:00:00 LOCATION 350.1.13.58 H ealth 9.2.7.2.686 [id number] 0 2020-10-20 2020-10-20 EXT MHH OP EXT MSRDP 1.2.840.114 1 [id number] [place] 00:00:00 00:00:00 LOCATION 350.1.13.58 H ealth 9.2.7.2.686 [id number] 0 2020-10-20 2020-10-20 EXT MHH OP EXT MSRDP 1.2.840.114 1 [id number] [place] 00:00:00 00:00:00 LOCATION 350.1.13.58 H ealth 9.2.7.2.686 [id number] 0 2020-10-20 2020-10-20 EXT MHH OP EXT MSRDP 1.2.840.114 1 [id number] [place] 00:00:00 00:00:00 LOCATION 350.1.13.58 H ealth 9.2.7.2.686 [id number] 0 2020-10-20 2020-10-20 EXT MHH OP EXT MSRDP 1.2.840.114 1 [id number] [place] 00:00:00 00:00:00 LOCATION 350.1.13.58 H ealth 9.2.7.2.686 [id number] 0 2020-10-20 2020-10-20 EXT MHH OP EXT MSRDP 1.2.840.114 1 [id number] [place] 00:00:00 00:00:00 LOCATION 350.1.13.58 H ealth 9.2.7.2.686 [id number] 0 2020-10-06 2020-10-06 KIAH Moralez 6400 1.2.484.085 [id number] 00:00:00 00:00:[address] 350.1.13.58 9.2.7.2.686 [id number] 1 2020-10-06 2020-10-06 Kiana Moralez UTP 6400 1.2.840.1 14 [id number] [place] 00:00:00 00:00:00 Kiana Hough 350.1.13.58 Health 9.2.7.2.686 [id number] 1 2020-10-04 2020-10-04 Outpatient JUAN DANIEL, [facility] CAR [id number] [facility] 11:06:00 23:59:00 KAYE 2020-10-04 2020-10-04 EXT [facility] OP de EXT MSRDP 1.2.840.114 1 [id number] [place] 00:00:00 00:00:00 [facility], LOCATION 350.1.13.58 Health Jose 9.2.7.2.686 [id number] 0 2020-10-04 2020-10-04 EXT [facility] OP de EXT MSRDP 1.2.840.114 1 [id number] [place] 00:00:00 00:00:00 [facility], LOCATION 350.1.13.58 Health Jose 9.2.7.2.686 [id number] 0 2020-10-01 2020-10-01 Abstract Rossi [facility] 1.2.940.704 [id number] 00:00:00 00:00:00 Moises SUGAR 350.1.13.58 [place] MED 9.2.7.2.686 [place] [address] [id number] AND 1 WOMENS 2020-10-01 2020-10-01 Abstract Rossi [facility] 1.2.456.025 [id number] [place] 00:00:00 00:00:00 Moises SUGAR 350.1.13.58 Health L[place] MED 9.2.7.2.686 [place] 2 [id number] AND 1 WOMENS 2020-10-01 2020-10-01 EXT [facility] OP Juan Daniel, EXT MSRDP 1.2.840.114 [id number] [place] 00:00:00 00:00:00 Kaye LOCATION 350.1.13.58 H ealth 9.2.7.2.686 [id number] 0 2020-10-01 2020-10-01 EXT MHH OP Juan Daniel, EXT MSRDP 1.2.840.114 [id number] [place] 00:00:00 00:00:00 Kaye LOCATION 350.1.13.58 H ealt 9.2.7.2.686 [id number] 0 2020-09-22 2020-09-22 Telephone KIAH Austin 6400 1.2.840.114 12 [id number] 00:00:00 00:00:[address] 350.1.13.58 9.2.7.2.686 [id number] 1 2020-09-22 2020-09-22 Telephone KIAH [place] 6400 1.2.840.114 12 [id number] [place] 00:00:00 00:00:00 Moises VALERO 350.1.13.58 Health 9.2.7.2.686 [id number] 1 2020-09-20 2020-09-20 Abstract KIAH Valerio 1.2.887.519 [id number] 00:00:00 00:00:00 Tawanna JONES 350.1.13.58 CENTER 9.2.7.2.686 [id number] 1 2020-09-20 2020-09-20 Abstract ValerioTawanna robbins KIAH 1.2.840 .114 [id number] [place] 00:00:00 00:00:00 Tawanna Valerio 350.1.13.58 Health CENTER 9.2.7.2.686 [id number] 1 2020-07-19 2020-07-19 Appointmen SHERRILL STEIN, KIAH Urology - [id number] [place] 13:15:00 13:15:00 t; Josh STEIN i, M.D. [facility] 2020-06-07 2020-07-06 Outpatient DE [facility] [id number] [facility] 07:08:00 23:59:00 JOSE DINH 2020-06-07 2020-06-07 Appointmen ORGANTRANSP [facility] UTP [id number] [place] 08:30:00 08:30:00 t; LANT, OP Physi ci ORGANTRANS ans PLANT, OP 2020-03-08 2020-04-06 Outpatient JUAN DANIEL, [facility] [id number] [facility] 07:24:00 23:59:00 KAYE 2020-04-05 2020-04-05 Outpatient MORALES, [facility] PUL [id number] MHH[facility] 12:05:00 23:59:00 SAMEER 2020-03-22 2020-03-22 Appointmen CORINE [facility] UTP [id number] [place] 13:30:00 13:30:00 t; , Kirstie ENGEL M.D., JAMES, M.D. 2020-03-09 2020-03-10 Outpatient U RENITA, [facility] MED [id number] [facility] 17:50:00 15:35:00 ARSHA 2020-03-08 2020-03-08 Appointmen ORGANTRANSP UTP UTP [id number] [place] 09:30:00 09:30:00 t; JCARLOST, OP Physi ci ORGANTRANS ans PLANT, OP 2020-01-29 2020-02-27 [facility] [id number] 07:02:00 23:59:00 JOSE DINH 2020-02-16 2020-02-16 Appointchuckie AUSTIN, [facility] UTP [id number] [place] 10:15:00 10:15:00 t; Yarelis WILHELM M.D. ans SIDDHARTH, M.D. 2020-01-29 2020-01-29 Outpatient DE [facility] [id number] [facility] 06:51:00 06:51:00 JOSE DINH 2020-01-26 2020-01-26 Outpatient JUAN DANIEL, [facility] CAR [id number] MHH[facility] 16:07:00 23:59:00 KAYE 2020-01-26 2020-01-26 Emergency E LAW[facility] [id number] [facility] 18:28:00 23:27:00 SUMMER 2020-01-26 2020-01-26 Appointmen SHERRLIL STEIN UTP Urology - 69 [id number] [place] 15:15:00 15:15:00 t; Josh STEIN [place] Evie MCCARTNEY M.D. [facility] 2019-12-30 2019-12-30 Orders Doctor MEDARDO 1.2.840.114 [id number] 00:00:00 00:00:00 Only Unassigned, PAVEL 350.1.13.10 [facility] 4.2.7.2.686 [id number] 2019-12-30 2019-12-30 Orders Doctor MEDARDO Anibal.2.840.114 [id number] Univers 00:00:00 00:00:00 Only Unassigned, PAVEL 350.1.13.10 ity of [facility] 4.2.7.2.686 [place] [id number] Medi angela 009 Branch 2019-12-25 2019-12-25 Appointmen [facility]GANTRANSP [facility] UTP [id number] [place] 08:00:00 08:00:00 t; CROFT Physi ci ORGANTRANS ans VIKAS, OP 2019-12-25 2019-12-25 Outpatient JUAN DANIEL, [facility] CAR [id number] [facility] 07:37:00 07:37:00 KAYE 2019-12-11 2019-12-11 [facility] [id number] [place] 14:30:00 14:30:00 t; KATHARINA CERVANTES M.D. Physici FARAH, ans M.D. 2019-12-11 2019-12-11 Appointchuckie CERVANTES [facility] [id number] [place] 14:30:00 14:30:00 t; KATHARINA CERVANTES M.D. Physici FARAH, ans M.D. 2019-12-09 2019-12-09 Orders Doctor MEDARDO Laboy2.840.114 [id number] 00:00:00 00:00:00 Only Unassigned, PAVEL 350.1.13.10 [facility] 4.2.7.2.686 [id number] 2019-12-09 2019-12-09 Orders Doctor MEDARDO Laboy2.840.114 [id number] Univers 00:00:00 00:00:00 Only Unassigned, PAVEL 350.1.13.10 ity of [facility] 4.2.7.2.686 [place] [phone] Medi angela 009 Branch 2019-12-08 2019-12-08 Outpatient KEANU, [facility] CAR [id number] [facility] 13:29:00 23:59:00 ANTHONY 2019-12-02 2019-12-02 Outpatient DE MHH [facility] [id number] [facility] 09:35:00 09:35:00 JOSE DINH 2019-12-01 2019-12-01 Appointmen ORGANTRANSP UTP UTP [id number] [place] 12:00:00 12:00:00 t; JCARLOST, OP Physi ci ORGANTRANS ans PLANT, OP 2019-11-25 2019-11-27 Outpatient E KERRY, [facility] MED [id number] M[facility] 18:45:00 16:30:00 KULWINDER 2019-11-27 2019-11-27 Appointmen BILLY, UTP UTP [id number] [place] 15:30:00 15:30:00 t; KATHARINA CERVANTES M.D. Physici FARAH, ans M.D. 2019-11-24 2019-11-24 Emergency E FARAH, MHBL MHBL [id number] MHBL 18:29:00 22:08:00 SIDRA 2019-11-11 2019-11-21 Inpatient U MATTI, [facility] MED [id number] MHH[facility] 22:33:00 21:15:00 FABIÁN 2019-11-20 2019-11-20 Outpatient COH COH PBUEQBB SAD COH 00:00:00 00:00:00 [id number] 2019-10-16 2019-10-16 Emergency E HAKEEM[facility] [id number] [facility] 15:28:00 19:21:00 JAY 2019-09-11 2019-09-11 Outpatient DE [facility] [id number] [facility] 14:07:00 14:07:00 LUJOSE RAMÍREZ 2019-09-11 2019-09-11 Appointmen ORGANTRANSP UTP UTP [id number] [place] 08:30:00 08:30:00 t; LANT, OP Physi ci ORGANTRANS ans PLANT, OP 2019-08-26 2019-08-26 Appointmen KIAH GILMORE Multispecia [id number] [place] 11:40:00 11:40:00 t; SUMAYA GILMORE, lty - Josh Ramachandran M.D. 2019-08-15 2019-08-15 [facility] 1.2.840.114 [id number] 00:00:00 00:00:00 [place] [address].1.13.10 [place] 4.2.7.2.686 Professio [phone] [place] [address] [address] One 2019-08-15 2019-08-15 [facility]phone [facility] [place] 1.2.840.114 [id number] [facility] 00:00:00 00:00:00 [facility] 350.1.13.10 it y of [place] 4.2.7.2.686 [place] Professio [phone] [address] Office Building [facility] 2019-08-14 2019-08-14 Urgent Pob1, Acute [facility] 1.2.840.114 [id number] 12:07:22 13:05:37 [place] [address].1.13.10 [place] 4.2.7.2.686 Professio [phone] [place] [address] [address] One 2019-08-14 2019-08-14 Urgent Pob1, Acute Care [facility] 1. 2.840.114 [id number] [facility] 12:07:22 13:05:37 [place] [address].1.13.10 ity of [place] 4.2.7.2.686 [place] Professio [phone] [address] Office [facility] 2019-08-14 2019-08-14 [facility] [id number] [facility] 12:00:00 12:00:[address] [facility] 2019-07-03 2019-07-03 Appointmen ORGANTRANSP UTP UTP [id number] [place] 08:30:00 08:30:00 t; CROFT Physi ci ORGANTRANS [place] 2019-04-03 2019-04-15 Outpatient DE [facility] [id number] [facility] 07:47:00 20:00:00 JOSE DINH 2019-04-03 2019-04-03 Appointmen KIAH HINKLE UTP [id number] [place] 13:00:00 13:00:00 t; Savanna MARTINEZ. Ph mariam Walter M.D. 2019-01-09 2019-01-09 Appointmen ORGANTRANSP [facility] [id number] [place] 08:30:00 08:30:00 t; CROFT Physi ci ORGANTRANS ans PLANT, OP 2019-01-09 2019-01-09 Outpatient [facility] [id number] [facility] 08:12:00 08:12:00 2019-01-09 2019-01-09 Outpatient [facility] 9631 [facility] 07:30:00 07:30:00 2018-10-24 2018-10-24 Outpatient [facility] [id number] [facility] 08:50:00 08:50:00 2018-10-24 2018-10-24 Outpatient [facility] [id number] [facility] 07:40:00 07:40:00 2018-10-09 2018-10-09 Outpatient [facility] [id number] [facility] 06:06:00 06:06:00 2018-09-23 2018-09-23 Outpatient [facility] [id number] [facility] 08:13:00 08:13:00 2018-09-23 2018-09-23 Outpatient [facility] [address] [facility] 07:17:00 07:17:00 Results Test Description Test [...] peopleident ified as -Clair n. eGFR NON-AFR. [place]-Q See_Comment L [A utomated message] The (test code = 63121-0) system which generated this result tra nsmitted reference range : > OR = 60 mL/min/1.73m2. The reference range was not used to interpr et this result as jes l/abnormal. eGFR -Q See_Comment L [Au tomated message] The (test code = 64811-2) system which generated this result tra nsmitted [...] . SODIUM-Q (test code = 137 mmol/L 730-114 6244-2) POTASSIUM-Q (test code = 4.8 mmol/L 3.5-5.3 2823-3) CHLORIDE-Q (test code = 103 mmol/L 98-110 5-0) CARBON DIOXIDE-Q (test 24 mmol/L 20-32 code = 2027-9) CALCIUM-Q (test code = 8.6 mg/dL 8.6-10.3 66180-9) PROTEIN, TOTAL-Q (test 5.9 g/dL 6.1-8.1 L code = 2885-2) ALBUMIN-Q (test code = 2.9 g/dL 3.6-5.1 L 1751-7) GLOBULIN-Q (test code = See_Comment [Au tomated message] The 77807-8) system which ge nerated this result tra [...] TOTAL-Q (test 0.7 mg/dL 0.2-1.2 code = 1975-2) ALKALINE PHOSPHATASE-Q 156 U/L 35-144 H (test code = 6768-6) AST-Q (test code = 13 U/L 10-35 1920-8) ALT-Q (test code = 16 U/L 9-46 1742-6) ASHLYN (test code = ASHLYN) PERFORMED BY [employer] [place]; [address] [place] [address]; ARTURO QUINONES MD Lab Interpretation (test Abnormal code = 48744-1) [facility][Q] CULTURE, MYCOBACTERIA W/FLUOROCHROME SMEAR 2019-10-09 16:00:00 Test Item Value Reference Range Interpretation Comments SMEAR: (test See Comment MYCOBACTERIA, C ULTURE, code = SMEAR:) WITH FLUOROCH MARY ANN SMEAR Micro Number: [id number] Test Status: Fi nal Specimen Source : NOT GIVEN Specimen Qualit y: Adequate Smear: No acid fast bacilli seen. R esult: No Mycobacterium s pecies isolated after 6 weeks incubation.NO C OLLECTION DATE RECEIVED. WE HAVE USEDTHE DATE E SPECIMEN WAS RECEIVED BY THISLABORATORY THE COLLECTION DATE . IF THISIS INCORRECT, BEV SE CONTACT CLIENT SERVICES .PHONE NUMBER: [facility] [id number] 00:00:00 Test Item Value Reference Range Interpretation Comments OPIC2 (test code = OPIC2) See Comment [facility][QL] CULTURE, FUNGUS, W/SMEAR HAIR, SKIN, [id number] 00:00:00 Test Item Value Reference Range Interpretation Comments SMEAR (test code See Comment CULTURE,FUN NANCY,SKIN,HAIR, = SMEAR) NAIL W/DIRECT F LUOR/CORRINA Micro Number: [id number] Test Status: Fi nal Specimen Source : NOT GIVEN Specimen Quality: Adequate Smear: No fungal elements seen. Result: No fungal growth a t 4 WeeksSPECIMEN R ECEIVED DATE AND TIME: [facility]
[2022-06-23] MEDS ORDERED: FENTANYL CITR 100 MCG/2 ML ONE (00:15)
[2022-06-23 01:09] LABS: Absolute Lymphocytes (CBC) 2.4 K/uL (0.7-4.9); Hematocrit 37.4 % (39.6-49.0); Lymphocytes % 34.5 % (15.3-44.8); MCV 93.6 fL (80-100)
[2022-06-23 01:25] LABS: C-Reactive Protein 36.1 mg/L (<3.00)
[2022-06-23] MEDS ORDERED: CLINDAMYCIN 900MG/D5W 900 MG/50 ML IVPB IV ONE (01:38)
[2022-06-23] MEDS ORDERED: SMZ./TMP. 800/160 MG TABLET ONE (02:09)
--- NOTE | 2022-06-23 12:03 | RAD REPORT ---
EXAM DESCRIPTION: RAD - Hand Left 3 View - 06/23/2022 12:53 am CLINICAL HISTORY: Pain; Swelling TECHNIQUE: Frontal, lateral and oblique views of the left hand. COMPARISON: No relevant prior studies available. FINDINGS: Bones/joints: Well-corticated deformity of the 3rd proximal phalanx suggestive of remote trauma. No acute fracture. No osseous destruction or erosion. Surgical clips adjacent to the r adius. No dislocation. Soft tissues: Mild generalized soft tissue swelling. No radiopaque foreign body. Vasculature: Severe atherosclerotic disease. IMPRESSION: Mild generalized soft tissue swelling. No osseous destruction or erosion. Electronically signed by: Jennyfer Ferrari MD 06/23/2022 1:19 AM [employer] Due to temporary technical issues with the PACS/Fluency reporting system, reports are being signed by the in house radiologists without review as a courtesy to insure prompt reporting. The interpreting radiologist is fully responsible for the content of the report.
--- NOTE | 2022-07-07 15:26 | ER ---
Nurse's Notes [facility] Name: Blake Kemp Age: 66 yrs Sex: Male : 1955 Arrival Date: 06/22/2022 Time: 23:17 Bed DX3 Private MD: Manuel Bolanos Diagnosis: Cellulitis of left finger-middle Presentation: 06/22 23:24 Chief complaint: Patient states: "I was doing some works with rocks and I guess I vc1 pushed to hard and I don't know if it is infected or not but it is hurting really bad.". Coronavirus screen: Vaccine status: Patient reports receiving the 2nd dose of the covid vaccine. plus 2 boosters; In[place] Client denies travel out of the [place] in the last 14 days. At this time, the client does not indicate any symptoms associated with coronavirus-19. Ebola Screen: Patient negative for fever greater than or equal to 101.5 degrees Fahrenheit, and additional compatible Ebola Virus Disease symptoms Patient denies exposure to infectious person. Patient denies travel to an Ebola-affected area in the 21 days before illness onset. No symptoms or risks identified at this time. Risk Assessment: Do you want to hurt yourself or someone else? Patient reports no desire to harm self or others. Note Hurt around 2 weeks ago. Onset of symptoms is unknown. 23:24 Method Of Arrival: Ambulatory vc1 23:24 Acuity: BEATRIZ 4 vc1 23:32 Initial Sepsis Screen: Does the patient meet any 2 criteria? No. Patient's initial vc1 sepsis screen is negative. Does the patient have a suspected source of infection? Yes: Skin breakdown/wound. Triage Assessment: 23:28 General: Appears in no apparent distress. uncomfortable, Behavior is calm, cooperative, vc1 appropriate for age. Pain: Complains of pain in left middle finger Pain radiates to left hand Pain currently is 8 out of 10 on a pain scale. Quality of pain is described as sharp, throbbing, Pain began 2 weeks ago. EENT: No deficits noted. No signs and/or symptoms were reported regarding the EENT system. 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 Cardiovascular: No deficits noted. Respiratory: Airway is patent Respiratory effort is even, unlabored, Respiratory pattern is regular, symmetrical. GI: No deficits noted. No signs and/or symptoms were reported involving the gastrointestinal system. : No deficits noted. No signs and/or symptoms were reported regarding the genitourinary system. Derm: Wound noted dorsal aspect of middle phalanx of left middle finger and palmar aspect of distal phalanx of left middle finger. Musculoskeletal: No deficits noted. No signs and/or symptoms reported regarding the musculoskeletal system. 06/23 02:15 Injury Description: Puncture sustained to palmar aspect of distal phalanx of left vc1 middle finger and dorsal aspect of middle phalanx of left middle finger. Historical: - Allergies: 06/22 23:27 No Known Allergies; vc1 - PMHx: 23:27 Diabetes - IDDM; diabetes mellitus; Hyperlipidemia; Hypertension; Renal Disease; vc1 - PSHx: 23:27 Kidney transplant; vc1 - Immunization history:: Client reports receiving the 2nd dose of the Covid vaccine. - Social history:: Smoking status: Patient reports use of chewing tobacco. Patient denies any tobacco usage or history of. Screenin:30 Abuse screen: Denies threats or abuse. Nutritional screening: No deficits noted. vc1 Tuberculosis screening: No symptoms or risk factors identified. 06/23 00:00 [facility] ED Fall Risk Assessment (Adult) History of falling in the last 3 months, vc1 including since admission No falls in past 3 months (0 pts) Confusion or Disorientation No (0 pts) Intoxicated or Sedated No (0 pts) Impaired Gait No (0 pts) Mobility Assist Device Used No (0 pt) Altered Elimination No (0 pt) Score/Fall Risk Level 0 - 2 = Low Risk Oriented to surroundings, Maintained a safe environment, Educated pt \\T\\ family on fall prevention, incl call for assistance when getting out of bed. Vital Signs: 06/22 23:24 Weight 63.5 kg; Height 5 ft. 6 in. ; Pain 8/10; vc1 23:31 BP 112 / 54; Pulse 69; Resp 15; Temp 97.2; Pulse Ox 100% ; vc1 23:24 Body Mass Index 22.60 (63.50 kg, 167.64 cm) vc1 23:24 Pain Scale: Adult vc1 ED Course: 23:17 Patient arrived in ED. es 23:17 Vellanki, Vinitha, MD is Private Physician. es 23:26 Triage completed. vc1 23:27 New Suresh PA is PHCP. cp 23:27 New Orellana MD is Attending Physician. cp 23:30 Arm band placed on left wrist. vc1 06/23 00:00 Patient has correct armband on for positive identification. vc1 00:15 Bita Ernst RN is Primary Nurse. vc1 00:15 Inserted saline lock: 20 gauge in right antecubital area, using aseptic technique. vc1 Blood collected. 00:25 CRP Sent. vc1 00:55 XRAY Hand LEFT 3 View In Process Unspecified. EDMS 01:58 Lenin Gray MD is Referral Physician. cp 02:14 No provider procedures requiring assistance completed. IV discontinued, intact, vc1 bleeding controlled, No redness/swelling at site. Pressure dressing applied. Administered Medications: 00:15 Drug: fentaNYL (PF) IVP 25 mcg Route: IVP; Site: right antecubital; vc1 01:37 Drug: Clindamycin IVPB 900 mg Route: IVPB; Infused Over: 30 mins; Site: right vc1 antecubital; 02:05 Drug: Trimethoprim-Sulfamethoxazole PO (160 mg-800 mg (DS) 1 tablet Route: PO; vc1 Medication: 02:15 VIS not applicable for this client. vc1 Outcome: 02:00 Discharge ordered by . cp 02:14 Discharged to home ambulatory. vc1 02:14 Condition: good 02:14 Discharge instructions given to patient, Instructed on discharge instructions, follow up and referral plans. medication usage, Demonstrated understanding of instructions, follow-up care, medications, Prescriptions given X 3. 02:15 Patient left the ED. vc1 Signatures: Dispatcher [employer] EDMS Emmanuelle Worley Corey, PA PA cp Calcote, Vanessa, RN RN vc1
--- NOTE | 2022-07-07 15:26 | EDPHYS ---
Physician Documentation [facility] Name: Blake Kemp Age: 66 yrs Sex: Male : 1955 Arrival Date: 06/22/2022 Time: 23:17 Bed DX3 Private MD: Manuel Bolanos ED Physician New Orellana HPI: 06/22 23:50 This 66 yrs old Male presents to ER via Ambulatory with complaints of Finger cp Injury. 23:50 The patient or guardian reports injury. cp 23:50 The complaints affect the left middle finger. Context: resulted from injury while cp working in yard 2 weeks ago. Associated signs and symptoms: Pertinent negatives: cyanosis distally, fever, numbness distally, vomiting. Historical: - Allergies: 23:27 No Known Allergies; vc1 - PMHx: 23:27 Diabetes - IDDM; diabetes mellitus; Hyperlipidemia; Hypertension; Renal Disease; vc1 - PSHx: 23:27 Kidney transplant; vc1 - Immunization history:: Client reports receiving the 2nd dose of the Covid vaccine. - Social history:: Smoking status: Patient reports use of chewing tobacco. Patient denies any tobacco usage or history of. ROS: 23:55 Constitutional: Negative for body aches, chills, fever, poor PO intake. cp 23:55 Eyes: Negative for injury, pain, redness, and discharge. cp 23:55 Cardiovascular: Negative for chest pain. 23:55 Respiratory: Negative for cough, shortness of breath, wheezing. 23:55 Abdomen/GI: Negative for abdominal pain, nausea, vomiting, and diarrhea. 23:55 MS/extremity: Positive for erythema, pain, swelling, tenderness, of the left middle finger, Negative for paresthesias. 23:55 All other systems are negative. Exam: 23:59 Constitutional: The patient appears in no acute distress, alert, awake, cp non-diaphoretic, non-toxic, well developed, well nourished. 23:59 Head/Face: Normocephalic, atraumatic. cp 23:59 Eyes: Periorbital structures: appear normal, Conjunctiva: normal, no exudate, no cp injection, Lids and lashes: appear normal, bilaterally. 23:59 ENT: External ear(s): are unremarkable, Nose: is normal, Mouth: Lips: moist, Oral cp mucosa: moist, Posterior pharynx: Airway: no evidence of obstruction, patent. 23:59 Chest/axilla: Inspection: normal. 23:59 Cardiovascular: Rate: normal, Rhythm: regular. 23:59 Respiratory: the patient does not display signs of respiratory distress, Respirations: normal, no use of accessory muscles, no retractions, labored breathing, is not present. 23:59 Abdomen/GI: Exam negative for discomfort, distension, guarding, Inspection: abdomen appears normal. 23:59 Musculoskeletal/extremity: Extremities: grossly normal except: noted in the left middle finger: swelling and erythema noted chiang side distal phalanx with mild proximal advancing erythema and swelling, nail deformity noted, mild pain with flexion of digit, Perfusion: the extremity is normally perfused throughout. Vital Signs: 23:24 Weight 63.5 kg; Height 5 ft. 6 in. ; Pain 8/10; vc1 23:31 BP 112 / 54; Pulse 69; Resp 15; Temp 97.2; Pulse Ox 100% ; vc1 23:24 Body Mass Index 22.60 (63.50 kg, 167.64 cm) vc1 23:24 Pain Scale: Adult vc1 MDM: 23:42 Patient medically screened. cp 03 02:00 Data reviewed: vital signs, nurses notes, lab test result(s), radiologic studies, plain cp films. 02:00 Differential diagnosis: closed fracture, cellulitis, osteomyelitis, less likely cp tenosynovitis. Consideration of Admission/Observation Escalation of care including admission/observation considered. Independent interpretation of the following test(s) in the Emergency Department X-Ray: My interpretation is images of left hand negative for acute fracture. Care significantly affected by the following chronic conditions: Diabetes, Hypertension. Counseling: I had a detailed discussion with the patient and/or guardian regarding: the historical points, exam findings, and any diagnostic results supporting the discharge/admit diagnosis, lab results, radiology results, the need for outpatient follow up, a hand specialist. Response to treatment: the patient's symptoms have mildly improved after treatment, and as a result, I will discharge patient. 06/22 23:43 Order name: CBC with Diff; Complete Time: 01:17 cp 06/23 01:17 Interpretation: Normal except: RBC 4.00; HGB 12.3; HCT 37.4. cp 06/22 23:43 Order name: BMP; Complete Time: 01:52 cp 06/23 01:53 Interpretation: Normal except: GLUC 62; BUN 57; CRE 1.63; GFR 46. cp 06/22 23:43 Order name: CRP; Complete Time: 01:52 cp 06/22 23:43 Order name: XRAY Hand LEFT 3 View cp 06/22 23:43 Order name: IV; Complete Time: 00:07 cp Administered Medications: 00:15 Drug: fentaNYL (PF) IVP 25 mcg Route: IVP; Site: right antecubital; vc1 01:37 Drug: Clindamycin IVPB 900 mg Route: IVPB; Infused Over: 30 mins; Site: right vc1 antecubital; 02:05 Drug: Trimethoprim-Sulfamethoxazole PO (160 mg-800 mg (DS) 1 tablet Route: PO; vc1 Disposition Summary: 06/23/22 02:00 Discharge Ordered Location: Home cp Problem: new cp Symptoms: have improved cp Condition: Stable cp Diagnosis - Cellulitis of left finger - middle cp Followup: cp - With: Lenin Gray MD - When: 2 - 3 days - Reason: Recheck today's complaints Discharge Instructions: - Discharge Summary Sheet cp - Cellulitis, Adult cp Forms: - Medication Reconciliation Form cp - Thank You Letter cp - Antibiotic Education cp - Prescription Opioid Use cp Prescriptions: - Clindamycin HCl 300 mg Oral Capsule - take 1 capsule by ORAL route every 6 hours for 10 days; 40 capsule; Refills: 0, cp Product Selection Permitted - Ibuprofen 800 mg Oral Tablet - take 1 tablet by ORAL route every 8 hours As needed take with food; 30 tablet; cp Refills: 0, Product Selection Permitted - Bactrim DS 800-160 mg Oral Tablet - take 1 tablet by ORAL route every 12 hours for 10 days; 20 tablet; Refills: 0, cp Product Selection Permitted Signatures: Dispatcher [employer] EDMS New Suresh PA PA cp Calcote, Vanessa RN RN vc1
== END 2022-06-23 02:15 | disposition home or self-care (01) ==
LOC: ER 23:10
DX: L03.012 Cellulitis of left finger (principal)
CPT/HCPCS: 85025; 80048; 36415; 86140; 73130; 96375; 96374; 99284; J3010

== ENCOUNTER 2024-01-18 09:19 | Emergency (ER) | payer OTHER, BC ==
[2024-01-18] MEDS ORDERED: levoFLOXacin 250 MG TAB ONE (10:12)
[2024-01-18] MEDS ORDERED: CEFAZOLIN SODIUM 1 GM/VIAL ONE (10:12)
[2024-01-18] MEDS ORDERED: ONDANSETRON 4 MG/2 ML VIAL ONE (10:12)
[2024-01-18] MEDS ORDERED: NA CHLORIDE 0.9% 500 ML ONE (10:13)
[2024-01-18] MEDS ORDERED: MORPHINE 2 MG/ML SYR ONE ×2 (10:13→10:50)
[2024-01-18] MEDS ORDERED: TDAP (DIPHTH,PERTUSS(ACELL),TET VAC) 0.5 ML VIAL IMVAC ONE (10:13)
[2024-01-18 10:17] LABS: Absolute Eosinophils 0.1 K/uL (0-0.5); Absolute Lymphocytes (CBC) 2.6 K/uL (0.7-4.9); Absolute Monocytes 0.8 K/uL (0.1-1.3); Absolute Neutrophil 2.4 K/uL (1.8-8.0); Basophils % 0.8 % (0-1.3); Eosinophils % 1.2 % (0-4.4); Hematocrit 37.9 % (39.6-49.0); Hemoglobin 12.6 g/dL (13.6-17.9); Lymphocytes % 44.2 % (15.3-44.8); MCH 31.7 pg (27.0-35.0); MCHC 33.2 g/dL (32.0-36.0); MCV 95.4 fL (80-100); MPV 8.8 fL (7.6-11.3); Monocytes % 13.8 % (3.3-12.3); Nucleated Red Blood Cells % 0.2 % (0-0); Platelets 153 thou/uL (152-406); RBC Red Blood Cell Count 3.97 M/uL (4.33-5.43); Red Cell Distribution Width 14.5 % (12.1-15.2)
[2024-01-18 10:32] LABS: Albumin 3.4 g/dL (3.4-5.0); Anion Gap 9.5 mEq/L (5.0-15.0); Bilirubin Total 0.6 mg/dL (0.2-1.0); Globulin 3.4 g/dL (2.3-3.5); Potassium 3.5 mEq/L (3.5-5.1); Protein, Total 6.8 g/dL (6.4-8.2)
--- NOTE | 2024-01-18 10:37 | RAD REPORT ---
EXAMINATION: Foot Left 3 View CLINICAL INDICATION: Male, 68 years old. [facility] Bed Name: 13 TECHNIQUE: Two view radiographs of the left foot were obtained. COMPARISON: 08/15/2019 FINDINGS: Deformity at the head of the second metatarsal suggesting healed fracture. Mild irregularit y at the head/neck of the third metatarsal with a small linear lucency along the lateral cortex, may relate to an incomplete fracture, or sequelae of fracture malunion. No dislocation. Normal alignm ent. No evidence of arthropathy or other focal bone lesion. Soft tissues show scattered areas of vascular calcification. Mild degenerative changes throughout the midfoot. IMPRESSION: Questionable linear lucency along the lateral second metatarsal head/neck cortex, may represent an in complete small fracture or sequelae of fracture malunion. No other acute findings.
[2024-01-18] MEDS ORDERED: LIDOCAINE 2% W/EPI 1:200,000 MPF 20 ML VIAL IM ONE (10:49)
[2024-01-18] MEDS ORDERED: HYDRALAZINE HCL 20 MG/ML VIAL ONE (10:49)
--- NOTE | 2024-01-18 11:49 | ER ---
Nurse's Notes [facility] Name: Blake Kemp Age: 68 yrs Sex: Male : 1955 Arrival Date: 01/18/2024 Time: 09:19 Bed 13 Private MD: Diagnosis: Unspecified physeal fracture of left metatarsal, initial encounter for open fracture;Laceration without foreign body, left foot-toes 2 and 4 Presentation: 01/17 09:34 Chief complaint: Patient states: he was working outside cutting on a tree, when the ap3 stump fell on his left foot. patient has been trying to tend to the wound at home, but family states he needed to come get the wound tended to. Coronavirus screen: At this time, the client does not indicate any symptoms associated with coronavirus-19. Ebola Screen: No symptoms or risks identified at this time. Initial Sepsis Screen: Does the patient meet any 2 criteria? No. Patient's initial sepsis screen is negative. Does the patient have a suspected source of infection? No. Patient's initial sepsis screen is negative. Risk Assessment: Do you want to hurt yourself or someone else? Patient reports no desire to harm self or others. Onset of symptoms was January 16, 2024. 09:34 Method Of Arrival: Ambulatory ap3 09:34 Acuity: BEATRIZ 3 ap3 Triage Assessment: 09:40 General: Appears in no apparent distress. Behavior is calm, cooperative, appropriate ap3 for age. Pain: Complains of pain in left foot Pain currently is 7 out of 10 on a pain scale. Neuro: Level of Consciousness is awake, alert, obeys commands, Oriented to person, place, time, situation. Cardiovascular: Patient's skin is warm and dry. Respiratory: Airway is patent Respiratory effort is even, unlabored, Respiratory pattern is regular, symmetrical. Derm: Wound noted left foot. 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 - Infectious Disease History:: Denies. - Social history:: Smoking status: Patient reports use of chewing tobacco. - Family history:: not pertinent. Screenin:40 Abuse screen: Denies threats or abuse. Nutritional screening: No deficits noted. ap3 Tuberculosis screening: No symptoms or risk factors identified. 10:00 [facility] ED Fall Risk Assessment (Adult) History of falling in the last 3 months, aa5 including since admission No falls in past 3 months (0 pts) Confusion or Disorientation No (0 pts) Intoxicated or Sedated No (0 pts) Impaired Gait No (0 pts) Mobility Assist Device Used No (0 pt) Altered Elimination No (0 pt) Score/Fall Risk Level 0 - 2 = Low Risk Oriented to surroundings, Maintained a safe environment, Educated pt \T\ family on fall prevention, incl call for assistance when getting out of bed. Assessment: 10:00 General: Appears comfortable, Behavior is calm, cooperative. Pain: Complains of pain in aa5 left foot Pain currently is 7 out of 10 on a pain scale. Quality of pain is described as aching, tender, Pain began 2-3 days ago. Is continuous. Neuro: Level of Consciousness is awake, alert, obeys commands, Oriented to person, place, time, situation. Cardiovascular: Heart tones S1 S2 present Patient's skin is warm and dry. Rhythm is irregular Dialysis shunt: in the left arm, with palpable thrill, with auscultated bruit, with no erythema, no bleeding noted. Respiratory: Airway is patent Respiratory effort is even, unlabored, Respiratory pattern is regular, symmetrical. GI: No signs and/or symptoms were reported involving the gastrointestinal system. : No signs and/or symptoms were reported regarding the genitourinary system. EENT: No signs and/or symptoms were reported regarding the EENT system. Derm: Skin is pink, warm \T\ dry. Musculoskeletal: 2nd, 3rd, 4th right toes amputation noted. Swelling and bruising noted to left foot. 10:28 Reassessment: Patient is alert, oriented x 3, equal unlabored respirations, skin aa5 warm/dry/pink. 11:40 Reassessment: Patient is alert, oriented x 3, equal unlabored respirations, skin aa5 warm/dry/pink. 12:00 Reassessment: Lacerations noted to left 2nd toe and 3rd toe, approximately 1 cm long, aa5 no active bleding noted, cleaned lacerations with saline and Hibiclens, dressed with Silvadene cream, gauze, and Kerlix. . 12:00 Reassessment: Patient is alert, oriented x 3, equal unlabored respirations, skin aa5 warm/dry/pink. Patient states feeling better. Pain has decreased . Vital Signs: 09:34 BP 211 / 75; Pulse 47; Resp 17; Temp 97.7; Pulse Ox 100% on R/A; Weight 63.5 kg; Height ap3 5 ft. 6 in. ; Pain 7/10; 10:28 BP 224 / 84; Pulse 45; Resp 16 S; Pulse Ox 100% on R/A; aa5 11:40 BP 211 / 71; Pulse 48; Resp 19 S; Temp 97.5(TE); Pulse Ox 100% on R/A; aa5 09:34 Body Mass Index 22.60 (63.50 kg, 167.64 cm) ap3 09:34 Pain Scale: Adult ap3 ED Course: 09:22 Patient arrived in ED. im 09:22 New Orellana MD is Attending Physician. jane 09:25 Xenia Barba, MICA is Primary Nurse. aa5 09:39 Triage completed. ap3 09:40 Arm band placed on right wrist. ap3 10:00 Patient has correct armband on for positive identification. Placed in gown. Bed in low aa5 position. Call light in reach. Side rails up X2. Adult w/ patient. Pulse ox on. NIBP on. 10:10 Initial lab(s) drawn, by wa, sent to lab. Inserted saline lock: 20 gauge in right hand, aa5 using aseptic technique. Blood collected. Flushed with 10 mL NS. 10:22 Foot Left 3 View XRAY In Process Unspecified. EDMS 11:01 EKG done, by ED staff, reviewed by New Orellana MD. aa5 11:46 Manuel Bolanos MD is Referral Physician. jane 12:00 No provider procedures requiring assistance completed. IV discontinued, intact, aa5 bleeding controlled, No redness/swelling at site. Pressure dressing applied. 12:05 Walking boot applied to left foot. aa5 Administered Medications: 10:24 Drug: Ondansetron IVP 4 mg IVP once; over 2 minutes Route: IVP; Site: right hand; aa5 10:35 Follow up: Response: No adverse reaction aa5 10:26 Drug: morphine IVP or IV 2 mg IVP once over 4 mins Route: IVP; Infused Over: 4 mins; aa5 Site: right hand; 10:35 Follow up: Response: No adverse reaction aa5 10:28 Drug: NS 0.9% IV 500 ml IV at bolus once Route: IV; Rate: bolus; Site: right hand; aa5 11:30 Follow up: IV Status: Completed infusion; IV Intake: 500ml aa5 10:28 Drug: Boostrix Tdap IM 0.5 ml IM once; as a single dose Route: IM; Site: right deltoid; aa5 10:45 Follow up: Response: No adverse reaction aa5 10:28 Drug: ceFAZolin IVPB 1 grams IVPB once Route: IVPB; Site: right hand; aa5 11:30 Follow up: IV Status: Completed infusion aa5 10:29 Drug: LevOfloxacin PO 500 mg PO once Route: PO; aa5 11:30 Follow up: Response: No adverse reaction aa5 11:05 Drug: hydrALAZINE IVP 5 mg IVP once Route: IVP; Site: right hand; aa5 11:40 Follow up: Response: No adverse reaction; Blood pressure is lowered aa5 11:06 Drug: morphine IVP or IV 2 mg IVP once over 4 mins Route: IVP; Infused Over: 4 mins; aa5 Site: right hand; 11:30 Follow up: Response: No adverse reaction; Pain is decreased aa5 11:11 CANCELLED (Physician Discretion): [id number]%: (1:100,000) 3 ml 20 ml aa5 Infiltration once; to bedside 12:00 Drug: Cephalexin PO 500 mg PO once Route: PO; aa5 12:20 Follow up: Response: No adverse reaction aa5 12:00 Drug: Silver SulfADIAZINE Topical Cream 1 % 1 application Topical once {Note: to left aa5 toes.} Route: Topical; Site: affected area; 12:20 Follow up: Response: No adverse reaction aa5 Medication: 10:28 Vaccine Information Statement (VIS) provided today. Questions and/or concerns aa5 addressed. VIS edition date: November 19, 2020. Intake: 11:30 IV: 500ml; Total: 500ml. aa5 Outcome: 11:48 Discharge ordered by . jane 12:20 Discharged to home ambulatory, with significant other, aa5 12:20 Condition: stable 12:20 Discharge instructions given to patient, Instructed on discharge instructions, follow up and referral plans. medication usage, Demonstrated understanding of instructions, follow-up care, medications, Prescriptions given X 3, 12:26 Patient left the ED. aa5 Signatures: Dispatcher [employer] EDOK New Orellana MD MD cha Calderon, Audri, RN RN aa5 Marija Trevino RN RN ap3 Moraima Dai Corrections: (The following items were deleted from the chart) 12:48 11:40 BP 211 / 71; ap3 aa5
--- NOTE | 2024-01-18 11:49 | EDPHYS ---
Physician Documentation [facility] Name: Blake Kemp Age: 68 yrs Sex: Male : 1955 Arrival Date: 01/18/2024 Time: 09:19 Bed 13 Private MD: ED Physician New Orellana HPI: 01/17 11:41 This 68 yrs old Male presents to ER via Ambulatory with complaints of Crush jane Injury To Foot. 11:41 The patient presents with an injury, pain, that is acute. The complaints affect the jane left foot. Context: The problem was sustained at home, resulted from a heavy object falling, tree. Modifying factors: The symptoms are alleviated by elevation of extremity, the symptoms are aggravated by weight bearing, movement. Associated signs and symptoms: Pertinent positives: swelling. Severity of symptoms: At their worst the symptoms were moderate, in the emergency department the symptoms are unchanged. The patient has not experienced similar symptoms in the past. 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 - Infectious Disease History:: Denies. - Social history:: Smoking status: Patient reports use of chewing tobacco. - Family history:: not pertinent. ROS: 11:41 Constitutional: Negative for fever, chills, and weight loss, Eyes: Negative for injury, jane pain, redness, and discharge, ENT: Negative for injury, pain, and discharge, Neck: Negative for injury, pain, and swelling, Cardiovascular: Negative for chest pain, palpitations, and edema, Respiratory: Negative for shortness of breath, cough, wheezing, and pleuritic chest pain, Abdomen/GI: Negative for abdominal pain, nausea, vomiting, diarrhea, and constipation, Back: Negative for injury and pain, : Negative for injury, bleeding, discharge, and swelling, Neuro: Negative for headache, weakness, numbness, tingling, and seizure, Psych: Negative for depression, anxiety, suicide ideation, homicidal ideation, and hallucinations, Allergy/Immunology: Negative for hives, rash, and allergies, Endocrine: Negative for neck swelling, polydipsia, polyuria, polyphagia, and marked weight changes, Hematologic/Lymphatic: Negative for swollen nodes, abnormal bleeding, and unusual bruising, 11:41 MS/extremity: Positive for injury or acute deformity, abrasion, contusion, decreased range of motion, laceration, pain, swelling, tenderness, of the left foot, Exam: 11:41 Constitutional: This is a well developed, well nourished patient who is awake, alert, jane and in no acute distress. Head/Face: Normocephalic, atraumatic. Eyes: Pupils equal round and reactive to light, extra-ocular motions intact. Lids and lashes normal. Conjunctiva and sclera are non-icteric and not injected. Cornea within normal limits. Periorbital areas with no swelling, redness, or edema. ENT: Nares patent. No nasal discharge, no septal abnormalities noted. Tympanic membranes are normal and external auditory canals are clear. Oropharynx with no redness, swelling, or masses, exudates, or evidence of obstruction, uvula midline. Mucous membranes moist. Neck: Trachea midline, no thyromegaly or masses palpated, and no cervical lymphadenopathy. Supple, full range of motion without nuchal rigidity, or vertebral point tenderness. No Meningismus. Chest/axilla: Normal chest wall appearance and motion. Nontender with no deformity. No lesions are appreciated. Cardiovascular: Regular rate and rhythm with a normal S1 and S2. No gallops, murmurs, or rubs. Normal PMI, no JVD. No pulse deficits. Respiratory: Lungs have equal breath sounds bilaterally, clear to auscultation and percussion. No rales, rhonchi or wheezes noted. No increased work of breathing, no retractions or nasal flaring. Abdomen/GI: Soft, non-tender, with normal bowel sounds. No distension or tympany. No guarding or rebound. No evidence of tenderness throughout. Back: No spinal tenderness. No costovertebral tenderness. Full range of motion. Male : Normal genitalia with no discharge or lesions. Skin: Warm, dry with normal turgor. Normal color with no rashes, no lesions, and no evidence of cellulitis. Neuro: Awake and alert, GCS 15, oriented to person, place, time, and situation. Cranial nerves II-XII grossly intact. Motor strength 5/5 in all extremities. Sensory grossly intact. Cerebellar exam normal. Normal gait. Psych: Awake, alert, with orientation to person, place and time. Behavior, mood, and affect are within normal limits. 11:41 Musculoskeletal/extremity: Extremities: grossly normal except: noted in the left foot: ecchymosis, laceration, pain, DVT Exam: negative Homans' sign noted on exam, no appreciated bluish discoloration, no increased warmth, pain, swelling, tenderness, erythema, 11:55 ECG was reviewed by the Attending Physician. [facility] Vital Signs: 09:34 BP 211 / 75; Pulse 47; Resp 17; Temp 97.7; Pulse Ox 100% on R/A; Weight 63.5 kg; Height ap3 5 ft. 6 in. ; Pain 7/10; 10:28 BP 224 / 84; Pulse 45; Resp 16 S; Pulse Ox 100% on R/A; aa5 11:40 BP 211 / 71; Pulse 48; Resp 19 S; Temp 97.5(TE); Pulse Ox 100% on R/A; aa5 09:34 Body Mass Index 22.60 (63.50 kg, 167.64 cm) ap3 09:34 Pain Scale: Adult ap3 MDM: 09:23 Patient medically screened. [facility] 11:51 Differential diagnosis: fracture, sprain, foreign body, penetrating trauma, cellulitis. [facility] Data reviewed: vital signs, nurses notes, lab test result(s), EKG, radiologic studies, plain films. Consideration of Admission/Observation Escalation of care including admission/observation considered. Care significantly affected by the following chronic conditions: Diabetes, Hypertension, Chronic Kidney Disease. 11:51 ED course: dr ortiz aware and approve treatment plan. [facility] 01/17 09:44 Order name: CBC with Diff; Complete Time: 11:33 [facility] 01/17 09:44 Order name: Comprehensive Metabolic Panel; Complete Time: 11:33 [facility] 01/17 09:44 Order name: Foot Left 3 View XRAY; Complete Time: 11:33 [facility] 01/17 10:46 Order name: EKG; Complete Time: 10:47 [facility] 01/17 09:45 Order name: Dressing - Wound; Complete Time: 12:25 [facility] 01/17 10:46 Order name: EKG - Nurse/Tech; Complete Time: 11:10 [facility] 01/17 11:41 Order name: Walking boot; Complete Time: 12:23 [facility] EC:55 Rate is 47 beats/min. Rhythm is regular. QRS [place] is Normal. HI interval is normal. QRS jane interval is normal. QT interval is normal. No Q waves. T waves are Normal. No ST changes noted. Clinical impression: Sinus bradycardia. Interpreted by me. Reviewed by me. Administered Medications: 10:24 Drug: Ondansetron IVP 4 mg IVP once; over 2 minutes Route: IVP; Site: right hand; aa5 10:35 Follow up: Response: No adverse reaction aa5 10:26 Drug: morphine IVP or IV 2 mg IVP once over 4 mins Route: IVP; Infused Over: 4 mins; aa5 Site: right hand; 10:35 Follow up: Response: No adverse reaction aa5 10:28 Drug: NS 0.9% IV 500 ml IV at bolus once Route: IV; Rate: bolus; Site: right hand; aa5 11:30 Follow up: IV Status: Completed infusion; IV Intake: 500ml aa5 10:28 Drug: Boostrix Tdap IM 0.5 ml IM once; as a single dose Route: IM; Site: right deltoid; aa5 10:45 Follow up: Response: No adverse reaction aa5 10:28 Drug: ceFAZolin IVPB 1 grams IVPB once Route: IVPB; Site: right hand; aa5 11:30 Follow up: IV Status: Completed infusion aa5 10:29 Drug: LevOfloxacin PO 500 mg PO once Route: PO; aa5 11:30 Follow up: Response: No adverse reaction aa5 11:05 Drug: hydrALAZINE IVP 5 mg IVP once Route: IVP; Site: right hand; aa5 11:40 Follow up: Response: No adverse reaction; Blood pressure is lowered aa5 11:06 Drug: morphine IVP or IV 2 mg IVP once over 4 mins Route: IVP; Infused Over: 4 mins; aa5 Site: right hand; 11:30 Follow up: Response: No adverse reaction; Pain is decreased aa5 11:11 CANCELLED (Physician Discretion): xufbwjyqh-lhoamrxlknr-5%: (1:100,000) 3 ml 20 ml aa5 Infiltration once; to bedside 12:00 Drug: Cephalexin PO 500 mg PO once Route: PO; aa5 12:20 Follow up: Response: No adverse reaction aa5 12:00 Drug: Silver SulfADIAZINE Topical Cream 1 % 1 application Topical once {Note: to left aa5 toes.} Route: Topical; Site: affected area; 12:20 Follow up: Response: No adverse reaction aa5 Disposition Summary: 01/18/24 11:48 Discharge Ordered Notes: Location: Home jane Problem: new jane Symptoms: have improved jane Condition: Stable jane Diagnosis - Unspecified physeal fracture of left metatarsal, initial encounter for open fracturecha - Laceration without foreign body, left foot - toes 2 and 4 jane Followup: jane - With: Private Physician - When: 2 - 3 days - Reason: Recheck today's complaints, Continuance of care, Re-evaluation by your physician Followup: jane - With: Manuel Ortiz MD - When: 1 - 2 days - Reason: Recheck today's complaints, Continuance of care, Re-evaluation by your physician Discharge Instructions: - Discharge Summary Sheet jane - Laceration Care, Adult jane - Nonsutured Laceration Care jane - Metatarsal Fracture jane - Hypertension, Adult, [id number] jane - Laceration Care, Adult, Lnve-be-Rqrg jane - Chronic Kidney Disease, Adult, Xbkc-hl-[id number] jane - Chronic Kidney Disease, Adult jane Forms: - Medication Reconciliation Form jane - Antibiotic Education jane - Prescription Opioid Use jane - Patient Portal Instructions [facility] - Leadership Thank You Letter [facility] Prescriptions: - Cephalexin 500 mg Oral Capsule - take 1 capsule ORAL route every 12 hours for 10 days; 20 capsule; Refills: 0, [facility] Product Selection Permitted - Silvadene 1 % Topical Cream - Apply to affected area 1 application TOPICAL route every 12 hours; 20 gram; [facility] Refills: 0, Product Selection Permitted - levofloxacin 250 mg Oral tablet - take 1 tablet ORAL route once daily; 9 tablet; Refills: 0, Product Selection jane Permitted Signatures: Dispatcher [employer] [place] Hale MD MD cha Calderon, Audri RN RN aa5 Marija Trevino RN RN ap3 Corrections: (The following items were deleted from the chart) 09:45 09:45 CBC+H.LAB.BRZ ordered. EDOR EDMS 09:45 09:45 COMPREHENSIVE METABOLIC PANEL+C.LAB.BRZ ordered. EDMS EDMS 09:45 Foot Left 3 View+RAD.RAD.BRZ ordered. EDOR EDMS 09:45 Lidocaine-Epinephrine Infiltration -1%: (1:100,000) 3 ml 20 ml Infiltration once; aa5 to bedside ordered. [facility] 09:45 Sterile Gloves ordered. [place] [id number] 09:45 Sutures, Prolene ordered. [place] [id number] 09:45 Setup Suture Tray ordered. [place] [id number] 11:11 Lidocaine-Epinephrine Infiltration -1%: (1:100,000) 3 ml 20 ml Infiltration once; aa5 to bedside ordered. aa5
[2024-01-18] MEDS ORDERED: CEPHALEXIN 250 MG CAP ONE (11:52)
[2024-01-18] MEDS ORDERED: SILVER SULFADIAZINE 1% 25 GM TOP ONE (11:53)
[2024-01-18 15:09] VITALS: TEMP 97.7; O2SAT 100
[2024-01-18 15:12] VITALS: BP 211/71
--- NOTE | 2024-01-21 12:02 | EKG ---
Test Date: 2024-01-18 Test Time: 11:01:07 Blocker Hand: MARTA MEASUREMENT RESULTS: Intervals: Rate: 47 TX: 222 QRSD: 80 QT: 480 QTc: 424 [place]: P: 95 TX: 222 QRS: 44 T: 21 INTERPRETIVE STATEMENTS: Sinus bradycardia with marked sinus arrhythmia with 1st degree AV block Otherwise normal ECG Compared to ECG 07/10/2022 21:52:17 First degree AV block now present Sinus rhythm no longer present Electronically Signed On 01-21-24 11:56:33 CDT by Rudy Wolf
== END 2024-01-18 12:26 | disposition home or self-care (01) ==
LOC: ER 09:19
DX: S92.322B Displaced fracture of second metatarsal bone, left foot, initial encounter for open fracture (principal); E11.22 Type 2 diabetes mellitus with diabetic chronic kidney disease; N18.9 Chronic kidney disease, unspecified; Z94.0 Kidney transplant status; F17.220 Nicotine dependence, chewing tobacco, uncomplicated
CPT/HCPCS: 96365; 93005; 85025; 36415; 80053; 73630; 96375; 96372; 99285; J0360; J2270 ×2; J2405; J7040; J0690

== ENCOUNTER 2024-02-12 20:38 | Emergency (ER) | payer OTHER, BC ==
--- NOTE | 2024-02-12 21:49 | RAD REPORT ---
EXAMINATION: XR Elbow Right 3 View CLINICAL INDICATION: Male, 68 years old. injury RIGHT TECHNIQUE: 3 view radiographs of the right elbow were obtained. COMPARISON: No prior exam. FINDINGS: Elevation of the anterior fat pad suggesting an effusion. Small osseous density at the leve l of the lateral epicondyle, may represent heterotopic ossification or a small avulsion fracture. Normal alignment. No evidence of arthropathy. No suspicious focal bone lesion. Soft tissues are unre markable. IMPRESSION: Elevation of the anterior fat pad suggesting an effusion, which may indicate an occult fracture. Small osseous density at the level of the lateral condyle, may represent heterotopic ossification corbin donna a small avulsion fracture.
[2024-02-12] MEDS ORDERED: KETOROLAC 30 MG/ML INJ ONE (21:55)
--- NOTE | 2024-02-12 22:05 | EDPHYS ---
Physician Documentation [facility] Name: Blake Kemp Age: 68 yrs Sex: Male : 1955 Arrival Date: 02/12/2024 Time: 20:38 Bed DX3 Private MD: ED Physician Nate Asencio HPI: 02/11 20:58 This 68 yrs old Male presents to ER via Ambulatory with complaints of Elbow ec2 Injury. 20:58 Patient arrives today for evaluation of right elbow injury. Reports that he injured his ec2 right elbow with a marcellus knife. States that it struck his right elbow. No other injuries, no falls, no other traumas. Denies any head or neck pain. Reports he is taken some Tylenol with some improvement in pain. Good range of motion otherwise. Historical: - Allergies: 20:54 No Known Allergies; bm8 - PMHx: 20:54 Diabetes - IDDM; Dialysis; diabetes mellitus; Hyperlipidemia; Hypertension; kidney bm8 transplant; low heart rate; Renal Disease; - PSHx: 20:54 2nd; kidney transplant; Left arm dialysis fistula; 2nd; bm8 - Immunization history:: Adult Immunizations up to date. - Infectious Disease History:: Denies. - Social history:: Smoking status: Patient denies any tobacco usage or history of. ROS: 20:58 Constitutional: as per hpi ec2 Exam: 20:58 Constitutional: GEN: NAD Head: atraumatic Eyes: EOMI Ears: External ears are ec2 normal. CV: regular rate LUNGS: no respiratory distress ABD: non-distended SKIN: no evidence of rashes MSK: no evidence of trauma right elbow with tenderness to the lateral malleolus, does have good range of motion, intact distal neurovascular status, no significant swelling, no displacement Vital Signs: 20:53 BP 150 / 65; Pulse 51; Resp 17; Temp 98.2; Pulse Ox 100% ; Weight 61.23 kg; Height 5 bm8 ft. 6 in. ; Pain 8/10; 20:53 Body Mass Index 21.79 (61.23 kg, 167.64 cm) bm8 20:53 Pain Scale: Adult bm8 Buddy Coma Score: 21:09 Eye Response: spontaneous(4). Motor Response: obeys commands(6). Verbal Response: bm8 oriented(5). Total: 15. MDM: 20:55 Medical Screening Exam initiated ec2 20:58 Data reviewed: vital signs. ED course: Today for evaluation of right elbow pain. ec2 Examination remarkable for elbow findings as above. Will obtain radiograph of the right elbow. Differential includes elbow contusion, doubt fracture, doubt dislocation.. 21:54 ED course: Elbow x-ray shows anterior fat pad concern for possible fracture, will place ec2 patient in posterior elbow splint and have the patient follow-up with orthopedic surgery. 02/11 20:55 Order name: Elbow Right 3 View XRAY; Complete Time: 21:50 ec2 02/11 21:51 Order name: Sling; Complete Time: 22:10 ec2 02/11 21:51 Order name: Splint - Elbow; Complete Time: 22:10 ec2 Administered Medications: 22:10 Drug: Ketorolac IM 30 mg IM once Route: IM; Site: right deltoid; vc1 22:10 Follow up: Response: Medication administered at discharge. vc1 Disposition Summary: 02/12/24 22:04 Discharge Ordered Notes: Location: Home ec2 Condition: Stable ec2 Diagnosis - Contusion of right elbow ec2 Followup: ec2 - With: Private Physician - When: - Reason: Re-evaluation by your physician Followup: ec2 - With: Mina Cole MD - When: - Reason: Recheck today's complaints Discharge Instructions: - Discharge Summary Sheet ec2 - Elbow Sprain ec2 Forms: - Medication Reconciliation Form ec2 - Antibiotic Education ec2 - Prescription Opioid Use ec2 - Patient Portal Instructions ec2 - Leadership Thank You Letter ec2 Prescriptions: - acetaminophen-codeine 300-30 mg Oral tablet - take 1 tablet ORAL route every 6 hours; 10 tablet; Refills: 0, Product ec2 Selection Permitted Signatures: Dispatcher [employer] Bita Garza RN RN vc1 Nate Asencio MD MD ec2 Cheo Castle RN RN bm8
--- NOTE | 2024-02-12 22:05 | ER ---
Nurse's Notes [facility] Name: Blake Kemp Age: 68 yrs Sex: Male : 1955 Arrival Date: 02/12/2024 Time: 20:38 Bed DX3 Private MD: Diagnosis: Contusion of right elbow Presentation: 02/11 20:53 Chief complaint: Patient states: a marcellus fell on my right elbow yesterday and my is bm8 making me come in to get it checked. Coronavirus screen: Vaccine status: Patient reports receiving the 2nd dose of the covid vaccine. Ebola Screen: Patient negative for fever greater than or equal to 101.5 degrees Fahrenheit, and additional compatible Ebola Virus Disease symptoms Patient denies exposure to infectious person. Patient denies travel to an Ebola-affected area in the 21 days before illness onset. No symptoms or risks identified at this time. Initial Sepsis Screen: Does the patient meet any 2 criteria? No. Patient's initial sepsis screen is negative. Does the patient have a suspected source of infection? No. Patient's initial sepsis screen is negative. Risk Assessment: Do you want to hurt yourself or someone else? Patient reports no desire to harm self or others. Onset of symptoms was February 11, 2024. 20:53 Method Of Arrival: Ambulatory 8 20:53 Acuity: BEATRIZ 4 bm8 Triage Assessment: 20:54 General: Appears in no apparent distress. comfortable, Behavior is calm, cooperative, bm8 appropriate for age. Pain: Complains of pain in right arm Pain currently is 8 out of 10 on a pain scale. EENT: No deficits noted. No signs and/or symptoms were reported regarding the EENT system. Neuro: No deficits noted. Cardiovascular: No deficits noted. Respiratory: No deficits noted. GI: No deficits noted. : No deficits noted. Derm: No deficits noted. Musculoskeletal: Range of motion: intact in all extremities, Reports pain in right antecubital area since yesterday. Pain is 8 out of 10 on a pain scale. Musculoskeletal: Tenderness present in right arm. Injury Description: Crush injury sustained to right arm was sustained 12-24 hours ago. Historical: - Allergies: 20:54 No Known Allergies; bm8 - PMHx: 20:54 Diabetes - IDDM; Dialysis; diabetes mellitus; Hyperlipidemia; Hypertension; kidney bm8 transplant; low heart rate; Renal Disease; - PSHx: 20:54 2nd; kidney transplant; Left arm dialysis fistula; 2nd; bm8 - Immunization history:: Adult Immunizations up to date. - Infectious Disease History:: Denies. - Social history:: Smoking status: Patient denies any tobacco usage or history of. Screenin:09 [facility] ED Fall Risk Assessment (Adult) History of falling in the last 3 months, bm8 including since admission No falls in past 3 months (0 pts) Confusion or Disorientation No (0 pts) Intoxicated or Sedated No (0 pts) Impaired Gait No (0 pts) Mobility Assist Device Used No (0 pt) Altered Elimination No (0 pt) Score/Fall Risk Level 0 - 2 = Low Risk Oriented to surroundings, Maintained a safe environment, Educated pt \T\ family on fall prevention, incl call for assistance when getting out of bed, Assessed \T\ reinforced patient's understanding of fall precautions, Hourly rounding (assess needs \T\ fall precautionary measures) done, Used ambulatory aids as needed (educated on \T\ assisted with), Used gait belt as appropriate. Abuse screen: Denies threats or abuse. Nutritional screening: No deficits noted. Tuberculosis screening: No symptoms or risk factors identified. Assessment: 20:56 Reassessment: see triage note. bm8 Vital Signs: 20:53 BP 150 / 65; Pulse 51; Resp 17; Temp 98.2; Pulse Ox 100% ; Weight 61.23 kg; Height 5 bm8 ft. 6 in. ; Pain 8/10; 20:53 Body Mass Index 21.79 (61.23 kg, 167.64 cm) bm8 20:53 Pain Scale: Adult bm8 Buddy Coma Score: 21:09 Eye Response: spontaneous(4). Motor Response: obeys commands(6). Verbal Response: bm8 oriented(5). Total: 15. ED Course: 20:41 Patient arrived in ED. mr 20:44 Nate Asencio MD is Attending Physician. ec2 20:53 Cheo Castle, RN is Primary Nurse. bm8 20:54 Triage completed. bm8 20:54 Arm band placed on left wrist. bm8 21:07 Elbow Right 3 View XRAY In Process Unspecified. EDMS 21:09 Patient has correct armband on for positive identification. bm8 21:09 No provider procedures requiring assistance completed. Patient did not have IV access bm8 during this emergency room visit. Patient maintains SpO2 saturation greater than 95% on room air. 22:04 Mina Cole MD is Referral Physician. ec2 22:11 Provided Education on: f/u with Ortho. vc1 22:11 Orthoglass splint: post elbow. vk Administered Medications: 22:10 Drug: Ketorolac IM 30 mg IM once Route: IM; Site: right deltoid; vc1 22:10 Follow up: Response: Medication administered at discharge. vc1 Medication: 21:09 VIS not applicable for this client. bm8 Outcome: 22:04 Discharge ordered by . ec2 22:10 Discharged to home ambulatory, with family, vc1 22:10 Condition: good 22:10 Discharge instructions given to patient, Instructed on discharge instructions, follow up and referral plans. medication usage, Demonstrated understanding of instructions, follow-up care, medications, Prescriptions given X 1, 22:21 Patient left the ED. vc1 Signatures: Dispatcher [employer] EDFlores Null, Osvaldo Reg mr Bita Ernst, RN RN vc1 Nate Asencio MD MD ec2 Lesli Yancey Brad, RN RN bm8
[2024-02-12 22:46] VITALS: BP 150/65; TEMP 98.2; O2SAT 100
== END 2024-02-12 22:21 | disposition home or self-care (01) ==
LOC: ER 20:38
DX: S50.01XA Contusion of right elbow, initial encounter (principal)
CPT/HCPCS: 96372; 99284